=== PATIENT | male | born 1935 | race Caucasian/White ===

== ENCOUNTER 2017-01-17 12:13 | Day surgery (SDC) | payer MEDICARE, OTHER ==
[2017-01-13 09:05] VITALS: BMI 30.4
[~2017-01-17 12:13] MED LIST: LACTATED RINGERS 1,000 ML IV SCH
[2017-01-17 12:36] VITALS: RESP 16; TEMP 97.7
[2017-01-17] MEDS ORDERED: LIDOCAINE 1% 20 ML VIAL (10MG/ML) FOR IV START SQ ONE (12:41)
[2017-01-17] MEDS ORDERED: LIDOCAINE 1% INJ 10MG/ML (20 ML MDV) ONE (13:23)
[2017-01-17] MEDS ORDERED: PROPOFOL 10 MG/ML 20 ML VIAL IV ONE (13:23)
--- NOTE | 2017-01-17 13:54 | P.PCN ---
Date of Procedure: 01/17/17 Preoperative Diagnosis: Postoperative Diagnosis: Procedure(s) Performed: Procedures: 1. Esophagogastroduodenoscopy and biopsy. 2. Colonoscopy and polypectomy. Preoperative diagnosis: Abdominal pain and change in bowel habits. Postoperative diagnosis: 1. Moderately sized hiatal hernia with no obvious esophagitis or complicated reflux disease. 2. Mild antral gastritis and minimal duodenitis. 3. Left sided diverticulosis with no evidence of acute diverticulitis or strictures. 4. Small splenic flexure polyp, snared, but no large polyps or cancer. Preparation: HalfLytely prep. Sedation: Was provided by anesthesia. Brief clinical history: The patient is a 81-year-old male who is referred for this evaluation for the above reasons. This evaluation is to assess for peptic ulcer disease, conjugated reflux disease or colon neoplasia. Procedure: With the patient on his left lateral decubitus position and after informed consent and adequate sedation, I passed the Olympus-GIF 160 video upper endoscope through the cricopharyngeus down the esophagus. The esophagus appeared healthy with no erosions, ulcers, strictures or Fontanez's esophagus. There was a moderately sized hiatal hernia then the endoscope was passed to the stomach which was insufflated with air and inspected in detail including the retroflex view in the cardia. Finally the endoscope was passed through the pylorus into the duodenum. There were no pyloric channel ulcers. The antrum and duodenum showed mottling and erythema more obvious in the stomach than in the small intestine. I obtained biopsies from the duodenum, antrum and esophagus then the endoscope was withdrawn and I proceeded with the colonoscopy. Perianal area did not show any fissures or fistulas. There were no masses felt on digital rectal examination. The Olympus CFQ 160L video colonoscope was then inserted in the rectum in the usual fashion and advanced to the cecum. There were multiple diverticular orifices scattered on the left side with no evidence of acute diverticulitis or strictures. There was a small polyp around the splenic flexure which was snared and retrieved by suction but there were no large polyps or cancer. I retroflexed the endoscope in the rectum before the endoscope was withdrawn. The patient tolerated the procedure well. Plan: The patient was reassured. Will await biopsy results. Further plans based on his course and biopsy results. I keep you updated on his progress. Implants: Indications for Procedure: Operative Findings: Description of Procedure:
[2017-01-17 14:12] VITALS: BP 140/78; PULSE 65
== END 2017-01-17 14:30 | disposition home or self-care (01) ==
LOC: ORWHC2ENDO 12:13
DX: D12.3 Benign neoplasm of transverse colon (principal); K57.30 Diverticulosis of large intestine without perforation or abscess without bleeding; K29.70 Gastritis, unspecified, without bleeding; K29.80 Duodenitis without bleeding; K21.0 Gastro-esophageal reflux disease with esophagitis; K44.9 Diaphragmatic hernia without obstruction or gangrene; M19.90 Unspecified osteoarthritis, unspecified site; C61 Malignant neoplasm of prostate; I10 Essential (primary) hypertension; Z91.041 Radiographic dye allergy status; Z88.5 Allergy status to narcotic agent; Z79.891 Long term (current) use of opiate analgesic; Z79.1 Long term (current) use of non-steroidal anti-inflammatories (NSAID); Z79.82 Long term (current) use of aspirin; Z79.899 Other long term (current) drug therapy
CPT/HCPCS: 45385; 43239; 88305; J2001; J2704

== ENCOUNTER 2017-03-07 08:46 | Emergency (ER) | payer MEDICARE, OTHER ==
[2017-03-07] MEDS ORDERED: IPRATROPIUM-ALBUTEROL 3 ML NEB INHALATION STA (09:01)
--- NOTE | 2017-03-07 09:04 | ED ---
SOB HPI - General Chief Complaint: Shortness of Breath Stated Complaint: Diff Breathing Time Seen by Provider: 03/07/17 08:50 Source: patient, RN notes reviewed Mode of arrival: ambulatory Limitations: no limitations - History of Present Illness Initial Comments: This is an 82-year-old male presents with complaints of the onset at about 5:00 this morning of shortness of breath while at rest and with exertion. 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 Is no history of exposure to toxins he was a schoolteacher for many years. Is no history of COPD emphysema he is nonsmoker. MD Complaint: shortness of breath - Related Data Home Medications Medication Instructions Recorded Confirmed Bicalutamide [Casodex] 50 mg PO DAILY 06/07/14 03/07/17 Ferrous Sulfate [Feosol] 65 mg PO HS 06/07/14 03/07/17 Meclizine [Antivert] 25 mg PO TID PRN 06/07/14 03/07/17 Temazepam 30 mg PO HS PRN 06/07/14 03/07/17 Cholecalciferol [Vitamin D3] 400 unit PO DAILY 06/18/14 03/07/17 Aspirin [Adult Low Dose Aspirin EC] 81 mg PO DAILY 01/13/17 03/07/17 Cyanocobalamin (Vitamin B-12) 1,000 mcg PO DAILY 01/13/17 03/07/17 [Vitamin B-12] Hydrochlorothiazide 25 mg PO DAILY 01/13/17 03/07/17 Losartan [Cozaar] 25 mg PO QAM 01/13/17 03/07/17 Omeprazole 20 mg PO BID 01/13/17 03/07/17 Ammonium Lactate Lotion 1 applic TOPICAL BID 03/07/17 03/07/17 [Lac-Hydrin 12% Lotion] Atorvastatin [Lipitor] 40 mg PO HS 03/07/17 03/07/17 Ondansetron Odt [Zofran Odt] 4 mg PO Q8HR PRN 03/07/17 03/07/17 Previous Rx's Medication Instructions Recorded traMADol HCL [Ultram] 50 mg PO Q6HR PRN #90 tab 06/26/14 Albuterol Inhaler [Ventolin Hfa 2 puff INHALATION Q6HR PRN #1 03/07/17 Inhaler] inhaler Azithromycin [Zithromax Z-pack] 250 mg PO DIRECTED #6 tab 03/07/17 Allergies Allergy/AdvReac Type Severity Reaction Status Date / Time Iodinated Contrast Media - Allergy Swelling Verified 03/07/17 09:06 Oral and [Iodinated Contrast Media - IV Dye] hydrocodone bitartrate AdvReac Nausea Verified 03/07/17 09:06 [From Vicodin] Review of Systems ROS Statement: Those systems with pertinent positive or pertinent negative responses have been documented in the HPI. ROS Other: All systems not noted in ROS Statement are negative. Past Medical History Past Medical History: Cancer, GERD/Reflux, Hyperlipidemia, Osteoarthritis (OA) Additional Past Medical History / Comment(s): Recent dry heaves, hiatal hernia, hx anemia, hx. prostate cancer, History of Any Multi-Drug Resistant Organisms: None Reported Past Surgical History: Hernia Repair, Joint Replacement, Orthopedic Surgery, Prostate Surgery Additional Past Surgical History / Comment(s): right knee & hip replaced, prostatectomy, orchiectomy, left wrist & arm surg. as child, left shoulder sx Past Anesthesia/Blood Transfusion Reactions: No Reported Reaction Past Psychological History: No Psychological Hx Reported Smoking Status: Never smoker Past Alcohol Use History: None Reported Past Drug Use History: None Reported General Exam - General Exam Comments Initial Comments: This is a well-developed well-nourished awake alert oriented times 3 male Limitations: no limitations General appearance: alert, in no apparent distress Head exam: Present: atraumatic, normocephalic, normal inspection Eye exam: Present: normal appearance, PERRL, EOMI. Absent: scleral icterus, conjunctival injection, periorbital swelling ENT exam: Present: normal exam, mucous membranes moist Neck exam: Present: normal inspection. Absent: tenderness, meningismus, lymphadenopathy Respiratory exam: Present: decreased breath sounds. Absent: respiratory distress, wheezes, rales, rhonchi, stridor Cardiovascular Exam: Present: regular rate, normal rhythm, normal heart sounds. Absent: systolic murmur, diastolic murmur, rubs, gallop, clicks GI/Abdominal exam: Present: soft, normal bowel sounds. Absent: distended, tenderness, guarding, rebound, rigid Extremities exam: Present: normal inspection, full ROM, normal capillary refill. Absent: tenderness, pedal edema, joint swelling, calf tenderness Back exam: Present: normal inspection Neurological exam: Present: alert, oriented X3, CN II-XII intact Psychiatric exam: Present: normal affect, normal mood Skin exam: Present: warm, dry, intact, normal color. Absent: rash Course Vital Signs 03/07/17 03/07/17 03/07/17 08:48 09:13 09:21 Temperature 98.4 F Pulse Rate 80 68 60 Respiratory 16 18 Rate Blood Pressure 151/71 125/62 O2 Sat by Pulse 96 97 Oximetry 03/07/17 03/07/17 03/07/17 09:28 10:06 12:09 Temperature Pulse Rate 66 70 71 Respiratory 18 16 Rate Blood Pressure 136/75 128/61 O2 Sat by Pulse 96 94 L Oximetry Medical Decision Making - Medical Decision Making I did discuss findings with patient. He will be discharged home placed on oral antibiotics and inhaler he is breathing better his lung sounds are markedly improved with increased aeration. - Lab Data Result diagrams: 03/07/17 09:08 03/07/17 09:08 Lab Results 03/07/17 03/07/17 03/07/17 Range/Units 09:08 09:08 09:08 WBC 7.5 (3.8-10.6) k/uL RBC 4.89 (4.30-5.90) m/uL Hgb 13.9 (13.0-17.5) gm/dL Hct 41.4 (39.0-53.0) % MCV 84.7 (80.0-100.0) fL MCH 28.4 (25.0-35.0) pg MCHC 33.5 (31.0-37.0) g/dL RDW 14.0 (11.5-15.5) % Plt Count 187 (150-450) k/uL Neutrophils % 70 % Lymphocytes % 20 % Monocytes % 6 % Eosinophils % 2 % Basophils % 0 % Neutrophils # 5.2 (1.3-7.7) k/uL Lymphocytes # 1.5 (1.0-4.8) k/uL Monocytes # 0.4 (0-1.0) k/uL Eosinophils # 0.2 (0-0.7) k/uL Basophils # 0.0 (0-0.2) k/uL PT (9.0-12.0) sec INR (<1.1) APTT (22.0-30.0) sec D-Dimer (<0.60) mg/L FEU Sodium 143 (137-145) mmol/L Potassium 4.1 (3.5-5.1) mmol/L Chloride 104 (98-107) mmol/L Carbon Dioxide 29 (22-30) mmol/L Anion Gap 10 mmol/L BUN 27 H (9-20) mg/dL Creatinine 1.01 (0.66-1.25) mg/dL Est GFR (MDRD) Af Amer >60 (>60 ml/min/1.73 sqM) Est GFR (MDRD) Non-Af >60 (>60 ml/min/1.73 sqM) Glucose 82 (74-99) mg/dL Calcium 9.7 (8.4-10.2) mg/dL Magnesium 2.0 (1.6-2.3) mg/dL Total Bilirubin 0.6 (0.2-1.3) mg/dL AST 29 (17-59) U/L ALT 33 (21-72) U/L Alkaline Phosphatase 117 (38-126) U/L Total Creatine Kinase 89 (55-170) U/L CK-MB (CK-2) 0.9 (0.0-2.4) ng/mL CK-MB (CK-2) Rel Index 1.0 Troponin I <0.012 (0.000-0.034) ng/mL NT-Pro-B Natriuret Pep pg/mL Total Protein 6.6 (6.3-8.2) g/dL Albumin 3.9 (3.5-5.0) g/dL 03/07/17 03/07/17 Range/Units 09:08 09:08 WBC (3.8-10.6) k/uL RBC (4.30-5.90) m/uL Hgb (13.0-17.5) gm/dL Hct (39.0-53.0) % MCV (80.0-100.0) fL MCH (25.0-35.0) pg MCHC (31.0-37.0) g/dL RDW (11.5-15.5) % Plt Count (150-450) k/uL Neutrophils % % Lymphocytes % % Monocytes % % Eosinophils % % Basophils % % Neutrophils # (1.3-7.7) k/uL Lymphocytes # (1.0-4.8) k/uL Monocytes # (0-1.0) k/uL Eosinophils # (0-0.7) k/uL Basophils # (0-0.2) k/uL PT 10.9 (9.0-12.0) sec INR 1.1 (<1.1) APTT 24.0 (22.0-30.0) sec D-Dimer 0.68 H (<0.60) mg/L FEU Sodium (137-145) mmol/L Potassium (3.5-5.1) mmol/L Chloride (98-107) mmol/L Carbon Dioxide (22-30) mmol/L Anion Gap mmol/L BUN (9-20) mg/dL Creatinine (0.66-1.25) mg/dL Est GFR (MDRD) Af Amer (>60 ml/min/1.73 sqM) Est GFR (MDRD) Non-Af (>60 ml/min/1.73 sqM) Glucose (74-99) mg/dL Calcium (8.4-10.2) mg/dL Magnesium (1.6-2.3) mg/dL Total Bilirubin (0.2-1.3) mg/dL AST (17-59) U/L ALT (21-72) U/L Alkaline Phosphatase (38-126) U/L Total Creatine Kinase (55-170) U/L CK-MB (CK-2) (0.0-2.4) ng/mL CK-MB (CK-2) Rel Index Troponin I (0.000-0.034) ng/mL NT-Pro-B Natriuret Pep 78 pg/mL Total Protein (6.3-8.2) g/dL Albumin (3.5-5.0) g/dL - EKG Data -: EKG Interpreted by Dc EKG shows normal: sinus rhythm, axis, intervals, QRS complexes, ST-T waves ( Sinus rhythm at 64. Interval 158 QRS 80 daily since QTC of 412/425 this is a normal-appearing EKG.) Rate: normal - Radiology Data Radiology results: report reviewed (Imaging shows no evidence of pulmonary embolus and there is evidence however of diffuse bronchial wall thickening exam bronchitis), image reviewed Disposition Clinical Impression: Bronchospasm, acute, Acute bronchitis Disposition: HOME SELF-CARE Condition: Good Instructions: Bronchospasm (ED), Acute Bronchitis (ED) Prescriptions: Albuterol Inhaler [Ventolin Hfa Inhaler] 2 puff INHALATION Q6HR PRN #1 inhaler PRN Reason: Dyspnea Azithromycin [Zithromax Z-pack] 250 mg PO DIRECTED #6 tab Referrals: Royce Young MD [Primary Care Provider] - 1-2 days Decision Time: 12:00
[2017-03-07 09:29] LABS: Basophils % (A) 0 %; CH 27.3; CHCM 32.3; Eosinophils # (A) 0.2 k/uL (0-0.7); Eosinophils % (A) 2 %; HCT 41.4 % (39.0-53.0); HDW 2.62; HGB 13.9 gm/dL (13.0-17.5); Luc # (Auto) 0.17; Luc % (Auto) 2; Lymphocytes # (A) 1.5 k/uL (1.0-4.8); Lymphocytes % (A) 20 %; MCH 28.4 pg (25.0-35.0); MCHC 33.5 g/dL (31.0-37.0); MCV 84.7 fL (80.0-100.0); Mean Platelet Volume 7.9; Monocytes # (A) 0.4 k/uL (0-1.0); Monocytes % (A) 6 %; Neutrophils # (A) 5.2 k/uL (1.3-7.7); Neutrophils % (A) 70 %; RBC 4.89 m/uL (4.30-5.90); WBC 7.5 k/uL (3.8-10.6); WBC (Perox) 7.68
[2017-03-07 09:34] LABS: ALT 33 U/L (21-72); AST 29 U/L (17-59); Alkaline Phosphatase 117 U/L (38-126); Anion Gap 10 mmol/L; Blood Urea Nitrogen 27 mg/dL (9-20); Calcium 9.7 mg/dL (8.4-10.2); Carbon Dioxide 29 mmol/L (22-30); Chloride 104 mmol/L (98-107); Glucose 82 mg/dL (74-99); Non-African American GFR(MDRD) >60 (>60 ml/min/1.73 sqM); Potassium 4.1 mmol/L (3.5-5.1); Sodium 143 mmol/L (137-145); Total Bilirubin 0.6 mg/dL (0.2-1.3); Total Protein 6.6 g/dL (6.3-8.2)
[2017-03-07 09:37] LABS: INR 1.1 (<1.1); Prothrombin Time 10.9 sec (9.0-12.0)
[2017-03-07 09:48] LABS: Creatine Kinase 89 U/L (55-170)
--- NOTE | 2017-03-07 09:59 | XR ---
EXAMINATION TYPE: XR chest 2V DATE OF EXAM: 03/07/2017 COMPARISON: Chest x-ray June 24, 2014 HISTORY: Difficulty in breathing. TECHNIQUE: Frontal and lateral views of the chest are obtained. FINDINGS: There is chronic emphysematous change with scattered fibrosis most prominent in the left levi ng base redemonstrated. There is no new focal air space opacity, pleural effusion, or pneumothorax s een. The cardiac silhouette size is within normal limits. The osseous structures are demineralized . Metallic hardware from left shoulder surgery is partially imaged. IMPRESSION: Chronic changes without acute pulmonary process.
[2017-03-07 10:02] LABS: Creatine Kinase MB 0.9 ng/mL (0.0-2.4); Troponin I <0.012 ng/mL (0.000-0.034)
[2017-03-07] MEDS ORDERED: RX INFO: IV CONTRAST WAS GIVEN 1 EACH MISC MISCELLANE PRN (10:24)
[2017-03-07] MEDS ORDERED: methylPREDNISolone SOD SUCCI 125 MG/2 ML VIAL IV STA (10:25)
[2017-03-07] MEDS ORDERED: diphenhydrAMINE 50 MG/ML 1 ML VIAL IVP STA (10:25)
[2017-03-07] MEDS ORDERED: FAMOTIDINE 20 MG/2 ML VIAL IV STA (10:25)
--- NOTE | 2017-03-07 12:29 | CT ---
EXAMINATION TYPE: CT angio chest DATE OF EXAM: 03/07/2017 COMPARISON: Radiograph same day HISTORY: 82-year-old male with Chest pain, difficulty breathing TECHNIQUE: Contiguous axial scanning of the chest performed with IV Contrast, patient injected with 1 00 ml mL of Omnipaque 350. Coronal/sagittal MIP reconstructions performed. CT DLP: 380.50 mGycm Automated exposure control for dose reduction was used. FINDINGS: The heart is borderline enlarged which is basilar pericardial effusion. Mild coronary vessel calcific ations are present. Aorta is normal caliber with conventional arch vessel branching anatomy. There are respiratory motion artifacts limiting evaluation for pulmonary embolus. No definite pulmona ry embolus is seen. Calcified right hilar lymph nodes compatible with prior granulomatous disease. No thoracic lymphadeno elvia by CT size criteria. Evaluation of the lung shows mild diffuse bronchial wall thickening, some dependent atelectasis, and some strandy scarring or additional atelectasis at the lung bases. No consolidation or pleural effusi on. There is a moderate-sized hiatal hernia with half the stomach in the lower thorax. In the visualized upper abdomen, there is a 1.9 cm lipid rich adrenal adenoma. Bones: Osteopenia and anterior bridging endplate spondylosis mid to lower thoracic spine. Some mild v ertebral compression deformities the chest at T6 and L1 have a chronic appearance. IMPRESSION: 1. SOME RESPIRATORY MOTION LIMITING ASSESSMENT. NO PULMONARY EMBOLUS SEEN. 2. BORDERLINE HEART SIZE. 3. MILD DIFFUSE BRONCHIAL WALL THICKENING COULD REPRESENT BRONCHITIS OR CHRONIC ASTHMA. STRANDY AREAS OF ATELECTASIS OR SCARRING IN THE LOWER LUNGS. 4. MODERATE SIZE HIATAL HERNIA WITH HALF THE STOMACH IN THE LOWER THORAX. 5. INCIDENTAL 1.9 CM LIPID RICH RIGHT ADRENAL ADENOMA.
[2017-03-07 12:56] VITALS: BP 125/66; PULSE 72; RESP 18; TEMP 98
== END 2017-03-07 12:55 | disposition home or self-care (01) ==
LOC: EC 08:46
DX: J20.9 Acute bronchitis, unspecified (principal); R07.9 Chest pain, unspecified; K21.9 Gastro-esophageal reflux disease without esophagitis; E78.5 Hyperlipidemia, unspecified; M19.90 Unspecified osteoarthritis, unspecified site; Z79.82 Long term (current) use of aspirin; Z79.899 Other long term (current) drug therapy; Z91.041 Radiographic dye allergy status; Z88.5 Allergy status to narcotic agent; Z86.2 Personal history of diseases of the blood and blood-forming organs and certain disorders involving the immune mechanism; Z85.46 Personal history of malignant neoplasm of prostate
CPT/HCPCS: 36415; 94640; 93005; 85379; 83880; 80053; 82550; 82553; 83735; 84484; 85025; 85610; 85730; 71020; 71275; 99285; 96374; 96375 ×2; J1200; J2930; Q9967

== ENCOUNTER 2017-03-09 09:37 | Emergency (ER) | payer MEDICARE, OTHER ==
[2017-03-09 09:52] VITALS: TEMP 97.8
[2017-03-09] MEDS ORDERED: IPRATROPIUM-ALBUTEROL 3 ML NEB INHALATION STA (10:10)
[2017-03-09] MEDS ORDERED: methylPREDNISolone SOD SUCCI 125 MG/2 ML VIAL IV STA (10:10)
--- NOTE | 2017-03-09 10:51 | ED ---
SOB HPI <Jef Mendez - Last Filed: 03/09/17 11:28> - General Source: patient, RN notes reviewed, old records reviewed Mode of arrival: ambulatory Limitations: no limitations <YvesChristi - Last Filed: 03/10/17 11:45> - General Chief Complaint: Shortness of Breath Stated Complaint: bronchitis-revisit Time Seen by Provider: 03/09/17 10:01 - History of Present Illness Initial Comments: This is an 82-year-old male presenting to the emergency Department chief complaint of increased shortness of breath over today. Patient reports that he was in the emergency department 2 days ago and had a full workup. Was diagnosed with bronchitis. He was discharged with azithromycin and has been taking his antibiotics. Patient ports that he was feeling better the day afterwards however today when he was going to physical therapy for his hip he noticed he was having some shortness of breath and decided he needed to quit doing physical therapy and be seen. Patient reports that he has had minimal coughing. Denies any specific chest pain. Patient states that he has had no recent fever or chills, nausea or vomiting or abdominal pain. Patient reports that he decided to come in for a repeat breathing treatment. Denies being discharged on steroids besides the antibiotic. (Christi Marinelli) - Related Data Home Medications Medication Instructions Recorded Confirmed Bicalutamide [Casodex] 50 mg PO DAILY 06/07/14 03/09/17 Ferrous Sulfate [Feosol] 325 mg PO HS 06/07/14 03/09/17 Meclizine [Antivert] 25 mg PO TID PRN 06/07/14 03/09/17 Temazepam 30 mg PO HS PRN 06/07/14 03/09/17 Cholecalciferol [Vitamin D3] 400 unit PO DAILY 06/18/14 03/09/17 Aspirin [Adult Low Dose Aspirin EC] 81 mg PO DAILY 01/13/17 03/09/17 Cyanocobalamin (Vitamin B-12) 1,000 mcg PO DAILY 01/13/17 03/09/17 [Vitamin B-12] Hydrochlorothiazide 25 mg PO DAILY 01/13/17 03/09/17 Losartan [Cozaar] 25 mg PO QAM 01/13/17 03/09/17 Omeprazole 20 mg PO BID 01/13/17 03/09/17 Ammonium Lactate Lotion 1 applic TOPICAL BID 03/07/17 03/09/17 [Lac-Hydrin 12% Lotion] Atorvastatin [Lipitor] 40 mg PO HS 03/07/17 03/09/17 Ondansetron Odt [Zofran Odt] 4 mg PO Q8HR PRN 03/07/17 03/09/17 Albuterol Inhaler [Ventolin Hfa 2 puff INHALATION RT-Q6H PRN 03/09/17 03/09/17 Inhaler] Azithromycin [Zithromax Z-pack] See Taper PO DAILY 03/09/17 03/09/17 Previous Rx's Medication Instructions Recorded traMADol HCL [Ultram] 50 mg PO Q6HR PRN #90 tab 06/26/14 methylPREDNISolone Dose Pack 4 mg PO DIRECTED #21 package 03/09/17 [Medrol Dose Pack] Allergies Allergy/AdvReac Type Severity Reaction Status Date / Time Iodinated Contrast Media - Allergy Swelling Verified 03/09/17 10:07 Oral and [Iodinated Contrast Media - IV Dye] hydrocodone bitartrate AdvReac Nausea Verified 03/09/17 10:07 [From Vicodin] Review of Systems ROS Other: All systems not noted in ROS Statement are negative. <Jef Mendez - Last Filed: 03/09/17 11:28> ROS Other: All systems not noted in ROS Statement are negative. <Christi Marinelli - Last Filed: 03/10/17 11:45> ROS Statement: Those systems with pertinent positive or pertinent negative responses have been documented in the HPI. Past Medical History Past Medical History: Cancer, GERD/Reflux, Hyperlipidemia, Osteoarthritis (OA) Additional Past Medical History / Comment(s): Recent dry heaves, hiatal hernia, hx anemia, hx. prostate cancer, History of Any Multi-Drug Resistant Organisms: None Reported Past Surgical History: Hernia Repair, Joint Replacement, Orthopedic Surgery, Prostate Surgery Additional Past Surgical History / Comment(s): right knee & hip replaced, prostatectomy, orchiectomy, left wrist & arm surg. as child, left shoulder sx Past Anesthesia/Blood Transfusion Reactions: No Reported Reaction Past Psychological History: No Psychological Hx Reported Smoking Status: Never smoker Past Alcohol Use History: None Reported Past Drug Use History: None Reported <Christi Marinelli - Last Filed: 03/10/17 11:45> General Exam <Jef Mendez - Last Filed: 03/09/17 11:28> Limitations: no limitations General appearance: alert, in no apparent distress Head exam: Present: atraumatic, normocephalic, normal inspection Eye exam: Present: normal appearance, PERRL, EOMI. Absent: scleral icterus, conjunctival injection, periorbital swelling ENT exam: Present: normal exam, mucous membranes moist Neck exam: Present: normal inspection. Absent: tenderness, meningismus, lymphadenopathy Respiratory exam: Present: wheezes (Mild bilateral wheezing.). Absent: normal lung sounds bilaterally, respiratory distress, rales, rhonchi, stridor Cardiovascular Exam: Present: regular rate, normal rhythm, normal heart sounds. Absent: systolic murmur, diastolic murmur, rubs, gallop, clicks GI/Abdominal exam: Present: soft, normal bowel sounds. Absent: distended, tenderness, guarding, rebound, rigid Extremities exam: Present: normal inspection, full ROM, normal capillary refill. Absent: tenderness, pedal edema, joint swelling, calf tenderness Back exam: Present: normal inspection Neurological exam: Present: alert, oriented X3, CN II-XII intact Psychiatric exam: Present: normal affect Skin exam: Present: warm, dry, intact, normal color. Absent: rash <Christi Marinelli - Last Filed: 03/10/17 11:45> - General Exam Comments Initial Comments: This is an 82-year-old male. Patient does not appear to be in any acute distress. He is lying on his bed. (Christi Marinelli) Course <Jef Mendez - Last Filed: 03/09/17 11:28> <Christi Marinelli - Last Filed: 03/10/17 11:45> Vital Signs 03/09/17 03/09/17 03/09/17 09:50 10:54 11:03 Temperature 97.8 F Pulse Rate 84 80 88 Respiratory 20 Rate Blood Pressure 117/56 O2 Sat by Pulse 96 Oximetry 03/09/17 03/09/17 12:48 13:07 Temperature Pulse Rate 65 65 Respiratory 16 16 Rate Blood Pressure 134/65 134/65 O2 Sat by Pulse 99 96 Oximetry - Reevaluation(s) Reevaluation #1: 03/09/17 11:28 I personally do a [id number] evaluation the patient did discuss findings with him. Patient's lung sounds are clear at this time. I do agree with the assessment and plan. Patient will be discharged. (Jef Mendez) Medical Decision Making <Jef Mendez - Last Filed: 03/09/17 11:28> - Lab Data Result diagrams: 03/09/17 11:15 03/09/17 11:15 - Radiology Data Radiology results: report reviewed <Christi Marinelli - Last Filed: 03/10/17 11:45> - Medical Decision Making This is an 87-year-old female presenting to emergency department after she tripped and fell going up the stairs at the [facility]. Patient reports that she fell and hit her forehead and nose on the edge of the sidewalk. Patient states that she does have a severe headache. She reports that she is on L [place]. She denies any other injuries to the fall. Denies any arm or leg pain. She reports that she was ambulatory after the fall. Patient reports that she has a laceration underneath her left eyebrow as well as over the bridge of her nose. Patient denies any nausea or vomiting, dizziness or shortness of breath or chest pain after the injury. Discussed case with Dr. Mendez, patent received repeat douneb treatment and feels much improved. Pt also given IV steroids and will be discharged with steroid pack. Patient agres to treatment plan and advised to follow up with PCP tomorrow. (Christi Marinelli) - Lab Data Lab Results 03/09/17 03/09/17 Range/Units 11:15 11:15 WBC 8.5 (3.8-10.6) k/uL RBC 4.76 (4.30-5.90) m/uL Hgb 13.3 (13.0-17.5) gm/dL Hct 40.3 (39.0-53.0) % MCV 84.6 (80.0-100.0) fL MCH 27.9 (25.0-35.0) pg MCHC 33.0 (31.0-37.0) g/dL RDW 14.2 (11.5-15.5) % Plt Count 172 (150-450) k/uL Neutrophils % 69 % Lymphocytes % 21 % Monocytes % 6 % Eosinophils % 1 % Basophils % 0 % Neutrophils # 5.9 (1.3-7.7) k/uL Lymphocytes # 1.8 (1.0-4.8) k/uL Monocytes # 0.5 (0-1.0) k/uL Eosinophils # 0.1 (0-0.7) k/uL Basophils # 0.0 (0-0.2) k/uL Sodium 139 (137-145) mmol/L Potassium 3.9 (3.5-5.1) mmol/L Chloride 103 (98-107) mmol/L Carbon Dioxide 27 (22-30) mmol/L Anion Gap 9 mmol/L BUN 29 H (9-20) mg/dL Creatinine 0.87 (0.66-1.25) mg/dL Est GFR (MDRD) Af Amer >60 (>60 ml/min/1.73 sqM) Est GFR (MDRD) Non-Af >60 (>60 ml/min/1.73 sqM) Glucose 93 (74-99) mg/dL Calcium 9.1 (8.4-10.2) mg/dL Total Bilirubin 0.6 (0.2-1.3) mg/dL AST 24 (17-59) U/L ALT 32 (21-72) U/L Alkaline Phosphatase 102 (38-126) U/L Total Protein 6.0 L (6.3-8.2) g/dL Albumin 3.5 (3.5-5.0) g/dL 03/09/17 11:27 EKG shows normal sinus rhythm. 61 bpm. CO interval 160 ms. QRS ration 90 ms. QT QTc is 426/420 ms. No evidence of ST elevation or T-wave inversion. No evidence of atrial or ventricular arrhythmias. (Christi Marinelli) - Radiology Data CXR shows no acute hanges from previous xray 2 days ago. (Christi Marinelli) Disposition <Jef Mendez - Last Filed: 03/09/17 11:28> Time of Disposition: 12:39 <Christi Marinelli - Last Filed: 03/10/17 11:45> Clinical Impression: Bronchospasm Disposition: HOME SELF-CARE Condition: Good Instructions: Acute Bronchitis (ED) Additional Instructions: Patient denies to use your inhaler as directed. Follow-up with her primary care provider. Return to the emergency department if any alarming occur. Prescriptions: methylPREDNISolone Dose Pack [Medrol Dose Pack] 4 mg PO DIRECTED #21 package Referrals: Royce Young MD [Primary Care Provider] - 1-2 days
--- NOTE | 2017-03-09 11:44 | XR ---
EXAMINATION TYPE: XR chest 2V DATE OF EXAM: 03/09/2017 COMPARISON: Chest x-ray and CTA chest from 2 days ago HISTORY: Shortness of breath. History of bronchitis. TECHNIQUE: Frontal and lateral views of the chest are obtained. FINDINGS: There is chronic emphysematous change with bibasilar scarring and/or atelectasis redemonstr ated. There is no new focal air space opacity, pleural effusion, or pneumothorax seen. The cardiac s ilhouette size is within normal limits. Retrocardiac opacity consistent with hiatal hernia is seen be tter on CT. Metallic hardware from left shoulder surgery is redemonstrated. IMPRESSION: Chronic changes without acute pulmonary process. No significant change from prior studie s.
[2017-03-09 11:45] LABS: Basophils % (A) 0 %; CH 27.4; CHCM 32.5; Eosinophils # (A) 0.1 k/uL (0-0.7); Eosinophils % (A) 1 %; HCT 40.3 % (39.0-53.0); HDW 2.54; HGB 13.3 gm/dL (13.0-17.5); Luc # (Auto) 0.17; Luc % (Auto) 2; Lymphocytes # (A) 1.8 k/uL (1.0-4.8); Lymphocytes % (A) 21 %; MCH 27.9 pg (25.0-35.0); MCV 84.6 fL (80.0-100.0); Monocytes # (A) 0.5 k/uL (0-1.0); Monocytes % (A) 6 %; Neutrophils # (A) 5.9 k/uL (1.3-7.7); Neutrophils % (A) 69 %; RBC 4.76 m/uL (4.30-5.90); RDW 14.2 % (11.5-15.5); WBC 8.5 k/uL (3.8-10.6); WBC (Perox) 8.92
[2017-03-09 11:48] LABS: ALT 32 U/L (21-72); AST 24 U/L (17-59); Alkaline Phosphatase 102 U/L (38-126); Anion Gap 9 mmol/L; Blood Urea Nitrogen 29 mg/dL (9-20); Calcium 9.1 mg/dL (8.4-10.2); Carbon Dioxide 27 mmol/L (22-30); Chloride 103 mmol/L (98-107); Glucose 93 mg/dL (74-99); Non-African American GFR(MDRD) >60 (>60 ml/min/1.73 sqM); Potassium 3.9 mmol/L (3.5-5.1); Sodium 139 mmol/L (137-145); Total Bilirubin 0.6 mg/dL (0.2-1.3)
[2017-03-09 12:50] VITALS: BP 134/65; PULSE 65; RESP 16
== END 2017-03-09 13:07 | disposition home or self-care (01) ==
LOC: EC 09:37
DX: S01.112A Laceration without foreign body of left eyelid and periocular area, initial encounter (principal); S01.21XA Laceration without foreign body of nose, initial encounter; R51 Headache; J98.01 Acute bronchospasm; E78.5 Hyperlipidemia, unspecified; M19.90 Unspecified osteoarthritis, unspecified site; K21.9 Gastro-esophageal reflux disease without esophagitis; Z79.82 Long term (current) use of aspirin; Z79.899 Other long term (current) drug therapy; Z91.041 Radiographic dye allergy status; Z88.5 Allergy status to narcotic agent; Z86.2 Personal history of diseases of the blood and blood-forming organs and certain disorders involving the immune mechanism; Z85.46 Personal history of malignant neoplasm of prostate; W10.9XXA Fall (on) (from) unspecified stairs and steps, initial encounter; Y92.240 Courthouse as the place of occurrence of the external cause
CPT/HCPCS: 36415; 94640; 93005; 80053; 85025; 87040; 71020; 99285; 96374; J2930

== ENCOUNTER 2017-03-11 17:12 | Emergency (ER) | payer MEDICARE, OTHER ==
--- NOTE | 2017-03-11 17:32 | ED ---
SOB HPI - General Chief Complaint: Shortness of Breath Stated Complaint: diff breathing Time Seen by Provider: 03/11/17 17:22 Source: patient, RN notes reviewed, old records reviewed Mode of arrival: ambulatory Limitations: no limitations - History of Present Illness Initial Comments: 82-year-old male presents emergency Department with chief complaint of shortness of breath. This is patient's third visit in 4 days for shortness of breath. Patient states it started suddenly 4 days ago and nighttime when he is having trouble breathing all night long inside come emergency department the following morning. Patient states she's had no chest pain associated with it. Patient has no lung history and denies any history of asthma, COPD or smoking history. Patient denies any cold-like symptoms associated with it denies sore throat, fever, chills, ear pain, nausea, vomiting diarrhea constipation. Patient states that he does notice the symptoms are slightly worse in the afternoon and evening time he states he can be when he sitting up or laying down. Patient also states that sometimes it is worse with exertion but sometimes it does not bother him. He states he has no history of CHF. Patient had an echocardiogram 2 weeks ago with his transportation services representative in which she was not notified of any significant abnormalities. Patient also had an EKG done time. Patient has no history of cardiac issues discos for regular checkups. Patient states he's never had a cath in the past. Patient denies any lower extremity swelling. Patient states that nothing seems to feel better. He states he is unsure if this is just related to anxiety but he states he does not feel anxious. - Related Data Home Medications Medication Instructions Recorded Confirmed Bicalutamide [Casodex] 50 mg PO DAILY 06/07/14 03/11/17 Ferrous Sulfate [Feosol] 325 mg PO HS 06/07/14 03/11/17 Meclizine [Antivert] 25 mg PO TID PRN 06/07/14 03/11/17 Temazepam 30 mg PO HS PRN 06/07/14 03/11/17 Cholecalciferol [Vitamin D3] 400 unit PO DAILY 06/18/14 03/11/17 Aspirin [Adult Low Dose Aspirin EC] 81 mg PO DAILY 01/13/17 03/11/17 Cyanocobalamin (Vitamin B-12) 1,000 mcg PO DAILY 01/13/17 03/11/17 [Vitamin B-12] Hydrochlorothiazide 25 mg PO DAILY 01/13/17 03/11/17 Losartan [Cozaar] 25 mg PO QAM 01/13/17 03/11/17 Omeprazole 20 mg PO BID 01/13/17 03/11/17 Ammonium Lactate Lotion 1 applic TOPICAL BID 03/07/17 03/11/17 [Lac-Hydrin 12% Lotion] Atorvastatin [Lipitor] 40 mg PO HS 03/07/17 03/11/17 Ondansetron Odt [Zofran Odt] 4 mg PO Q8HR PRN 03/07/17 03/11/17 Albuterol Inhaler [Ventolin Hfa 2 puff INHALATION RT-Q6H PRN 03/09/17 03/11/17 Inhaler] Azithromycin [Zithromax Z-pack] See Taper PO DAILY 03/09/17 03/11/17 methylPREDNISolone Dose Pack See Taper PO DAILY 03/11/17 03/11/17 [Medrol Dose Pack] Previous Rx's Medication Instructions Recorded traMADol HCL [Ultram] 50 mg PO Q6HR PRN #90 tab 06/26/14 ALPRAZolam [Xanax] 0.25 mg PO BID PRN #10 tab 03/11/17 Allergies Allergy/AdvReac Type Severity Reaction Status Date / Time Iodinated Contrast Media - Allergy Swelling Verified 03/11/17 17:30 Oral and [Iodinated Contrast Media - IV Dye] hydrocodone bitartrate AdvReac Nausea Verified 03/11/17 17:30 [From Vicodin] Review of Systems ROS Statement: Those systems with pertinent positive or pertinent negative responses have been documented in the HPI. ROS Other: All systems not noted in ROS Statement are negative. Past Medical History Past Medical History: Cancer, GERD/Reflux, Hyperlipidemia, Osteoarthritis (OA) Additional Past Medical History / Comment(s): Recent dry heaves, hiatal hernia, hx anemia, hx. prostate cancer, History of Any Multi-Drug Resistant Organisms: None Reported Past Surgical History: Hernia Repair, Joint Replacement, Orthopedic Surgery, Prostate Surgery Additional Past Surgical History / Comment(s): right knee & hip replaced, prostatectomy, orchiectomy, left wrist & arm surg. as child, left shoulder sx Past Anesthesia/Blood Transfusion Reactions: No Reported Reaction Past Psychological History: No Psychological Hx Reported Smoking Status: Never smoker Past Alcohol Use History: None Reported Past Drug Use History: None Reported General Exam Limitations: no limitations General appearance: alert, in no apparent distress Head exam: Present: atraumatic, normocephalic, normal inspection Eye exam: Present: normal appearance, PERRL, EOMI. Absent: scleral icterus, conjunctival injection, periorbital swelling ENT exam: Present: normal exam, normal oropharynx, mucous membranes moist Neck exam: Present: normal inspection, full ROM. Absent: tenderness, meningismus, lymphadenopathy Respiratory exam: Present: normal lung sounds bilaterally. Absent: respiratory distress, wheezes, rales, rhonchi, stridor Cardiovascular Exam: Present: regular rate, normal rhythm, normal heart sounds. Absent: systolic murmur, diastolic murmur, rubs, gallop, clicks GI/Abdominal exam: Present: soft, normal bowel sounds. Absent: distended, tenderness, guarding, rebound, rigid Extremities exam: Absent: pedal edema Neurological exam: Present: alert, oriented X3, CN II-XII intact, reflexes normal. Absent: motor sensory deficit Skin exam: Present: warm, dry, intact, normal color. Absent: rash Course Vital Signs 03/11/17 03/11/17 17:16 18:30 Temperature 97.4 F L Pulse Rate 71 67 Respiratory 19 20 Rate Blood Pressure 130/66 140/74 O2 Sat by Pulse 98 95 Oximetry Medical Decision Making - Medical Decision Making 82-year-old male present emergency department for intermittent shortness of breath. Patient had 3 workups in 4 days which have had no acute findings. Patient states he is completely symptom-free at this time I did review all diagnostic testing and results with the patient. Patient believed prior to this that it may be related to anxiety and which is this may be. Patient states he does get anxious when this happens. Patient will be given anxiety medication go home with short course of follow-up on Monday. Patient has had multiple cardiac workups, CTA of the chest which showed no pulmonary embolism, repeat x-rays no changes. Patient's lungs are clear to auscultation. Return parameters were discussed. - Lab Data Result diagrams: 03/11/17 17:40 03/11/17 17:40 Lab Results 03/11/17 03/11/17 03/11/17 Range/Units 17:40 17:40 17:40 WBC 11.0 H (3.8-10.6) k/uL RBC 4.93 (4.30-5.90) m/uL Hgb 13.8 (13.0-17.5) gm/dL Hct 42.1 (39.0-53.0) % MCV 85.4 (80.0-100.0) fL MCH 28.0 (25.0-35.0) pg MCHC 32.7 (31.0-37.0) g/dL RDW 14.1 (11.5-15.5) % Plt Count 194 (150-450) k/uL Neutrophils % 77 % Lymphocytes % 18 % Monocytes % 4 % Eosinophils % 0 % Basophils % 0 % Neutrophils # 8.5 H (1.3-7.7) k/uL Lymphocytes # 1.9 (1.0-4.8) k/uL Monocytes # 0.4 (0-1.0) k/uL Eosinophils # 0.0 (0-0.7) k/uL Basophils # 0.0 (0-0.2) k/uL PT (9.0-12.0) sec INR (<1.2) APTT (22.0-30.0) sec Sodium 139 (137-145) mmol/L Potassium 3.9 (3.5-5.1) mmol/L Chloride 105 (98-107) mmol/L Carbon Dioxide 24 (22-30) mmol/L Anion Gap 10 mmol/L BUN 32 H (9-20) mg/dL Creatinine 0.91 (0.66-1.25) mg/dL Est GFR (MDRD) Af Amer >60 (>60 ml/min/1.73 sqM) Est GFR (MDRD) Non-Af >60 (>60 ml/min/1.73 sqM) Glucose 106 H (74-99) mg/dL Calcium 9.0 (8.4-10.2) mg/dL Magnesium 2.1 (1.6-2.3) mg/dL Total Bilirubin 0.4 (0.2-1.3) mg/dL AST 35 (17-59) U/L ALT 63 (21-72) U/L Alkaline Phosphatase 102 (38-126) U/L Total Creatine Kinase 97 (55-170) U/L CK-MB (CK-2) 1.4 (0.0-2.4) ng/mL CK-MB (CK-2) Rel Index 1.4 Troponin I <0.012 (0.000-0.034) ng/mL NT-Pro-B Natriuret Pep pg/mL Total Protein 6.2 L (6.3-8.2) g/dL Albumin 3.8 (3.5-5.0) g/dL 03/11/17 03/11/17 Range/Units 17:40 17:40 WBC (3.8-10.6) k/uL RBC (4.30-5.90) m/uL Hgb (13.0-17.5) gm/dL Hct (39.0-53.0) % MCV (80.0-100.0) fL MCH (25.0-35.0) pg MCHC (31.0-37.0) g/dL RDW (11.5-15.5) % Plt Count (150-450) k/uL Neutrophils % % Lymphocytes % % Monocytes % % Eosinophils % % Basophils % % Neutrophils # (1.3-7.7) k/uL Lymphocytes # (1.0-4.8) k/uL Monocytes # (0-1.0) k/uL Eosinophils # (0-0.7) k/uL Basophils # (0-0.2) k/uL PT 11.2 (9.0-12.0) sec INR 1.1 (<1.2) APTT 23.0 (22.0-30.0) sec Sodium (137-145) mmol/L Potassium (3.5-5.1) mmol/L Chloride (98-107) mmol/L Carbon Dioxide (22-30) mmol/L Anion Gap mmol/L BUN (9-20) mg/dL Creatinine (0.66-1.25) mg/dL Est GFR (MDRD) Af Amer (>60 ml/min/1.73 sqM) Est GFR (MDRD) Non-Af (>60 ml/min/1.73 sqM) Glucose (74-99) mg/dL Calcium (8.4-10.2) mg/dL Magnesium (1.6-2.3) mg/dL Total Bilirubin (0.2-1.3) mg/dL AST (17-59) U/L ALT (21-72) U/L Alkaline Phosphatase (38-126) U/L Total Creatine Kinase (55-170) U/L CK-MB (CK-2) (0.0-2.4) ng/mL CK-MB (CK-2) Rel Index Troponin I (0.000-0.034) ng/mL NT-Pro-B Natriuret Pep 176 pg/mL Total Protein (6.3-8.2) g/dL Albumin (3.5-5.0) g/dL 03/11/17 18:53 EKG performed at 17:37 normal sinus rhythm with a rate of 69, MD interval 150 QRS duration 92 QT/QTC 418/[address] elevation or depression Disposition Clinical Impression: Paroxysmal dyspnea, Anxiety Disposition: HOME SELF-CARE Condition: Stable Instructions: Dyspnea (ED) Additional Instructions: Please return to the Emergency Department if symptoms worsen or any other concerns. Prescriptions: ALPRAZolam [Xanax] 0.25 mg PO BID PRN #10 tab PRN Reason: Anxiety Referrals: Royce Young MD [Primary Care Provider] - 1-2 days Time of Disposition: 19:32
[2017-03-11 17:59] LABS: Basophils % (A) 0 %; CH 27.4; CHCM 32.2; Eosinophils % (A) 0 %; HCT 42.1 % (39.0-53.0); HDW 2.47; HGB 13.8 gm/dL (13.0-17.5); Luc # (Auto) 0.14; Luc % (Auto) 1; Lymphocytes # (A) 1.9 k/uL (1.0-4.8); Lymphocytes % (A) 18 %; MCHC 32.7 g/dL (31.0-37.0); MCV 85.4 fL (80.0-100.0); Mean Platelet Volume 8.4; Monocytes # (A) 0.4 k/uL (0-1.0); Monocytes % (A) 4 %; Neutrophils # (A) 8.5 k/uL (1.3-7.7); Neutrophils % (A) 77 %; RBC 4.93 m/uL (4.30-5.90); RDW 14.1 % (11.5-15.5); WBC (Perox) 10.68
[2017-03-11 18:06] LABS: INR 1.1 (<1.2); Prothrombin Time 11.2 sec (9.0-12.0)
[2017-03-11 18:13] LABS: ALT 63 U/L (21-72); AST 35 U/L (17-59); Alkaline Phosphatase 102 U/L (38-126); Anion Gap 10 mmol/L; Blood Urea Nitrogen 32 mg/dL (9-20); Carbon Dioxide 24 mmol/L (22-30); Chloride 105 mmol/L (98-107); Glucose 106 mg/dL (74-99); Magnesium 2.1 mg/dL (1.6-2.3); Non-African American GFR(MDRD) >60 (>60 ml/min/1.73 sqM); Potassium 3.9 mmol/L (3.5-5.1); Sodium 139 mmol/L (137-145); Total Bilirubin 0.4 mg/dL (0.2-1.3); Total Protein 6.2 g/dL (6.3-8.2)
[2017-03-11 18:22] LABS: Creatine Kinase 97 U/L (55-170)
--- NOTE | 2017-03-11 18:22 | XR ---
EXAMINATION TYPE: XR chest 2V DATE OF EXAM: 03/11/2017 COMPARISON: Chest x-ray from 2 days ago. CTA chest from 4 days ago. HISTORY: Dyspnea. TECHNIQUE: Frontal and lateral views of the chest are obtained. FINDINGS: There is chronic emphysematous change with persistent left basilar atelectasis and/or scar ring. There is no new focal airspace opacity, pleural effusion, or pneumothorax seen bilaterally The cardiac silhouette size is within normal limits with atherosclerotic and slightly ectatic aorta. Retr ocardiac opacity consistent with hiatal hernia seen better on recent CT. The osseous structures are demineralized. Metallic hardware from left shoulder surgery is partially imaged. IMPRESSION: Chronic emphysematous change with persistent left basilar scarring and/or atelectasis, n o new acute infiltrate is present.
[2017-03-11 18:34] VITALS: BP 140/74; RESP 20
[2017-03-11 18:35] LABS: Creatine Kinase MB 1.4 ng/mL (0.0-2.4); Troponin I <0.012 ng/mL (0.000-0.034)
[2017-03-11 19:43] VITALS: PULSE 74; TEMP 97.9
== END 2017-03-11 19:41 | disposition home or self-care (01) ==
LOC: EC 17:12
DX: R06.02 Shortness of breath (principal); F41.9 Anxiety disorder, unspecified; E78.5 Hyperlipidemia, unspecified; M19.90 Unspecified osteoarthritis, unspecified site; K21.9 Gastro-esophageal reflux disease without esophagitis; Z79.82 Long term (current) use of aspirin; Z79.899 Other long term (current) drug therapy; Z79.52 Long term (current) use of systemic steroids; Z91.041 Radiographic dye allergy status; Z88.5 Allergy status to narcotic agent; Z90.79 Acquired absence of other genital organ(s); Z86.2 Personal history of diseases of the blood and blood-forming organs and certain disorders involving the immune mechanism; Z85.46 Personal history of malignant neoplasm of prostate
CPT/HCPCS: 36415; 71020; 80053; 82550; 82553; 83735; 83880; 84484; 85025; 85610; 85730; 93005; 99285

== ENCOUNTER 2019-01-27 09:11 | Emergency (ER) | payer MEDICARE, OTHER ==
[2019-01-27 09:20] VITALS: BP 130/69; PULSE 78; RESP 18; TEMP 97.3
[2019-01-27 09:49] LABS: Appearance,Urine Clear (Clear); Bilirubin,Urine Negative (Negative); Blood,Urine Moderate (Negative); Color,Urine Light Red; Glucose,Urine (UA) Negative (Negative); Ketones,Urine Negative (Negative); Leukocyte Esterase,Urine Negative (Negative); Mucus,Urine Rare /hpf; Nitrite,Urine Negative (Negative); PH, Urine 5.5 (5.0-8.0); Protein,Urine 1+ (Negative); RBC,Urine >182 /hpf (0-5); Specific Gravity,Urine 1.028 (1.001-1.035); Urobilinogen,Urine <2.0 mg/dL (<2.0); WBC,Urine 22 /hpf (0-5)
[2019-01-27] MEDS ORDERED: CEPHALEXIN 500 MG CAP PO STA (09:58)
[2019-01-27] MEDS ORDERED: CEPHALEXIN 500MG STARTER PACK 4 CAP BTL PO STA (09:58)
--- NOTE | 2019-01-27 09:58 | ED ---
Male Urogenital HPI - General Chief complaint: Urogenital Stated complaint: blood in urine Time Seen by Provider: 01/27/19 09:16 Source: patient, RN notes reviewed, old records reviewed Mode of arrival: ambulatory Limitations: no limitations - History of Present Illness Initial comments: This is an 83-year-old male the ER for evaluation. Patient resents today for evaluation regarding hematuria and blood in the urine. Patient has no abdominal pain. No fevers. No history of hematuria. No blood thinners. No feelings of lightheadedness dizziness or weakness and denies trauma. MD Complaint: other (Hematuria) -: hour(s) Radiation: none Severity: mild Consistency: constant Improves with: none Worsens with: urination Reports: denies other symptoms - Related Data Home Medications Medication Instructions Recorded Confirmed Bicalutamide [Casodex] 50 mg PO DAILY 06/07/14 01/27/19 Ferrous Sulfate [Feosol] 325 mg PO HS 06/07/14 01/27/19 Cholecalciferol [Vitamin D3] 400 unit PO DAILY 06/18/14 01/27/19 Aspirin [Adult Low Dose Aspirin EC] 81 mg PO DAILY 01/13/17 01/27/19 Cyanocobalamin (Vitamin B-12) 1,000 mcg PO DAILY 01/13/17 01/27/19 [Vitamin B-12] Losartan [Cozaar] 25 mg PO HS 01/13/17 01/27/19 Atorvastatin [Lipitor] 40 mg PO DAILY 03/07/17 01/27/19 Albuterol Sulfate [Proventil Hfa] 1 - 2 puff INHALATION RT-Q6H PRN 01/27/19 01/27/19 LORazepam [Ativan] 0.5 mg PO DAILY PRN 01/27/19 01/27/19 Sucralfate [Carafate] 1 gm PO ACHS 01/27/19 01/27/19 Temazepam [Restoril] 15 mg PO HS PRN 01/27/19 01/27/19 Vitamin E 100 unit PO DAILY 01/27/19 01/27/19 Previous Rx's Medication Instructions Recorded Cephalexin [Keflex] 500 mg PO Q6HR 7 Days #21 cap 01/27/19 Allergies Allergy/AdvReac Type Severity Reaction Status Date / Time Iodinated Contrast- Oral and Allergy Swelling Verified 01/27/19 09:44 IV Dye [Iodinated Contrast Media - IV Dye] hydrocodone bitartrate AdvReac Nausea Verified 01/27/19 09:44 [From Vicodin] Review of Systems ROS Statement: Those systems with pertinent positive or pertinent negative responses have been documented in the HPI. ROS Other: All systems not noted in ROS Statement are negative. Past Medical History Past Medical History: Cancer, GERD/Reflux, Hyperlipidemia, Osteoarthritis (OA) Additional Past Medical History / Comment(s): Recent dry heaves, hiatal hernia, hx anemia, hx. prostate cancer, History of Any Multi-Drug Resistant Organisms: None Reported Past Surgical History: Hernia Repair, Joint Replacement, Orthopedic Surgery, Prostate Surgery Additional Past Surgical History / Comment(s): right knee & hip replaced, prostatectomy, orchiectomy, left wrist & arm surg. as child, left shoulder sx Past Anesthesia/Blood Transfusion Reactions: No Reported Reaction Past Psychological History: No Psychological Hx Reported Smoking Status: Never smoker Past Alcohol Use History: None Reported Past Drug Use History: None Reported General Exam Limitations: no limitations General appearance: alert, in no apparent distress Head exam: Present: atraumatic, normocephalic, normal inspection Eye exam: Present: normal appearance, PERRL, EOMI. Absent: scleral icterus, conjunctival injection, periorbital swelling ENT exam: Present: normal exam, mucous membranes moist Neck exam: Present: normal inspection. Absent: tenderness, meningismus, lymphadenopathy Respiratory exam: Present: normal lung sounds bilaterally. Absent: respiratory distress, wheezes, rales, rhonchi, stridor Cardiovascular Exam: Present: regular rate, normal rhythm, normal heart sounds. Absent: systolic murmur, diastolic murmur, rubs, gallop, clicks GI/Abdominal exam: Present: soft, normal bowel sounds. Absent: distended, tenderness, guarding, rebound, rigid Extremities exam: Present: normal inspection, full ROM, normal capillary refill. Absent: tenderness, pedal edema, joint swelling, calf tenderness Back exam: Present: normal inspection Neurological exam: Present: alert, oriented X3, CN II-XII intact Psychiatric exam: Present: normal affect, normal mood Skin exam: Present: warm, dry, intact, normal color. Absent: rash Course Vital Signs 01/27/19 09:16 Temperature 97.3 F L Pulse Rate 78 Respiratory 18 Rate Blood Pressure 130/69 O2 Sat by Pulse 98 Oximetry - Reevaluation(s) Reevaluation #1: 01/27/19 10:45 Medical record is reviewed and spoke with patient regarding need to follow-up with urology regarding infection versus bladder cancer Medical Decision Making - Medical Decision Making 83-year-old male the ER for evaluation of hematuria blood in the urine. Patient be treated for possible UTI follow-up with urology regarding possible bladder cancer further evaluation of hematuria - Lab Data Lab Results 01/27/19 Range/Units 09:30 Urine Color Light Red Urine Appearance Clear (Clear) Urine pH 5.5 (5.0-8.0) Ur Specific [place] 1.028 (1.001-1.035) Urine Protein 1+ H (Negative) Urine Glucose (UA) Negative (Negative) Urine Ketones Negative (Negative) Urine Blood Moderate H (Negative) Urine Nitrite Negative (Negative) Urine Bilirubin Negative (Negative) Urine Urobilinogen <2.0 (<2.0) mg/dL Ur Leukocyte Esterase Negative (Negative) Urine RBC >182 H (0-5) /hpf Urine WBC 22 H (0-5) /hpf Urine Mucus Rare H (None) /hpf Disposition Clinical Impression: Hematuria, UTI (urinary tract infection) Disposition: HOME SELF-CARE Condition: Good Instructions (If sedation given, give patient instructions): Hematuria (ED) Prescriptions: Cephalexin [Keflex] 500 mg PO Q6HR 7 Days #21 cap Is patient prescribed a controlled substance at d/c from ED?: No Referrals: Nickolas Cooper MD [STAFF PHYSICIAN] - 1-2 days
== END 2019-01-27 11:03 | disposition home or self-care (01) ==
LOC: EC 09:11
DX: N39.0 Urinary tract infection, site not specified (principal); E78.5 Hyperlipidemia, unspecified; K21.9 Gastro-esophageal reflux disease without esophagitis; M19.90 Unspecified osteoarthritis, unspecified site; Z79.82 Long term (current) use of aspirin; Z79.899 Other long term (current) drug therapy; Z88.5 Allergy status to narcotic agent; Z91.041 Radiographic dye allergy status; Z85.46 Personal history of malignant neoplasm of prostate; Z96.651 Presence of right artificial knee joint; Z90.79 Acquired absence of other genital organ(s)
CPT/HCPCS: 81001; 87086; 99284

== ENCOUNTER 2019-02-02 23:26 | Emergency (ER) | payer MEDICARE, OTHER ==
[2019-02-02 23:32] VITALS: BP 146/80; PULSE 87; RESP 18; TEMP 97.8
--- NOTE | 2019-02-03 01:14 | ED ---
Male Urogenital HPI - General Chief complaint: Urogenital Stated complaint: Male Time Seen by Provider: 02/03/19 00:05 Source: patient Mode of arrival: ambulatory Limitations: no limitations - History of Present Illness Initial comments: Patient is an 83 yo male to Luke catheter placed last week to urinary tract infection and retention. Patient reports he's had no urine from the Luke in the past few hours and he's noted that it seems to be dripping around the tube. Patient's concern that the Luke catheter may be blocked. - Related Data Home Medications Medication Instructions Recorded Confirmed Bicalutamide [Casodex] 50 mg PO DAILY 06/07/14 02/02/19 Ferrous Sulfate [Feosol] 325 mg PO HS 06/07/14 02/02/19 Cholecalciferol [Vitamin D3] 400 unit PO DAILY 06/18/14 02/02/19 Aspirin [Adult Low Dose Aspirin EC] 81 mg PO DAILY 01/13/17 02/02/19 Cyanocobalamin (Vitamin B-12) 1,000 mcg PO DAILY 01/13/17 02/02/19 [Vitamin B-12] Losartan [Cozaar] 25 mg PO HS 01/13/17 02/02/19 Atorvastatin [Lipitor] 40 mg PO DAILY 03/07/17 02/02/19 Albuterol Sulfate [Proventil Hfa] 1 - 2 puff INHALATION RT-Q6H PRN 01/27/19 02/02/19 LORazepam [Ativan] 0.5 mg PO DAILY PRN 01/27/19 02/02/19 Sucralfate [Carafate] 1 gm PO [facility] 01/27/19 02/02/19 Temazepam [Restoril] 15 mg PO HS PRN 01/27/19 02/02/19 Vitamin E 100 unit PO DAILY 01/27/19 02/02/19 Previous Rx's Medication Instructions Recorded Cephalexin [Keflex] 500 mg PO Q6HR 7 Days #21 cap 01/27/19 Allergies Allergy/AdvReac Type Severity Reaction Status Date / Time Iodinated Contrast- Oral and Allergy Swelling Verified 02/02/19 23:34 IV Dye [Iodinated Contrast Media - IV Dye] hydrocodone bitartrate AdvReac Nausea Verified 02/02/19 23:34 [From Vicodin] Review of Systems ROS Statement: Those systems with pertinent positive or pertinent negative responses have been documented in the HPI. ROS Other: All systems not noted in ROS Statement are negative. Past Medical History Past Medical History: Cancer, GERD/Reflux, Hyperlipidemia, Osteoarthritis (OA) Additional Past Medical History / Comment(s): Recent dry heaves, hiatal hernia, hx anemia, hx. prostate cancer, History of Any Multi-Drug Resistant Organisms: None Reported Past Surgical History: Hernia Repair, Joint Replacement, Orthopedic Surgery, Prostate Surgery Additional Past Surgical History / Comment(s): right knee & hip replaced, prostatectomy, orchiectomy, left wrist & arm surg. as child, left shoulder sx Past Anesthesia/Blood Transfusion Reactions: No Reported Reaction Past Psychological History: No Psychological Hx Reported Smoking Status: Never smoker Past Alcohol Use History: None Reported Past Drug Use History: None Reported General Exam - General Exam Comments Initial Comments: Physical Exam GENERAL: Patient is well-developed and well-nourished. Appears uncomfortable HENT: Normocephalic, Atraumatic. EYES: PERRL, EOMI PULMONARY: Unlabored respirations. CARDIOVASCULAR: RRR ABDOMEN: Non-distended SKIN: Skin is clear with no lesions or rashes and otherwise unremarkable. : Luke catheter in place, urine leaking around luke NEUROLOGIC: Patient is alert and oriented x3. Moving all extremities spontaneously MUSCULOSKELETAL: Normal extremities with adequate strength and full range of motion. No lower extremity swelling or edema. No calf tenderness. PSYCHIATRIC: Normal psychiatric evaluation Limitations: no limitations Course Vital Signs 02/02/19 23:29 Temperature 97.8 F Pulse Rate 87 Respiratory 18 Rate Blood Pressure 146/80 O2 Sat by Pulse 95 Oximetry Medical Decision Making - Medical Decision Making The patient was seen and evaluated with the catheter was irrigated and significant amount of urine was draining patient had complete relief and was comfortable with plan for discharge home and continue follow-up with outpatient urology Disposition Clinical Impression: Malfunction of Luke catheter Disposition: HOME SELF-CARE Condition: Stable Instructions (If sedation given, give patient instructions): Urinary Tract Infection in Men (ED) Is patient prescribed a controlled substance at d/c from ED?: No Referrals: Royce Young MD [Primary Care Provider] - 1-2 days
== END 2019-02-03 01:43 | disposition home or self-care (01) ==
LOC: EC 23:26
DX: T83.018A Breakdown (mechanical) of other urinary catheter, initial encounter (principal); E78.5 Hyperlipidemia, unspecified; M19.90 Unspecified osteoarthritis, unspecified site; Z85.46 Personal history of malignant neoplasm of prostate; Z88.5 Allergy status to narcotic agent; Z96.641 Presence of right artificial hip joint; Z96.651 Presence of right artificial knee joint; Z79.82 Long term (current) use of aspirin; Z79.899 Other long term (current) drug therapy; Z91.041 Radiographic dye allergy status; Y84.6 Urinary catheterization as the cause of abnormal reaction of the patient, or of later complication, without mention of misadventure at the time of the procedure
CPT/HCPCS: 99283

== ENCOUNTER 2019-02-06 12:13 | Emergency (ER) | payer MEDICARE, OTHER ==
[2019-02-06 12:31] VITALS: RESP 18
--- NOTE | 2019-02-06 14:18 | ED ---
General Adult HPI - General Chief complaint: Urogenital Stated complaint: Catheter issues Time Seen by Provider: 02/06/19 12:30 Source: patient, RN notes reviewed Mode of arrival: wheelchair Limitations: no limitations - History of Present Illness Initial comments: This is an 84-year-old male presents emergency Department complaining that he is urinating around his catheter. Patient states he catheters placed on of last week and today he started urinating around the catheter. Patient denies any abdominal pain. Patient denies any dysuria here. Patient states occasionally it was a little bit of blood but has not had any recently. Patient denies any fever or chills. Patient denies any back pain. Patient denies vomiting or diarrhea. - Related Data Home Medications Medication Instructions Recorded Confirmed Bicalutamide [Casodex] 50 mg PO DAILY 06/07/14 02/06/19 Ferrous Sulfate [Feosol] 325 mg PO HS 06/07/14 02/06/19 Cholecalciferol [Vitamin D3] 400 unit PO DAILY 06/18/14 02/06/19 Aspirin [Adult Low Dose Aspirin EC] 81 mg PO DAILY 01/13/17 02/06/19 Cyanocobalamin (Vitamin B-12) 1,000 mcg PO DAILY 01/13/17 02/06/19 [Vitamin B-12] Losartan [Cozaar] 25 mg PO HS 01/13/17 02/06/19 Atorvastatin [Lipitor] 40 mg PO DAILY 03/07/17 02/06/19 Albuterol Sulfate [Proventil Hfa] 1 - 2 puff INHALATION RT-Q6H PRN 01/27/19 02/06/19 LORazepam [Ativan] 0.5 mg PO DAILY PRN 01/27/19 02/06/19 Sucralfate [Carafate] 1 gm PO ACHS 01/27/19 02/06/19 Temazepam [Restoril] 15 mg PO HS PRN 01/27/19 02/06/19 Vitamin E 100 unit PO DAILY 01/27/19 02/06/19 Allergies Allergy/AdvReac Type Severity Reaction Status Date / Time Iodinated Contrast- Oral and Allergy Swelling Verified 02/06/19 12:58 IV Dye [Iodinated Contrast Media - IV Dye] hydrocodone bitartrate AdvReac Nausea Verified 02/06/19 12:58 [From Vicodin] Review of Systems ROS Statement: Those systems with pertinent positive or pertinent negative responses have been documented in the HPI. ROS Other: All systems not noted in ROS Statement are negative. Past Medical History Past Medical History: Cancer, GERD/Reflux, Hyperlipidemia, Osteoarthritis (OA) Additional Past Medical History / Comment(s): Recent dry heaves, hiatal hernia, hx anemia, hx. prostate cancer, History of Any Multi-Drug Resistant Organisms: None Reported Past Surgical History: Hernia Repair, Joint Replacement, Orthopedic Surgery, Prostate Surgery Additional Past Surgical History / Comment(s): right knee & hip replaced, prostatectomy, orchiectomy, left wrist & arm surg. as child, left shoulder sx Past Anesthesia/Blood Transfusion Reactions: No Reported Reaction Past Psychological History: No Psychological Hx Reported Smoking Status: Never smoker Past Alcohol Use History: None Reported Past Drug Use History: None Reported General Exam - General Exam Comments Initial Comments: GENERAL: Patient is well-developed and well-nourished. Patient is nontoxic and well- hydrated and is in no acute distress. ENT: Neck is soft and supple. No significant lymphadenopathy is noted. Oropharynx i s clear. Moist mucous membranes. Neck has full range of motion without eliciting any pain. EYES: The sclera were anicteric and conjunctiva were pink and moist. Extraocular movements were intact and pupils were equal round and reactive to light. Eyelids were unremarkable. ABDOMEN: Soft and nontender with normal bowel sounds. No palpable organomegaly was noted. There is no palpable pulsatile mass. SKIN: Skin is clear with no lesions or rashes and otherwise unremarkable. NEUROLOGIC: Patient is alert and oriented x3. Cranial nerves II through XII are grossly intact. Motor and sensory are also intact. Normal speech, volume and content. Symmetrical smile. MUSCULOSKELETAL: Normal extremities with adequate strength and full range of motion. LYMPHATICS: No significant lymphadenopathy is noted PSYCHIATRIC: Normal psychiatric evaluation. Limitations: no limitations Course Vital Signs 02/06/19 12:28 Temperature 98.6 F Pulse Rate 74 Respiratory 18 Rate Blood Pressure 117/73 O2 Sat by Pulse 96 Oximetry Medical Decision Making - Medical Decision Making The catheter was cut off by the way the patient was tying it to his legs and his symptoms that was released. The patient's urine flowed normally - Lab Data Lab Results 02/06/19 Range/Units 13:40 Urine Color Light Red Urine Appearance Clear (Clear) Urine pH 6.0 (5.0-8.0) Ur Specific [place] 1.008 (1.001-1.035) Urine Protein 1+ H (Negative) Urine Glucose (UA) Negative (Negative) Urine Ketones Negative (Negative) Urine Blood Large H (Negative) Urine Nitrite Negative (Negative) Urine Bilirubin Negative (Negative) Urine Urobilinogen <2.0 (<2.0) mg/dL Ur Leukocyte Esterase Moderate H (Negative) Urine RBC >182 H (0-5) /hpf Urine WBC 22 H (0-5) /hpf Urine Mucus Occasional H (None) /hpf Disposition Clinical Impression: Malfunction of Aguirre catheter Disposition: HOME SELF-CARE Condition: Good Instructions (If sedation given, give patient instructions): Aguirre Catheter Placement and Care (ED) Is patient prescribed a controlled substance at d/c from ED?: No Referrals: Royce Young MD [Primary Care Provider] - 1-2 days Time of Disposition: 14:59
[2019-02-06 14:28] LABS: Appearance,Urine Clear (Clear); Bilirubin,Urine Negative (Negative); Blood,Urine Large (Negative); Color,Urine Light Red; Glucose,Urine (UA) Negative (Negative); Ketones,Urine Negative (Negative); Leukocyte Esterase,Urine Moderate (Negative); Nitrite,Urine Negative (Negative); Protein,Urine 1+ (Negative); Specific Gravity,Urine 1.008 (1.001-1.035); Urobilinogen,Urine <2.0 mg/dL (<2.0); WBC,Urine 22 /hpf (0-5)
[2019-02-06 14:29] LABS: Mucus,Urine Occasional /hpf; RBC,Urine >182 /hpf (0-5)
[2019-02-06 15:21] VITALS: BP 110/68; PULSE 70; TEMP 98.2
== END 2019-02-06 15:20 | disposition home or self-care (01) ==
LOC: EC 12:13
DX: T83.018A Breakdown (mechanical) of other urinary catheter, initial encounter (principal); E78.5 Hyperlipidemia, unspecified; M19.90 Unspecified osteoarthritis, unspecified site; Z96.651 Presence of right artificial knee joint; Z96.641 Presence of right artificial hip joint; Z90.79 Acquired absence of other genital organ(s); Z85.46 Personal history of malignant neoplasm of prostate; Z79.82 Long term (current) use of aspirin; Z79.899 Other long term (current) drug therapy; Z91.041 Radiographic dye allergy status; Z88.5 Allergy status to narcotic agent
CPT/HCPCS: 81001; 99284

== ENCOUNTER → 2019-02-13 | Outpatient (CLI) | payer MEDICARE, OTHER ==
[2019-02-13 10:49] LABS: HCT 44.3 % (39.0-53.0); HGB 13.9 gm/dL (13.0-17.5); MCH 29.2 pg (25.0-35.0); MCHC 31.4 g/dL (31.0-37.0); Mean Platelet Volume 7.5; Platelet Count 206 k/uL (150-450); RBC 4.77 m/uL (4.30-5.90); RDW 14.2 % (11.5-15.5); WBC 6.9 k/uL (3.8-10.6)
[2019-02-13 11:35] LABS: Appearance,Urine Clear (Clear); Bilirubin,Urine Negative (Negative); Blood,Urine Small (Negative); Color,Urine Light Yellow; Glucose,Urine (UA) Negative (Negative); Ketones,Urine Negative (Negative); Leukocyte Esterase,Urine Negative (Negative); Mucus,Urine Rare /hpf; Nitrite,Urine Negative (Negative); Protein,Urine Negative (Negative); RBC,Urine 2 /hpf (0-5); Specific Gravity,Urine 1.007 (1.001-1.035); Urobilinogen,Urine <2.0 mg/dL (<2.0); WBC,Urine <1 /hpf (0-5)
[2019-02-13 11:47] LABS: Partial Thromboplastin Time 24.7 sec (22.0-30.0); Prothrombin Time 10.6 sec (9.0-12.0)
[2019-02-13 16:54] LABS: African American GFR (CKD) 80.9 (60.0-200.0); Albumin/Globulin Ratio 2.35 (1.60-3.17); Anion Gap 4.3 mmol/L (4.00-12.00); Calcium 9.6 mg/dL (8.7-10.3); Carbon Dioxide 31.7 mmol/L (21.6-31.8); Globulin 1.7 g/dL (1.6-3.3); Potassium 4.3 mmol/L (3.5-5.5); Total Bilirubin 0.5 mg/dL (0.2-1.2); Total Protein 5.7 g/dL (6.2-8.2)
== END | disposition home or self-care (01) ==
LOC: LABWHC1 09:50
PROVIDERS: ATTEND Orthopaedic Surgery
DX: Z01.818 Encounter for other preprocedural examination (principal); M17.12 Unilateral primary osteoarthritis, left knee; Z01.812 Encounter for preprocedural laboratory examination; Z79.01 Long term (current) use of anticoagulants
CPT/HCPCS: 36415; 80053; 81001; 85027; 85610; 85730; 87070; 93005

== ENCOUNTER 2019-02-25 12:27 | Inpatient (IN) | payer MEDICARE, OTHER ==
[~2019-02-25 12:27] MED LIST changes: -LACTATED RINGERS 1,000 ML IV SCH; +LIDOCAINE 1% 20 ML VIAL (10MG/ML) FOR IV START INTRADERMA PRN; +MIDAZOLAM 2 MG/2 ML VIAL IV PRN; +ROPIVACAINE 246.25 MG, EPINEPHrine 0.5 MG, KETOROLAC 30 MG, cloNIDine HCL/PF 80 MCG, WA... MISCELLANE ONE; +TRANEXAMIC ACID 1,000 MG in SODIUM CHLORIDE 0.9% 100 ML IVPB ONE; +ceFAZolin IN SWFI 2 GM/20 ML SYRINGE IVP ONE; +fentaNYL (PF) 50 MCG/ML 2 ML AMP IV PRN; +fentaNYL (PF) 50 MCG/ML 2 ML AMP IVP PRN
[2019-02-25] MEDS: ACETAMINOPHEN TAB 500 MG TAB PO ONE ×2 (12:55→19:50)
[2019-02-25] MEDS: MELOXICAM 7.5 MG TAB PO ONE ×3 (12:55→19:50)
[2019-02-25] MEDS: ONDANSETRON 4 MG/2 ML VIAL IVP ONE ×2 (13:01→19:51)
[2019-02-25] MEDS: LACTATED RINGERS 1,000 ML IV SCH ×4 (13:15→19:51)
[2019-02-25] MEDS ORDERED: MIDAZOLAM (PF) 2 MG/2 ML VIAL IVP ONE (13:22)
[2019-02-25] MEDS ORDERED: LIDOCAINE 1% INJ 10MG/ML (20 ML MDV) ONE (14:32)
[2019-02-25] MEDS ORDERED: MIDAZOLAM 2 MG/2 ML VIAL ONE (14:32)
[2019-02-25] MEDS ORDERED: PROPOFOL 10 MG/ML 20 ML VIAL IV ONE (14:32)
[2019-02-25] MEDS ORDERED: SODIUM CHLORIDE 0.9% 100 ML BAG ONE (14:32)
[2019-02-25] MEDS ORDERED: TRANEXAMIC ACID 1,000 MG/10 ML VIAL ONE (14:32)
[2019-02-25] MEDS ORDERED: ceFAZolin 3,000 MG in SODIUM CHLORIDE 0.9% IRRIGATIO 3,000 ML IRRIGATION ONE (15:28)
[2019-02-25] MEDS ORDERED: LACTATED RINGERS 1,000 ML IV ONE (16:57)
[2019-02-25] MEDS ORDERED: HYDROmorphone 0.5 MG/0.5 ML SYRINGE IVP PRN ×3 (17:04)
[2019-02-25] MEDS ORDERED: BISACODYL 10 MG SUPP RECTAL PRN (17:04)
[2019-02-25] MEDS ORDERED: TEMAZEPAM 15 MG CAP PO PRN (17:04)
[2019-02-25] MEDS ORDERED: NALOXONE 0.4 MG/ML 1 ML VIAL IV PRN (17:04)
[2019-02-25] MEDS ORDERED: NA PHOS,M-B/NA PHOS,DI-BA 133 ML ENEMA RECTAL PRN (17:04)
[2019-02-25] MEDS ORDERED: MEPERIDINE 50 MG/ML SYRINGE IVP ONE (17:10)
[2019-02-25] MEDS ORDERED: ROPIVACAINE 1,100 MG, SODIUM CHLORIDE 0.9% 500 ML 330 ML MISCELLANE PRN ×2 (17:11)
--- NOTE | 2019-02-25 17:51 | XR ---
EXAMINATION TYPE: XR knee limited LT DATE OF EXAM: 02/25/2019 COMPARISON: NONE HISTORY: Postop TECHNIQUE: 2 views FINDINGS: There is left knee prosthesis. Components are in anatomic position. IMPRESSION: No complicating process seen.
[2019-02-25] MEDS ORDERED: LORazepam 0.5 MG TAB PO PRN (18:58)
[2019-02-25] MEDS ORDERED: ALBUTEROL NEBULIZED 2.5 MG/3 ML INHALATION PRN (18:58)
[2019-02-25] MEDS ORDERED: SENNOSIDES-DOCUSATE SODIUM 1 EACH TAB PO SCH (21:00)
[2019-02-25] MEDS: ASPIRIN 325 MG TAB PO SCH (21:19)
[2019-02-25] MEDS: ATORVASTATIN 40 MG TAB PO SCH (21:19)
[2019-02-25] MEDS: ceFAZolin IN SWFI 2 GM/20 ML SYRINGE IVP SCH (23:51)
[2019-02-26 00:41] VITALS: BMI 31.7
[2019-02-26] MEDS: LACTATED RINGERS 1,000 ML IV SCH ×3 (02:59→23:18)
[2019-02-26] MEDS: ONDANSETRON 4 MG/2 ML VIAL IVP PRN ×2 (04:43→09:56)
--- NOTE | 2019-02-26 06:57 | P.ANPRN ---
Procedure Note - Anesthesia - Nerve Block Performed Left Adductor Canal Infusion Time Out Performed: Yes Date of Procedure: 02/25/19 Procedure Start Time: : Procedure Stop Time: : Location of Patient Procedure: PreOp Indication: Acute Post-Operative Pain, Requested by physician Sedation Type: Sedate with meaningful contact maintained Preparation: Sterile Prep, Sterile Dressing Position: Supine Catheter: Indwelling Needle Types: Pajunk Needle Gauge: 21 Technique: Ultrasound (ropi .5% 20cc) Blood Aspirated: No Pain Paresthesia on Injection Noted: No Resistance on Injection: Normal Events: Uneventful and Well Tolerated
[2019-02-26] MEDS: MULTIVITAMINS, THERA 1 EACH TAB PO SCH (07:18)
[2019-02-26] MEDS: MAGNESIUM OXIDE 400 MG TAB PO SCH (07:19)
[2019-02-26] MEDS: LOSARTAN 25 MG TAB PO SCH (07:19)
[2019-02-26] MEDS: LACTOBACILLUS ACIDOPH & BULGAR 1 EACH PACKET PO SCH (07:19)
[2019-02-26] MEDS: ASPIRIN 325 MG TAB PO SCH ×2 (07:19→20:33)
--- NOTE | 2019-02-26 08:36 | CONS ---
CONSULTATION REASON FOR CONSULTATION: Advice regarding hyperlipidemia and other multiple medical issues requested by Dr. Jasso. HISTORY OF PRESENT ILLNESS: This 84-year-old gentleman with past medical history of GERD, hyperlipidemia, DJD, hiatal hernia, history of prostate cancer, spinal stenosis, being followed by Dr. Royce Young in the outpatient setting underwent total left knee arthroplasty by Dr. Jasso. There is no history of chest pain. No history of palpitations, headache, loss of consciousness or seizures. No nausea, diarrhea, fever, rigors, chills at this time. PAST MEDICAL HISTORY: History of GERD, hyperlipidemia, DJD, hiatal hernia, history of anemia, history of hernia repair. MEDICATIONS: Prior to admission home medications are: 1. Vitamin D 400 units daily. 2. Restoril 15 mg q.h.s. p.r.n. 3. Carafate 1 g q.a.c. and q.h.s. 4. Multivitamins 1 daily. 5. Magnesium oxide 400 mg. 6. Cozaar 25 mg daily. 7. Ativan 0.5 mg daily p.r.n. 8. Probiotic 1 capsule daily. 9. Iron sulfate 320 mg p.o. b.i.d. 10.Vitamin B12 1500 mcg p.o. daily. 11.Vitamin D3 1000 units daily. 12.Casodex 50 mg p.o. daily. 13.Lipitor 40 mg q.h.s. 14.Aspirin 81 mg p.o. daily. 15.Proventil 1-2 puffs q.6h p.r.n. 16.Xanax 0.5 daily p.r.n. 17.Ultram 50 mg q.6h p.r.n. 18.Senokot-S 1 tab b.i.d. 19.Aspirin 320 mg p.o. b.i.d. ALLERGIES: IODINATED CONTRAST DYE AND VICODIN. FAMILY HISTORY: No history of heart disease or strokes in the family. SOCIAL HISTORY: No history of smoking, occasional alcohol intake. REVIEW OF SYSTEMS: ENT: No diminished vision. No diminished hearing. CARDIOVASCULAR: No angina or palpitations. RESPIRATORY: As mentioned earlier. GI no nausea or vomiting. no dysuria or hematuria. NERVOUS SYSTEM: No numbness or weakness. ALLERGY/IMMUNOLOGY: No asthma or hayfever. MUSCULOSKELETAL: As mentioned earlier. HEMATOLOGY/ONCOLOGY: As mentioned earlier. ENDOCRINE: No history of diabetes or hypothyroid. CONSTITUTIONAL: As mentioned earlier. DERMATOLOGY: Negative. RHEUMATOLOGY negative. PSYCHIATRY as mentioned. PHYSICAL EXAMINATION: Alert and oriented times three. Pulse 69. Blood pressure 131/62, respiration 18, temperature normal, pulse ox 98% on 2 L. HEENT is conjunctivae normal. NECK: No JVD. CARDIOVASCULAR: S1, S2 muffled. RESPIRATION: Breath sounds diminished in the bases. No rhonchi. No crackles. ABDOMEN: Soft, nontender. No mass palpable. LEGS: Status post left knee arthroplasty. NERVOUS SYSTEM: Higher functions as mentioned earlier, moves all four limbs. No focal deficits. LYMPHATICS: No lymph nodes palpable in the neck, axillae or groin. SKIN: No ulcer, no rashes and no bleeding. JOINTS: No active deforming arthropathy. LABS: The preop labs are reviewed including hematology/oncology is okay. Coags are normal and basic chemistries also within normal limits and UA noted. ASSESSMENT: 1. Status post left total knee left knee arthroplasty. 2. Gastroesophageal reflux disease. 3. Hyperlipidemia. 4. Degenerative joint disease. 5. Hiatal hernia. 6. History of vitamin D deficiency. 7. Prostate cancer. 8. History of spinal stenosis. 9. History of anxiety. RECOMMENDATIONS AND DISCUSSION: In this 84-year-old gentleman presented after surgery at this time continue current medications, management and symptomatic treatment. Otherwise, recommend resume home medications. DVT prophylaxis. Incentive spirometry. We will follow the patient closely with you and patient may be asked to follow up with primary physician closely. Thank you Dr. Jasso for letting us participate in care of this patient. See orders for details. Discussed with staff. MMODL / IJN: [id number] /
[2019-02-26] MEDS: ceFAZolin IN SWFI 2 GM/20 ML SYRINGE IVP SCH (09:03)
[2019-02-26] MEDS: traMADol 50 MG TAB PO PRN ×2 (09:19→20:33)
[2019-02-26] MEDS: SENNOSIDES-DOCUSATE SODIUM 1 EACH TAB PO SCH (09:19)
--- NOTE | 2019-02-26 09:42 | P.PN ---
Progress Note - Text Progress Note Date: 02/26/19 84-year-old male status post left total knee arthroplasty. Postoperative day #1. Had a adductor canal catheter placed preoperatively. Patient is doing well ambulating without issue. VAS is a 2-4 out of 10 in severity. Continue therapy as outpatient
--- NOTE | 2019-02-26 09:49 | P.PN ---
Subjective Progress Note Date: 02/26/19 Principal diagnosis: Degenerative arthritis left knee. Status post total left knee arthroplasty. This is a pleasant 84-year-old male with history of degenerative arthritis of left knee. He is status post total left knee arthroplasty. He is doing well from an orthopedic standpoint. He has no new complaints or concerns today. Vital signs are stable. Objective - Vital Signs Vital signs: Vital Signs Temp 98 F 02/26/19 07:00 Pulse 90 02/26/19 07:00 Resp 16 02/26/19 07:00 BP 143/74 02/26/19 07:00 Pulse Ox 97 02/26/19 07:00 Intake & Output 02/25/19 02/26/19 02/26/19 18:59 06:59 18:59 Intake Total 1701 1200 236 Output Total 50 300 Balance 1651 900 236 Intake: IV 1701 Intake, IV Titration 900 Amount Lactated Ringers 1,000 ml 900 @ 100 mls/hr IV .Q10H JESSY Rx#:[id number] Oral 300 236 Output: Urine 300 Estimated Blood Loss 50 Other: Voiding Method Urinal Urinal # Voids 1 - Exam This is a pleasant 84-year-old male in no acute distress. He is alert and oriented 3. Exam of the left lower extremity reveals that the dressing is clean, dry and intact. He has full foot and ankle motion. No calf pain with palpation. Minimal swelling. Neurovascular status to the lower extremities intact. Assessment and Plan (1) Osteoarthritis of left knee Current Visit: Yes Status: Acute Code(s): M17.12 - UNILATERAL PRIMARY OSTEOARTHRITIS, LEFT KNEE SNOMED Code(s): 462981529193487 (2) Status post total left knee replacement Current Visit: Yes Status: Acute Code(s): Z96.652 - PRESENCE OF LEFT ARTIFICIAL KNEE JOINT SNOMED Code(s): 1503695446111 Plan: The clinical findings are discussed with the patient. He was able to get up with therapy but felt a little unsure today. We'll plan on discharged to home tomorrow if stable.
[2019-02-26 09:55] LABS: Basophils % (A) 0 %; Eosinophils # (A) 0.3 k/uL (0-0.7); Eosinophils % (A) 2 %; HCT 40.9 % (39.0-53.0); HGB 12.7 gm/dL (13.0-17.5); Lymphocytes # (A) 1.6 k/uL (1.0-4.8); Lymphocytes % (A) 13 %; MCH 28.6 pg (25.0-35.0); MCHC 31.1 g/dL (31.0-37.0); MCV 91.9 fL (80.0-100.0); Mean Platelet Volume 8.6; Monocytes # (A) 0.8 k/uL (0-1.0); Monocytes % (A) 6 %; Neutrophils # (A) 9.5 k/uL (1.3-7.7); Neutrophils % (A) 77 %; Platelet Count 167 k/uL (150-450); RBC 4.45 m/uL (4.30-5.90); RDW 14.4 % (11.5-15.5); WBC 12.3 k/uL (3.8-10.6)
--- NOTE | 2019-02-26 19:20 | PN ---
PROGRESS NOTE DATE OF SERVICE: 02/26/2019 This 84-year-old gentleman who was admitted after left total knee arthroplasty is being closely monitored. No chest pain. No palpitations. No fever. On exam, alert and oriented x3. Pulse is 85, blood pressure 119/68, respirations 16, temperature 97.9, pulse ox 93% on room air. HEENT: Conjunctivae normal. NECK: No jugular venous distention. CARDIOVASCULAR SYSTEM: S1, S2 muffled. RESPIRATORY SYSTEM: Breath sounds diminished at the bases. No rhonchi. No crackles. ABDOMEN: Soft, non-tender. LEGS: Status post surgery. NERVOUS SYSTEM: No focal deficit. LABS: WBC 12.3, hemoglobin 12.7. ASSESSMENT: 1. Status post left total knee joint arthroplasty. 2. Gastroesophageal reflux disease. 3. Hyperlipidemia. 4. Degenerative joint disease. 5. Hiatal hernia. 6. History of vitamin D deficiency. 7. History of prostate cancer. 8. History of spinal stenosis. 9. History of anxiety. RECOMMENDATIONS AND DISCUSSION: I recommend to continue current medications, continue with the monitoring, symptomatic treatment. Otherwise at this time I would recommend continuing with incentive spirometry. Closely monitor with Orthopedic Surgery. Further recommendations to follow. MMODL / IJN: [id number] /
[2019-02-26] MEDS: MAGNESIUM HYDROXIDE 2,400 MG/10 ML CUP PO PRN (20:33)
[2019-02-26] MEDS: ATORVASTATIN 40 MG TAB PO SCH (20:33)
[2019-02-27] MEDS: traMADol 50 MG TAB PO PRN ×2 (05:30→20:05)
[2019-02-27] MEDS: ONDANSETRON 4 MG/2 ML VIAL IVP PRN ×2 (05:30→11:06)
[2019-02-27] MEDS: ASPIRIN 325 MG TAB PO SCH ×2 (07:10→20:05)
[2019-02-27] MEDS: MAGNESIUM OXIDE 400 MG TAB PO SCH (07:10)
[2019-02-27] MEDS: MULTIVITAMINS, THERA 1 EACH TAB PO SCH (07:11)
[2019-02-27] MEDS: LOSARTAN 25 MG TAB PO SCH (07:11)
[2019-02-27] MEDS: SENNOSIDES-DOCUSATE SODIUM 1 EACH TAB PO SCH (07:12)
[2019-02-27] MEDS: ALPRAZolam 0.25 MG TAB PO PRN (07:13)
[2019-02-27] MEDS: LACTOBACILLUS ACIDOPH & BULGAR 1 EACH PACKET PO SCH (07:13)
--- NOTE | 2019-02-27 10:22 | P.OP ---
Date of Procedure: 02/25/19 Procedure(s) Performed: left knee TKA [employer] standard technique PREOPERATIVE DIAGNOSIS: Left knee severe osteoarthritis with genu varum POSTOPERATIVE DIAGNOSIS: Left knee severe osteoarthritis with genu varum OPERATION: Left knee cemented total replacement arthroplasty. ANESTHESIA: Spinal ESTIMATED BLOOD LOSS: 100 ml. MANUFACTURING SHIFT SUPERVISOR: Doris uH PA-C (assistance with: patient positioning, retraction, exposure, hemostasis, leg positioning, implantation, irrigation, closure, dressing) COMPLICATIONS: None apparent. COMPONENTS IMPLANTED: Journey II total knee system from [employer] INDICATIONS: Mr. Valentino is an 84-year-old male with a history of left knee ost eoarthritis. The patient's knee is end-stage, and conservative management has failed. The operation of knee replacement has been discussed at length in the office, as well as potential risks and complications. These are inclusive of, but not limited to: bleeding, infection, scarring, discomfort, blood vessel and nerve damage, need for further surgery, failure to relieve symptoms, persistence, recurrence, or worsening of problems, loosening, dislocation, wear, blood clot, pulmonary embolism, , gait dysfunction, stiffness, and other risks as discussed in the office. The patient elects to proceed and the consent form has been signed. PROCEDURE: The patient was taken to the operating room and positioned on the operating room table in the supine position. Anesthesia was initiated. Care was taken to make sure that all pressure points were adequately padded. The left lower extremity was prepped and draped in the usual aseptic fashion using ChloraPrep. Ioban drape was used for the case and the patient received intravenous antibiotics within one hour of the incision. A pneumotourniquet and leg meehan were used for the case. The limb was exsanguinated with an Esmarch bandage and the tourniquet was inflated to 350 mmHg. Time-out was called confirming the patient's identity, side, procedure and administration of antibiotics and tranexamic acid. The incision was then created midline directly over the left knee, carried down through skin and into the subcutaneous tissues and down to fascia. Full thickness subcutaneous medial flap was developed. Medial parapatellar arthro luis f was performed and the interior of the knee was inspected. There was end- stage osteoarthritis of the knee with a mild to moderate genu varum type deformity. The fat pad was excised and proximal medial release on the tibia was completed using meticulous dissection and a curved osteotome. The anterior cruciate ligament was taken down. Note was made of significant degenerative appearance of the cruciate ligaments. The exposure was excellent. The knee was flexed 90 degrees and the patella was everted. A spot was chosen on the femur approximately 1 cm anterior to the posterior cruciate ligament insertion and an intramedullary hole was created within the femur. The intramedullary guide was set to 5 degrees of valgus. The distal cutting block was attached and pinned into position. An appropriate amount of distal femoral resection was set. The oscillating saw was then used to make the distal femoral cut. This cut was confirmed to be flat with the flat end of an osteotome. The retractors were placed around the tibia and the tibial surface was addressed. The angle and depth of resection was adjusted using an extramedullary cutting guide. The guide had a built-in 3 degree posterior slope cut. Once the cutting guide was adjusted appropriately and in line with the axis of the tibia and confirmed to be in good position in relation to the second metatarsal and transmalleolar axis, the tibial cut was then created with protection of the posterior neurovascular structures and the collateral ligaments. The tibial cut surface was removed and sized. Femoral sizing was then accomplished using posterior referencing. Care was taken to analyze the posterior condyles for signs of deficiency or severe wear, and adjustments to the guide were made, as appropriate. 3 degree external ro tation pins were placed. The cutting jig for the femur was applied to these pins. The planned cuts were further analyzed prior to performing them with the oscillating saw. No femoral notching was produced. Bone fragments were removed and the cut surfaces were finished, as necessary, with a reciprocating saw. Spacer block technique was then used to confirm that the flexion and extension gaps were equal. Soft tissue releases and adjustment of the tibial and/or femoral cuts were made, as necessary, until the gaps were equal. This included release of the posterior cruciate ligament, which was excessively tight in this patient. The femur was then further finished for a posterior cruciate ligament substituting component. Patellar resurfacing was performed using a reamer. The size of the required patellar component was estimated and the patellar surface was then reamed down to a residual thickness which would recreate the holy cross thickness with the component. The exact placement of the patellar component was adjusted for position based on preoperative x-rays and intraoperative findings. Prior to placing trial components, anesthetic solution consisting of ropivicaine with epinephrine, ketorolac, and clonidine was injected carefully and methodically in a grid pattern using aspiration technique into the soft tissue around the knee circumferentially, starting with the deeper tissues first and progressing to fascia, and then finally the skin/subcutaneous tissue. Particular care was taken when injecting the posterior capsule. The trial components were inserted. The tibial tray was allowed to self center and the patella was noted to track very well. The position of the tibial component was marked and the tibia was then finished for a stemmed tibial component. Cement was mixed on the back table and applied to the final components. Trial components were removed and the cut surfaces of the bone were pulse lavaged thoroughly and dried. Cement was then applied to the tibial surface and pressurized into the surface using finger pressurization technique. The tibial component was then applied and excess cement was removed after it was impacted securely and noted to be flush with the cut surface. In similar fashion, the cement was applied to the cut femoral surface, pressurized in using finger pressurization and the component was impacted into place. Excess cement was removed. The polyethylene spacer was then implanted and locked into position. The patellar component was then applied in similar technique and a patellar clamp was used to hold the patella in place as the cement hardened. Once the cement had fully hardened, the knee was reinspected. Any other cement extrusion was removed and final kinematic testing showed range of motion from 0 to 130 degrees with excellent stability, both medially and laterally and appropriate alignment of the leg. Patellar tracking was excellent. The knee was then thoroughly pulse lavaged with normal saline. The tourniquet was deflated and hemostasis was obtained with electrocautery and IV tranexamic acid, 1 g given at the start of the operation and 1 g at the start of closure. Closure was with #2 Ethibond in the fascia/capsule and supplemented with #2 Quill, 2-0 Vicryl suture was used for the subcutaneous tissues and 3-0 Quill for the skin. Dermabond/Steri-Strips were then applied. A lightly compressive dres sing was applied using Webril and an Demario wrap. The patient was then transferred to stretcher and taken to the recovery room in stable condition. Sponge and needle counts were correct.
[2019-02-27] MEDS: LACTATED RINGERS 1,000 ML IV SCH ×2 (10:45→19:27)
--- NOTE | 2019-02-27 11:00 | P.DS ---
Providers Date of admission: 02/25/19 12:27 Expected date of discharge: 02/27/19 Attending physician: Monster Jasso Consults: 02/25/19 17:04 Consult Physician Routine Consulting Provider: Bradley Leary Consult Reason/Comments: Medical management Do you want consulting provider notified?: Yes Primary care physician: Royce Young - Discharge Diagnosis(es) (1) Osteoarthritis of left knee Current Visit: Yes Status: Acute (2) Status post total left knee replacement Current Visit: Yes Status: Acute Hospital Course: This is an 84 yo male who is admitted to [facility] on 02/25/19 for TKA of the left knee. Procedure is performed without complication or sequela. He is doing well on POD #2. No new complaints or concerns today. Vital signs are stable. The patient may be discharged to home today in good condition. Please see med rec for accurate list of home medications. Plan - Discharge Summary Discharge Rx Participant: Yes New Discharge Prescriptions: New Aspirin 325 mg PO BID #60 tab Sennosides-Docusate Sodium [Senokot-S] 1 tab PO BID #60 tablet traMADol HCL [Ultram] 50 mg PO Q6HR PRN #28 tab PRN Reason: Pain No Action Bicalutamide [Casodex] 50 mg PO DAILY Ferrous Sulfate [Feosol] 325 mg PO BID Cyanocobalamin (Vitamin B-12) [Vitamin B-12] 1,500 mcg PO DAILY Aspirin [Adult Low Dose Aspirin EC] 81 mg PO DAILY Atorvastatin [Lipitor] 40 mg PO HS Sucralfate [Carafate] 1 gm PO ACHS PRN PRN Reason: Gi Upset LORazepam [Ativan] 0.5 mg PO DAILY PRN PRN Reason: Anxiety Albuterol Sulfate [Proventil Hfa] 1 - 2 puff INHALATION RT-Q6H PRN PRN Reason: Shortness Of Breath Temazepam [Restoril] 15 mg PO HS PRN PRN Reason: Insomnia L.acidoph,Paracasei, B.lactis [Probiotic] 1 cap PO DAILY Multivitamins, Thera [Multivitamin (formulary)] 1 tab PO DAILY Magnesium Oxide [Mag-Ox] 400 mg PO DAILY Losartan Potassium [Cozaar] 25 mg PO DAILY ALPRAZolam [Xanax] 0.25 mg PO DAILY PRN PRN Reason: Anxiety Cholecalciferol [Vitamin D3 (25 Mcg = 1000 Iu)] 1,000 unit PO DAILY Vitamin E (Dl,Tocopheryl Acet) [Vitamin E] 400 unit PO DAILY Discharge Medication List Bicalutamide [Casodex] 50 mg PO DAILY 06/07/14 [History] Ferrous Sulfate [Feosol] 325 mg PO BID 06/07/14 [History] Aspirin [Adult Low Dose Aspirin EC] 81 mg PO DAILY 01/13/17 [History] Cyanocobalamin (Vitamin B-12) [Vitamin B-12] 1,500 mcg PO DAILY 01/13/17 [History] Atorvastatin [Lipitor] 40 mg PO HS 03/07/17 [History] Albuterol Sulfate [Proventil Hfa] 1 - 2 puff INHALATION RT-Q6H PRN 01/27/19 [History] LORazepam [Ativan] 0.5 mg PO DAILY PRN 01/27/19 [History] Sucralfate [Carafate] 1 gm PO ACHS PRN 01/27/19 [History] Temazepam [Restoril] 15 mg PO HS PRN 01/27/19 [History] ALPRAZolam [Xanax] 0.25 mg PO DAILY PRN 02/15/19 [History] L.acidoph,Paracasei, B.lactis [Probiotic] 1 cap PO DAILY 02/15/19 [History] Losartan Potassium [Cozaar] 25 mg PO DAILY 02/15/19 [History] Magnesium Oxide [Mag-Ox] 400 mg PO DAILY 02/15/19 [History] Multivitamins, Thera [Multivitamin (formulary)] 1 tab PO DAILY 02/15/19 [History] Aspirin 325 mg PO BID #60 tab 02/25/19 [Rx] Cholecalciferol [Vitamin D3 (25 Mcg = 1000 Iu)] 1,000 unit PO DAILY 02/25/19 [History] Sennosides-Docusate Sodium [Senokot-S] 1 tab PO BID #60 tablet 02/25/19 [Rx] Vitamin E (Dl,Tocopheryl Acet) [Vitamin E] 400 unit PO DAILY 02/25/19 [History] traMADol HCL [Ultram] 50 mg PO Q6HR PRN #28 tab 02/25/19 [Rx] Follow up Appointment(s)/Referral(s): Doris Hu, PAC [PHYSICIAN TIMBER MILL WORKER] - 2 Weeks [facility], [NON-STAFF] - Activity/Diet/Wound Care/Special Instructions: May bear weight as tolerated with walker. May shower if no drainage after 48 hours. Discharge Disposition: HOME WITH HOME HEALTH SERVICES
[2019-02-27 14:33] LABS: HCT 32.8 % (39.0-53.0); HGB 10.3 gm/dL (13.0-17.5); MCH 29.3 pg (25.0-35.0); MCHC 31.6 g/dL (31.0-37.0); MCV 92.7 fL (80.0-100.0); Mean Platelet Volume 8.4; Platelet Count 128 k/uL (150-450); RBC 3.53 m/uL (4.30-5.90); RDW 14.4 % (11.5-15.5); WBC 9.9 k/uL (3.8-10.6)
[2019-02-27 14:43] LABS: African American GFR (CKD) >90 (>60 ml/min/1.73 sqM); Anion Gap 4 mmol/L; Blood Urea Nitrogen 25 mg/dL (9-20); Calcium 8.6 mg/dL (8.4-10.2); Carbon Dioxide 32 mmol/L (22-30); Chloride 100 mmol/L (98-107); Glucose 146 mg/dL (74-99); Potassium 4.6 mmol/L (3.5-5.1); Sodium 136 mmol/L (137-145)
[2019-02-27] MEDS: ATORVASTATIN 40 MG TAB PO SCH (20:05)
[2019-02-27] MEDS: MAGNESIUM HYDROXIDE 2,400 MG/10 ML CUP PO PRN (20:07)
[2019-02-28] MEDS: ALPRAZolam 0.25 MG TAB PO PRN (03:01)
[2019-02-28] MEDS: SUCRALFATE 1 GM TAB PO PRN ×2 (03:01→08:59)
[2019-02-28] MEDS: traMADol 50 MG TAB PO PRN ×2 (03:06→11:45)
[2019-02-28] MEDS: LACTATED RINGERS 1,000 ML IV SCH ×2 (04:03→17:35)
[2019-02-28 06:54] LABS: Basophils % (A) 0 %; Eosinophils # (A) 0.2 k/uL (0-0.7); Eosinophils % (A) 3 %; HCT 29.3 % (39.0-53.0); HGB 9.4 gm/dL (13.0-17.5); Lymphocytes # (A) 1.2 k/uL (1.0-4.8); Lymphocytes % (A) 15 %; MCH 29.2 pg (25.0-35.0); MCHC 32.1 g/dL (31.0-37.0); MCV 91.1 fL (80.0-100.0); Monocytes # (A) 0.5 k/uL (0-1.0); Monocytes % (A) 6 %; Neutrophils # (A) 5.9 k/uL (1.3-7.7); Neutrophils % (A) 74 %; Platelet Count 138 k/uL (150-450); RBC 3.21 m/uL (4.30-5.90); RDW 13.5 % (11.5-15.5)
[2019-02-28] MEDS ORDERED: PANTOPRAZOLE 40 MG TABLET PO SCH (07:30)
[2019-02-28 07:36] VITALS: RESP 16
--- NOTE | 2019-02-28 08:00 | PN ---
PROGRESS NOTE DATE OF SERVICE: 02/27/2019. This 84-year-old gentleman who was admitted after left total knee arthroplasty is being closely monitored. No chest pain. No palpitations. No fever. The patient has some nausea. EXAM: Alert and oriented x2. Pulse is 77, blood pressure 116/69, respiration 18, temperature 98.2, pulse ox 98% on 2 L. HEENT: Conjunctivae normal. NECK: No JVD. CARDIOVASCULAR: S1, S2 muffled. RESPIRATORY: Breath sounds diminished in the bases. A few scattered rhonchi. No crackles. ABDOMEN soft. LEGS status post surgery. CENTRAL NERVOUS SYSTEM: No focal deficits. LABS: WBC 9.9, hemoglobin 10.3, sodium 136. ASSESSMENT: 1. Status post left total knee arthroplasty. 2. Gastroesophageal reflux disease. 3. Hypertension. 4. Hyperlipidemia. 5. History of degenerative joint disease. 6. Hiatal hernia. 7. History of vitamin D deficiency. 8. History of prostate cancer. 9. History of spinal stenosis. 10.History of anxiety. RECOMMENDATIONS AND DISCUSSION: Recommend to continue current medications, symptomatic treatment. Otherwise PT/OT evaluation. We will continue to monitor and further recommendations to follow. MMODL / IJN: [id number] /
--- NOTE | 2019-02-28 08:25 | P.DS ---
Providers Date of admission: 02/25/19 12:27 Expected date of discharge: 02/28/19 Attending physician: Monster Jasso Consults: 02/25/19 17:04 Consult Physician Routine Consulting Provider: Bradley Leary Consult Reason/Comments: Medical management Do you want consulting provider notified?: Yes Primary care physician: Royce Young - Discharge Diagnosis(es) (1) Osteoarthritis of left knee Current Visit: Yes Status: Acute (2) Status post total left knee replacement Current Visit: Yes Status: Acute Hospital Course: This is a 84-year-old male with known history of degenerative arthritis of the left knee. The patient presents for evaluation. After discussion and consideration patient elects to proceed with total knee arthroplasty. The patient is seen preoperatively by Dr. Jasso and medically cleared for surgery by their primary care physician. Patient is admitted to [facility] on 02/25/2019 for total knee arthroplasty. The procedures performed without complication or sequelae. The patient is doing well postoperatively. Labs and vital signs are stable on day of discharge. On day of discharge patient's knee incision is healing well. There is minimal erythema. There is no drainage noted at this time. There is minimal soft tissue swelling to the knee. Patient has full foot and ankle motion without difficulty or pain. Calf is soft and nontender to palpation. Neurovascular status to the left lower extremity is intact. Patient is discharged home in good condition. Please see med rec for accurate list of home medications. Plan - Discharge Summary Discharge Rx Participant: Yes New Discharge Prescriptions: New Aspirin 325 mg PO BID #60 tab Sennosides-Docusate Sodium [Senokot-S] 1 tab PO BID #60 tablet traMADol HCL [Ultram] 50 mg PO Q6HR PRN #28 tab PRN Reason: Pain No Action Bicalutamide [Casodex] 50 mg PO DAILY Ferrous Sulfate [Feosol] 325 mg PO BID Cyanocobalamin (Vitamin B-12) [Vitamin B-12] 1,500 mcg PO DAILY Aspirin [Adult Low Dose Aspirin EC] 81 mg PO DAILY Atorvastatin [Lipitor] 40 mg PO HS Sucralfate [Carafate] 1 gm PO ACHS PRN PRN Reason: Gi Upset LORazepam [Ativan] 0.5 mg PO DAILY PRN PRN Reason: Anxiety Albuterol Sulfate [Proventil Hfa] 1 - 2 puff INHALATION RT-Q6H PRN PRN Reason: Shortness Of Breath Temazepam [Restoril] 15 mg PO HS PRN PRN Reason: Insomnia L.acidoph,Paracasei, B.lactis [Probiotic] 1 cap PO DAILY Multivitamins, Thera [Multivitamin (formulary)] 1 tab PO DAILY Magnesium Oxide [Mag-Ox] 400 mg PO DAILY Losartan Potassium [Cozaar] 25 mg PO DAILY ALPRAZolam [Xanax] 0.25 mg PO DAILY PRN PRN Reason: Anxiety Cholecalciferol [Vitamin D3 (25 Mcg = 1000 Iu)] 1,000 unit PO DAILY Vitamin E (Dl,Tocopheryl Acet) [Vitamin E] 400 unit PO DAILY Discharge Medication List Bicalutamide [Casodex] 50 mg PO DAILY 06/07/14 [History] Ferrous Sulfate [Feosol] 325 mg PO BID 06/07/14 [History] Aspirin [Adult Low Dose Aspirin EC] 81 mg PO DAILY 01/13/17 [History] Cyanocobalamin (Vitamin B-12) [Vitamin B-12] 1,500 mcg PO DAILY 01/13/17 [History] Atorvastatin [Lipitor] 40 mg PO HS 03/07/17 [History] Albuterol Sulfate [Proventil Hfa] 1 - 2 puff INHALATION RT-Q6H PRN 01/27/19 [History] LORazepam [Ativan] 0.5 mg PO DAILY PRN 01/27/19 [History] Sucralfate [Carafate] 1 gm PO ACHS PRN 01/27/19 [History] Temazepam [Restoril] 15 mg PO HS PRN 01/27/19 [History] ALPRAZolam [Xanax] 0.25 mg PO DAILY PRN 02/15/19 [History] L.acidoph,Paracasei, B.lactis [Probiotic] 1 cap PO DAILY 02/15/19 [History] Losartan Potassium [Cozaar] 25 mg PO DAILY 02/15/19 [History] Magnesium Oxide [Mag-Ox] 400 mg PO DAILY 02/15/19 [History] Multivitamins, Thera [Multivitamin (formulary)] 1 tab PO DAILY 02/15/19 [History] Aspirin 325 mg PO BID #60 tab 02/25/19 [Rx] Cholecalciferol [Vitamin D3 (25 Mcg = 1000 Iu)] 1,000 unit PO DAILY 02/25/19 [History] Sennosides-Docusate Sodium [Senokot-S] 1 tab PO BID #60 tablet 02/25/19 [Rx] Vitamin E (Dl,Tocopheryl Acet) [Vitamin E] 400 unit PO DAILY 02/25/19 [History] traMADol HCL [Ultram] 50 mg PO Q6HR PRN #28 tab 02/25/19 [Rx] Follow up Appointment(s)/Referral(s): Doris Hu, ANJU [PHYSICIAN CORE STACKER] - 03/11/19 10:00 am [facility], [NON-STAFF] - Activity/Diet/Wound Care/Special Instructions: May bear weight as tolerated with walker. May shower if no drainage after 48 hours. Discharge Disposition: HOME WITH HOME HEALTH SERVICES
[2019-02-28] MEDS: ASPIRIN 325 MG TAB PO SCH (11:33)
[2019-02-28] MEDS: LACTOBACILLUS ACIDOPH & BULGAR 1 EACH PACKET PO SCH (11:34)
[2019-02-28] MEDS: MAGNESIUM OXIDE 400 MG TAB PO SCH (11:35)
[2019-02-28] MEDS: SENNOSIDES-DOCUSATE SODIUM 1 EACH TAB PO SCH (11:36)
[2019-02-28] MEDS: MULTIVITAMINS, THERA 1 EACH TAB PO SCH (11:36)
[2019-02-28] MEDS: LOSARTAN 25 MG TAB PO SCH (11:36)
[2019-02-28] MEDS: ONDANSETRON 4 MG/2 ML VIAL IVP PRN (11:46)
[2019-02-28 14:39] VITALS: BP 143/79; PULSE 120; TEMP 97.7
--- NOTE | 2019-02-28 18:52 | PN ---
PROGRESS NOTE DATE OF SERVICE: 02/28/2019. This 84-year-old gentleman who was admitted after knee surgery, is improving significantly. Patient had some nausea yesterday which is improved. No chest pain. No palpitations. No fever. No shortness of breath. EXAM: Alert and oriented x3. The pulse is 85, blood pressure 104/60, respirations 16, temperature 98 degrees, pulse ox 98% on 2 L. HEENT is conjunctivae normal. NECK: No jugular venous distention. CARDIAC: S1, S2 normal. RESPIRATORY: Breath sounds diminished in the bases. A few scattered rhonchi. No crackles. ABDOMEN is soft, nontender. No mass palpable. LEGS status post surgery. CENTRAL NERVOUS SYSTEM: No focal deficits. LABS: WBC 8, hemoglobin 9.4. ASSESSMENT: 1. Status post left total knee arthroplasty. 2. Gastroesophageal reflux disease. 3. Postoperative nausea, improved. 4. Hypertension. 5. Hyperlipidemia. 6. History of degenerative joint disease. 7. History of hiatal hernia. 8. History of vitamin D deficiency. 9. History of prostate cancer. 10.History of spinal stenosis. 11.History of anxiety. RECOMMENDATIONS AND DISCUSSION: Recommend to continue current medications, management and symptomatic treatment. Continue with monitoring. At this time, we will closely monitor with Orthopedic surgery. I recommend resume the home medications, Protonix and Zofran p.r.n., follow with primary physician in the outpatient setting closely and also recommendations per Orthopedic surgery. Further recommendations to follow. MMODL / IJN: [id number] /
== END 2019-02-28 17:59 | disposition home health service (06) | DRG 470 ==
LOC: 2ORMAIN 12:27 → 4SSUR 17:15
PROVIDERS: ADMIT Orthopaedic Surgery; ATTEND Orthopaedic Surgery
PROC: 0SRD0J9 Replacement of Left Knee Joint with Synthetic Substitute, Cemented, Open Approach (ICD-10-PCS; principal; 2019-02-25 15:15)
DX: M17.12 Unilateral primary osteoarthritis, left knee (principal); Z96.652 Presence of left artificial knee joint; M21.169 Varus deformity, not elsewhere classified, unspecified knee; C61 Malignant neoplasm of prostate; E78.5 Hyperlipidemia, unspecified; I10 Essential (primary) hypertension; K21.9 Gastro-esophageal reflux disease without esophagitis; K44.9 Diaphragmatic hernia without obstruction or gangrene; E55.9 Vitamin D deficiency, unspecified; F41.9 Anxiety disorder, unspecified; R11.0 Nausea; Z85.46 Personal history of malignant neoplasm of prostate; Z86.2 Personal history of diseases of the blood and blood-forming organs and certain disorders involving the immune mechanism; Z88.5 Allergy status to narcotic agent; Z91.041 Radiographic dye allergy status
CPT/HCPCS: 80048; 85025; 85027; 88300

== ENCOUNTER 2019-03-17 17:43 | Observation (INO) | payer MEDICARE, OTHER ==
[2019-03-17] MEDS ORDERED: IPRATROPIUM-ALBUTEROL 3 ML NEB INHALATION STA (18:58)
[2019-03-17 19:27] LABS: Basophils % (A) 0 %; Eosinophils # (A) 0.4 k/uL (0-0.7); Eosinophils % (A) 4 %; HCT 42.2 % (39.0-53.0); Hypochromasia Slight; Lymphocytes # (A) 1.6 k/uL (1.0-4.8); Lymphocytes % (A) 16 %; MCH 27.1 pg (25.0-35.0); MCHC 30.8 g/dL (31.0-37.0); MCV 88.1 fL (80.0-100.0); Mean Platelet Volume 6.7; Monocytes # (A) 0.5 k/uL (0-1.0); Monocytes % (A) 5 %; Neutrophils # (A) 7.6 k/uL (1.3-7.7); Neutrophils % (A) 73 %; RBC 4.79 m/uL (4.30-5.90); RDW 14.3 % (11.5-15.5); WBC 10.4 k/uL (3.8-10.6)
[2019-03-17 19:32] LABS: Albumin 4.2 g/dL (3.5-5.0); Calcium 9.7 mg/dL (8.4-10.2); Potassium 3.6 mmol/L (3.5-5.1); Total Bilirubin 0.6 mg/dL (0.2-1.3); Total Protein 7.1 g/dL (6.3-8.2)
[2019-03-17 19:34] LABS: Platelet Count 329 k/uL (150-450)
--- NOTE | 2019-03-17 19:34 | XR ---
EXAMINATION TYPE: XR chest 2V DATE OF EXAM: 03/17/2019 COMPARISON: 03/11/2017 HISTORY: Short of breath TECHNIQUE: Frontal and lateral views of the chest are obtained. FINDINGS: Heart is normal. Lungs are clear of consolidation. There is a hernia. There is left should er prosthesis. There is no pleural effusion. There is minimal subsegmental atelectasis or scarring at the left lung base. IMPRESSION: Minimal changes at the left lung base are stable compared to last exam. Normal heart. Sm all hiatal hernia.
[2019-03-17 19:48] LABS: Partial Thromboplastin Time 24.5 sec (22.0-30.0); Prothrombin Time 10.8 sec (9.0-12.0)
[2019-03-17 19:58] LABS: D-Dimer 5.25 mg/L FEU (<0.60)
--- NOTE | 2019-03-17 20:55 | ED ---
SOB HPI - General Chief Complaint: Shortness of Breath Stated Complaint: SHIRA Source: patient Mode of arrival: ambulatory Limitations: no limitations - History of Present Illness Initial Comments: The patient is an 84-year-old male with recent left knee replacement on February 25 who presents to the emergency department with reported shortness of breath. He admits that the symptoms started around 3:00 today. He states he is resting comfortable in his recliner when he felt short of breath. Does admit to a history of similar last summer when he stated he had come to the emergency department for a breathing treatment. He denies any history of underlying lung conditions to include COPD or asthma. He does not normally use a nebulizer inhaler at home. He denies cough, hemoptysis, fevers or chills. No sick contacts or recent travel. He denies a history of DVT or PE. He does take 2 full dose aspirin at this time for anticoagulation due to his recent surgery. He does have calf pain and swelling in his left extremity due to surgery. He denies any worsening swelling. Exogenous hormone use. He denies hemoptysis. No nausea or vomiting. Denies any abdominal pain. No unilateral numbness or weakness. No ripping or tearing sensation to his back. There are no other alleviating, precipitating or modifying factors - Related Data Home Medications Medication Instructions Recorded Confirmed Bicalutamide [Casodex] 50 mg PO DAILY 06/07/14 03/17/19 Ferrous Sulfate [Feosol] 325 mg PO BID 06/07/14 03/17/19 Cyanocobalamin (Vitamin B-12) 1,500 mcg PO DAILY 01/13/17 03/17/19 [Vitamin B-12] Atorvastatin [Lipitor] 40 mg PO HS 03/07/17 03/17/19 Albuterol Sulfate [Proventil Hfa] 1 - 2 puff INHALATION RT-Q6H PRN 01/27/19 LORazepam [Ativan] 0.5 mg PO DAILY PRN 01/27/19 03/17/19 Temazepam [Restoril] 15 mg PO HS PRN 01/27/19 03/17/19 ALPRAZolam [Xanax] 0.25 mg PO DAILY PRN 02/15/19 03/17/19 L.acidoph,Paracasei, B.lactis 1 cap PO DAILY 02/15/19 03/17/19 [Probiotic] Losartan Potassium [Cozaar] 25 mg PO DAILY 02/15/19 03/17/19 Vitamin E (Dl,Tocopheryl Acet) 400 unit PO DAILY 02/25/19 03/17/19 [Vitamin E] Previous Rx's Medication Instructions Recorded Aspirin 325 mg PO BID #60 tab 02/25/19 Sennosides-Docusate Sodium 1 tab PO BID #60 tablet 02/25/19 [Senokot-S] traMADol HCL [Ultram] 50 mg PO Q6HR PRN #28 tab 02/25/19 Allergies Allergy/AdvReac Type Severity Reaction Status Date / Time Iodinated Contrast- Oral and Allergy Swelling Verified 03/17/19 20:32 IV Dye [Iodinated Contrast Media - IV Dye] hydrocodone bitartrate AdvReac Nausea Verified 03/17/19 20:32 [From Vicodin] Review of Systems ROS Statement: Those systems with pertinent positive or pertinent negative responses have been documented in the HPI. ROS Other: All systems not noted in ROS Statement are negative. Past Medical History Past Medical History: Cancer, GERD/Reflux, Hyperlipidemia, Osteoarthritis (OA) Additional Past Medical History / Comment(s): hiatal hernia, hx anemia, hx. prostate cancer,spinal stenosis History of Any Multi-Drug Resistant Organisms: None Reported Past Surgical History: Hernia Repair, Joint Replacement, Orthopedic Surgery, Prostate Surgery Additional Past Surgical History / Comment(s): left knee, right knee & rt hip replaced, prostatectomy, orchiectomy, left wrist & arm surg. as child, left shoulder sx, pain procedures with dr gentile Past Anesthesia/Blood Transfusion Reactions: No Reported Reaction, Motion Sickness Past Psychological History: Anxiety Smoking Status: Never smoker Past Alcohol Use History: Rare Past Drug Use History: None Reported - Past Family History Mother Family Medical History: No Reported History General Exam Limitations: no limitations Course Vital Signs 03/17/19 03/17/19 03/17/19 17:46 19:02 19:10 Temperature 97.7 F Pulse Rate 102 H 92 Respiratory 24 Rate Blood Pressure 120/67 O2 Sat by Pulse 97 97 Oximetry 03/17/19 03/17/19 03/17/19 19:20 20:06 23:58 Temperature Pulse Rate 93 96 86 Respiratory 16 16 Rate Blood Pressure 128/68 O2 Sat by Pulse 95 Oximetry 03/18/19 03/18/19 03/18/19 00:07 01:00 02:24 Temperature 97.8 F 98.0 F Pulse Rate 84 88 87 Respiratory 16 18 16 Rate Blood Pressure 106/68 115/78 O2 Sat by Pulse 96 98 Oximetry 03/18/19 03/18/19 03:08 03:16 Temperature Pulse Rate 82 81 Respiratory 16 16 Rate Blood Pressure O2 Sat by Pulse Oximetry Procedures - [facility] Protocol (Time Out) Nurse: Xiao Barrera Medical Decision Making - Medical Decision Making Upon arrival the patient is placed into room 20. He is hooked up to continuous pulse ox and cardiac monitoring. Initial vitals demonstrated the patient to be tachycardic. He is placed on 2 L of supplemental oxygen. Physical exam was performed. I did remove the oxygen from the patient's nose and he does maintain a saturation of 98%. As the patient recently had surgery I did recommend evaluation for a DVT for which the patient agreed. Laboratory studies were conducted. The patient does have a d-dimer of 5. I discussed CT imaging with the patient however he does have an iodine ALLERGY and states that he cannot iodine. Because of this I did recommend admission to the hospital in order to further rule out a PE. Patient did agree to this. I did give him 1 mg/kg cutaneous injection of Lovenox. Lower extremity Dopplers were performed. I did admit the patient to Dr. Byrne I did discuss the case with her and she did agree to the admission. Bridging orders are placed. I did order a ventilation perfusion scan for the morning. The patient remained in stable condition awaiting transfer to the floor - Lab Data Result diagrams: 03/17/19 19:09 03/17/19 19:09 Lab Results 03/17/19 03/17/19 03/17/19 Range/Units 19:09 19:09 19:09 WBC 10.4 (3.8-10.6) k/uL RBC 4.79 (4.30-5.90) m/uL Hgb 13.0 D (13.0-17.5) gm/dL Hct 42.2 (39.0-53.0) % MCV 88.1 (80.0-100.0) fL MCH 27.1 (25.0-35.0) pg MCHC 30.8 L (31.0-37.0) g/dL RDW 14.3 (11.5-15.5) % Plt Count 329 D (150-450) k/uL Neutrophils % 73 % Lymphocytes % 16 % Monocytes % 5 % Eosinophils % 4 % Basophils % 0 % Neutrophils # 7.6 (1.3-7.7) k/uL Lymphocytes # 1.6 (1.0-4.8) k/uL Monocytes # 0.5 (0-1.0) k/uL Eosinophils # 0.4 (0-0.7) k/uL Basophils # 0.0 (0-0.2) k/uL Hypochromasia Slight PT 10.8 (9.0-12.0) sec INR 1.0 (<1.2) APTT 24.5 (22.0-30.0) sec D-Dimer 5.25 H (<0.60) mg/L FEU Sodium 139 (137-145) mmol/L Potassium 3.6 (3.5-5.1) mmol/L Chloride 100 (98-107) mmol/L Carbon Dioxide 26 (22-30) mmol/L Anion Gap 13 mmol/L BUN 32 H (9-20) mg/dL Creatinine 1.36 H (0.66-1.25) mg/dL Est GFR (CKD-EPI)AfAm 56 (>60 ml/min/1.73 sqM) Est GFR (CKD-EPI)NonAf 48 (>60 ml/min/1.73 sqM) Glucose 110 H (74-99) mg/dL Calcium 9.7 (8.4-10.2) mg/dL Total Bilirubin 0.6 (0.2-1.3) mg/dL AST 37 (17-59) U/L ALT 35 (21-72) U/L Alkaline Phosphatase 156 H (38-126) U/L Troponin I (0.000-0.034) ng/mL NT-Pro-B Natriuret Pep pg/mL Total Protein 7.1 (6.3-8.2) g/dL Albumin 4.2 (3.5-5.0) g/dL 03/17/19 03/17/19 Range/Units 19:09 19:09 WBC (3.8-10.6) k/uL RBC (4.30-5.90) m/uL Hgb (13.0-17.5) gm/dL Hct (39.0-53.0) % MCV (80.0-100.0) fL MCH (25.0-35.0) pg MCHC (31.0-37.0) g/dL RDW (11.5-15.5) % Plt Count (150-450) k/uL Neutrophils % % Lymphocytes % % Monocytes % % Eosinophils % % Basophils % % Neutrophils # (1.3-7.7) k/uL Lymphocytes # (1.0-4.8) k/uL Monocytes # (0-1.0) k/uL Eosinophils # (0-0.7) k/uL Basophils # (0-0.2) k/uL Hypochromasia PT (9.0-12.0) sec INR (<1.2) APTT (22.0-30.0) sec D-Dimer (<0.60) mg/L FEU Sodium (137-145) mmol/L Potassium (3.5-5.1) mmol/L Chloride (98-107) mmol/L Carbon Dioxide (22-30) mmol/L Anion Gap mmol/L BUN (9-20) mg/dL Creatinine (0.66-1.25) mg/dL Est GFR (CKD-EPI)AfAm (>60 ml/min/1.73 sqM) Est GFR (CKD-EPI)NonAf (>60 ml/min/1.73 sqM) Glucose (74-99) mg/dL Calcium (8.4-10.2) mg/dL Total Bilirubin (0.2-1.3) mg/dL AST (17-59) U/L ALT (21-72) U/L Alkaline Phosphatase (38-126) U/L Troponin I <0.012 (0.000-0.034) ng/mL NT-Pro-B Natriuret Pep 65 pg/mL Total Protein (6.3-8.2) g/dL Albumin (3.5-5.0) g/dL - EKG Data EKG Comments: EKG demonstrates a normal sinus rhythm with a ventricular rate of 97. AK interval 150. QRS 88. QTC 426. There are inverted T waves in leads V1 through the 3. No acute ST segment elevations or depressions concerning for ischemic changes. There does appear to be a S1 Q3 T3 pattern. Disposition Clinical Impression: Acute respiratory insufficiency, Elevated d-dimer, Status post total left knee replacement Disposition: ADMITTED IP TO THIS HOSP Condition: Serious Is patient prescribed a controlled substance at d/c from ED?: No Decision to Admit Reason: Admit from EC Decision Date: 03/17/19 Decision Time: 20:55
[2019-03-17] MEDS ORDERED: ENOXAPARIN 80 MG/0.8 ML SYRINGE SQ STA (20:58)
[2019-03-17] MEDS ORDERED: NALOXONE 0.4 MG/ML 1 ML VIAL IV PRN (21:47)
[2019-03-17] MEDS ORDERED: ALPRAZolam 0.25 MG TAB PO PRN (21:48)
[2019-03-17] MEDS ORDERED: TEMAZEPAM 15 MG CAP PO PRN (21:48)
--- NOTE | 2019-03-17 23:19 | NM ---
EXAM: NM Lung Perfusion and Ventilation Scan CLINICAL HISTORY: ITS.REASON NM Reason: shortness of breath, recent surgery, denia d-dimer TECHNIQUE: Nuclear Medicine ventilation and perfusion images of the lungs were obtained in multiple projections following radiopharmaceutical inhalation followed by injection of Tc99m MAA. COMPARISON: No relevant prior studies available. FINDINGS: Ventilation: Patchy areas of decreased ventilation in the bilateral lungs. Perfusion: No perfusion defects. IMPRESSION: 1. Normal perfusion. Low probability for pulmonary embolism. 2. Patchy areas of decreased ventilation in both lungs, possibly related to underlying lung disease.
--- NOTE | 2019-03-17 23:31 | US ---
EXAM: US Duplex Bilateral Lower Extremity Veins CLINICAL HISTORY: ITS.REASON US Reason: Pain TECHNIQUE: Real-time duplex ultrasound scan of the bilateral lower extremity veins integrating B-mode two-dimensional vascular structure, Doppler spectral analysis, color flow Doppler imaging and compression. COMPARISON: No relevant prior studies available. FINDINGS: Right deep veins: No DVT in the right common femoral, femoral, proximal deep femoral or popliteal veins. The veins demonstrate normal color flow, are normally compressible, with normal phasic flow and/or augmentation response. Right superficial veins: No thrombus in the visualized right great saphenous vein. Left deep veins: No DVT in the left common femoral, femoral, proximal deep femoral or popliteal veins. The veins demonstrate normal color flow, are normally compressible, with normal phasic flow and/or augmentation response. Left superficial veins: No thrombus in the visualized left great saphenous vein. Soft tissues: No popliteal cyst. IMPRESSION: No DVT bilaterally.
[2019-03-17] MEDS: IPRATROPIUM-ALBUTEROL 3 ML NEB INHALATION SCH (23:58)
[2019-03-18] MEDS ORDERED: LORazepam 0.5 MG TAB PO PRN (00:25)
[2019-03-18] MEDS ORDERED: ALPRAZolam 0.25 MG TAB PO PRN (00:27)
[2019-03-18] MEDS: traMADol 50 MG TAB PO PRN ×3 (02:22→16:41)
[2019-03-18] MEDS: IPRATROPIUM-ALBUTEROL 3 ML NEB INHALATION SCH ×6 (03:07→19:23)
--- NOTE | 2019-03-18 06:25 | HP ---
HISTORY AND PHYSICAL DATE OF SERVICE: 03/17/2019 CHIEF COMPLAINT: Shortness of breath. HISTORY OF PRESENT ILLNESS: This 84-year-old gentleman with a past medical history of multiple medical problems including recent left knee surgery. history of hyperlipidemia, history of DJD, hiatal hernia, history of joint replacement, history of anxiety being followed by Dr. Royce Young in the outpatient setting was complaining of significant shortness of breath today. The patient had difficulty breathing while walking and the patient came to [facility] and admitted for further evaluation and treatment. D-dimer was elevated up to 5.25 and creatinine was also elevated. Because of that, a CT scan was and a V/Q scan showed low probability, but significant patchy areas of decreased ventilation perfusion was also noted. The patient admitted for further evaluation and treatment. As mentioned, creatinine is 1.36 and the patient also had a chest x- ray which was personally reviewed by me showed some patchy areas and the patient was admitted for further evaluation and treatment. There is no history of any fever or rigors. No headache, loss of consciousness or seizures at this time. PAST MEDICAL HISTORY: History of DJD, history of prostate surgery, history of hyperlipidemia, history of hiatal hernia, history of prostate cancer, spinal stenosis. MEDICATIONS: The medications are home medications: 1. Ultram 50 mg q.6 p.r.n. 2. Vitamin E 400 daily. 3. Restoril 15 mg q.h.s. p.r.n. 4. Senokot-S 1 tablet p.o. b.i.d. 5. Cozaar 25 mg p.o. daily. 6. Ativan 0.5 mg daily p.r.n. 7. Probiotic 1 capsule daily. 8. Iron sulfate 325 mg p.o. b.i.d. 9. Vitamin B12, 1.5 mg p.o. daily. 10.Casodex 50 mg p.o. daily. 11.Lipitor 40 mg q.h.s. 12.Aspirin 325 mg p.o. b.i.d. 13.Albuterol 1-2 puffs q.6 p.r.n. 14.Xanax 0.25 mg p.o. daily p.r.n. ALLERGIES: IODINATED CONTRAST DYES and HYDROCODONE. FAMILY HISTORY: No history of heart disease or strokes in the family. SOCIAL HISTORY: No history of smoking. Occasional alcohol intake. REVIEW OF SYSTEMS: ENT: No diminished hearing or diminished vision. CARDIOVASCULAR SYSTEM: No angina. RESPIRATORY SYSTEM: As mentioned earlier. GI: No nausea. : No dysuria. NERVOUS SYSTEM: No numbness or weakness. ALLERGY/IMMUNOLOGY: No asthma or hayfever. MUSCULOSKELETAL: As mentioned earlier. HEMATOLOGY/ONCOLOGY: No history of anemia. ENDOCRINE: No history of diabetes or hypothyroidism. CONSTITUTIONAL: As mentioned earlier. DERMATOLOGY: Negative. RHEUMATOLOGY negative. PSYCHIATRY: As mentioned earlier. PHYSICAL EXAMINATION: Patient is alert and oriented x3. Pulse is 96, blood pressure 128/68, respirations 16, temperature normal, pulse ox 95% on room air. HEENT: Conjunctivae normal. NECK: No jugular venous distention. CARDIOVASCULAR: S1, S2 muffled. RESPIRATORY: Breath sounds diminished at the bases. A few scattered rhonchi and crackles. ABDOMEN: Soft, nontender. No mass palpable. LEGS: Status post left knee surgery. NERVOUS SYSTEM: Higher function as mentioned earlier. Moves all 4 limbs. No focal deficits. LYMPHATICS: No lymphadenopathy of the neck, axillae or groin. SKIN: No ulcer, rash or bleeding. JOINTS: No active deforming arthropathy. LABS: CBC within normal. D-dimer is 5.25. Creatinine is 1.36. Otherwise the ventilation- perfusion scan noted and ultrasound of legs no DVT. ASSESSMENT: 1. Shortness of breath for evaluation, possible chronic obstructive pulmonary disease, chronic bronchitis acute exacerbation, rule out pneumonia. 2. Pulmonary embolism unlikely. 3. History of recent left total knee joint arthroplasty. 4. History of degenerative joint disease. 5. History of gastroesophageal reflux disease. 6. Hyperlipidemia. 7. History of hiatal hernia. 8. History of prostate cancer. 9. History of spinal stenosis. 10.History of anxiety. RECOMMENDATIONS AND DISCUSSION: This 84-year-old gentleman presented with multiple complex medical issues, we will monitor the patient closely. Continue the current medication. Continue symptomatic treatment. I would recommend empiric antibiotics also recommend a 2D echo with Doppler. Also recommend bronchodilators. We will continue to monitor. Pulmonary will be consulted and further recommendation to follow. Resume the home medications. Prognosis guarded. MMODL / IJN: [id number] / [facility]
[2019-03-18 08:11] LABS: Basophils # (A) 0.1 k/uL (0-0.2); Basophils % (A) 1 %; Eosinophils # (A) 0.5 k/uL (0-0.7); Eosinophils % (A) 5 %; HCT 38.7 % (39.0-53.0); HGB 12.3 gm/dL (13.0-17.5); Hypochromasia Slight; Lymphocytes # (A) 1.9 k/uL (1.0-4.8); Lymphocytes % (A) 21 %; MCH 28.2 pg (25.0-35.0); MCHC 31.8 g/dL (31.0-37.0); MCV 88.7 fL (80.0-100.0); Mean Platelet Volume 6.9; Monocytes # (A) 0.5 k/uL (0-1.0); Monocytes % (A) 6 %; Neutrophils # (A) 5.8 k/uL (1.3-7.7); Neutrophils % (A) 64 %; Platelet Count 289 k/uL (150-450); RBC 4.36 m/uL (4.30-5.90); RDW 14.6 % (11.5-15.5)
[2019-03-18 08:21] LABS: Calcium 9.7 mg/dL (8.4-10.2); Potassium 4.3 mmol/L (3.5-5.1)
[2019-03-18] MEDS: SYMBICORT 160-4.5 MCG INHALER INHALATION SCH ×2 (08:26→19:23)
[2019-03-18] MEDS: CYANOCOBALAMIN 500 MCG TAB PO SCH (08:31)
[2019-03-18] MEDS: FERROUS SULFATE 325 MG TAB PO SCH ×2 (08:32→21:22)
[2019-03-18] MEDS: SENNOSIDES-DOCUSATE SODIUM 1 EACH TAB PO SCH ×2 (08:32→21:22)
[2019-03-18] MEDS: LOSARTAN 25 MG TAB PO SCH (08:32)
[2019-03-18] MEDS: BICALUTAMIDE 50 MG TAB PO SCH (08:33)
[2019-03-18] MEDS: HEPARIN SODIUM,PORCINE 5,000 UNIT/ML 1 ML VIAL SQ SCH ×2 (08:33→21:22)
--- NOTE | 2019-03-18 10:58 | ECHOF ---
Referral Reason:sob, chf MEASUREMENTS -------- HEIGHT: 167.6 cm WEIGHT: 84.8 kg BP: 133/76 IVSd: 1.7 cm (0.6 - 1.1) LVIDd: 3.6 cm (3.9 - 5.3) LVPWd: 1.5 cm (0.6 - 1.1) IVSs: 1.6 cm LVIDs: 2.6 cm LVPWs: 2.0 cm LAESV Index (A-L): 29.45 ml/m Ao Diam: 3.5 cm (2.0 - 3.7) AV Cusp: 1.8 cm (1.5 - 2.6) MV EXCURSION: 18.742 mm (> 18.000) MV EF SLOPE: 89 mm/s (70 - 150) EPSS: 0.2 cm MV E August: 0.72 m/s MV DecT: 253 ms MV A August: 0.80 m/s MV E/A Ratio: 0.90 RAP: 5.00 mmHg RVSP: 18.74 mmHg FINDINGS -------- Sinus rhythm. This was a technically difficult study with suboptimal views. The left ventricular size is normal. There is moderate concentric left ventricular hypertrophy. O verall left ventricular systolic function is normal with, an EF between 55 - 60 %. The diastolic fi lling pattern is normal for the age of the patient 9.15. The RV was not well visualized. LA is midly dilated 29-33ml/m2. The right atrium was not well visualized. 5.0mg of Lumason was utilized for enhancement of images Interatrial and interventricular septum intact. The aortic valve was not well visualized. There is no evidence of aortic regurgitation. There is no evidence of aortic stenosis. There is trace mitral regurgitation. Mild tricuspid regurgitation present. There is no evidence of pulmonary hypertension. The right v entricular systolic pressure, as measured by Doppler, is 18.74mmHg. There is no pulmonic regurgitation present. The aortic root size is normal. Normal inferior vena cava with normal inspiratory collapse consistent with estimated right atrial pre ssure of 5 mmHg. There is no pericardial effusion. CONCLUSIONS -------- 1. Sinus rhythm. 2. This was a technically difficult study with suboptimal views. 3. The left ventricular size is normal. 4. There is moderate concentric left ventricular hypertrophy. 5. Overall left ventricular systolic function is normal with, an EF between 55 - 60 %. 6. The diastolic filling pattern is normal for the age of the patient 9.15 7. The RV was not well visualized. 8. LA is midly dilated 29-33ml/m2. 9. The right atrium was not well visualized. 10. 5.0mg of Lumason was utilized for enhancement of images 11. Interatrial and interventricular septum intact. 12. The aortic valve was not well visualized. 13. There is no evidence of aortic regurgitation. 14. There is no evidence of aortic stenosis. 15. There is trace mitral regurgitation. 16. Mild tricuspid regurgitation present. 17. There is no evidence of pulmonary hypertension. 18. The right ventricular systolic pressure, as measured by Doppler, is 18.74mmHg. 19. There is no pulmonic regurgitation present. 20. The aortic root size is normal. 21. Normal inferior vena cava with normal inspiratory collapse consistent with estimated right atrial pressure of 5 mmHg. 22. There is no pericardial effusion. MANAGER ENGINE: Betsy Bermudez RDCS
--- NOTE | 2019-03-18 13:07 | P.CNPUL ---
History of Present Illness Consult date: 03/18/19 Reason for consult: dyspnea History of present illness: 84-year-old male patient, a lifetime nonsmoker, who underwent a left knee replacement on 02/25/2019. The patient came into the hospital because of shortness of breath on 03/17/2019. He was resting comfortably in a recliner when he felt shortness of breath. He had no cough no sputum production. No pleurisy. No hemoptysis. No history of any bronchial asthma. Does not utilize any form of respiratory medications or inhalers in the past. No previous history of DVT or pulmonary embolism. His d-dimer was elevated above 5 and for that reason a VQ scan was done that showed a normal perfusion and there was some ventilation defects. This was called is a low probability. The patient currently is on room air. Cardiac enzymes are negative. Coagulation profile is within normal limits. A CT angios the chest was not done knowing that the patient had a creatinine of 1.36 which subsequently dropped down to 1.06 within 24 hours. The Doppler of the lower extremity was negative. Echocardiogram was also within normal limits with an ejection fraction of 55-60% and RV was not well visualized and there was estimated right ventricular systolic pressure of 18. The rhythm is sinus for now. Review of Systems Constitutional: Denies chills, Denies fever Eyes: denies as per HPI, denies blurred vision, denies bulging eye, denies decreased vision, denies diplopia, denies discharge, denies dry eye, denies irritation, denies itching, denies pain, denies photophobia, denies loss of peripheral vision, denies loss of vision, denies tunnel vision/blind spots Ears: deny: decreased hearing, ear discharge, earache, tinnitus Ears, nose, mouth and throat: Denies headache, Denies sore throat Breasts: absent: as per HPI, gynecomastia Cardiovascular: Reports dyspnea on exertion Respiratory: Reports dyspnea Gastrointestinal: Denies abdominal pain, Denies diarrhea, Denies nausea, Denies vomiting Genitourinary: Reports as per HPI Musculoskeletal: Reports as per HPI (Arthritis and recent knee replacement on the left) Musculoskeletal: absent: ankle pain, ankle stiffness, ankle swelling Integumentary: Denies pruritus, Denies rash Neurological: Reports as per HPI Psychiatric: Reports as per HPI Endocrine: Reports as per HPI Hematologic/Lymphatic: Reports as per HPI Allergic/Immunologic: Reports as per HPI Past Medical History Past Medical History: Cancer, GERD/Reflux, Hyperlipidemia, Osteoarthritis (OA) Additional Past Medical History / Comment(s): hiatal hernia, hx anemia, hx. prostate cancer,spinal stenosis History of Any Multi-Drug Resistant Organisms: None Reported Past Surgical History: Hernia Repair, Joint Replacement, Orthopedic Surgery, Prostate Surgery Additional Past Surgical History / Comment(s): left knee, right knee & rt hip replaced, prostatectomy, orchiectomy, left wrist & arm surg. as child, left shoulder sx, pain procedures with dr gentile Past Anesthesia/Blood Transfusion Reactions: No Reported Reaction, Motion Sickness Past Psychological History: Anxiety Smoking Status: Never smoker Past Alcohol Use History: Rare Past Drug Use History: None Reported - Past Family History Mother Family Medical History: No Reported History Medications and Allergies Home Medications Medication Instructions Recorded Confirmed Type Bicalutamide [Casodex] 50 mg PO DAILY 06/07/14 03/17/19 History Ferrous Sulfate [Feosol] 325 mg PO BID 06/07/14 03/17/19 History Cyanocobalamin (Vitamin B-12) 1,500 mcg PO DAILY 01/13/17 03/17/19 History [Vitamin B-12] Atorvastatin [Lipitor] 40 mg PO HS 03/07/17 03/17/19 History Albuterol Sulfate [Proventil Hfa] 1 - 2 puff INHALATION RT-Q6H PRN 01/27/19 03/17/19 History LORazepam [Ativan] 0.5 mg PO DAILY PRN 01/27/19 03/17/19 History Temazepam [Restoril] 15 mg PO HS PRN 01/27/19 03/17/19 History ALPRAZolam [Xanax] 0.25 mg PO DAILY PRN 02/15/19 03/17/19 History L.acidoph,Paracasei, B.lactis 1 cap PO DAILY 02/15/19 03/17/19 History [Probiotic] Losartan Potassium [Cozaar] 25 mg PO DAILY 02/15/19 03/17/19 History Aspirin 325 mg PO BID #60 tab 02/25/19 03/17/19 Rx Sennosides-Docusate Sodium 1 tab PO BID #60 tablet 02/25/19 03/17/19 Rx [Senokot-S] Vitamin E (Dl,Tocopheryl Acet) 400 unit PO DAILY 02/25/19 03/17/19 History [Vitamin E] traMADol HCL [Ultram] 50 mg PO Q6HR PRN #28 tab 02/25/19 03/17/19 Rx Allergies Allergy/AdvReac Type Severity Reaction Status Date / Time Iodinated Contrast- Oral and Allergy Swelling Verified 03/17/19 20:32 IV Dye [Iodinated Contrast Media - IV Dye] hydrocodone bitartrate AdvReac Nausea Verified 03/17/19 20:32 [From Vicodin] Physical Exam Vitals: Vital Signs Temp Pulse Pulse Resp BP BP Pulse Ox 03/18/19 12:27 84 03/18/19 12:17 80 03/18/19 08:36 84 03/18/19 08:26 84 03/18/19 08:20 15 03/18/19 07:59 98.4 F 83 15 138/77 96 03/18/19 04:22 97.8 F 86 20 133/76 97 03/18/19 03:16 81 16 03/18/19 03:08 82 16 03/18/19 02:24 98.0 F 87 16 115/78 98 03/18/19 01:00 97.8 F 88 18 106/68 96 03/18/19 00:07 84 16 03/17/19 23:58 86 16 03/17/19 20:06 96 16 128/68 95 03/17/19 19:20 93 03/17/19 19:10 92 03/17/19 19:02 97 03/17/19 17:46 97.7 F 102 H 24 120/67 97 Intake and Output 03/17/19 03/18/19 03/18/19 22:59 06:59 14:59 Intake Total 540 Balance 540 Intake: Oral 540 Other: Weight 84.822 kg The patient appeared well nourished and normally developed. Vital signs as documented. Head exam is unremarkable. No scleral icterus or corneal arcus noted. Neck is without jugular venous distension, thyromegaly, or carotid bruits. Carotid upstrokes are brisk bilaterally. Lungs are clear to auscultation and percussion. Cardiac exam reveals the PMI to be normally sized and situated. Rhythm is regular. First and second heart sounds normal. No murmurs, rubs or gallops. Abdominal exam reveals normal bowel sounds, no masses, no organomegaly and no aortic enlargement. Extremities are nonedematous and both femoral and pedal pulses are normal. The surgical scar over the left knee areas dry clean and intact. No joint swelling. No evidence of any arthritis at this point in time or any infection. Examination of the skin revealed no evidence of significant rashes, suspicious appearing nevi or other concerning lesions. Neurologically the patient is awake and alert and there is no focal neurological deficits. Results - Laboratory Findings CBC and BMP: 03/18/19 07:55 03/18/19 07:55 PT/INR, D-dimer PT 10.8 sec (9.0-12.0) 03/17/19 19:09 INR 1.0 (<1.2) 03/17/19 19:09 D-Dimer 5.25 mg/L FEU (<0.60) H 03/17/19 19:09 Abnormal lab findings: Abnormal Labs 03/17/19 03/17/19 03/17/19 19:09 19:09 19:09 Hgb Hct MCHC 30.8 L D-Dimer 5.25 H BUN 32 H Creatinine 1.36 H Glucose 110 H Alkaline Phosphatase 156 H 03/18/19 03/18/19 07:55 07:55 Hgb 12.3 L Hct 38.7 L MCHC D-Dimer BUN 26 H Creatinine Glucose 104 H Alkaline Phosphatase - Diagnostic Findings Chest x-ray: image reviewed Assessment and Plan Plan: 1 acute shortness of breath, and explained, still under investigation. This occurred in a setting of a orthopedic surgery with an elevated d-dimer which could be related to surgical interventions also. The VQ scan came back of a low probability. We'll do a CT angios the chest. 2 post left total knee replacement/arthroplasty 3 degenerative arthritis 4 hyperlipidemia 5 history of prostate cancer 6 spinal stenosis 7 hiatal hernia 8 chronic anxiety Plan We'll proceed with a CT angiogram of the chest knowing that the patient's renal function is normalized. We'll continue to follow. Rest of the treatment is up-to-date. Echocardiogram was noted. VQ scan was noted. Doppler of the lower extremity was noted.
[2019-03-18] MEDS ORDERED: diphenhydrAMINE 50 MG/ML 1 ML VIAL IVP STA (13:18)
[2019-03-18] MEDS ORDERED: methylPREDNISolone SOD SUCCI 125 MG/2 ML VIAL IV STA (13:18)
[2019-03-18] MEDS ORDERED: FAMOTIDINE 20 MG/2 ML VIAL IV STA (13:18)
--- NOTE | 2019-03-18 13:25 | PN ---
PROGRESS NOTE DATE OF SERVICE: 03/18/2019 This 84-year-old gentleman who was admitted with shortness of breath and possible COPD acute exacerbation is being closely monitored. The patient has been empirically started on bronchodilators as well as antibiotics. The 2D echo showed ejection fraction 50% to 60%, with no evidence of any diastolic filling abnormality as well. There is no evidence of pulmonary embolism on the V/Q scan either. No chest pain. No palpitations. PHYSICAL EXAMINATION: On exam, alert and oriented x3. Pulse 84, blood pressure 138/77, respiration 15, temperature 98.4, pulse ox 96% on room air. HEENT: Conjunctivae normal. Oral mucosa moist. NECK: No jugular venous distention. No carotid bruit. No lymph node enlargement. CARDIOVASCULAR: S1, S2 muffled. RESPIRATORY: Breath sounds diminished at the bases. A few scattered rhonchi. No crackles. ABDOMEN: Soft, nontender. LEGS: Status post surgery. NERVOUS SYSTEM: No focal deficits. LABS: Labs are WBC 19.1, hemoglobin 12.3, and creatinine is 1.06. Troponins are negative. ASSESSMENT: 1. Shortness of breath for evaluation, possible chronic obstructive pulmonary disease, chronic bronchitis acute exacerbation with acute purulent tracheobronchitis, rule out pneumonia. 2. Pulmonary embolism, unlikely. 3. The 2-D echo showing ejection fraction 50% to 60% with no diastolic filling abnormalities. 4. History of recent left total knee arthroplasty. 5. History of degenerative joint disease. 6. History of gastroesophageal reflux disease. 7. Hyperlipidemia. 8. History of hiatal hernia. 9. History of prostate cancer. 10.History of spinal stenosis. 11.History of anxiety. RECOMMENDATIONS AND DISCUSSION: Recommend to continue current medications. Continue with monitoring and symptomatic treatment. Otherwise at this time, I recommend continue with bronchodilators. Continue the empiric antibiotics. Continue the rest of medications and follow closely with Pulmonary and Orthopedic Surgery. Further recommendations to follow. MMODL / IJN: [id number] /
--- NOTE | 2019-03-18 16:14 | P.PN ---
Progress Note - Text Progress Note Date: 03/18/19 Patient is a very pleasant 84-year-old male who is seen and examined at bedside. Evaluation following a recent left total knee arthroplasty performed by Dr. Jasso on 02/25/2019. Patient presented to the emergency department for further evaluation in regards to shortness of breath. He is being seen by medicine and pulmonology. During his admission consultation was placed for follow-up evaluation following his recent total knee arthroplasty. Patient states his left knee pain has been adequately controlled. He is not using a walking aid for ambulation. He is been ambulating without significant difficulty. His pain is been adequately controlled. He is working through physical therapy and the outpatient setting. He is very happy with his progress postoperatively. Patient was found to have an elevated d-dimer. Pulmonology is currently planning for a CT angiogram of the chest. Physical Exam Total Knee Arthroplasty: Status post surgical day number 22 Patient is awake, alert, and oriented 3 Vital signs appear stable No signs or symptoms of DVT; no calf pain Evidence of a well-healing incision over the left anterior knee Some generalized swelling around the left knee Left knee is warm to palpation as compared to the right No erythema, purulence, or signs of infection over the left knee Patient has full foot and ankle motion without difficulty bilateral lower extremities Dorsiflexion, plantar flexion, and extensor hallucis longus positive sustained bilaterally Neurovascular status left lower extremity intact Capillary refill lower extremity is bilaterally less than 2 seconds Assessment: Left total knee arthroplasty performed on 02/25/2019 Shortness of breath with elevated d-dimer Plan: 1. Patient to remain weight-bear as tolerated on the left lower extremity; patient may work with physical therapy to increase mobility and ambulation in the outpatient setting is scheduled 2. Medicine and pulmonology to continue following the patient for his other medical issues including shortness of breath with an elevated d-dimer 3. Patient to continue with anticoagulation therapy with medications as prescribed by medicine and pulmonology 4. Patient has been recovering well postoperatively in regards to his left total knee arthroplasty and is clear for discharge from an orthopedic standpoint 5. Patient will more than likely remain in the hospital over the weekend with plans to be discharged to 6. Patient can follow-up with Dr. Jasso at [facility] as scheduled tomorrow if discharged or in 2-3 weeks following discharge
--- NOTE | 2019-03-18 16:15 | CT ---
EXAMINATION TYPE: CT chest angio for PE DATE OF EXAM: 03/18/2019 COMPARISON: 03/07/2017 HISTORY: 84-year-old male SOB, Post op x3 weeks TECHNIQUE: Contiguous axial scanning of the test performed with IV Contrast, patient injected with 80 mL of Isovue 370. Coronal/sagittal MIP reconstructions performed. CT DLP: 531.6 mGycm Automated exposure control for dose reduction was used. FINDINGS: Heart is borderline enlarged without pericardial effusion. No flattening of the interventricular sept um or reflux of contrast into the hepatic veins. Aorta normal caliber with conventional arch vessel branching anatomy. No thoracic lymphadenopathy by CT size criteria. Some small calcified hilar lymph nodes suggest prio r granulomatous disease. Mildly enlarged caliber to the main pulmonary arteries at 2.6 cm suggesting underlying pulmonary ciro rial hypertension. Breathing motion artifacts. No definite pulmonary embolus to the segmental level. Increasing patchy right basilar density. This has prominent bandlike configuration on sagittal series . Mild underlying centrilobular emphysema. No pleural effusion. Large hiatal hernia redemonstrated now containing approximately two thirds of the stomach. Stable 2.0 cm right-sided lipid rich adrenal adenoma. Bones: Old healed fracture deformity of the right posterolateral 10th rib. Bridging anterior endplate spondylosis suggesting dish. Stable anterior wedging at T7 compatible with an old compression injury . IMPRESSION: 1. RESPIRATORY MOTION ARTIFACTS. NO DEFINITE PULMONARY EMBOLUS TO THE PROXIMAL SEGMENTAL LEVEL. MANY OF THE MORE DISTAL ARTERIAL BRANCHES ARE NONDIAGNOSTIC AND EMBOLI IN THESE LOCATIONS CANNOT BE ADEQUA TELY EXCLUDED ON THE BASIS OF THIS EXAM. 2. MILD EMPHYSEMA AND POSSIBLE PULMONARY HYPERTENSION. 3. INCREASING PATCHY OPACITY RIGHT BASE. SUSPECT PROMINENT SUBSEGMENTAL ATELECTASIS GIVEN BANDLIKE CO NFIGURATION. 4. REDEMONSTRATED LARGE HIATAL HERNIA CONTAINING APPROXIMATELY TWO THIRDS OF THE STOMACH.
[2019-03-18] MEDS ORDERED: ATORVASTATIN 40 MG TAB PO SCH (21:00)
[2019-03-19] MEDS: traMADol 50 MG TAB PO PRN ×2 (00:04→13:34)
[2019-03-19] MEDS: IPRATROPIUM-ALBUTEROL 3 ML NEB INHALATION SCH ×4 (00:09→10:59)
[2019-03-19 07:53] VITALS: BP 147/80; RESP 16; TEMP 97.9
[2019-03-19] MEDS: SYMBICORT 160-4.5 MCG INHALER INHALATION SCH (07:56)
[2019-03-19] MEDS: BICALUTAMIDE 50 MG TAB PO SCH (08:36)
[2019-03-19] MEDS: HEPARIN SODIUM,PORCINE 5,000 UNIT/ML 1 ML VIAL SQ SCH (08:36)
[2019-03-19] MEDS: FERROUS SULFATE 325 MG TAB PO SCH (08:37)
[2019-03-19] MEDS: CYANOCOBALAMIN 500 MCG TAB PO SCH (08:37)
[2019-03-19] MEDS: LOSARTAN 25 MG TAB PO SCH (08:37)
[2019-03-19] MEDS: SENNOSIDES-DOCUSATE SODIUM 1 EACH TAB PO SCH (08:37)
[2019-03-19 11:11] VITALS: PULSE 88
--- NOTE | 2019-03-19 11:32 | P.PN ---
Subjective Progress Note Date: 03/19/19 Principal diagnosis: Shortness of breath 84-year-old male patient, a lifetime nonsmoker, who underwent a left knee replacement on 02/25/2019. The patient came into the hospital because of shortness of breath on 03/17/2019. He was resting comfortably in a recliner when he felt shortness of breath. He had no cough no sputum production. No pleurisy. No hemoptysis. No history of any bronchial asthma. Does not utilize any form of respiratory medications or inhalers in the past. No previous history of DVT or pulmonary embolism. His d-dimer was elevated above 5 and for that reason a VQ scan was done that showed a normal perfusion and there was some ventilation defects. This was called is a low probability. The patient currently is on room air. Cardiac enzymes are negative. Coagulation profile is within normal limits. A CT angios the chest was not done knowing that the patient had a creatinine of 1.36 which subsequently dropped down to 1.06 within 24 hours. The Doppler of the lower extremity was negative. Echocardiogram was also within normal limits with an ejection fraction of 55-60% and RV was not well visualized and there was estimated right ventricular systolic pressure of 18. The rhythm is sinus for now. The patient was seen today 03/19/2019 in follow-up on the regular medical floor. He is awake and alert in no acute distress. No shortness of breath, cough or congestion. No dyspnea on exertion. Maintaining good O2 saturations in the 90s on room air. No pain in the calves. He is doing well and hoping to go home Objective - Vital Signs Vital signs: Vital Signs Temp 97.9 F 03/19/19 07:06 Pulse 88 03/19/19 11:10 Resp 16 03/19/19 08:00 BP 147/80 03/19/19 07:06 Pulse Ox 94 L 03/19/19 07:06 Intake & Output 03/18/19 03/19/19 03/19/19 18:59 06:59 18:59 Intake Total 1100 360 300 Balance 1100 360 300 Intake: Oral 1100 360 300 Other: Voiding Method Toilet Toilet # Voids 1 - Exam GENERAL EXAM: Alert, active, comfortable in no apparent distress. On room air. HEAD: Normocephalic. EYES: Normal reaction of pupils, equal size. NOSE: Clear with pink turbinates. THROAT: No erythema or exudates. NECK: No masses, no JVD. CHEST: No chest wall deformity. LUNGS: Equal air entry with no crackles, wheeze, rhonchi or dullness. CVS: S1 and S2 normal with no audible murmur, regular rhythm. ABDOMEN: No hepatosplenomegaly, normal bowel sounds, no guarding or rigidity. SPINE: No scoliosis or deformity SKIN: No rashes CENTRAL NERVOUS SYSTEM: No focal deficits, tone is normal in all 4 extremities. EXTREMITIES: There is no peripheral edema. No clubbing, no cyanosis. Peripheral pulses are intact. - Labs CBC & Chem 7: 03/18/19 07:55 03/18/19 07:55 Assessment and Plan Assessment: Impression: 1 acute shortness of breath, and explained, still under investigation. This occurred in a setting of a orthopedic surgery with an elevated d-dimer which could be related to surgical interventions also. The VQ scan came back of a low probability. CT angiogram ruled out pulmonary embolism. 2 post left total knee replacement/arthroplasty 3 degenerative arthritis 4 hyperlipidemia 5 history of prostate cancer 6 spinal stenosis 7 hiatal hernia 8 chronic anxiety Plan: The patient was seen and evaluated by Dr. Hassan. He is stable from the pulmonary standpoint. He could be discharged home. I, the cosigning physician, performed a history & physical examination of the pa tient. Lungs sounds are clear. Maintaining good O2 saturations in the 90s on room air. I discussed the assessment and plan of care with my nurse practitioner, Sunitha Clinton. I attest to the above note as dictated by her.
[2019-03-19 13:16] VITALS: BMI 30.2
--- NOTE | 2019-03-19 23:12 | DS ---
DISCHARGE SUMMARY DATE OF SERVICE: 03/19/2019. FINAL DIAGNOSES: 1. Shortness of breath, possible chronic obstructive pulmonary disease acute exacerbation with acute purulent tracheobronchitis with possible early bronchopneumonia. Possibly gram-negative. 2. Pulmonary embolism unlikely. 3. 2D echo showed ejection fraction 50% to 60%, with no diastolic filling abnormalities. 4. History of recent left total knee arthroplasty. 5. History of degenerative joint disease. 6. History of gastroesophageal reflux disease. 7. Hyperlipidemia. 8. History of hiatal hernia. 9. History of prostate cancer. 10.History of spinal stenosis. 11.History of anxiety. DISCHARGE DISPOSITION: The patient will be discharged in stable condition with guarded prognosis. Discharge cleared by Dr. Hassan. HISTORY OF PRESENT ILLNESS: This is 84-year-old gentleman with a past medical history of multiple medical problems including recent left knee arthroplasty, admitted with shortness of breath. The patient was evaluated with both V/Q scan and CT angiogram was negative for pulmonary embolism. Some bronchitis with pneumonic process suspected treated empirically, improved significantly. Dr. Hassan saw the patient. On exam, vitals are stable. CARDIOVASCULAR: S1, S2. Respirations: A few scattered rhonchi. ABDOMEN: Soft and nontender. NERVOUS SYSTEM: No focal deficits. DISCHARGE ADVICE AND MEDICATIONS: 1. Discharge diet is cardiac diet. 2. Activity limited until followup. 3. Follow up with Dr. Royce Young in 1-2 days. 4. Follow up with Dr. Jasso as recommended. 5. Follow up with Dr. Hassan in 2 weeks. DISCHARGE MEDICATIONS: 1. Ativan 0.5 mg daily p.r.n. 2. Casodex 50 mg p.o. daily. 3. Cozaar 25 mg p.o. 4. Iron sulfate 320 mg p.o. b.i.d. 5. Lipitor 40 mg q.h.s. 6. Probiotic 1 daily. 7. Restoril 15 mg q.h.s. p.r.n. 8. Vitamin B12 1500 mcg p.o. daily. 9. Vitamin E 400 mg p.o. daily. 10.Xanax 0.5 daily p.r.n. 11.Aspirin 320 mg p.o. b.i.d. per Orthopedic surgery. 12.Ceftin 500 mg p.o. b.i.d. for 3 days. 13.Proventil 1-2 puffs q.6h. 14.Senokot S one p.o. b.i.d. 15.Symbicort 160/4.5 two puffs b.i.d. 16.Ultram 50 mg q.6h p.r.n. Once again, the patient is being discharged in stable condition with guarded prognosis. MMODL / IJN: [id number] /
== END 2019-03-19 17:00 ==
LOC: EC 17:43 → 4SSUR 21:50
PROVIDERS: ADMIT Internal Medicine; ATTEND Internal Medicine
DX: R06.02 Shortness of breath (principal); R06.89 Other abnormalities of breathing; R06.00 Dyspnea, unspecified; R00.0 Tachycardia, unspecified; R79.89 Other specified abnormal findings of blood chemistry; Z96.652 Presence of left artificial knee joint; M19.90 Unspecified osteoarthritis, unspecified site; K21.9 Gastro-esophageal reflux disease without esophagitis; E78.5 Hyperlipidemia, unspecified; D64.9 Anemia, unspecified; K44.9 Diaphragmatic hernia without obstruction or gangrene; Z85.46 Personal history of malignant neoplasm of prostate; M48.00 Spinal stenosis, site unspecified; F41.9 Anxiety disorder, unspecified; Z79.899 Other long term (current) drug therapy; Z79.82 Long term (current) use of aspirin; Z79.891 Long term (current) use of opiate analgesic; Z88.5 Allergy status to narcotic agent; Z91.048 Other nonmedicinal substance allergy status; Z91.041 Radiographic dye allergy status; Z96.641 Presence of right artificial hip joint; Z96.651 Presence of right artificial knee joint
CPT/HCPCS: 36415; 94640 ×6; 93005; 97162; 97165; 85379; 83880; 80053; 80048; 84484 ×2; 85025 ×2; 85610; 85730; 71046; 93970; 71275; 78582; G0378 ×3; C8929; A9540; A9567; J1200; J1644 ×2; J2930; J0696 ×2; J1650; Q9950; Q9967; 93306; 96365; 96372; 96375; 99285

== ENCOUNTER → 2019-03-20 | Outpatient (CLI) | payer MEDICARE, OTHER ==
[2019-03-20 10:37] LABS: Basophils % (A) 0 %; Eosinophils # (A) 0.6 k/uL (0-0.7); Eosinophils % (A) 6 %; HCT 40.8 % (39.0-53.0); HGB 12.5 gm/dL (13.0-17.5); Hypochromasia Marked; Lymphocytes # (A) 1.7 k/uL (1.0-4.8); Lymphocytes % (A) 18 %; MCH 27.8 pg (25.0-35.0); MCHC 30.6 g/dL (31.0-37.0); MCV 90.7 fL (80.0-100.0); Mean Platelet Volume 7.1; Monocytes # (A) 0.6 k/uL (0-1.0); Monocytes % (A) 7 %; Neutrophils # (A) 6.2 k/uL (1.3-7.7); Neutrophils % (A) 67 %; Platelet Count 262 k/uL (150-450); RDW 14.6 % (11.5-15.5); WBC 9.3 k/uL (3.8-10.6)
[2019-03-20 16:09] LABS: African American GFR (CKD) 80.9 (60.0-200.0); Calcium 9.2 mg/dL (8.7-10.3); Potassium 4.4 mmol/L (3.5-5.5)
== END | disposition home or self-care (01) ==
LOC: LABWHC1 09:47
PROVIDERS: ATTEND Hospitalist
DX: R06.02 Shortness of breath (principal)
CPT/HCPCS: 36415; 80048; 85025

== ENCOUNTER 2020-02-03 11:13 | Emergency (ER) | payer MEDICARE, OTHER ==
[2020-02-03 11:24] VITALS: RESP 18
[2020-02-03] MEDS ORDERED: MORPHINE SULFATE 4 MG/ML SYRINGE IM STA (11:43)
[2020-02-03] MEDS ORDERED: KETOROLAC 60 MG/2 ML VIAL IM STA (11:43)
--- NOTE | 2020-02-03 11:50 | ED ---
Back Pain HPI - General Chief Complaint: Back Pain/Injury Stated Complaint: lt leg pain Time Seen by Provider: 02/03/20 11:27 Source: patient, RN notes reviewed, old records reviewed Limitations: no limitations - History of Present Illness Initial Comments: Patient is an 84-year-old male presents return today with back pain radiating down the left leg since gofing on Monday. Patient reports that he has a history of some chronic back pain and had received epidural injections from Dr. Kennedy in the past for pain radiating down the right leg. He denies any abdominal pain. Patient states that also has some left shoulder pain worse with movement after golfing. Patient denies any fevers, chills, chest pain or shortness of breath. He states that he has no changes in urination or bowel habits at this time. - Related Data Home Medications Medication Instructions Recorded Confirmed Bicalutamide [Casodex] 50 mg PO DAILY 06/07/14 03/17/19 Ferrous Sulfate [Feosol] 325 mg PO BID 06/07/14 03/17/19 Cyanocobalamin (Vitamin B-12) 1,500 mcg PO DAILY 01/13/17 03/17/19 [Vitamin B-12] Atorvastatin [Lipitor] 40 mg PO HS 03/07/17 03/17/19 LORazepam [Ativan] 0.5 mg PO DAILY PRN 01/27/19 03/17/19 Temazepam [Restoril] 15 mg PO HS PRN 01/27/19 03/17/19 ALPRAZolam [Xanax] 0.25 mg PO DAILY PRN 02/15/19 03/17/19 L.acidoph,Paracasei, B.lactis 1 cap PO DAILY 02/15/19 03/17/19 [Probiotic] Losartan Potassium [Cozaar] 25 mg PO DAILY 02/15/19 03/17/19 Vitamin E (Dl,Tocopheryl Acet) 400 unit PO DAILY 02/25/19 03/17/19 [Vitamin E] Previous Rx's Medication Instructions Recorded Aspirin 325 mg PO BID #60 tab 02/25/19 Sennosides-Docusate Sodium 1 tab PO BID #60 tablet 02/25/19 [Senokot-S] traMADol HCL [Ultram] 50 mg PO Q6HR PRN #28 tab 02/25/19 Albuterol Sulfate [Proventil Hfa] 1 - 2 puff INHALATION RT-Q6H #1 03/19/19 Budesonide-Formot 160-4.5 Mcg 2 puff INHALATION RT-BID #1 puff 03/19/19 [Symbicort 160-4.5 Mcg Inhaler] Cefuroxime Axetil [Ceftin] 500 mg PO BID 3 Days #6 tab 03/19/19 Cyclobenzaprine [Flexeril] 10 mg PO TID #12 tab 02/03/20 Dexamethasone 0.75 mg PO DAILY #12 tab 02/03/20 HYDROcodone/APAP 5-325MG [Shallowater 1 tab PO Q6HR PRN #10 tab 02/03/20 5-325] Allergies Allergy/AdvReac Type Severity Reaction Status Date / Time Iodinated Contrast Media Allergy Swelling Verified 02/03/20 11:20 [Iodinated Contrast Media - IV Dye] hydrocodone bitartrate AdvReac Nausea Verified 02/03/20 11:20 [From Vicodin] Review of Systems ROS Statement: Those systems with pertinent positive or pertinent negative responses have been documented in the HPI. ROS Other: All systems not noted in ROS Statement are negative. Past Medical History Past Medical History: Cancer, GERD/Reflux, Hyperlipidemia, Osteoarthritis (OA) Additional Past Medical History / Comment(s): hiatal hernia, hx anemia, hx. prostate cancer,spinal stenosis History of Any Multi-Drug Resistant Organisms: None Reported Past Surgical History: Hernia Repair, Joint Replacement, Orthopedic Surgery, Prostate Surgery Additional Past Surgical History / Comment(s): left knee, right knee & rt hip replaced, prostatectomy, orchiectomy, left wrist & arm surg. as child, left shoulder sx, pain procedures with dr kennedy Past Anesthesia/Blood Transfusion Reactions: No Reported Reaction, Motion Sickness Past Psychological History: Anxiety Smoking Status: Never smoker Past Alcohol Use History: Rare Past Drug Use History: None Reported - Past Family History Mother Family Medical History: No Reported History General Exam - General Exam Comments Initial Comments: 84-year-old male. Alert and oriented. No distress. Limitations: no limitations General appearance: alert, in no apparent distress Head exam: Present: atraumatic, normocephalic, normal inspection Eye exam: Present: normal appearance, PERRL, EOMI. Absent: scleral icterus, conjunctival injection, periorbital swelling ENT exam: Present: normal exam, mucous membranes moist Neck exam: Present: normal inspection. Absent: tenderness, meningismus, lymphadenopathy Respiratory exam: Present: normal lung sounds bilaterally. Absent: respiratory distress, wheezes, rales, rhonchi, stridor Cardiovascular Exam: Present: regular rate, normal rhythm, normal heart sounds. Absent: systolic murmur, diastolic murmur, rubs, gallop, clicks GI/Abdominal exam: Present: soft, normal bowel sounds. Absent: distended, tenderness, guarding, rebound, rigid Extremities exam: Present: normal inspection, full ROM, normal capillary refill. Absent: tenderness, pedal edema, joint swelling, calf tenderness Back exam: Present: normal inspection, full ROM Neurological exam: Present: alert, oriented X3, CN II-XII intact Psychiatric exam: Present: normal affect, normal mood Skin exam: Present: warm, dry, intact, normal color. Absent: rash Course Vital Signs 02/03/20 02/03/20 02/03/20 11:20 11:51 14:00 Temperature 98 F 98.4 F 98.8 F Pulse Rate 74 74 69 Respiratory 18 18 18 Rate Blood Pressure 175/79 133/68 126/84 O2 Sat by Pulse 95 94 L 94 L Oximetry Medical Decision Making - Medical Decision Making EKG IS returns today with complaints of back pain radiating down the left leg after golfing. Patient taking Ultram for pain. Patient has no saddle anesthesias. He does have some lower spinal tenderness. He does report a salt with Dr. Kennedy in the past. Patient this time was given IM pain medications and is resting comfortably in bed. Patient had CT and lumbar spine showing degenerative changes and L1 compression deformity that is chronic. I advised Patient to follow-up with orthopedic back specialist and discharging with a short course of pain medication after premature medication. SHINS were answered and return parameters were discussed. - Radiology Data Radiology results: report reviewed CT shows degenerative disc disease has started To multilevel foraminal correction spinal stenosis. Intermittent lucent lesion on the right sacral gallop. Compression deformity on the plain films chronic and L1. Osteoporosis. Support is no information. As noted on plain film report MRI would be of increased sensitivity and spasticity. Atrophy of the right psoas muscle. X-ray report shows osteoporosis with compression deformities possible age of the mid lower spine. MRI may be of benefit. Degenerative disc disease now after The L1 deformities chronic. Disposition Clinical Impression: Sciatica, Compression fracture of lumbar vertebra Disposition: HOME SELF-CARE Condition: Good Instructions (If sedation given, give patient instructions): Sciatica (ED) Additional Instructions: Please use medication as discussed. Please follow up with family doctor if symptoms have not improved over the next two days. Please return to the emergency room if your symptoms increase or worsen or for any other concerns. Prescriptions: Dexamethasone 0.75 mg PO DAILY #12 tab Cyclobenzaprine [Flexeril] 10 mg PO TID #12 tab HYDROcodone/APAP 5-325MG [Shallowater 5-325] 1 tab PO Q6HR PRN #10 tab PRN Reason: Pain Is patient prescribed a controlled substance at d/c from ED?: Yes If prescribed controlled substance>3 days was MAPS reviewed?: Prescribed <3 Days If opioid is for acute pain is fill amount 7 days or less?: Yes If Rx opioid, was Start Talking consent form obtained?: Yes Referrals: Royce Young MD [Primary Care Provider] - 1-2 days David Elliott DO [Doctor of Osteopathic Medicine] - 1-2 days Time of Disposition: 14:23
--- NOTE | 2020-02-03 12:48 | XR ---
Lumbar spine HISTORY: Low back pain Correlation prior CT chest 03/18/2019 Bone mineralization is reduced which may limit sensitivity. Postop changes noted within the pelvis, p atient is also status post right hip arthroplasty. Multilevel spondylosis is present. Loss of height is present at L1 which is a chronic finding. Some loss of height suspected L5 which is of questionabl e acuity. Facet arthropathy changes are present with sclerosis the posterior elements of the lumbar s pine. Some possible loss of endplate height centrally at L3. IMPRESSION: Osteoporosis. Compression deformities of possible age in the mid and lower lumbar spine, bone scan or MRI may be of benefit. Degenerative disc disease and facet arthropathy. L1 deformity is chronic.
--- NOTE | 2020-02-03 14:11 | CT ---
EXAMINATION TYPE: CT lumbar spine wo con DATE OF EXAM: 02/03/2020 COMPARISON: Plain film same date, CT 03/18/2019 HISTORY: Compression deformity, low back pain CT DLP: 1328.6 mGycm Automated exposure control for dose reduction was used. An unenhanced CT of the lumbar spine was performed. Bone and soft tissue window settings are submitt ed as well as coronal and sagittal reconstructions. FINDINGS: As noted on plain film some mild loss of height centrally L3 is noted, endplate depression superiorly and inferiorly are noted. Bone mineralization is reduced. Compression deformity at L1 is stable and chronic. Minimal 1 to 2 mm retropulsion noted at superior endplate. Suspect ankylosis is present ally aterally at the sacroiliac joints. Lucent lesion in the right sacral ala is indeterminate and measure s 2.6 cm. There is atrophy of the psoas muscle on the right. Low dense right adrenal lesion may repre sent an adenoma. Suspect a hiatal hernia is present. L1-L2: Broad-based posterior disc bulge causes minimal anterior mass effect on the thecal sac. No sig nificant spinal stenosis or foraminal encroachment. L2-L3: Circumferential posterior disc bulge causes anterior mass effect on the thecal sac. Mild centr al stenosis is suspected. L3-L4: Minimal posterior broad-based disc bulge is noted. There is suggestion of foraminal encroachme nt bilaterally contributed by the facet arthropathy changes. Moderate to severe spinal stenosis is francis spected. Probable geode in the posterior elements of the L3 transverse process. L4-L5: Broad-based posterior disc bulge, endplate disc complex extends laterally and encroaches on th e neural foramina causes anterior mass effect on the anterior thecal sac resulting in moderate to sev ere spinal stenosis with associated facet arthropathy and hypertrophy ligamentum flavum. L5-S1: Impression at the superior endplate L5 on plain film is attributed to a Schmorl's node to the right of midline. There is loss of disc height. There is facet arthropathy change with hypertrophy li gamentum flavum. Posterior disc herniation that the broad-based and causes moderate anterior mass eff ect on the thecal sac, spinal stenosis. Circumferential extension endplate disc complex contributed b y the facet arthropathy changes results in foraminal encroachment. IMPRESSION: Degenerative disc disease, facet arthropathy, multilevel foraminal encroachment, spinal stenosis. Ind eterminate lucent lesion right sacral ala. The compression deformity noted on plain film is chronic a t L1. Osteoporosis, Schmorl's node formation. As noted on plain film report, MRI likely would be of i ncreased sensitivity and specificity. Atrophy of the right psoas muscle.
[2020-02-03 14:26] VITALS: BP 126/84; PULSE 69; TEMP 98.8
== END 2020-02-03 14:35 | disposition home or self-care (01) ==
LOC: EC 11:13
DX: M48.56XA Collapsed vertebra, not elsewhere classified, lumbar region, initial encounter for fracture (principal); M54.32 Sciatica, left side; F41.9 Anxiety disorder, unspecified; E78.5 Hyperlipidemia, unspecified; M19.90 Unspecified osteoarthritis, unspecified site; Z79.899 Other long term (current) drug therapy; Z88.5 Allergy status to narcotic agent; Z88.6 Allergy status to analgesic agent; Z91.041 Radiographic dye allergy status; Z96.641 Presence of right artificial hip joint; Z85.46 Personal history of malignant neoplasm of prostate; Z90.79 Acquired absence of other genital organ(s)
CPT/HCPCS: 72100; 72131; 99284; 96372 ×2; J2270; J1885

== ENCOUNTER 2020-02-23 16:14 | Inpatient (IN) | payer MEDICARE, OTHER ==
[2020-02-23] MEDS ORDERED: HYDROmorphone 0.5 MG/0.5 ML SYRINGE IVP STA (16:39)
[2020-02-23] MEDS ORDERED: DIAZEPAM 5 MG/ML 2 ML INJ IVP STA (16:39)
--- NOTE | 2020-02-23 17:02 | ED ---
Back Pain HPI - General Source: patient, family Limitations: no limitations <Bessy Harris - Last Filed: 02/23/20 18:36> <Suyapa Luz - Last Filed: 02/27/20 16:30> - General Chief Complaint: Back Pain/Injury Stated Complaint: back pain Time Seen by Provider: 02/23/20 16:21 - History of Present Illness Initial Comments: 85-year-old male patient presents to the emergency department today for evaluation of low back pain with radiation down the left leg. Patient states he has been having this for the last 4 weeks. States that he was seen and evaluated in the emergency department when symptoms initially started had a computed tomography scan was diagnosed with sciatica and discharged home. He was able to follow-up with pain management Dr. Kennedy who confirmed diagnosis of sciatica and has a plan to do injections on Monday. Patient comes in today because symptoms are worsening and he is unable to ambulate without severe discomfort. He does report tingling to his feet which is not new. He is also reporting weakness to the legs. He does ambulate with a walker. He denies any loss of bowel or bladder control or saddle anesthesia. He denies abdominal pain, fever, or chills. Patient denies any recent rash, cough, shortness of breath, chest pain, nausea, vomiting, diarrhea, constipation, dizziness, weakness, hematuria, dysuria, urinary urgency, urinary frequency, headache, visual changes, or any other complaints. (Bessy Harris) - Related Data Home Medications Medication Instructions Recorded Confirmed Bicalutamide [Casodex] 50 mg PO DAILY 06/07/14 02/23/20 Cyanocobalamin (Vitamin B-12) 1,500 mcg PO DAILY 01/13/17 02/23/20 [Vitamin B-12] Atorvastatin [Lipitor] 40 mg PO HS 03/07/17 02/23/20 Temazepam [Restoril] 15 mg PO HS PRN 01/27/19 02/23/20 ALPRAZolam [Xanax] 0.25 mg PO BID PRN 02/15/19 02/23/20 L.acidoph,Paracasei, B.lactis 1 cap PO DAILY 02/15/19 02/23/20 [Probiotic] Losartan Potassium [Cozaar] 25 mg PO DAILY 02/15/19 02/23/20 Albuterol Sulfate [Proventil Hfa] 2 puff INHALATION RT-Q4H PRN 02/23/20 02/23/20 Aspirin 325 mg PO BID-W/MEALS 02/23/20 02/23/20 Aspirin EC [Ecotrin Low Dose] 81 mg PO DAILY 02/23/20 02/23/20 Famotidine [Pepcid] 40 mg PO DAILY 02/23/20 02/23/20 Hydrochlorothiazide [Hydrodiuril] 25 mg PO DAILY 02/23/20 02/23/20 Meclizine [Antivert] 25 mg PO TID PRN 02/23/20 02/23/20 Meloxicam [Mobic] 7.5 - 15 mg PO DAILY PRN 02/23/20 02/23/20 Mirabegron [Myrbetriq] 50 mg PO DAILY 02/23/20 02/23/20 Omeprazole [PriLOSEC] 20 mg PO BID 02/23/20 02/23/20 Vitamin D 5,000unit High-Potency 1 tab PO DAILY 02/23/20 02/23/20 Vitamin E 1,000 unit PO DAILY 02/23/20 02/23/20 Allergies Allergy/AdvReac Type Severity Reaction Status Date / Time Iodinated Contrast Media Allergy Swelling Verified 02/23/20 21:00 [Iodinated Contrast Media - IV Dye] hydrocodone bitartrate AdvReac Nausea Verified 02/23/20 21:00 [From Vicodin] Review of Systems ROS Other: All systems not noted in ROS Statement are negative. <Bessy Harris - Last Filed: 02/23/20 18:36> ROS Other: All systems not noted in ROS Statement are negative. <Suyapa Luz - Last Filed: 02/27/20 16:30> ROS Statement: Those systems with pertinent positive or pertinent negative responses have been documented in the HPI. Past Medical History Past Medical History: Cancer, GERD/Reflux, Hyperlipidemia, Osteoarthritis (OA) Additional Past Medical History / Comment(s): hiatal hernia, hx anemia, hx. prostate cancer,spinal stenosis History of Any Multi-Drug Resistant Organisms: None Reported Past Surgical History: Hernia Repair, Joint Replacement, Orthopedic Surgery, Prostate Surgery Additional Past Surgical History / Comment(s): left knee, right knee & rt hip replaced, prostatectomy, orchiectomy, left wrist & arm surg. as child, left shoulder sx, pain procedures with dr kennedy Past Anesthesia/Blood Transfusion Reactions: No Reported Reaction, Motion Sickness Past Psychological History: Anxiety Smoking Status: Never smoker Past Alcohol Use History: Rare Past Drug Use History: None Reported - Past Family History Mother Family Medical History: No Reported History <Bessy Harris M - Last Filed: 02/23/20 18:36> General Exam Limitations: no limitations General appearance: alert, in no apparent distress, other (Physical well-d eveloped, well-nourished elderly male patient in no acute distress. Vital signs upon presentation are temperature 98.0F, pulse 69, respirations 16, blood pressure 126/72, pulse ox 96% on room air.) Eye exam: Present: normal appearance, PERRL, EOMI. Absent: scleral icterus, conjunctival injection, periorbital swelling ENT exam: Present: normal exam, normal oropharynx, mucous membranes moist Respiratory exam: Present: normal lung sounds bilaterally. Absent: respiratory distress, wheezes, rales, rhonchi, stridor Cardiovascular Exam: Present: regular rate, normal rhythm, normal heart sounds. Absent: systolic murmur, diastolic murmur, rubs, gallop, clicks GI/Abdominal exam: Present: soft, normal bowel sounds. Absent: distended, tenderness, guarding, rebound, rigid Extremities exam: Present: normal inspection, full ROM, normal capillary refill, other (Skin to the lower extremities is pink, warm, dry. Cap refills less than 3 seconds. Pedal and posttibial pulses are 2+ and equal bilaterally.). Absent: tenderness, pedal edema, joint swelling, calf tenderness Back exam: Present: normal inspection. Absent: vertebral tenderness Neurological exam: Present: alert, oriented X3, CN II-XII intact Psychiatric exam: Present: normal affect, normal mood Skin exam: Present: warm, dry, intact, normal color. Absent: rash <Bessy Harris M - Last Filed: 02/23/20 18:36> Course Vital Signs 02/23/20 02/23/20 02/23/20 16:15 17:06 18:07 Temperature 98.0 F Pulse Rate 69 89 78 Pulse Rate [ Right Pulse Oximetery] Respiratory 16 16 16 Rate Blood Pressure 126/72 115/75 112/67 Blood Pressure [Left Arm] O2 Sat by Pulse 96 99 99 Oximetry 02/23/20 02/24/20 02/24/20 19:02 01:00 03:00 Temperature 98.3 F Pulse Rate 86 66 64 Pulse Rate [ Right Pulse Oximetery] Respiratory 16 20 18 Rate Blood Pressure 160/75 116/75 116/74 Blood Pressure [Left Arm] O2 Sat by Pulse 99 97 97 Oximetry 02/24/20 02/24/20 02/24/20 03:58 06:00 07:00 Temperature 97.4 F L Pulse Rate 62 67 72 Pulse Rate [ Right Pulse Oximetery] Respiratory 20 16 20 Rate Blood Pressure 106/68 108/73 127/72 Blood Pressure [Left Arm] O2 Sat by Pulse 97 97 97 Oximetry 02/24/20 02/24/20 02/24/20 07:52 10:17 19:52 Temperature 98.1 F Pulse Rate 78 74 68 Pulse Rate [ Right Pulse Oximetery] Respiratory 18 18 16 Rate Blood Pressure 127/72 121/70 Blood Pressure [Left Arm] O2 Sat by Pulse 98 94 L Oximetry 02/24/20 02/24/20 02/25/20 19:58 22:45 05:44 Temperature 98.0 F 97.8 F Pulse Rate 68 72 Pulse Rate [ 80 Right Pulse Oximetery] Respiratory 16 16 18 Rate Blood Pressure 133/78 Blood Pressure 123/71 [Left Arm] O2 Sat by Pulse 97 92 L Oximetry 02/25/20 11:03 Temperature 97.6 F Pulse Rate Pulse Rate [ 76 Right Pulse Oximetery] Respiratory 16 Rate Blood Pressure Blood Pressure 133/77 [Left Arm] O2 Sat by Pulse 96 Oximetry Medical Decision Making - Lab Data Result diagrams: 02/23/20 16:51 02/23/20 16:51 <Bessy Harris - Last Filed: 02/23/20 18:36> - Lab Data Result diagrams: 02/26/20 07:22 02/26/20 07:22 <Suyapa Luz - Last Filed: 02/27/20 16:30> - Medical Decision Making 85 year-old male patient presents to the emergency department for increased low back pain and difficulty with ambulating. Patient has had rebolledo for the last 4 weeks. Now unable to ambulate with his walker. Family cannot care for him any more. He has no symptoms concerning for cauda equina. He did have MRI two weeks ago. Labs are unremarkable. We will admit patient for intractable pain, immobility, and placement to a rehab facility. Patient is and family are agreeable. (Bessy Harris) I was available for consultation in the emergency department. The history and physical exam were done by the midlevel provider. I was consulted for this patients care. I reviewed the case with the midlevel provider and based on their presentation of the patient, I agree with the assessment, medical decision making and plan of care as documented. Chart was dictated using [employer] dictation software. Attempts were made to correct any dictation errors however some typographical errors may persist. Patient was seen during a national state of emergency due to the Covid-19 pandemic. (Suyapa Luz) - Lab Data Lab Results 02/23/20 02/23/20 02/23/20 Range/Units 16:51 16:51 18:11 WBC 8.2 (3.8-10.6) k/uL RBC 4.96 (4.30-5.90) m/uL Hgb 14.3 (13.0-17.5) gm/dL Hct 45.7 (39.0-53.0) % MCV 92.0 (80.0-100.0) fL MCH 28.8 (25.0-35.0) pg MCHC 31.3 (31.0-37.0) g/dL RDW 12.7 (11.5-15.5) % Plt Count 183 (150-450) k/uL Neutrophils % 71 % Lymphocytes % 20 % Monocytes % 6 % Eosinophils % 2 % Basophils % 0 % Neutrophils # 5.8 (1.3-7.7) k/uL Lymphocytes # 1.7 (1.0-4.8) k/uL Monocytes # 0.5 (0-1.0) k/uL Eosinophils # 0.2 (0-0.7) k/uL Basophils # 0.0 (0-0.2) k/uL Sodium 134 L (137-145) mmol/L Potassium 4.5 (3.5-5.1) mmol/L Chloride 101 (98-107) mmol/L Carbon Dioxide 25 (22-30) mmol/L Anion Gap 8 mmol/L BUN 26 H (9-20) mg/dL Creatinine 0.73 (0.66-1.25) mg/dL Est GFR (CKD-EPI)AfAm >90 (>60 ml/min/1.73 sqM) Est GFR (CKD-EPI)NonAf 86 (>60 ml/min/1.73 sqM) Glucose 121 H (74-99) mg/dL POC Glucose (mg/dL) (75-99) mg/dL POC Glu Senior Test Engineer ID Calcium 9.3 (8.4-10.2) mg/dL Total Bilirubin 1.0 (0.2-1.3) mg/dL AST 24 (17-59) U/L ALT 14 (4-49) U/L Alkaline Phosphatase 127 H (38-126) U/L Total Protein 6.2 L (6.3-8.2) g/dL Albumin 3.5 (3.5-5.0) g/dL Urine Color Urine Appearance (Clear) Urine pH (5.0-8.0) Ur Specific Felt (1.001-1.035) Urine Protein (Negative) Urine Glucose (UA) (Negative) Urine Ketones (Negative) Urine Blood (Negative) Urine Nitrite (Negative) Urine Bilirubin (Negative) Urine Urobilinogen (<2.0) mg/dL Ur Leukocyte Esterase (Negative) Urine RBC (0-5) /hpf Urine WBC (0-5) /hpf Calcium Oxalate Crystal (None) /hpf Hyaline Casts (0-2) /lpf Urine Mucus (None) /hpf Coronavirus (PCR) Not Detected (Not Detected) 02/24/20 02/24/20 02/24/20 Range/Units 06:30 06:41 06:41 WBC 7.4 (3.8-10.6) k/uL RBC 4.79 (4.30-5.90) m/uL Hgb 14.4 (13.0-17.5) gm/dL Hct 44.7 (39.0-53.0) % MCV 93.3 (80.0-100.0) fL MCH 30.0 (25.0-35.0) pg MCHC 32.2 (31.0-37.0) g/dL RDW 12.8 (11.5-15.5) % Plt Count 146 L (150-450) k/uL Neutrophils % 67 % Lymphocytes % 28 % Monocytes % 2 % Eosinophils % 1 % Basophils % 0 % Neutrophils # 4.9 (1.3-7.7) k/uL Lymphocytes # 2.1 (1.0-4.8) k/uL Monocytes # 0.1 (0-1.0) k/uL Eosinophils # 0.1 (0-0.7) k/uL Basophils # 0.0 (0-0.2) k/uL Sodium 136 L (137-145) mmol/L Potassium 5.1 (3.5-5.1) mmol/L Chloride 102 (98-107) mmol/L Carbon Dioxide 28 (22-30) mmol/L Anion Gap 6 mmol/L BUN 25 H (9-20) mg/dL Creatinine 0.78 (0.66-1.25) mg/dL Est GFR (CKD-EPI)AfAm >90 (>60 ml/min/1.73 sqM) Est GFR (CKD-EPI)NonAf 84 (>60 ml/min/1.73 sqM) Glucose 105 H (74-99) mg/dL POC Glucose (mg/dL) (75-99) mg/dL POC Glu Senior Test Engineer ID Calcium 9.0 (8.4-10.2) mg/dL Total Bilirubin (0.2-1.3) mg/dL AST (17-59) U/L ALT (4-49) U/L Alkaline Phosphatase (38-126) U/L Total Protein (6.3-8.2) g/dL Albumin (3.5-5.0) g/dL Urine Color Yellow Urine Appearance Clear (Clear) Urine pH 6.0 (5.0-8.0) Ur Specific Felt 1.021 (1.001-1.035) Urine Protein Trace H (Negative) Urine Glucose (UA) Negative (Negative) Urine Ketones Negative (Negative) Urine Blood Moderate H (Negative) Urine Nitrite Negative (Negative) Urine Bilirubin Negative (Negative) Urine Urobilinogen <2.0 (<2.0) mg/dL Ur Leukocyte Esterase Trace H (Negative) Urine RBC >182 H (0-5) /hpf Urine WBC 17 H (0-5) /hpf Calcium Oxalate Crystal Occasional H (None) /hpf Hyaline Casts 1 (0-2) /lpf Urine Mucus Rare H (None) /hpf Coronavirus (PCR) (Not Detected) 02/24/20 02/24/20 02/24/20 Range/Units 07:50 12:29 17:38 WBC (3.8-10.6) k/uL RBC (4.30-5.90) m/uL Hgb (13.0-17.5) gm/dL Hct (39.0-53.0) % MCV (80.0-100.0) fL MCH (25.0-35.0) pg MCHC (31.0-37.0) g/dL RDW (11.5-15.5) % Plt Count (150-450) k/uL Neutrophils % % Lymphocytes % % Monocytes % % Eosinophils % % Basophils % % Neutrophils # (1.3-7.7) k/uL Lymphocytes # (1.0-4.8) k/uL Monocytes # (0-1.0) k/uL Eosinophils # (0-0.7) k/uL Basophils # (0-0.2) k/uL Sodium (137-145) mmol/L Potassium (3.5-5.1) mmol/L Chloride (98-107) mmol/L Carbon Dioxide (22-30) mmol/L Anion Gap mmol/L BUN (9-20) mg/dL Creatinine (0.66-1.25) mg/dL Est GFR (CKD-EPI)AfAm (>60 ml/min/1.73 sqM) Est GFR (CKD-EPI)NonAf (>60 ml/min/1.73 sqM) Glucose (74-99) mg/dL POC Glucose (mg/dL) 111 H 164 H 186 H (75-99) mg/dL POC Glu Senior Test Engineer ID Dawson, Vandana Dawson, Vandana Calcium (8.4-10.2) mg/dL Total Bilirubin (0.2-1.3) mg/dL AST (17-59) U/L ALT (4-49) U/L Alkaline Phosphatase (38-126) U/L Total Protein (6.3-8.2) g/dL Albumin (3.5-5.0) g/dL Urine Color Urine Appearance (Clear) Urine pH (5.0-8.0) Ur Specific Felt (1.001-1.035) Urine Protein (Negative) Urine Glucose (UA) (Negative) Urine Ketones (Negative) Urine Blood (Negative) Urine Nitrite (Negative) Urine Bilirubin (Negative) Urine Urobilinogen (<2.0) mg/dL Ur Leukocyte Esterase (Negative) Urine RBC (0-5) /hpf Urine WBC (0-5) /hpf Calcium Oxalate Crystal (None) /hpf Hyaline Casts (0-2) /lpf Urine Mucus (None) /hpf Coronavirus (PCR) (Not Detected) 02/24/20 02/25/20 02/25/20 Range/Units 21:54 05:54 05:54 WBC 11.3 H (3.8-10.6) k/uL RBC 4.80 (4.30-5.90) m/uL Hgb 14.2 (13.0-17.5) gm/dL Hct 44.0 (39.0-53.0) % MCV 91.7 (80.0-100.0) fL MCH 29.6 (25.0-35.0) pg MCHC 32.3 (31.0-37.0) g/dL RDW 12.7 (11.5-15.5) % Plt Count 178 (150-450) k/uL Neutrophils % 72 % Lymphocytes % 23 % Monocytes % 2 % Eosinophils % 1 % Basophils % 0 % Neutrophils # 8.1 H (1.3-7.7) k/uL Lymphocytes # 2.6 (1.0-4.8) k/uL Monocytes # 0.3 (0-1.0) k/uL Eosinophils # 0.1 (0-0.7) k/uL Basophils # 0.0 (0-0.2) k/uL Sodium 135 L (137-145) mmol/L Potassium 4.1 (3.5-5.1) mmol/L Chloride 101 (98-107) mmol/L Carbon Dioxide 27 (22-30) mmol/L Anion Gap 7 mmol/L BUN 25 H (9-20) mg/dL Creatinine 0.67 (0.66-1.25) mg/dL Est GFR (CKD-EPI)AfAm >90 (>60 ml/min/1.73 sqM) Est GFR (CKD-EPI)NonAf 89 (>60 ml/min/1.73 sqM) Glucose 142 H (74-99) mg/dL POC Glucose (mg/dL) 162 H (75-99) mg/dL POC Glu Senior Test Engineer ID Vandana Dawson Calcium 9.2 (8.4-10.2) mg/dL Total Bilirubin (0.2-1.3) mg/dL AST (17-59) U/L ALT (4-49) U/L Alkaline Phosphatase (38-126) U/L Total Protein (6.3-8.2) g/dL Albumin (3.5-5.0) g/dL Urine Color Urine Appearance (Clear) Urine pH (5.0-8.0) Ur Specific Felt (1.001-1.035) Urine Protein (Negative) Urine Glucose (UA) (Negative) Urine Ketones (Negative) Urine Blood (Negative) Urine Nitrite (Negative) Urine Bilirubin (Negative) Urine Urobilinogen (<2.0) mg/dL Ur Leukocyte Esterase (Negative) Urine RBC (0-5) /hpf Urine WBC (0-5) /hpf Calcium Oxalate Crystal (None) /hpf Hyaline Casts (0-2) /lpf Urine Mucus (None) /hpf Coronavirus (PCR) (Not Detected) 02/25/20 02/25/20 02/25/20 Range/Units 11:05 16:56 20:20 WBC (3.8-10.6) k/uL RBC (4.30-5.90) m/uL Hgb (13.0-17.5) gm/dL Hct (39.0-53.0) % MCV (80.0-100.0) fL MCH (25.0-35.0) pg MCHC (31.0-37.0) g/dL RDW (11.5-15.5) % Plt Count (150-450) k/uL Neutrophils % % Lymphocytes % % Monocytes % % Eosinophils % % Basophils % % Neutrophils # (1.3-7.7) k/uL Lymphocytes # (1.0-4.8) k/uL Monocytes # (0-1.0) k/uL Eosinophils # (0-0.7) k/uL Basophils # (0-0.2) k/uL Sodium (137-145) mmol/L Potassium (3.5-5.1) mmol/L Chloride (98-107) mmol/L Carbon Dioxide (22-30) mmol/L Anion Gap mmol/L BUN (9-20) mg/dL Creatinine (0.66-1.25) mg/dL Est GFR (CKD-EPI)AfAm (>60 ml/min/1.73 sqM) Est GFR (CKD-EPI)NonAf (>60 ml/min/1.73 sqM) Glucose (74-99) mg/dL POC Glucose (mg/dL) 127 H 125 H 128 H (75-99) mg/dL POC Glu Senior Test Engineer ID Nathan, Enriqueta Bailey, Maricarmen James, Jeane Calcium (8.4-10.2) mg/dL Total Bilirubin (0.2-1.3) mg/dL AST (17-59) U/L ALT (4-49) U/L Alkaline Phosphatase (38-126) U/L Total Protein (6.3-8.2) g/dL Albumin (3.5-5.0) g/dL Urine Color Urine Appearance (Clear) Urine pH (5.0-8.0) Ur Specific Felt (1.001-1.035) Urine Protein (Negative) Urine Glucose (UA) (Negative) Urine Ketones (Negative) Urine Blood (Negative) Urine Nitrite (Negative) Urine Bilirubin (Negative) Urine Urobilinogen (<2.0) mg/dL Ur Leukocyte Esterase (Negative) Urine RBC (0-5) /hpf Urine WBC (0-5) /hpf Calcium Oxalate Crystal (None) /hpf Hyaline Casts (0-2) /lpf Urine Mucus (None) /hpf Coronavirus (PCR) (Not Detected) 02/26/20 02/26/20 02/26/20 Range/Units 07:04 07:22 07:22 WBC 11.3 H (3.8-10.6) k/uL RBC 4.58 (4.30-5.90) m/uL Hgb 14.3 (13.0-17.5) gm/dL Hct 42.3 (39.0-53.0) % MCV 92.4 (80.0-100.0) fL MCH 31.2 (25.0-35.0) pg MCHC 33.7 (31.0-37.0) g/dL RDW 12.9 (11.5-15.5) % Plt Count 171 (150-450) k/uL Neutrophils % 69 % Lymphocytes % 24 % Monocytes % 6 % Eosinophils % 0 % Basophils % 0 % Neutrophils # 7.8 H (1.3-7.7) k/uL Lymphocytes # 2.7 (1.0-4.8) k/uL Monocytes # 0.6 (0-1.0) k/uL Eosinophils # 0.0 (0-0.7) k/uL Basophils # 0.0 (0-0.2) k/uL Sodium 136 L (137-145) mmol/L Potassium 3.8 (3.5-5.1) mmol/L Chloride 102 (98-107) mmol/L Carbon Dioxide 29 (22-30) mmol/L Anion Gap 5 mmol/L BUN 29 H (9-20) mg/dL Creatinine 0.76 (0.66-1.25) mg/dL Est GFR (CKD-EPI)AfAm >90 (>60 ml/min/1.73 sqM) Est GFR (CKD-EPI)NonAf 85 (>60 ml/min/1.73 sqM) Glucose 105 H (74-99) mg/dL POC Glucose (mg/dL) 116 H (75-99) mg/dL POC Glu Senior Test Engineer ID Lilly Bass Calcium 8.8 (8.4-10.2) mg/dL Total Bilirubin (0.2-1.3) mg/dL AST (17-59) U/L ALT (4-49) U/L Alkaline Phosphatase (38-126) U/L Total Protein (6.3-8.2) g/dL Albumin (3.5-5.0) g/dL Urine Color Urine Appearance (Clear) Urine pH (5.0-8.0) Ur Specific Felt (1.001-1.035) Urine Protein (Negative) Urine Glucose (UA) (Negative) Urine Ketones (Negative) Urine Blood (Negative) Urine Nitrite (Negative) Urine Bilirubin (Negative) Urine Urobilinogen (<2.0) mg/dL Ur Leukocyte Esterase (Negative) Urine RBC (0-5) /hpf Urine WBC (0-5) /hpf Calcium Oxalate Crystal (None) /hpf Hyaline Casts (0-2) /lpf Urine Mucus (None) /hpf Coronavirus (PCR) (Not Detected) 02/26/20 Range/Units 11:03 WBC (3.8-10.6) k/uL RBC (4.30-5.90) m/uL Hgb (13.0-17.5) gm/dL Hct (39.0-53.0) % MCV (80.0-100.0) fL MCH (25.0-35.0) pg MCHC (31.0-37.0) g/dL RDW (11.5-15.5) % Plt Count (150-450) k/uL Neutrophils % % Lymphocytes % % Monocytes % % Eosinophils % % Basophils % % Neutrophils # (1.3-7.7) k/uL Lymphocytes # (1.0-4.8) k/uL Monocytes # (0-1.0) k/uL Eosinophils # (0-0.7) k/uL Basophils # (0-0.2) k/uL Sodium (137-145) mmol/L Potassium (3.5-5.1) mmol/L Chloride (98-107) mmol/L Carbon Dioxide (22-30) mmol/L Anion Gap mmol/L BUN (9-20) mg/dL Creatinine (0.66-1.25) mg/dL Est GFR (CKD-EPI)AfAm (>60 ml/min/1.73 sqM) Est GFR (CKD-EPI)NonAf (>60 ml/min/1.73 sqM) Glucose (74-99) mg/dL POC Glucose (mg/dL) 87 (75-99) mg/dL POC Glu Senior Test Engineer ID Lilly Bass Calcium (8.4-10.2) mg/dL Total Bilirubin (0.2-1.3) mg/dL AST (17-59) U/L ALT (4-49) U/L Alkaline Phosphatase (38-126) U/L Total Protein (6.3-8.2) g/dL Albumin (3.5-5.0) g/dL Urine Color Urine Appearance (Clear) Urine pH (5.0-8.0) Ur Specific Felt (1.001-1.035) Urine Protein (Negative) Urine Glucose (UA) (Negative) Urine Ketones (Negative) Urine Blood (Negative) Urine Nitrite (Negative) Urine Bilirubin (Negative) Urine Urobilinogen (<2.0) mg/dL Ur Leukocyte Esterase (Negative) Urine RBC (0-5) /hpf Urine WBC (0-5) /hpf Calcium Oxalate Crystal (None) /hpf Hyaline Casts (0-2) /lpf Urine Mucus (None) /hpf Coronavirus (PCR) (Not Detected) Disposition Decision to Admit Reason: Admit from EC Decision Date: 02/23/20 Decision Time: 17:38 <Bessy Harris - Last Filed: 02/23/20 18:36> <Suyapa Luz - Last Filed: 02/27/20 16:30> Clinical Impression: Sciatica, Intractable back pain Disposition: ADMITTED IP TO THIS [facility] Condition: Serious
[2020-02-23 17:10] LABS: Basophils % (A) 0 %; Eosinophils # (A) 0.2 k/uL (0-0.7); Eosinophils % (A) 2 %; HCT 45.7 % (39.0-53.0); HGB 14.3 gm/dL (13.0-17.5); Lymphocytes # (A) 1.7 k/uL (1.0-4.8); Lymphocytes % (A) 20 %; MCH 28.8 pg (25.0-35.0); MCHC 31.3 g/dL (31.0-37.0); Mean Platelet Volume 8.2; Monocytes # (A) 0.5 k/uL (0-1.0); Monocytes % (A) 6 %; Neutrophils # (A) 5.8 k/uL (1.3-7.7); Neutrophils % (A) 71 %; Platelet Count 183 k/uL (150-450); RBC 4.96 m/uL (4.30-5.90); RDW 12.7 % (11.5-15.5); WBC 8.2 k/uL (3.8-10.6)
[2020-02-23 17:21] LABS: ALT 14 U/L (4-49); AST 24 U/L (17-59); African American GFR (CKD) >90 (>60 ml/min/1.73 sqM); Albumin 3.5 g/dL (3.5-5.0); Alkaline Phosphatase 127 U/L (38-126); Anion Gap 8 mmol/L; Blood Urea Nitrogen 26 mg/dL (9-20); Calcium 9.3 mg/dL (8.4-10.2); Carbon Dioxide 25 mmol/L (22-30); Chloride 101 mmol/L (98-107); Glucose 121 mg/dL (74-99); Non-African American GFR(CKD) 86 (>60 ml/min/1.73 sqM); Potassium 4.5 mmol/L (3.5-5.1); Sodium 134 mmol/L (137-145); Total Protein 6.2 g/dL (6.3-8.2)
[2020-02-23] MEDS ORDERED: NALOXONE 0.4 MG/ML 1 ML VIAL IV PRN (17:36)
[2020-02-23] MEDS ORDERED: ALPRAZolam 0.25 MG TAB PO PRN (21:31)
[2020-02-23] MEDS: CYCLOBENZAPRINE 10 MG TAB PO SCH (21:49)
[2020-02-24] MEDS: KETOROLAC 30 MG/ML 1 ML VIAL IVP PRN (03:03)
[2020-02-24] MEDS: HYDROmorphone 0.5 MG/0.5 ML SYRINGE IVP PRN ×3 (03:04→15:08)
[2020-02-24] MEDS: methylPREDNISolone SOD SUCCI 125 MG/2 ML VIAL IV SCH ×4 (03:09→17:39)
--- NOTE | 2020-02-24 05:46 | HP ---
HISTORY AND PHYSICAL CHIEF COMPLAINT: Low back pain. HISTORY OF PRESENT ILLNESS: This 85-year-old gentleman with a past medical history of multiple medical problems including history of GERD, hyperlipidemia, hiatal hernia, being followed by Dr. Royce Young in the outpatient setting was living by himself. The patient apparently was evaluated by Dr. Elliott and was slated to have a back injection by Dr. Kennedy in the near future, next week actually. The patient was complaining of severe back pain, unable to ambulate. A lumbar spine CAT scan was done earlier this month, showed significant DJD multilevel and with spinal stenosis. Dr. Elliott has seen the patient as mentioned earlier. There is no history of fever or rigors. No history of headache, loss of consciousness or seizures. PAST MEDICAL HISTORY: History of GERD, hyperlipidemia, history of DJD, history of prostate cancer, history of hernia repair. MEDICATIONS: Medications prior to admission include home medications are: 1. Ultram 50 mg q.6. 2. Vitamin E. 3. Restoril. 4. Senokot-S. 5. Cozaar. 6. Ativan. 7. Probiotic. 8. [place] 5 mg. 9. Iron sulfate. 10.Dexamethasone. 11.Flexeril. 12.Vitamin B12. 13.Ceftin. 14.Symbicort 160/4.5. 15.Casodex. 16.Lipitor. 17.Aspirin. 18.Proventil. 19.Xanax. ALLERGIES: IODINATED CONTRAST, HYDROCODONE. FAMILY HISTORY: No history of heart disease or strokes in the family. SOCIAL HISTORY: No history of smoking. No history of alcohol intake. REVIEW OF SYSTEMS: ENT: Diminished haring or diminished vision. CARDIOVASCULAR SYSTEM: No angina. RESPIRATORY SYSTEM: No cough or hemoptysis. GI: No nausea, vomiting. : No dysuria. NERVOUS SYSTEM: No numbness or weakness. ALLERGY/IMMUNOLOGY: No asthma. MUSCULOSKELETAL: As mentioned earlier. HEMATOLOGY/ONCOLOGY: No history of anemia. ENDOCRINE: No history of diabetes or hypothyroidism. CONSTITUTIONAL: as mentioned earlier. DERMATOLOGY: Negative. RHEUMATOLOGY: Negative. PSYCHIATRY: As mentioned earlier. PHYSICAL EXAMINATION: The patient is alert and oriented x3. Pulse 86, blood pressure 160/75, respirations 16, temperature 98 degrees, pulse ox 99% on room air. HEENT: Conjunctivae normal. NECK: No jugular venous distention. CARDIOVASCULAR: S1, S2 muffled. RESPIRATORY: Breath sounds diminished at the bases. No rhonchi, no crackles. ABDOMEN: Soft, nontender. No mass palpable. LEGS: No edema. No swelling. NERVOUS SYSTEM: Higher function as mentioned. Moves all 4 limbs. No focal motor or sensory deficits. LYMPHATICS: No lymphadenopathy of the neck, axillae or groin. SKIN: No ulcer, rash or bleeding. JOINTS: No active deforming arthropathy. LABS: CBC within normal limits. Sodium 134. Alkaline phosphatase 127. Total protein 6.2. Glucose 121. ASSESSMENT: 1. Severe back pain, degenerative joint disease with severe gait dysfunction. 2. Sciatica, bilateral. 3. Hyponatremia. 4. Failure of outpatient treatment. 5. Gastroesophageal reflux disease. 6. Hyperlipidemia. 7. History of degenerative joint disease. 8. Hiatal hernia. 9. Prostate cancer. 10.Spinal stenosis. 11.History of prostate surgery. 12.Anxiety. 13.FULL CODE. RECOMMENDATIONS AND DISCUSSION: This 85-year-old gentleman presented with multiple complex medical issues, will monitor the patient closely. Continue the current medications, continues with symptomatic treatment. Will initiate ketorolac. I would also recommend IV steroids. Otherwise, monitor closely. Orthopedic evaluation for possible injections. Otherwise, we will continue to monitor. Also recommend PT, OT evaluation and possible ECF rehab also. Prognosis is extremely guarded and the patient is unable to function at home and carry on activities of daily living because of significant disabilities associated with multiple complex medical issues as mentioned earlier. The patient has significant DJD on the in the CAT scan and that limits his activity to a significant degree because of his age and other multiple comorbidities. Further recommendations to follow. A copy of dictation forwarded to Dr. Royce Young who is the primary physician. I would recommend a full admit lasting for more than 2 nights because of that reason. MMODL / IJN: [id number] /
[2020-02-24 06:52] LABS: Appearance,Urine Clear (Clear); Bilirubin,Urine Negative (Negative); Blood,Urine Moderate (Negative); Calcium Oxalate Crystals,Urine Occasional /hpf; Color,Urine Yellow; Glucose,Urine (UA) Negative (Negative); Hyaline Casts,Urine 1 /lpf (0-2); Ketones,Urine Negative (Negative); Leukocyte Esterase,Urine Trace (Negative); Mucus,Urine Rare /hpf; Nitrite,Urine Negative (Negative); Protein,Urine Trace (Negative); RBC,Urine >182 /hpf (0-5); Specific Gravity,Urine 1.021 (1.001-1.035); Urobilinogen,Urine <2.0 mg/dL (<2.0); WBC,Urine 17 /hpf (0-5)
[2020-02-24 07:44] LABS: Basophils % (A) 0 %; Eosinophils # (A) 0.1 k/uL (0-0.7); Eosinophils % (A) 1 %; HCT 44.7 % (39.0-53.0); HGB 14.4 gm/dL (13.0-17.5); Lymphocytes # (A) 2.1 k/uL (1.0-4.8); Lymphocytes % (A) 28 %; MCHC 32.2 g/dL (31.0-37.0); MCV 93.3 fL (80.0-100.0); Mean Platelet Volume 8.2; Monocytes # (A) 0.1 k/uL (0-1.0); Monocytes % (A) 2 %; Neutrophils # (A) 4.9 k/uL (1.3-7.7); Neutrophils % (A) 67 %; Platelet Count 146 k/uL (150-450); RBC 4.79 m/uL (4.30-5.90); RDW 12.8 % (11.5-15.5); WBC 7.4 k/uL (3.8-10.6)
[2020-02-24] MEDS: PANTOPRAZOLE 40 MG TABLET PO SCH (07:46)
[2020-02-24] MEDS: INSULIN ASPART (NovoLOG) 100 UNIT/ML VIAL SQ SCH ×3 (07:51→17:39)
[2020-02-24 07:57] LABS: Glucose,Whole Blood 111 mg/dL (75-99)
[2020-02-24 08:02] LABS: African American GFR (CKD) >90 (>60 ml/min/1.73 sqM); Anion Gap 6 mmol/L; Blood Urea Nitrogen 25 mg/dL (9-20); Carbon Dioxide 28 mmol/L (22-30); Chloride 102 mmol/L (98-107); Glucose 105 mg/dL (74-99); Non-African American GFR(CKD) 84 (>60 ml/min/1.73 sqM); Potassium 5.1 mmol/L (3.5-5.1); Sodium 136 mmol/L (137-145)
[2020-02-24] MEDS: HEPARIN SODIUM,PORCINE 5,000 UNIT/ML 1 ML VIAL SQ SCH ×2 (08:45→21:56)
--- NOTE | 2020-02-24 11:17 | XR ---
EXAMINATION TYPE: XR chest 1V portable DATE OF EXAM: 02/24/2020 Comparison: 03/17/2019 Clinical History: 85-year-old male CHF Findings: Partially visualized left shoulder arthroplasty. Heart mildly enlarged. Diffuse interstitial density increased from prior. Hazy lower lung densities relating to overlying soft tissue. No sizable effusio n identified. Large retrocardiac lucency redemonstrated. IMPRESSION: Increased interstitial density. Correlate for CHF with early pulmonary vascular congestion. Known large hiatal hernia.
--- NOTE | 2020-02-24 11:19 | XR ---
EXAMINATION TYPE: XR abdomen 2V DATE OF EXAM: 02/24/2020 CLINICAL DATA: 85-year-old male with abdominal pain, PHH COMPARISON: None FINDINGS: Large hiatal hernia with retrocardiac lucency. No evidence for free intraperitoneal air. Some coronary artery calcifications in the left upper quadrant. Gassy bowel throughout. Fisc-[id number] overall small burden. No definite suspicious calcifications. Surgical clips within the pelvis and partially visualized right total hip arthroplasty. Unable to exc lude bony involvement of the right greater trochanter with the superior acetabular margin. Correlate for any limited range of motion. IMPRESSION: No evidence for free air or bowel obstruction. Gassy bowel loops throughout.
[2020-02-24] MEDS ORDERED: TEMAZEPAM 15 MG CAP PO PRN (11:33)
[2020-02-24] MEDS ORDERED: ALBUTEROL NEBULIZED 2.5 MG/3 ML INHALATION PRN (11:33)
[2020-02-24] MEDS ORDERED: MECLIZINE 25 MG TAB PO PRN (11:33)
--- NOTE | 2020-02-24 11:39 | P.CONS ---
History of Present Illness - Reason for Consult Consult date: 02/24/20 Low back and left leg pain - Chief Complaint Lower back and left leg pain - History of Present Illness This is an 85-year-old gentleman with history of chronic lower back pain with radiation to the left leg occasionally down to the left ankle with occasional numbness and tingling. The patient was scheduled to undergo an epidural steroid injection by Dr. Kennedy as an outpatient however his pain went out of control and he had to come into the ER to control his pain. The patient denies any lui wel or bladder dysfunction. This pain gets worse by activity. His pain has improved since admission. He had a computed tomography scan of the lumbar spine few weeks ago which showed diffuse degeneration and an old .compression fracture of L1 also severe lumbar stenosis Past Medical History Past Medical History: Cancer, GERD/Reflux, Hyperlipidemia, Osteoarthritis (OA) Additional Past Medical History / Comment(s): hiatal hernia, hx anemia, hx. prostate cancer,spinal stenosis History of Any Multi-Drug Resistant Organisms: None Reported Past Surgical History: Hernia Repair, Joint Replacement, Orthopedic Surgery, Prostate Surgery Additional Past Surgical History / Comment(s): left knee, right knee & rt hip replaced, prostatectomy, orchiectomy, left wrist & arm surg. as child, left shoulder sx, pain procedures with dr kennedy Past Anesthesia/Blood Transfusion Reactions: No Reported Reaction, Motion Sickness Past Psychological History: Anxiety Smoking Status: Never smoker Past Alcohol Use History: Rare Past Drug Use History: None Reported - Past Family History Mother Family Medical History: No Reported History Medications and Allergies Home Medications Medication Instructions Recorded Confirmed Type Bicalutamide [Casodex] 50 mg PO DAILY 06/07/14 02/23/20 History Cyanocobalamin (Vitamin B-12) 1,500 mcg PO DAILY 01/13/17 02/23/20 History [Vitamin B-12] Atorvastatin [Lipitor] 40 mg PO HS 03/07/17 02/23/20 History Temazepam [Restoril] 15 mg PO HS PRN 01/27/19 02/23/20 History ALPRAZolam [Xanax] 0.25 mg PO BID PRN 02/15/19 02/23/20 History L.acidoph,Paracasei, B.lactis 1 cap PO DAILY 02/15/19 02/23/20 History [Probiotic] Losartan Potassium [Cozaar] 25 mg PO DAILY 02/15/19 02/23/20 History Albuterol Sulfate [Proventil Hfa] 2 puff INHALATION RT-Q4H PRN 02/23/20 02/23/20 History Aspirin 325 mg PO BID-W/MEALS 02/23/20 02/23/20 History Aspirin EC [Ecotrin Low Dose] 81 mg PO DAILY 02/23/20 02/23/20 History Famotidine [Pepcid] 40 mg PO DAILY 02/23/20 02/23/20 History Hydrochlorothiazide [Hydrodiuril] 25 mg PO DAILY 02/23/20 02/23/20 History Meclizine [Antivert] 25 mg PO TID PRN 02/23/20 02/23/20 History Meloxicam [Mobic] 7.5 - 15 mg PO DAILY PRN 02/23/20 02/23/20 History Mirabegron [Myrbetriq] 50 mg PO DAILY 02/23/20 02/23/20 History Omeprazole [PriLOSEC] 20 mg PO BID 02/23/20 02/23/20 History Vitamin D 5,000unit High-Potency 1 tab PO DAILY 02/23/20 02/23/20 History Vitamin E 1,000 unit PO DAILY 02/23/20 02/23/20 History Allergies Allergy/AdvReac Type Severity Reaction Status Date / Time Iodinated Contrast Media Allergy Swelling Verified 02/23/20 21:00 [Iodinated Contrast Media - IV Dye] hydrocodone bitartrate AdvReac Nausea Verified 02/23/20 21:00 [From Vicodin] Physical Exam Vitals: Vital Signs Temp Pulse Resp BP Pulse Ox 02/24/20 10:17 98.1 F 74 18 121/70 94 L 02/24/20 07:52 78 18 127/72 98 02/24/20 07:00 97.4 F L 72 20 127/72 97 02/24/20 06:00 67 16 108/73 97 02/24/20 03:58 62 20 106/68 97 02/24/20 03:00 64 18 116/74 97 02/24/20 01:00 98.3 F 66 20 116/75 97 02/23/20 19:02 86 16 160/75 99 02/23/20 18:07 78 16 112/67 99 02/23/20 17:06 89 16 115/75 99 02/23/20 16:15 98.0 F 69 16 126/72 96 Intake and Output 02/23/20 02/24/20 02/24/20 22:59 06:59 14:59 Other: Weight 83.915 kg - Respiratory Respiratory: bilateral: CTA - Cardiovascular Rhythm: regular - Neurologic Normal muscle strength in the lower extremities bilaterally. Straight leg raising test mildly positive on the left side Neurologic: CNII-XII intact - Psychiatric Psychiatric: A&O x's 3, appropriate affect, intact judgment & insight Results CBC & Chem 7: 02/24/20 06:41 02/24/20 06:41 Labs: Abnormal Lab Results - Last 24 Hours (Table) 02/23/20 02/24/20 02/24/20 Range/Units 16:51 06:30 06:41 Plt Count 146 L (150-450) k/uL Sodium 134 L (137-145) mmol/L BUN 26 H (9-20) mg/dL Glucose 121 H (74-99) mg/dL POC Glucose (mg/dL) (75-99) mg/dL Alkaline Phosphatase 127 H (38-126) U/L Total Protein 6.2 L (6.3-8.2) g/dL Urine Protein Trace H (Negative) Urine Blood Moderate H (Negative) Ur Leukocyte Esterase Trace H (Negative) Urine RBC >182 H (0-5) /hpf Urine WBC 17 H (0-5) /hpf Calcium Oxalate Crystal Occasional H (None) /hpf Urine Mucus Rare H (None) /hpf 02/24/20 02/24/20 Range/Units 06:41 07:50 Plt Count (150-450) k/uL Sodium 136 L (137-145) mmol/L BUN 25 H (9-20) mg/dL Glucose 105 H (74-99) mg/dL POC Glucose (mg/dL) 111 H (75-99) mg/dL Alkaline Phosphatase (38-126) U/L Total Protein (6.3-8.2) g/dL Urine Protein (Negative) Urine Blood (Negative) Ur Leukocyte Esterase (Negative) Urine RBC (0-5) /hpf Urine WBC (0-5) /hpf Calcium Oxalate Crystal (None) /hpf Urine Mucus (None) /hpf Assessment and Plan Plan: This is an 85-year-old gentleman with the following diagnoses regarding his back pain: Lumbar degenerative disc disease Lumbar stenosis An old L1 compression fracture ALLERGY to IVP dye The patient denies any history of diabetes or treatment with anticoagulants other than aspirin The patient may benefit from getting lumbar epidural steroid injection under fluoroscopic guidance in the left paramedian approach. The procedure was explained to the patient and his question were answered. We will make the patient nothing by mouth after midnight. He will stop stop Mobic 24 hours before the procedure. Thank you for the consultation Time with Patient: Less than 30
[2020-02-24] MEDS ORDERED: NON FORMULARY DRUG (Omeprazole 20 MG) PO SCH (11:45)
[2020-02-24 12:31] LABS: Glucose,Whole Blood 164 mg/dL (75-99)
[2020-02-24] MEDS: BICALUTAMIDE 50 MG TAB PO SCH (13:33)
[2020-02-24] MEDS: HYDROCHLOROTHIAZIDE 25 MG TAB PO SCH (13:34)
[2020-02-24] MEDS: FAMOTIDINE 20 MG TAB PO SCH (13:34)
[2020-02-24] MEDS: LOSARTAN 25 MG TAB PO SCH (13:35)
[2020-02-24] MEDS: LACTOBACILLUS ACIDOPH & BULGAR 1 EACH PACKET PO SCH (13:36)
[2020-02-24] MEDS: Mirabegron [Myrbetriq] PO SCH (13:38)
--- NOTE | 2020-02-24 14:21 | XR ---
EXAMINATION TYPE: XR cervical spine comp DATE OF EXAM: 02/24/2020 COMPARISON: None HISTORY: 85-year-old male cervical myelopathy TECHNIQUE: 5 views FINDINGS: No predental space widening or prevertebral soft tissue swelling. Marked osteopenia. C6-C7 and below is obscured by the patient's shoulders and not assessed. Remaining alignment is maintained. Some facet and uncovertebral joint arthropathy lower cervical spine. Mild bony neuroforaminal narrowi ng on the left at C6-C7. Limited odontoid view. IMPRESSION: C6-C7 and levels below are obscured by the patient's shoulders and not assessed. Alignment of the cer vical spine above this level is maintained. Marked osteopenia limiting evaluation. Moderate spondylot ic change lower cervical spine.
--- NOTE | 2020-02-24 14:50 | PN ---
PROGRESS NOTE DATE OF SERVICE: 02/24/2020 This 85-year-old gentleman who was admitted with severe back pain, DJD, is scheduled to have back injection by Dr. Kennedy. Orthopedic service is planning MRI. Patient being closely monitored at this time. Past medical history reviewed. REVIEW OF SYSTEMS: CARDIOVASCULAR: No angina. RESPIRATION: As mentioned earlier. GI as mentioned earlier. NERVOUS SYSTEM: As mentioned earlier. CURRENT MEDICATIONS: Reviewed and include: 1. Ventolin. 2. Xanax. 3. Aspirin. 4. Lipitor. 5. Casodex. 6. Vitamin D3. 7. Flexeril. 8. Pepcid. 9. Heparin subcu b.i.d. 10.Dilaudid. 11.Toradol. 12.Lactinex. 13.Antivert. 14.Solu-Medrol. 15.Narcan. 16.Myrbetriq. 17.Protonix. 18.Restoril. 19.Vitamin E. PHYSICAL EXAM: Patient is alert and oriented times three. Pulse 74, blood pressure 124/70, respiration 18, temp 98.1, pulse ox 94% on room air. HEENT: Conjunctivae normal. NECK: No JVD. CARDIOVASCULAR: S1, S2 muffled. RESPIRATORY: Breath sounds diminished in the bases. A few scattered rhonchi. No crackles. ABDOMEN: Soft, nontender. LEGS: Significant pain on the left leg with movement on the left side. Straight leg raising test positive. NERVOUS SYSTEM: No focal deficits. LABS: WBC 7.2, hemoglobin 14.9, platelets 140. Sodium 136 and glucose 164. UA noted, mostly RBC hematuria. ASSESSMENT: 1. Severe back pain, degenerative joint disease, and severe gait dysfunction. 2. Hematuria. 3. Sciatica, bilateral. 4. Hyponatremia. 5. Failure of outpatient treatment. 6. Gastroesophageal reflux disease. 7. Hyperlipidemia. 8. History of degenerative joint disease. 9. Hiatal hernia. 10.Prostate cancer. 11.History of spinal stenosis. 12.History of prostate surgery. 13.Anxiety. 14.FULL CODE. RECOMMENDATIONS AND DISCUSSION: I recommend to continue current medications, monitoring and symptomatic treatment. Otherwise, at this time, discussed with orthopedic surgery and MRI. Pain medication. Monitor blood sugars closely. Continue to follow. Prognosis guarded. Further recommendations to follow. MMODL / IJN: [id number] /
--- NOTE | 2020-02-24 16:43 | MR ---
EXAMINATION TYPE: MR cspine/lspine wo con DATE OF EXAM: 02/24/2020 COMPARISON: Plain film cervical spine 02/24/[address] 02/03/2020 HISTORY: Cervical Myelopathy and difficulty with ambulation TECHNIQUE: Multiplanar, multisequence imaging of the cervical and lumbar spine is performed without I V contrast. FINDINGS: Sagittal images of the cervical spine show vertebral body heights and alignment to appear s atisfactory. The intervertebral discs demonstrate normal heights and hydration with the exception of some loss of disc height signal at C6-7, there is associated spondylosis and endplate discogenic prem ow signal change, small posterior disc bulge C3-4 and C5-6 bone marrow signal intensity is within nor mal limits. There is facet arthropathy changes. Cervical cord signal is normal. IMPRESSION: Mild degenerative disc disease cervical spine Lumbar spine MRI: There is loss of signal within the L3 vertebral body on T1 and T2-weighted sequence s with a focus of increased signal in T2-weighted sequences at the inferior endplate. The anterior we dge deformity at L1 shows a stable appearance. Lumbar vertebral bodies show stable alignment. The con us is at T12 and shows an unremarkable appearance. Probable hemangioma in the posterior aspect of L2, multilevel Schmorl's node formation is noted. There is calcification along the disc of T12-L1 is not ed on plain film. L5-S1: There is a small posterior broad-based disc bulge causing anterior mass effect on the thecal s ac. Lateral extension endplate disc complex extends to cause foraminal encroachment. There is some fa cet arthropathy. No significant spinal stenosis. L4-5: Hypertrophic changes of the facets, ligamentum flavum causes posterior lateral mass effect on t he thecal sac. There is moderate spinal stenosis present, posterior extension endplate disc complex c auses anterior mass effect on the thecal sac, circumferential extension causes foraminal encroachment greater on the right than on the left. L3-4: There is a small posterior disc bulge present, posterior extension of endplate disc complex cau sing anterior mass effect on the thecal sac. Facet arthropathy is noted. Circumferential extension of endplate disc complex encroaches on the neural foramina greater on the left, suspect there may be a small synovial cyst on sagittal image #3 encroaching on the left L3 nerve root but may represent hype rtrophic change of the facet. L2-3: No definite foraminal encroachment or disc herniation. L1-2: Small posterior disc bulge causes slight anterior mass effect on the thecal sac. No significant foraminal encroachment or spinal stenosis. Right adrenal mass is noted incidentally. There is atrophy of the right psoas. IMPRESSION: Findings thought likely to represent chronic compression deformity of L3 with difficult t o exclude a subacute component. Degenerative disc disease, facet arthropathy, multilevel foraminal en croachment as described. Indeterminate right adrenal lesion may represent an adenoma.
[2020-02-24] MEDS: ASPIRIN 325 MG TAB PO SCH (17:40)
[2020-02-24 17:45] LABS: Glucose,Whole Blood 186 mg/dL (75-99)
[2020-02-24 21:55] LABS: Glucose,Whole Blood 162 mg/dL (75-99)
[2020-02-24] MEDS: CYCLOBENZAPRINE 10 MG TAB PO SCH (21:55)
[2020-02-24] MEDS: ATORVASTATIN 40 MG TAB PO SCH (21:56)
--- NOTE | 2020-02-24 23:05 | P.CNOR ---
History of Present Illness - [facility] Consult date: 02/24/20 Requesting physician: Bradley Leary Consult reason: low back pain (Intractable low back pain and lower extremity radiculopathy) History of present illness: Patient is a very pleasant 85-year-old male who is seen and examined in the ER room #31 for further evaluation regards to his lumbar spine. Patient has been experiencing worsening low back pain. He is scheduled to undergo an injection with Dr. Kennedy at [facility] tomorrow, 02/25/2020, but was unable to wait as he is having difficulty controlling his pain at home. His family states they are unable to take care of him at home. Patient states he has intractable back pain that radiates down the bilateral lower extremities. Most specifically from the lumbar spine, into the left buttock, down the left lateral thigh and medial thigh and over the left knee. He has some pain that also radiates down the right posterior thigh. He states over the past 1-2 months he's had increased difficulty in ambulation. He states he ambulates with a walker in a flexed foward position which does help alleviate some of his back pain. He is also difficulty in ambulation as he states his legs do not seem to function the way he would like them to. He is unsteady in his gait. He denies any recent injuries. He currently denies any cervical pain. He does have a history of a left total knee arthroplasty performed on 02/25/[address] Jasso. He has been experiencing some pain in that knee. He was recently evaluated by Dr. Jasso approximate 2-3 weeks ago in the outpatient setting. Imaging was ta ar at that time which showed good alignment and good position. Dr. Jasso was not planning for further intervention at that time. Patient did have x-ray imaging of his lumbar spine and a CT as well performed on 02/03/2020. He has not had a recent lumbar MRI. He denies having a pacemaker. He denies specific weakness in bilateral lower extremities but states his legs do not function way he would like them to. He continues to be seen and examined by medicine. His past medical history includes hyperlipidemia and cancer. He denies any change in bowel or bladder. Patient is not currently experiencing any cervical pain. He denies any specific upper extremity radiculopathy or weakness bilaterally. Patient denies history of stroke or other neurological disorder. Consultations also placed for this patient by Dr. Carcamo evaluation of his left knee status post left total knee arthroplasty performed by Dr. Jasso on 02/25/2019. Past Medical History Past Medical History: Cancer, GERD/Reflux, Hyperlipidemia, Osteoarthritis (OA) Additional Past Medical History / Comment(s): hiatal hernia, hx anemia, hx. prostate cancer,spinal stenosis History of Any Multi-Drug Resistant Organisms: None Reported Past Surgical History: Hernia Repair, Joint Replacement, Orthopedic Surgery, Prostate Surgery Additional Past Surgical History / Comment(s): left knee, right knee & rt hip replaced, prostatectomy, orchiectomy, left wrist & arm surg. as child, left shoulder sx, pain procedures with dr kennedy Past Anesthesia/Blood Transfusion Reactions: No Reported Reaction, Motion Sickness Past Psychological History: Anxiety Smoking Status: Never smoker Past Alcohol Use History: Rare Past Drug Use History: None Reported - Past Family History Mother Family Medical History: No Reported History Additional Family Medical History / Comment(s): Mother was healthy and lived to be 82. Father Family Medical History: No Reported History Additional Family Medical History / Comment(s): Father was healthy. He lived to be 74 yrs old. Medications and Allergies Home Medications Medication Instructions Recorded Confirmed Type Bicalutamide [Casodex] 50 mg PO DAILY 06/07/14 02/23/20 History Cyanocobalamin (Vitamin B-12) 1,500 mcg PO DAILY 01/13/17 02/23/20 History [Vitamin B-12] Atorvastatin [Lipitor] 40 mg PO HS 03/07/17 02/23/20 History Temazepam [Restoril] 15 mg PO HS PRN 01/27/19 02/23/20 History ALPRAZolam [Xanax] 0.25 mg PO BID PRN 02/15/19 02/23/20 History L.acidoph,Paracasei, B.lactis 1 cap PO DAILY 02/15/19 02/23/20 History [Probiotic] Losartan Potassium [Cozaar] 25 mg PO DAILY 02/15/19 02/23/20 History Albuterol Sulfate [Proventil Hfa] 2 puff INHALATION RT-Q4H PRN 02/23/20 02/23/20 History Aspirin 325 mg PO BID-W/MEALS 02/23/20 02/23/20 History Aspirin EC [Ecotrin Low Dose] 81 mg PO DAILY 02/23/20 02/23/20 History Famotidine [Pepcid] 40 mg PO DAILY 02/23/20 02/23/20 History Hydrochlorothiazide [Hydrodiuril] 25 mg PO DAILY 02/23/20 02/23/20 History Meclizine [Antivert] 25 mg PO TID PRN 02/23/20 02/23/20 History Meloxicam [Mobic] 7.5 - 15 mg PO DAILY PRN 02/23/20 02/23/20 History Mirabegron [Myrbetriq] 50 mg PO DAILY 02/23/20 02/23/20 History Omeprazole [PriLOSEC] 20 mg PO BID 02/23/20 02/23/20 History Vitamin D 5,000unit High-Potency 1 tab PO DAILY 02/23/20 02/23/20 History Vitamin E 1,000 unit PO DAILY 02/23/20 02/23/20 History Allergies Allergy/AdvReac Type Severity Reaction Status Date / Time Iodinated Contrast Media Allergy Swelling Verified 02/23/20 21:00 [Iodinated Contrast Media - IV Dye] hydrocodone bitartrate AdvReac Nausea Verified 02/23/20 21:00 [From Vicodin] Physical Examination Physical exam: Patient is awake, alert, and oriented 3 Vital signs stable Good chest excursion with deep inspiration and expiration Examination of lumbar spine reveals skin is intact with no abrasions, lacerations, or bruises; no erythema, purulence or signs of infection Dorsiflexion, plantarflexion, and extensor hallucis longus positive sustained bilaterally Lower extremity strength 5/5 bilaterally Evidence of a well-healed anterior incision over the left knee Evidence of a well-healed incision over the medial anterior right knee No lower extremity hyperreflexia bilaterally Straight leg test negative bilateral lower extremities Evidence of 3-4 beats of clonus on the left lower extremity No signs or symptoms of DVT; no calf pain No pain with internal and external rotation of the hips bilaterally Neurovascularly intact Positive Lj's sign bilateral upper extremities Full range of motion of the cervical spine with adequate flexion, extension, and bilateral rotation Rotor Plate Washer strength, thumb strength, interosseous strength, biceps strength, triceps strength, and shoulder strength positive sustained bilaterally Upper extremity strength 5/5 bilaterally No upper extremity hyperreflexia bilaterally Results Pertinent studies: X-rays of the lumbar spine seen on 02/03/2020: Evidence of chronic L1 compression fracture deformity; endplate change at L3 possibly chronic; evidence of what appears to be an L5 compression fracture deformity which may be acute; lumbar facet arthropathy; bone demineralization; clips within the pelvis from previous surgical intervention; evidence of right total hip arthroplasty CT of the lumbar spine taken on 02/03/2020: Evidence of chronic L1 and L3 compression fracture deformity; no visible evidence of L5 compression fracture deformity seen on x-ray imaging and was felt to be attributed to a Schmorl's node; multilevel degenerative disc disease with multilevel foraminal encroachment and spinal stenosis; MRI likely would provide increased sensitivity and specificity; indeterminate lesion lesion in the right sacral ala - Labs Labs: Abnormal Lab Results - Last 24 Hours (Table) 02/23/20 02/24/20 02/24/20 Range/Units 16:51 06:30 06:41 Plt Count 146 L (150-450) k/uL Sodium 134 L (137-145) mmol/L BUN 26 H (9-20) mg/dL Glucose 121 H (74-99) mg/dL POC Glucose (mg/dL) (75-99) mg/dL Alkaline Phosphatase 127 H (38-126) U/L Total Protein 6.2 L (6.3-8.2) g/dL Urine Protein Trace H (Negative) Urine Blood Moderate H (Negative) Ur Leukocyte Esterase Trace H (Negative) Urine RBC >182 H (0-5) /hpf Urine WBC 17 H (0-5) /hpf Calcium Oxalate Crystal Occasional H (None) /hpf Urine Mucus Rare H (None) /hpf 02/24/20 02/24/20 02/24/20 Range/Units 06:41 07:50 12:29 Plt Count (150-450) k/uL Sodium 136 L (137-145) mmol/L BUN 25 H (9-20) mg/dL Glucose 105 H (74-99) mg/dL POC Glucose (mg/dL) 111 H 164 H (75-99) mg/dL Alkaline Phosphatase (38-126) U/L Total Protein (6.3-8.2) g/dL Urine Protein (Negative) Urine Blood (Negative) Ur Leukocyte Esterase (Negative) Urine RBC (0-5) /hpf Urine WBC (0-5) /hpf Calcium Oxalate Crystal (None) /hpf Urine Mucus (None) /hpf Microbiology - Last 24 Hours (Table) 02/24/20 06:30 Urine Culture - Preliminary Urine,Voided H & H 02/23/20 02/24/20 Range/Units 16:51 06:41 Hgb 14.3 14.4 (13.0-17.5) gm/dL Hct 45.7 44.7 (39.0-53.0) % Result Diagrams: 02/24/20 06:41 02/24/20 06:41 Assessment and Plan Assessment: Assessment: Intractable low back pain Difficulty with ambulation and unsteady gait Bilateral lower extremity radiculopathy L1 and L3 chronic compression fracture deformities Lumbar degenerative disc disease Lumbar spinal stenosis Lumbar facet arthropathy Positive Lj sign bilaterally upper extremities Positive clonus left lower extremity Myelopathy Left knee pain History of left total knee arthroplasty performed on 02/25/2019 Hyperlipidemia History of cancer (1) Compression fracture of L1 vertebra Current Visit: Yes Status: Acute Code(s): S32.010A - WEDGE COMPRESSION FRACTURE OF FIRST LUMBAR VERTEBRA, INIT SNOMED Code(s): 103190970 (2) Compression fracture of L3 vertebra Current Visit: Yes Status: Acute Code(s): S32.030A - WEDGE COMPRESSION FRACTURE OF THIRD LUMBAR VERTEBRA, INIT SNOMED Code(s): 030175190 (3) Unsteady gait Current Visit: Yes Status: Acute Code(s): R26.81 - UNSTEADINESS ON FEET SNOMED Code(s): 81501365 (4) Lumbar stenosis Current Visit: Yes Status: Acute Code(s): M48.061 - SPINAL STENOSIS, LUMBAR REGION WITHOUT NEUROGENIC VIOLA SNOMED Code(s): 73895989 (5) Lumbar facet arthropathy Current Visit: Yes Status: Acute Code(s): M47.816 - SPONDYLOSIS W/O MYELOPATHY OR RADICULOPATHY, LUMBAR REGION SNOMED Code(s): 057552593 (6) Lumbar degenerative disc disease Current Visit: Yes Status: Acute Code(s): M51.36 - OTHER INTERVERTEBRAL DISC DEGENERATION, LUMBAR REGION SNOMED Code(s): 40448715 (7) Myelopathy Current Visit: Yes Status: Acute Code(s): G95.9 - DISEASE OF SPINAL CORD, UNSPECIFIED SNOMED Code(s): 90244949 (8) History of total left knee replacement (TKR) Current Visit: Yes Status: Acute Code(s): Z96.652 - PRESENCE OF LEFT ARTIFICIAL KNEE JOINT SNOMED Code(s): 8919937438469 (9) Left knee pain Current Visit: Yes Status: Acute Code(s): M25.562 - PAIN IN LEFT KNEE SNOMED Code(s): 83513676 (10) Hyperlipemia Current Visit: Yes Status: Acute Code(s): E78.5 - HYPERLIPIDEMIA, UNSPECIFIED SNOMED Code(s): 71161580 Plan: Plan: 1. Patient has been discussed in detail with Dr. Surya Elliott. After reviewing of imaging, physical examination of the patient, and further discussion with the patient, we'll plan to obtain further imaging. Patient does have changes in his lumbar spine and is experiencing intractable low back pain and bilateral lower extremity radiculopathy. He was scheduled to undergo an injection with pain management tomorrow in the outpatient setting. At this time, we will plan to obtain an MRI of the lumbar spine for further evaluation. He has not had an MRI of his lumbar spine since 2018. On physical exam patient also has evidence of positive bilateral upper extremity Lj's sign and clonus at the left lower extremity. Patient has also been experiencing increased difficulty with ambulation and unsteady gait. We'll plan to obtain x-rays of the cervical spine and MRI of the cervical spine for further evaluation of myelopathy. Following the completion of the imaging, we will review this imaging and will follow up with the patient to discuss the results and further treatment options. Patient feels this is a good plan of care. We did discuss in detail his left knee pain. He underwent a left total knee arthroplasty on 02/25/[address] Jasso. He has been recently evaluated in the outpatient setting an x-ray imaging showed his hardware was in good alignment and good position. We discussed his knee pain may be in relation to his radiculopathy radiating from his lumbar spine. We discussed will not further plan to obtain further imaging of his left knee at this time. 2. Patient currently waiting for consultation with pain management 3. Patient will continue to be seen again by medicine for further treatment evaluation 4. Continue pain control medication as prescribed Time with Patient: Greater than 30 (Including obtaining history, physical examination, reviewing of imaging, and dictation.)
[2020-02-25] MEDS: INSULIN ASPART (NovoLOG) 100 UNIT/ML VIAL SQ SCH ×5 (00:23→21:08)
[2020-02-25] MEDS: methylPREDNISolone SOD SUCCI 125 MG/2 ML VIAL IV SCH ×2 (00:37→05:45)
[2020-02-25] MEDS: HYDROmorphone 0.5 MG/0.5 ML SYRINGE IVP PRN ×2 (02:38→10:25)
[2020-02-25 06:37] LABS: Basophils % (A) 0 %; Eosinophils # (A) 0.1 k/uL (0-0.7); Eosinophils % (A) 1 %; HGB 14.2 gm/dL (13.0-17.5); Lymphocytes # (A) 2.6 k/uL (1.0-4.8); Lymphocytes % (A) 23 %; MCH 29.6 pg (25.0-35.0); MCHC 32.3 g/dL (31.0-37.0); MCV 91.7 fL (80.0-100.0); Mean Platelet Volume 8.4; Monocytes # (A) 0.3 k/uL (0-1.0); Monocytes % (A) 2 %; Neutrophils # (A) 8.1 k/uL (1.3-7.7); Neutrophils % (A) 72 %; Platelet Count 178 k/uL (150-450); RDW 12.7 % (11.5-15.5); WBC 11.3 k/uL (3.8-10.6)
[2020-02-25 06:46] LABS: African American GFR (CKD) >90 (>60 ml/min/1.73 sqM); Anion Gap 7 mmol/L; Blood Urea Nitrogen 25 mg/dL (9-20); Calcium 9.2 mg/dL (8.4-10.2); Carbon Dioxide 27 mmol/L (22-30); Chloride 101 mmol/L (98-107); Glucose 142 mg/dL (74-99); Non-African American GFR(CKD) 89 (>60 ml/min/1.73 sqM); Potassium 4.1 mmol/L (3.5-5.1); Sodium 135 mmol/L (137-145)
[2020-02-25] MEDS: HEPARIN SODIUM,PORCINE 5,000 UNIT/ML 1 ML VIAL SQ SCH ×2 (07:49→21:11)
[2020-02-25] MEDS: ASPIRIN 325 MG TAB PO SCH ×2 (07:51→18:16)
[2020-02-25] MEDS: BICALUTAMIDE 50 MG TAB PO SCH (10:15)
[2020-02-25] MEDS: PANTOPRAZOLE 40 MG TABLET PO SCH (10:15)
[2020-02-25] MEDS: FAMOTIDINE 20 MG TAB PO SCH (10:15)
[2020-02-25] MEDS: LACTOBACILLUS ACIDOPH & BULGAR 1 EACH PACKET PO SCH (10:16)
[2020-02-25] MEDS: HYDROCHLOROTHIAZIDE 25 MG TAB PO SCH (10:16)
[2020-02-25] MEDS: CYANOCOBALAMIN 500 MCG TAB PO SCH (10:16)
[2020-02-25] MEDS: LOSARTAN 25 MG TAB PO SCH (10:16)
[2020-02-25] MEDS: CHOLECALCIFEROL 1,000 UNIT TAB PO SCH (10:16)
[2020-02-25] MEDS: Mirabegron [Myrbetriq] PO SCH (10:17)
[2020-02-25] MEDS: VITAMIN E (DL,TOCOPHERYL ACET) 400 UNIT CAP PO SCH (10:17)
[2020-02-25] MEDS ORDERED: LACTATED RINGERS 1,000 ML IV ONE ×3 (11:09→14:06)
[2020-02-25 11:12] LABS: Glucose,Whole Blood 127 mg/dL (75-99)
[2020-02-25] MEDS ORDERED: MIDAZOLAM 2 MG/2 ML VIAL ONE (11:28)
[2020-02-25] MEDS ORDERED: methylPREDNISolone ACETATE 40 MG/ML 1 ML VIAL ONE (11:28)
--- NOTE | 2020-02-25 11:51 | P.PN ---
Progress Note - Text Progress Note Date: 02/25/20 Patient was attempted to be seen and examined at the bedside but continues to wait for availability of the bed. He is still in the emergency department room #31. Patient was attempted to be seen in the emergency department but has just been transferred to the surgical floor by pain management to undergo an injection. I was able to discuss the patient in detail with Dr. Yoo prior to the scheduled injection. She states patient was scheduled to undergo an injection at L4-5. Recent lumbar MRI imaging shows acute to subacute L3 compression fracture deformity. Patient had a known compression fracture deformity at L3 which has appeared to worsen. There is evidence of signal savita nge at L3 on his lumbar MRI imaging taking yesterday, 02/24/2020. MRI imaging was reviewed by myself and Dr. Surya Elliott, who recommended avoiding epidural injections given his L3 fracture. Patient was originally scheduled to undergo a caudal injection today by Dr. Kennedy at [facility] but was unable to have this injection there due to his admittance to the hospital. Dr. Elliott states the patient would be cleared from an orthopedic spine standpoint to proceed forward with a caudal injection. After further discussion with Dr. Yoo, she plans to proceed forward with a caudal injection and cancel the previously scheduled L4-5 injection. We will plan to follow up with the patient to further discuss his cervical and lumbar imaging. Given his acute to subacute L3 compression fracture deformity, we will plan for bracing at his lumbar spine. A prescription has been written for an Exos LSO brace and provided the case management. If he were to fail conservative treatment options, we will also discuss the possibility of a kyphoplasty with biopsy at L3.
--- NOTE | 2020-02-25 11:52 | P.PCN ---
Date of Procedure: 02/25/20 Procedure(s) Performed: Procedure= caudal epidural steroid injection under fluoroscopy guidance. Preoperative diagnosis=1 lumbar degenerative disc disease 2-lumbar radiculopathy Postoperative diagnosis= same Fluoroscopy was used for the procedure and fluoroscopic images were saved to the patient's chart Anesthesia= IV sedation with Versed, and local infiltration with lidocaine 1% 3 mL for skin and subcutaneous tissue infiltrations. Sedation time 9 minutes Description of the procedure= procedure risk and benefits discussed with the patient, including but not limited to risk of infection and bleeding and ALLERGIC reaction to the medication and no complete pain relief, paralysis discussed with the patient and the patient agreed with proceeding. The patient was taken to the operating room, placed in prone position, standard monitors applied, then after induction of anesthesia the lumbar and the caudal Area prepped with chlorhexidine , then under fluoroscopy guidance, local infiltration of the skin and subcutaneous tissue at the caudal hiatus area, then a 17-gauge Touhy needle advanced slowly under fluoroscopy and passed through the cauda hiatus and advanced to the epidural space upto the S3 level. Aspiration revealed no heme, no paresthesia, no cerebrospinal fluid, then a mixture of lidocaine 1% 1 mL +5 mL of preservative-free normal saline +40 mg of depomedrol was mixed together , and injected epidurally after negative aspiration. Patient tolerated the procedure well without any complication and will follow up with up in the pain clinic in 4 weeks. Of note, the patient was scheduled to have a lumbar epidural steroid injection, however on discussion with orthopedic surgery, they believe his L3 fracture to be acute, he may be a candidate for kyphoplasty. They did not want me to proceed with lumbar epidural steroid injection and recommended caudal epidural steroid injection.
[2020-02-25] MEDS ORDERED: IV FLUID CONTINUATION 1,000 ML IV ONE ×2 (11:54)
--- NOTE | 2020-02-25 11:59 | FL ---
Fluoroscopy History: Needle placement NEEDLE PLACEMENT, 10 SEC FLUORO
--- NOTE | 2020-02-25 15:38 | P.PN ---
Subjective Progress Note Date: 02/25/20 Principal diagnosis: This is an 85-year-old male who was recently admitted for severe back pain, generative joint disease, and underwent a caudal steroid injection today. Orthopedic surgery following the patient and ordered an MRI which shows an acute to subacute L3 compression fracture with a known history of a deformity at the L3 which has appeared to be worsening. Currently no reports of chest pain, shortness of breath, or palpitations. Patient is afebrile. No reports of nausea or vomiting and patient is tolerating diet. He should sodium today is 135 the creatinine of 0.67. Patient awaiting to receive an LSO back brace and PT/OT to evaluate the patient. Social work consult placed for possible ECF placement for continued PT/OT therapy. Objective - Vital Signs Vital signs: Vital Signs Temp 97.6 F 02/25/20 11:03 Pulse 92 02/25/20 14:45 Resp 20 02/25/20 14:45 BP 116/85 02/25/20 14:45 Pulse Ox 94 L 02/25/20 14:45 Intake & Output 02/24/20 02/25/20 02/25/20 18:59 06:59 18:59 Intake Total 850 Output Total 225 325 Balance -225 525 Weight 83.915 kg 83.915 kg Intake: IV 850 Output: Urine 225 325 Other: Voiding Method Urinal - Exam Gen: This is a 85-year-old male lying in bed awake, alert and oriented 3. Status post caudal injection HEENT: Head is atraumatic, normocephalic. Pupils equal, round. Sclerae is anicteric. NECK: Supple. No JVD. No lymphadenopathy. No thyromegaly. LUNGS: Diminished breath sounds bilaterally with a few scattered rhonchi noted. No intercostal retractions. HEART: Regular rate and rhythm. No murmur. ABDOMEN: Soft. Bowel sounds are present. No masses. No tenderness. EXTREMITIES: No pedal edema. No calf tenderness. NEUROLOGICAL: Patient is awake, alert and oriented x3. - Labs CBC & Chem 7: 02/25/20 05:54 02/25/20 05:54 Labs: Abnormal Lab Results - Last 24 Hours (Table) 02/24/20 02/24/20 02/25/20 Range/Units 17:38 21:54 05:54 WBC 11.3 H (3.8-10.6) k/uL Neutrophils # 8.1 H (1.3-7.7) k/uL Sodium (137-145) mmol/L BUN (9-20) mg/dL Glucose (74-99) mg/dL POC Glucose (mg/dL) 186 H 162 H (75-99) mg/dL 02/25/20 02/25/20 Range/Units 05:54 11:05 WBC (3.8-10.6) k/uL Neutrophils # (1.3-7.7) k/uL Sodium 135 L (137-145) mmol/L BUN 25 H (9-20) mg/dL Glucose 142 H (74-99) mg/dL POC Glucose (mg/dL) 127 H (75-99) mg/dL Microbiology - Last 24 Hours (Table) 02/24/20 06:30 Urine Culture - Final Urine,Voided Assessment and Plan Assessment: Severe back pain, degenerative joint disease, and severe gait dysfunction Acute to subacute L3 compression fracture deformity as noted on MRI Hematuria Gait dysfunction Sciatica, bilateral Hyponatremia Failure of outpatient treatment GERD History of spinal stenosis Full code Plan: New current medications, management, and symptomatic treatment. A prescription was obtained and given to case management and awaiting authorization for an LSO brace. PT/OT to evaluate the patient. Case management and social and political studies professor also following for possible placement at an ECF for continued PT/OT therapy. Will repeat a.m. labs. Further recommendations to follow.
[2020-02-25 16:58] LABS: Glucose,Whole Blood 125 mg/dL (75-99)
[2020-02-25] MEDS: KETOROLAC 30 MG/ML 1 ML VIAL IVP PRN (18:15)
[2020-02-25 20:22] LABS: Glucose,Whole Blood 128 mg/dL (75-99)
[2020-02-25] MEDS: CYCLOBENZAPRINE 10 MG TAB PO SCH (21:11)
[2020-02-25] MEDS: ATORVASTATIN 40 MG TAB PO SCH (21:11)
[2020-02-26] MEDS: KETOROLAC 30 MG/ML 1 ML VIAL IVP PRN ×4 (01:13→20:23)
[2020-02-26 07:05] LABS: Glucose,Whole Blood 116 mg/dL (75-99)
[2020-02-26] MEDS: INSULIN ASPART (NovoLOG) 100 UNIT/ML VIAL SQ SCH ×4 (07:26→20:16)
[2020-02-26 08:11] LABS: Basophils % (A) 0 %; Eosinophils % (A) 0 %; HCT 42.3 % (39.0-53.0); HGB 14.3 gm/dL (13.0-17.5); Lymphocytes # (A) 2.7 k/uL (1.0-4.8); Lymphocytes % (A) 24 %; MCH 31.2 pg (25.0-35.0); MCHC 33.7 g/dL (31.0-37.0); MCV 92.4 fL (80.0-100.0); Mean Platelet Volume 8.1; Monocytes # (A) 0.6 k/uL (0-1.0); Monocytes % (A) 6 %; Neutrophils # (A) 7.8 k/uL (1.3-7.7); Neutrophils % (A) 69 %; Platelet Count 171 k/uL (150-450); RBC 4.58 m/uL (4.30-5.90); RDW 12.9 % (11.5-15.5); WBC 11.3 k/uL (3.8-10.6)
[2020-02-26 08:25] LABS: African American GFR (CKD) >90 (>60 ml/min/1.73 sqM); Anion Gap 5 mmol/L; Blood Urea Nitrogen 29 mg/dL (9-20); Calcium 8.8 mg/dL (8.4-10.2); Carbon Dioxide 29 mmol/L (22-30); Chloride 102 mmol/L (98-107); Glucose 105 mg/dL (74-99); Non-African American GFR(CKD) 85 (>60 ml/min/1.73 sqM); Potassium 3.8 mmol/L (3.5-5.1); Sodium 136 mmol/L (137-145)
[2020-02-26] MEDS: CYANOCOBALAMIN 500 MCG TAB PO SCH (08:25)
[2020-02-26] MEDS: FAMOTIDINE 20 MG TAB PO SCH (08:25)
[2020-02-26] MEDS: CHOLECALCIFEROL 1,000 UNIT TAB PO SCH (08:25)
[2020-02-26] MEDS: HEPARIN SODIUM,PORCINE 5,000 UNIT/ML 1 ML VIAL SQ SCH ×2 (08:25→20:23)
[2020-02-26] MEDS: LACTOBACILLUS ACIDOPH & BULGAR 1 EACH PACKET PO SCH (08:26)
[2020-02-26] MEDS: Mirabegron [Myrbetriq] PO SCH (08:26)
[2020-02-26] MEDS: BICALUTAMIDE 50 MG TAB PO SCH (08:26)
[2020-02-26] MEDS: VITAMIN E (DL,TOCOPHERYL ACET) 400 UNIT CAP PO SCH (08:26)
[2020-02-26] MEDS: ASPIRIN 325 MG TAB PO SCH ×2 (08:26→16:58)
[2020-02-26] MEDS: LOSARTAN 25 MG TAB PO SCH (08:34)
[2020-02-26 11:05] LABS: Glucose,Whole Blood 87 mg/dL (75-99)
--- NOTE | 2020-02-26 13:34 | P.PN ---
Subjective Progress Note Date: 02/26/20 Principal diagnosis: This is an 85-year-old male who was recently admitted for severe back pain, generative joint disease, and underwent a caudal steroid injection today. Orthopedic surgery following the patient and ordered an MRI which shows an acute to subacute L3 compression fracture with a known history of a deformity at the L3 which has appeared to be worsening. Currently no reports of chest pain, shortness of breath, or palpitations. Patient is afebrile. No reports of nausea or vomiting and patient is tolerating diet. He should sodium today is 135 the creatinine of 0.67. Patient awaiting to receive an LSO back brace and PT/OT to evaluate the patient. Social work consult placed for possible ECF placement for continued PT/OT therapy. 02/26/2020 Patient is seen and evaluated and follow-up and continues to have discomfort of the lower back, right hip, left knee. Patient received a caudal injection yesterday and continues to have lower back pain. Patient did receive a back brace and worked with physical therapy today and was unable to do much. Patient is agreeable to going to rehab and authorization through insurance will be needed. Case management and social work following and patient will like to go to [facility]. Referrals were sent. Currently no reports of chest pain, shortness of breath, or palpitations. Patient is afebrile. No reports of nausea or vomiting and patient is tolerating diet. Patient denies any loss of bowel or bladder although states he has a history of occasional incontinence and wears a brief period Objective - Vital Signs Vital signs: Vital Signs Temp 97.7 F 02/26/20 11:34 Pulse 73 02/26/20 11:34 Resp 17 02/26/20 11:34 BP 150/91 02/26/20 11:34 Pulse Ox 94 L 02/26/20 11:34 Intake & Output 02/25/20 02/26/20 02/26/20 18:59 06:59 18:59 Intake Total 1050 890 Output Total 325 Balance 725 890 Weight 83.915 kg Intake: IV 1050 Oral 890 Output: Urine 325 Other: Voiding Method Urinal Urinal Urinal # Voids 2 # Bowel Movements 2 - Exam Gen: This is a 85-year-old male lying in bed awake, alert and oriented 3. HEENT: Head is atraumatic, normocephalic. Pupils equal, round. Sclerae is anicteric. NECK: Supple. No JVD. No lymphadenopathy. No thyromegaly. LUNGS: Diminished breath sounds bilaterally with a few scattered rhonchi noted. No intercostal retractions. HEART: Regular rate and rhythm. No murmur. ABDOMEN: Soft. Bowel sounds are present. No masses. No tenderness. Musculoskeletal: Right hip tenderness, left knee discomfort, lower back discomfort upon palpation and position changes EXTREMITIES: No pedal edema. No calf tenderness. NEUROLOGICAL: Patient is awake, alert and oriented x3. - Labs CBC & Chem 7: 02/26/20 07:22 02/26/20 07:22 Labs: Abnormal Lab Results - Last 24 Hours (Table) 02/25/20 02/25/20 02/26/20 Range/Units 16:56 20:20 07:04 WBC (3.8-10.6) k/uL Neutrophils # (1.3-7.7) k/uL Sodium (137-145) mmol/L BUN (9-20) mg/dL Glucose (74-99) mg/dL POC Glucose (mg/dL) 125 H 128 H 116 H (75-99) mg/dL 02/26/20 02/26/20 Range/Units 07:22 07:22 WBC 11.3 H (3.8-10.6) k/uL Neutrophils # 7.8 H (1.3-7.7) k/uL Sodium 136 L (137-145) mmol/L BUN 29 H (9-20) mg/dL Glucose 105 H (74-99) mg/dL POC Glucose (mg/dL) (75-99) mg/dL Microbiology - Last 24 Hours (Table) 02/24/20 06:30 Urine Culture - Final Urine,Voided Assessment and Plan Assessment: Severe back pain, degenerative joint disease, and severe gait dysfunction Acute to subacute L3 compression fracture deformity as noted on MRI Hematuria Gait dysfunction Sciatica, bilateral Hyponatremia, improved Failure of outpatient treatment GERD History of spinal stenosis Full code Plan: New current medications, management, and symptomatic treatment. Patient has received LSO brace. PT/OT following the patient. Recommending subacute rehab. Discussed with the patient about continued PT/OT therapy at rehab and is agreeable to [facility]. Case management and social work job titles also following and referrals placed for [facility] for continued PT/OT therapy. Further recommendations to follow. Possible discharge in 24-48 hours.
--- NOTE | 2020-02-26 14:22 | P.PN ---
Progress Note - Text Progress Note Date: 02/26/20 Orthopedic spine: History of present illness: Patient is a very pleasant 85-year-old male who is seen and examined at the bedside for follow-up evaluation in regards to his lumbar spine and cervical spine. Since being seen and examined, cervical x-ray imaging and MRI imaging of the cervical lumbar spine had been completed. He was able to undergo a caudal injection with pain management yesterday. He states he has not had any significant improvement of his symptoms. He continues to have significant back pain that radiates down the bilateral lower extremities. Most specifically from the lumbar spine, into the left buttock, down the left lateral thigh and medial thigh and over the left knee. He has some pain that also radiates down the right posterior thigh. He states over the past 1-2 months he's had increased difficulty in ambulation. He states he ambulates with a walker in a flexed foward position which does help alleviate some of his back pain. He also has difficulty in ambulation as he states his legs do not seem to function the way he would like them to. He is unsteady in his gait. He denies any recent injuries. He continues to deny any cervical pain or changes with his upper extremities bilaterally. He does have a history of a left total knee arthroplasty performed on 02/25/[address] Jasso. He has been experiencing some pain in that knee which is present today as well. He was recently evaluated by Dr. Jasso approximately 2-3 weeks ago in the outpatient setting. Imaging was taken at that time which showed good alignment and good position. Dr. Jasso was not planning for further intervention at that time. We did discussed his lumbar MRI imaging showing evidence of acute to subacute L3 compression fracture deformity. He is known to have previously had a fracture at L3. He does continue to experience lower extremity radiculopathy. Given his acute to subacute L3 fracture, a prescription for an LSO brace was written, signed, and provided the case management yesterday to obtain a brace for the patient. This brace has been delivered and fitted appropriately. Patient is not currently wearing the brace as he is lying in bed. He continues receiving exam by medicine. Medicine states her planning for discharge to a rehabilitation facility once he gets insurance approval. His past medical history includes hyperlipidemia and cancer. He denies any change in bowel or bladder. Physical exam: Patient is awake, alert, and oriented 3 Vital signs stable Good chest excursion with deep inspiration and expiration Examination of lumbar spine reveals skin is intact with no abrasions, lacerations, or bruises; no erythema, purulence or signs of infection Dorsiflexion, plantarflexion, and extensor hallucis longus positive sustained bilaterally Lower extremity strength 5/5 bilaterally Evidence of a well-healed anterior incision over the left knee Evidence of a well-healed incision over the medial anterior right knee No lower extremity hyperreflexia bilaterally Straight leg test negative bilateral lower extremities Evidence of 3-4 beats of clonus on the left lower extremity No signs or symptoms of DVT; no calf pain No pain with internal and external rotation of the hips bilaterally Neurovascularly intact Positive Lj's sign bilateral upper extremities Full range of motion of the cervical spine with adequate flexion, extension, and bilateral rotation Category Analyst strength, thumb strength, interosseous strength, biceps strength, triceps strength, and shoulder strength positive sustained bilaterally Upper extremity strength 5/5 bilaterally No upper extremity hyperreflexia bilaterally Pertinent studies: MRI of the lumbar spine taken on 02/24/2020: Evidence of signal changes within the L3 vertebral body indicative of acute to subacute compression fracture deformity with history of previous L3 compression fracture deformity; L1 chronic compression fracture deformity L2 probable meningioma posterior aspect; L1-2 small posterior disc bulging; L3 4 small posterior disc bulge, facet arthropathy, and extension endplate disc complex resulting in neural foraminal encroachment greater on the left than the right; L4-5 facet hypertrophy and ligament flavum hypertrophy with posterior extension endplate disc resulting in moderate spinal canal stenosis and neural foraminal narrowing greater on the right than the left; L5-S1 broad-based disc bulge and facet arthropathy MRI of the cervical spine taken on 02/24/2020: Overall alignment is adequately maintained; no evidence of vertebral body compression fracture; C3-4 and C5 to 6 small posterior disc bulge; C6 to 7 degenerative disc disease; cervical facet arthropathy; cervical spinal cord signal is normal; bone marrow signal intensity within normal limits X-rays of the cervical spine taken on 02/24/2020: Overall alignment is adequately maintained; no significant degenerative disc disease; difficulty to visualize C6-7 due to shoulders X-rays of the lumbar spine seen on 02/03/2020: Evidence of chronic L1 compression fracture deformity; endplate change at L3 possibly chronic; evidence of what appears to be an L5 compression fracture deformity which may be acute; lumbar facet arthropathy; bone demineralization; clips within the pelvis from previous surgical intervention; evidence of right total hip arthroplasty CT of the lumbar spine taken on 02/03/2020: Evidence of chronic L1 and L3 compression fracture deformity; no visible evidence of L5 compression fracture deformity seen on x-ray imaging and was felt to be attributed to a Schmorl's node; multilevel degenerative disc disease with multilevel foraminal encroachment and spinal stenosis; MRI likely would provide increased sensitivity and specificity; indeterminate lesion lesion in the right sacral ala Assessment: Intractable low back pain Difficulty with ambulation and unsteady gait Bilateral lower extremity radiculopathy L3 acute to subacute compression fracture deformity L1 chronic compression fracture deformity Lumbar degenerative disc disease L4-5 Lumbar spinal stenosis Lumbar facet arthropathy Positive Lj sign bilaterally upper extremities Positive clonus left lower extremity Myelopathy Left knee pain 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 Patient has been discussed in detail with Dr. Surya Elliott. Imaging has been reviewed by myself and Dr. Surya Elliott. At this time, we will plan to continue conservative treatment. Reviewing of cervical MRI and x-ray imaging does not show evidence of significant stenosis or change in spinal cord signal. It does not appear the cause of the unsteady in his gait or upper extremity positive Lj's sign is caused due to changes at his cervical spine. We will not currently planning for any further intervention or treatment in regard to his cervical spine. Patient continues to deny any upper extremity weakness or radiculopathy. He denies any cervical pain. Reviewing of lumbar imaging shows evidence of acute to subacute L3 compression fracture deformity with history of previous L3 fracture. He has evidence of an L1 chronic compression fracture deformity. He has been experiencing ongoing intractable low back pain. Yesterday a prescription for an Exos brace was written, signed, and provided a case management. This brace has been delivered and fitted at the bedside. We discussed this brace should be worn while sitting upright at greater than 45, ring increase activities, during ambulation. Brace does not have to order while lying in bed or bathing. Patient should avoid excessive bending, twisting, lifting; no lifting greater than 10 pounds. Patient will be cleared for discharge from an orthopedic spine standpoint. Patient will plan to follow-up with Amarjit Edwards PA-C or Dr. Surya Elliott at [facility] in approximately 2 weeks for further evaluation. If his symptoms are not improving at that time, we will discuss the possibility of kyphoplasty at L3. Patient was able to undergo a caudal injection with pain management yesterday but has not yet had any relief from this injection. We will wait to see if he is able to have some improvement of symptoms following this injection. We did discuss he should avoid epidural injections given his diagnosis of acute to subacute L3 compression fracture deformity. 2. Patient will continue be seen and examined by medicine for further treatment and evaluation 3. Continue pain control medications as prescribed
[2020-02-26] MEDS: ACETAMINOPHEN TAB 325 MG TAB PO PRN ×2 (16:57→23:54)
[2020-02-26 17:04] LABS: Glucose,Whole Blood 97 mg/dL (75-99)
[2020-02-26 19:59] LABS: Glucose,Whole Blood 121 mg/dL (75-99)
[2020-02-26] MEDS: ATORVASTATIN 40 MG TAB PO SCH (20:23)
[2020-02-26] MEDS: CYCLOBENZAPRINE 10 MG TAB PO SCH (20:23)
[2020-02-27] MEDS: KETOROLAC 30 MG/ML 1 ML VIAL IVP PRN ×4 (03:41→23:42)
[2020-02-27] MEDS: ACETAMINOPHEN TAB 325 MG TAB PO PRN (05:54)
[2020-02-27 07:20] LABS: Glucose,Whole Blood 86 mg/dL (75-99)
--- NOTE | 2020-02-27 08:18 | P.PN ---
Progress Note - Text Progress Note Date: 02/27/20 Patient is seen and examined today at bedside. He says his back is still giving him significant pain. He is still unable to get up out of bed on his own. He is not having terrible pain down his legs. He denies any numbness tingling in his feet or toes. He says that the injection that he had may have helped down his left leg somewhat be still having significant pain across his back and toward his buttocks bilaterally. Much his pain started approximate 4 weeks ago after playing a round of golf and then [facility]. He denies any specific fall or trauma. He's afebrile stable vital signs His lower extremities he has sustained dorsal flexion plantarflexion and EHL intact. He is some mild clonus. He has sustained 5 and 5 strength bilaterally. He is nontender to palpation his lower extremity is. Calves and thighs soft nontender. No pain with internal/rotation of his hips. He has pain in his lower back with motion has some spasm in his lower back and diffuse tenderness at his lower back His CT and MRI are again reviewed. He has a compression deformity at L1 which appears to be chronic and a compression deformity at L3. The chronicity of L3 compression fractures hard to determine. There is certainly signal change on the MRI did indicate that it is subacute were relatively new. This seems to be a significant source of pain for him. He does have significant facet arthrosis and bilateral foraminal stenosis L3 4 and L4 5. assessment and plan Severe low back pain L3 compression fracture likely subacute Chronic L1 compression fracture Spinal stenosis Bilateral lower extremity radiculopathy Status post caudal epidural steroid injection with some left lower extremity relief but without any relief of back pain the patient continues to have severe pain in his lower back. He has an LSO brace at bedside and I like to see how he does with physical therapy and some mobilization with the brace on. He agrees to try that today. we will have physical therapy work with him. He is a candidate for kyphoplasty at L3. He is interested in pursuing this if he is not having any improvement and I think this is reasonable given the signal change on the MRI that we can see and his acute onset of pain. The L1 appears to be chronic but the L3 seems subacute and is likely a significant source of his symptoms. I discussed the risk of occasions alternatives and benefits of the surgical procedure of the kyphoplasty with him and he understands. He is interested in pursuing kyphoplasty if he is not having any benefit with therapy and bracing. We could consider this over the next couple of days if able. we will follow him closely.
[2020-02-27] MEDS: INSULIN ASPART (NovoLOG) 100 UNIT/ML VIAL SQ SCH ×4 (08:34→23:09)
[2020-02-27] MEDS: traMADol 50 MG TAB PO SCH ×3 (09:25→22:55)
[2020-02-27] MEDS: ASPIRIN 325 MG TAB PO SCH ×2 (10:02→16:21)
[2020-02-27] MEDS: CHOLECALCIFEROL 1,000 UNIT TAB PO SCH (10:02)
[2020-02-27] MEDS: CYANOCOBALAMIN 500 MCG TAB PO SCH (10:03)
[2020-02-27] MEDS: LACTOBACILLUS ACIDOPH & BULGAR 1 EACH PACKET PO SCH (10:03)
[2020-02-27] MEDS: FAMOTIDINE 20 MG TAB PO SCH (10:03)
[2020-02-27] MEDS: HEPARIN SODIUM,PORCINE 5,000 UNIT/ML 1 ML VIAL SQ SCH ×2 (10:03→22:57)
[2020-02-27] MEDS: VITAMIN E (DL,TOCOPHERYL ACET) 400 UNIT CAP PO SCH (10:04)
[2020-02-27] MEDS: LOSARTAN 25 MG TAB PO SCH (10:04)
[2020-02-27] MEDS: BICALUTAMIDE 50 MG TAB PO SCH (10:05)
[2020-02-27] MEDS: Mirabegron [Myrbetriq] PO SCH (12:27)
[2020-02-27 12:35] LABS: Glucose,Whole Blood 121 mg/dL (75-99)
--- NOTE | 2020-02-27 14:15 | P.PN ---
Subjective Progress Note Date: 02/27/20 Principal diagnosis: This is an 85-year-old male who was recently admitted for severe back pain, generative joint disease, and underwent a caudal steroid injection today. Orthopedic surgery following the patient and ordered an MRI which shows an acute to subacute L3 compression fracture with a known history of a deformity at the L3 which has appeared to be worsening. Currently no reports of chest pain, shortness of breath, or palpitations. Patient is afebrile. No reports of nausea or vomiting and patient is tolerating diet. He should sodium today is 135 the creatinine of 0.67. Patient awaiting to receive an LSO back brace and PT/OT to evaluate the patient. Social work consult placed for possible ECF placement for continued PT/OT therapy. 02/26/2020 Patient is seen and evaluated and follow-up and continues to have discomfort of the lower back, right hip, left knee. Patient received a caudal injection yesterday and continues to have lower back pain. Patient did receive a back brace and worked with physical therapy today and was unable to do much. Patient is agreeable to going to rehab and authorization through insurance will be needed. Case management and social work following and patient will like to go to [facility]. Referrals were sent. Currently no reports of chest pain, shortness of breath, or palpitations. Patient is afebrile. No reports of nausea or vomiting and patient is tolerating diet. Patient denies any loss of bowel or bladder although states he has a history of occasional incontinence and wears a brief. 02/27/2020 Patient is seen and evaluated and follow-up and is having extreme lower back and right hip discomfort. Orthopedic surgery following an discussing the possibility of kyphoplasty in the near future. Tramadol was ordered 3 times a day and will monitor for better pain control. Patient has a back brace and PT/OT are following and will work with the patient again today. Patient denies any chest pain, shortness of breath, or palpitations. Patient is afebrile. No reports of nausea or vomiting and patient is tolerating diet. Case management and social workers also following as patient plans to go to physical therapy once stabilized and discharged. Will discuss with orthopedic surgery about treatment plan. Objective - Vital Signs Vital signs: Vital Signs Temp 97.8 F 02/27/20 13:00 Pulse 72 02/27/20 13:00 Resp 18 02/27/20 13:00 BP 155/96 02/27/20 13:00 Pulse Ox 94 L 02/27/20 13:00 Intake & Output 02/26/20 02/27/20 02/27/20 18:59 06:59 18:59 Intake Total 600 Output Total 800 Balance -200 Intake: Oral 600 Output: Urine 800 Other: Voiding Method Urinal Toilet # Voids 2 2 2 - Exam Gen: This is a 85-year-old male lying in bed awake, alert and oriented 3. HEENT: Head is atraumatic, normocephalic. Pupils equal, round. Sclerae is anicteric. NECK: Supple. No JVD. No lymphadenopathy. No thyromegaly. LUNGS: Diminished breath sounds bilaterally with a few scattered rhonchi noted. No intercostal retractions. HEART: Regular rate and rhythm. No murmur. ABDOMEN: Soft. Bowel sounds are present. No masses. No tenderness. Musculoskeletal: Right hip tenderness, left knee discomfort, lower back discomfort upon palpation and position changes EXTREMITIES: No pedal edema. No calf tenderness. NEUROLOGICAL: Patient is awake, alert and oriented x3. - Labs CBC & Chem 7: 02/26/20 07:22 02/26/20 07:22 Labs: Abnormal Lab Results - Last 24 Hours (Table) 02/26/20 02/27/20 Range/Units 19:58 12:32 POC Glucose (mg/dL) 121 H 121 H (75-99) mg/dL Assessment and Plan Assessment: Severe back pain, degenerative joint disease, and severe gait dysfunction Acute to subacute L3 compression fracture deformity as noted on MRI Hematuria Gait dysfunction Sciatica, bilateral Hyponatremia, improved Failure of outpatient treatment GERD History of spinal stenosis Full code Plan: New current medications, management, and symptomatic treatment. Patient has received LSO brace. PT/OT following the patient. Recommending subacute rehab. Orthopedic surgery following an may possibly be proceeding with kyphoplasty. Will discuss treatment plan with orthopedic surgery. Case management and social worker palliative care also following and referrals placed for [facility] for continued PT/OT therapy. Further recommendations to follow.
[2020-02-27 17:10] LABS: Glucose,Whole Blood 84 mg/dL (75-99)
[2020-02-27 20:13] LABS: Glucose,Whole Blood 118 mg/dL (75-99)
[2020-02-27] MEDS: CYCLOBENZAPRINE 10 MG TAB PO SCH (22:58)
[2020-02-27] MEDS: ATORVASTATIN 40 MG TAB PO SCH (22:58)
[2020-02-28] MEDS: ACETAMINOPHEN TAB 325 MG TAB PO PRN (03:14)
[2020-02-28] MEDS: KETOROLAC 30 MG/ML 1 ML VIAL IVP PRN ×2 (06:29→12:09)
[2020-02-28 07:38] LABS: Glucose,Whole Blood 87 mg/dL (75-99)
--- NOTE | 2020-02-28 08:22 | P.PN ---
Progress Note - Text Progress Note Date: 02/28/20 The patient is seen and examined today at bedside. He says that he still having significant pain in his back and he is unable to mobilize or ambulate due to the pain. He was able to get up with assistance up to a chair and then back in bed but this is much is removed. He says the brace didn't really feel like it helps much. He is unable to ambulate on his own. He normally and relates well without any assistance. He denies any numbness tingling in his legs. Denies any specific neurologic change in his legs. He feels his pains is mainly across his low back and across his buttocks bilaterally. He does not feel that the injection did too much to help his back pain.he is interested in pursuing kyphoplasty On exam he is alert and oriented 3 He is comfortable lying still but has significant difficulty when trying to change positions in bed or trying to sit up due to the pain in his back. His lower extremities have sustained dorsal flexion plantarflexion and EHL. He has no pain with internal action rotation is hips. His some tenderness over his lower back and paravertebral spasm His thighs and calves are soft nontender Assessment and plan Intractable low back pain Subacute L3 compression fracture Degenerative disc disease Foraminal stenosis L3 4 L4 5 Inability to ambulate due to low back pain We have been trying conservative treatment however the past several days for the patient. He has had an LSO brace and has tried a caudal epidural injection to treat his radicular symptoms and stenosis. He is found to have a fracture at L3 which I believe is subacute and a significant cause of his symptoms. He is not doing well despite bracing and conservative care and I think he could have some benefit with kyphoplasty at L3. He is interested in pursuing this option. I discussed the risk of occasions alternatives and benefits of surgery including but not limited to the risk of bleeding risk of infection risk and need for further surgery risk of decreased or loss of motion paralysis heart attack even possibly as well as the fact that surgery may not alleviate his symptoms was explained. He would like to pursue surgical kyphoplasty and we will start making arrangements for this possibly tomorrow. we'll make sure that he is cleared from a medical standpoint. We will make him nothing by mouth after midnight.
[2020-02-28] MEDS: LOSARTAN 25 MG TAB PO SCH (08:28)
[2020-02-28] MEDS: INSULIN ASPART (NovoLOG) 100 UNIT/ML VIAL SQ SCH (08:28)
[2020-02-28] MEDS: ASPIRIN 325 MG TAB PO SCH ×2 (08:28→16:33)
[2020-02-28] MEDS: CYANOCOBALAMIN 500 MCG TAB PO SCH (08:29)
[2020-02-28] MEDS: FAMOTIDINE 20 MG TAB PO SCH (08:29)
[2020-02-28] MEDS: CHOLECALCIFEROL 1,000 UNIT TAB PO SCH (08:29)
[2020-02-28] MEDS: HEPARIN SODIUM,PORCINE 5,000 UNIT/ML 1 ML VIAL SQ SCH ×2 (08:29→20:19)
[2020-02-28] MEDS: BICALUTAMIDE 50 MG TAB PO SCH (08:29)
[2020-02-28] MEDS: LACTOBACILLUS ACIDOPH & BULGAR 1 EACH PACKET PO SCH (08:30)
[2020-02-28] MEDS: Mirabegron [Myrbetriq] PO SCH (08:30)
[2020-02-28] MEDS: traMADol 50 MG TAB PO SCH ×3 (08:30→21:52)
[2020-02-28] MEDS: VITAMIN E (DL,TOCOPHERYL ACET) 400 UNIT CAP PO SCH (08:30)
[2020-02-28] MEDS: CYCLOBENZAPRINE 10 MG TAB PO SCH ×2 (12:09→20:19)
--- NOTE | 2020-02-28 15:11 | P.PN ---
Subjective Progress Note Date: 02/28/20 Principal diagnosis: This is an 85-year-old male who was recently admitted for severe back pain, generative joint disease, and underwent a caudal steroid injection today. Orthopedic surgery following the patient and ordered an MRI which shows an acute to subacute L3 compression fracture with a known history of a deformity at the L3 which has appeared to be worsening. Currently no reports of chest pain, shortness of breath, or palpitations. Patient is afebrile. No reports of nausea or vomiting and patient is tolerating diet. He should sodium today is 135 the creatinine of 0.67. Patient awaiting to receive an LSO back brace and PT/OT to evaluate the patient. Social work consult placed for possible ECF placement for continued PT/OT therapy. 02/26/2020 Patient is seen and evaluated and follow-up and continues to have discomfort of the lower back, right hip, left knee. Patient received a caudal injection yesterday and continues to have lower back pain. Patient did receive a back brace and worked with physical therapy today and was unable to do much. Patient is agreeable to going to rehab and authorization through insurance will be needed. Case management and social work following and patient will like to go to [facility]. Referrals were sent. Currently no reports of chest pain, shortness of breath, or palpitations. Patient is afebrile. No reports of nausea or vomiting and patient is tolerating diet. Patient denies any loss of bowel or bladder although states he has a history of occasional incontinence and wears a brief. 02/27/2020 Patient is seen and evaluated and follow-up and is having extreme lower back and right hip discomfort. Orthopedic surgery following an discussing the possibility of kyphoplasty in the near future. Tramadol was ordered 3 times a day and will monitor for better pain control. Patient has a back brace and PT/OT are following and will work with the patient again today. Patient denies any chest pain, shortness of breath, or palpitations. Patient is afebrile. No reports of nausea or vomiting and patient is tolerating diet. Case management and social workers also following as patient plans to go to physical therapy once stabilized and discharged. Will discuss with orthopedic surgery about treatment plan. 02/28/2020 Patient is seen in follow-up today and continues to have severe lower back pain and right hip discomfort with spasms at times and is being closely monitored. Orthopedic surgery following and scheduling kyphoplasty at the L3 in the morning. Patient states his pain is somewhat more manageable with the tramadol, Toradol, Flexeril, and Tylenol as needed along with LSO back brace but continues to be quite weak with the inability to ambulate and work with physical therapy much. Patient continues to rate his pain from a 5-8 out of 10 on the pain scale at all times. Patient denies any chest pain, shortness of breath, or palpitations. Patient is afebrile. No reports of nausea or vomiting and patient is tolerating diet. Patient is medically cleared to undergo kyphoplasty in the morning. Patient was explained the risks versus benefits of surgery and would like to proceed. Case management and social work also following as patient will likely go to rehab for continued PT/OT therapy once stabilized and discharged. Objective - Vital Signs Vital signs: Vital Signs Temp 98.2 F 02/28/20 12:53 Pulse 63 02/28/20 12:53 Resp 17 02/28/20 12:53 BP 137/84 02/28/20 12:53 Pulse Ox 95 02/28/20 12:53 Intake & Output 02/27/20 02/28/20 02/28/20 18:59 06:59 18:59 Intake Total 850 240 250 Output Total 75 250 Balance 850 165 0 Intake: Intake, IV Titration 240 Amount IV Fluid Continuation 1, 160 000 ml @ 0 mls/hr IV .STK -MED ONE Rx#:[id number] Lactated Ringers 1,000 ml 80 @ 0 mls/hr IV .STK-MED ONE Rx#:[id number] Oral 850 250 Output: Urine 75 250 Other: Voiding Method Urinal Urinal Urinal # Voids 3 1 - Exam Gen: This is a 85-year-old male lying in bed awake, alert and oriented 3. Temp is 98.2F, pulse is 63, respirations are 17, blood pressure 137/84, oxygen saturation is 95% on room air. HEENT: Head is atraumatic, normocephalic. Pupils equal, round. Sclerae is anicteric. NECK: Supple. No JVD. No lymphadenopathy. No thyromegaly. LUNGS: Diminished breath sounds bilaterally with a few scattered rhonchi noted. No intercostal retractions. HEART: Regular rate and rhythm. No murmur. ABDOMEN: Soft. Bowel sounds are present. No masses. No tenderness. Musculoskeletal: Right hip tenderness, left knee discomfort, lower back discomfort upon palpation and position changes EXTREMITIES: No pedal edema. No calf tenderness. NEUROLOGICAL: Patient is awake, alert and oriented x3. Moderate diffuse weakness. - Labs CBC & Chem 7: 02/26/20 07:22 02/26/20 07:22 Labs: Abnormal Lab Results - Last 24 Hours (Table) 02/27/20 Range/Units 20:12 POC Glucose (mg/dL) 118 H (75-99) mg/dL Assessment and Plan Assessment: Severe back pain, degenerative joint disease, and severe gait dysfunction Acute to subacute L3 compression fracture deformity as noted on MRI Hematuria Gait dysfunction Sciatica, bilateral Hyponatremia, improved Failure of outpatient treatment GERD History of spinal stenosis Full code Plan: Continue current medications, management, and symptomatic treatment. PT/OT following the patient. Recommending subacute rehab. Orthopedic surgery following an patient is to undergo kyphoplasty in the morning. From the medical standpoint patient is clear for surgery tomorrow. Case management and social service assistant also following and referrals placed for [facility] for continued PT/OT therapy. Further recommendations to follow.
[2020-02-28] MEDS: ATORVASTATIN 40 MG TAB PO SCH (20:19)
[2020-02-29 06:27] LABS: Basophils % (A) 0 %; Eosinophils # (A) 0.5 k/uL (0-0.7); Eosinophils % (A) 4 %; HCT 50.2 % (39.0-53.0); HGB 16.5 gm/dL (13.0-17.5); Lymphocytes # (A) 3.8 k/uL (1.0-4.8); Lymphocytes % (A) 35 %; MCH 31.2 pg (25.0-35.0); MCV 94.6 fL (80.0-100.0); Monocytes # (A) 0.6 k/uL (0-1.0); Monocytes % (A) 6 %; Neutrophils # (A) 5.8 k/uL (1.3-7.7); Neutrophils % (A) 53 %; Platelet Count 167 k/uL (150-450); RBC 5.31 m/uL (4.30-5.90); RDW 13.2 % (11.5-15.5); WBC 10.9 k/uL (3.8-10.6)
[2020-02-29 06:37] LABS: African American GFR (CKD) >90 (>60 ml/min/1.73 sqM); Anion Gap 5 mmol/L; Blood Urea Nitrogen 20 mg/dL (9-20); Calcium 8.8 mg/dL (8.4-10.2); Carbon Dioxide 26 mmol/L (22-30); Chloride 104 mmol/L (98-107); Glucose 91 mg/dL (74-99); Non-African American GFR(CKD) 84 (>60 ml/min/1.73 sqM); Potassium 4.1 mmol/L (3.5-5.1); Sodium 135 mmol/L (137-145)
[2020-02-29] MEDS ORDERED: fentaNYL (PF) 50 MCG/ML 2 ML AMP ONE (08:05)
[2020-02-29] MEDS ORDERED: ONDANSETRON 4 MG/2 ML VIAL ONE (08:05)
[2020-02-29] MEDS ORDERED: PHENYLEPHRINE-0.9% NACL SYG 1 MG/10 ML SYRINGE ONE (08:05)
[2020-02-29] MEDS ORDERED: PROPOFOL 10 MG/ML 20 ML VIAL IV ONE (08:05)
[2020-02-29] MEDS ORDERED: LIDOCAINE 1% INJ 10MG/ML (20 ML MDV) ONE (08:05)
[2020-02-29] MEDS ORDERED: DEXAMETHASONE SOD PHOSPHATE 10 MG/ML 1 ML VIAL ONE (08:05)
[2020-02-29] MEDS ORDERED: SUCCINYLCHOLINE CHLORIDE 100 MG/5 ML SYR IV ONE (08:05)
[2020-02-29] MEDS ORDERED: LACTATED RINGERS 1,000 ML IV ONE (08:10)
[2020-02-29] MEDS ORDERED: SODIUM CHLORIDE 0.9% 50 ML with ceFAZolin 2,000 MG IV ONE ×2 (08:28)
[2020-02-29] MEDS ORDERED: IOHEXOL 180 MG/ML 1 ML ML INJ ONE ×2 (08:33)
[2020-02-29] MEDS ORDERED: IOPAMIDOL-370 50ML BTL INJ ONE (08:33)
[2020-02-29] MEDS ORDERED: BUPIVACAINE (PF) 0.5% 30 ML VIAL SQ ONE ×2 (08:33)
[2020-02-29] MEDS ORDERED: ONDANSETRON 4 MG/2 ML VIAL IVP PRN (09:09)
[2020-02-29] MEDS ORDERED: KETOROLAC 30 MG/ML 1 ML VIAL IVP PRN (09:09)
[2020-02-29] MEDS ORDERED: HYDROmorphone 0.5 MG/0.5 ML SYRINGE IVP PRN (09:09)
--- NOTE | 2020-02-29 09:18 | P.OP ---
Date of Procedure: 02/29/20 Preoperative Diagnosis: L3 vertebral compression fracture, subacute Intractable low back pain Postoperative Diagnosis: L3 vertebral compression fracture, subacute, possible pathologic Intractable low back pain Anesthesia: GETA Pathology: other (Specimen of L 3 vertebral body sent to pathology) Condition: stable Disposition: PACU Description of Procedure: BRIEF OPERATIVE NOTE Preoperative Diagnosis: L3 vertebral compression fracture, subacute Intractable low back pain Postoperative Diagnosis: Same, possible pathologic fracture Procedure: Kyphoplasty of L3 Vertebral body biopsy of L3 Use of biplanar fluoroscopic guidance Surgeon: Dr. Elliott Manager Art: None Anesthesia: General anesthesia per Dr. Mata Estimated blood loss: Less than 10 mL Specimen: Vertebral body biopsy sent to pathology in formalin, primarily soft tissue and bloody sample Complications: None apparent Components implanted: Bone cement approximately 10 mL Disposition: To recovery room in good stable condition. OPERATIVE INDICATIONS The patient has been having issues in their back which has been worsening over the past week and had acute severe exacerbation several days ago where he was unable to mobilize or ambulate. Patient did not have a specific trauma or incident but did have some increased activity about a month ago. He denies any specific history of cancer in his back. He has a remote injury where he fell off the roof of a boat onto cement while he was fixing the boat which accounts for the L1 compression fracture however the L3 fracture appeared to be acute or subacute and a significant source of his symptoms. He also has significant disc degeneration facet arthritis and foraminal stenosis for which she has been treated as well. He was scheduled as an outpatient to have epidural steroid injections but his pain becoming unbearable and he presented to the hospital. He did undergo a caudal injection without any significant relief. We felt the pain was not stemming from the arthritic or stenosis issues but more primarily from the L3 fracture. We started conservative treatment with bracing but he was not having any benefit at all. The patient has been through conservative treatment. They attempted conservative care with bracing however they're not having any benefit despite brace use. They continue to have significant pain and debility due to their fracture. We discussed various treatment options including surgery, and the patient wishes to proceed with surgery We discussed the risk, patient's alternatives and benefits of surgery including but not limited to, risk of bleeding risk of infection, risk of need for further surgery, risk of decreased, loss of motion, loss of function, cement extravasation, nerve damage, paralysis, heart attack, blindness and . OPERATIVE SUMMARY After discussing all the risks, patient alternatives and benefits at length, the patient elected to proceed with surgical intervention, signed informed consent, and presented for their procedure. The patient was seen and examined in the preoperative holding area and the surgical site was marked. The patient was given antibiotics and brought to the operating room. The patient was sedated and intubated by anesthesia in standard fashion. The patient was positioned on to the operating room table in a prone position on the appropriate well-padded and well molded bilateral chest rolls. We were careful to pad any bony prominences and pressure points. We were careful to maintain the patient's cervical spine and good neutral alignment and position throughout. We used 2 C-arm machines to establish biplanar fluoroscopic guidance in AP and lateral positions. We were able to localize the fractures appropriately at L3. The patient was prepped and draped in a normal standard fashion. An appropriate timeout and keystone protocol performed. We were able to proceed with the surgery. The local wound area was infiltrated with local anesthetic. An incision was made over the lateral aspect of the pedicle over the appropriate levels of L3 on the right with a small 2 mm stab incision. Intraoperative fluoroscopy was taken which showed a marker at the appropriate level of L3. With the appropriate level positively confirmed, I was able to position a sharp trocar over the lateral aspect of the pedicle. As able to advance the trocar into the pedicle and into the posterior aspect of vertebral body being careful to avoid penetration cephalad caudad or medially. The trocar was placed appropriately into the posterior aspect of vertebral body at the appropriate levels. This was confirmed with C-arm guidance. With the trocar intact I was then able to take a bone biopsy with a biopsy punch or a bony drill. The bone was extremely soft at the vertebral body without any calcified significant content within the vertebral body itself. The biopsy was primarily of some soft material from within the vertebral body and bloody specimen. Within the vertebral body did not feel like normal bone. The biopsy specimen was passed off to be sent to pathology in formalin. I was then able to place the kyphoplasty balloon within the vertebral body. The position was checked on C-arm. I was able to inflate the balloon under low pressure and visualization with C-arm. The balloon was well enclosed within the vertebral body. There is very little pressure resistance within the vertebral body for blowing up the balloon. The cement was prepared. With the cement at appropriate working condition the balloons were deflated and removed. I was able to place bony cement with trocar with the cement delivery device under low pressure. It had good fill within the vertebral body. There is no evidence of any extravasation of the cement posteriorly toward the canal. The cement was well contained at the appropriate levels. I was able place a significant amount of cement approximately 10 mL within the vertebral body which spread quite easily without any significant resistance. The cement was allowed to cure appropriately. The trochars removed and final images were taken on C-arm. This showed the cement at the appropriate levels. We were able to proceed with closure. The wound was cleaned and dried and dressed with the appropriate dressing. The drapes were broken down. The patient was gently rolled back onto their hospital bed being careful to maintain their cervical spine and good neutral alignment and position. They were woken up by anesthesia, extubated, and brought to the recovery room in good stable condition. The patient will be admitted to the hospital for observation and for appropriate postoperative care, medical management and monitoring. We will continue to follow them closely about the postoperative course.
--- NOTE | 2020-02-29 09:22 | FL ---
Fluoroscopy INDICATION: Pain FINDINGS: Fluoroscopy time: 53 seconds. Images obtained: 5. IMPRESSIONS: 1. Documentation of fluoroscopy.
[2020-02-29] MEDS: CYANOCOBALAMIN 500 MCG TAB PO SCH (10:37)
[2020-02-29] MEDS: HEPARIN SODIUM,PORCINE 5,000 UNIT/ML 1 ML VIAL SQ SCH ×2 (10:37→21:06)
[2020-02-29] MEDS: CHOLECALCIFEROL 1,000 UNIT TAB PO SCH (10:37)
[2020-02-29] MEDS: VITAMIN E (DL,TOCOPHERYL ACET) 400 UNIT CAP PO SCH (10:51)
[2020-02-29] MEDS: traMADol 50 MG TAB PO SCH ×3 (10:51→21:06)
[2020-02-29] MEDS: LACTOBACILLUS ACIDOPH & BULGAR 1 EACH PACKET PO SCH (10:52)
[2020-02-29] MEDS: FAMOTIDINE 20 MG TAB PO SCH (11:04)
[2020-02-29] MEDS: CYCLOBENZAPRINE 10 MG TAB PO SCH ×2 (11:04→21:06)
[2020-02-29] MEDS: BICALUTAMIDE 50 MG TAB PO SCH (11:04)
[2020-02-29] MEDS: LOSARTAN 25 MG TAB PO SCH (11:04)
[2020-02-29] MEDS: ASPIRIN 325 MG TAB PO SCH (11:12)
[2020-02-29] MEDS: Mirabegron [Myrbetriq] PO SCH (12:41)
--- NOTE | 2020-02-29 20:10 | PN ---
PROGRESS NOTE DATE OF SERVICE: 02/29/2020 This 85-year-old gentleman with a past medical history of multiple medical problems was admitted with significant back pain. The patient was found to have subacute L3 compression fracture on MRI. The patient underwent kyphoplasty at L3 and multiple vertebral body biopsies at L3 ( ) fluoroscopic guidance by Dr. Elliott. Patient closely monitored. PT/OT is evaluating the patient and ECF rehab is being considered. PAST MEDICAL: Reviewed. REVIEW OF SYSTEMS: CARDIOVASCULAR: No angina. RESPIRATORY: As mentioned earlier. GI: As mentioned earlier. : No dysuria. NERVOUS SYSTEM: No numbness or weakness. CURRENT MEDICATIONS: 1. Tylenol. 2. Miles 5 mg. 3. Ventolin. 4. Aspirin. 5. Lipitor. 6. ( ). 7. Cefazolin 2 g. 8. Flexeril. 9. Pepcid. 10.Heparin. 11.Toradol. 12.Lactinex. 13.Cozaar. 14.Narcan. 15.Zofran. 16.Ultram. 17.Vitamin E. Doses reviewed. PHYSICAL EXAM: Patient is alert and oriented x3. Pulse is 60, blood pressure is 137/70, respirations 16, temperature 97.7, pulse ox 98% on 2 L. HEENT: Conjunctivae normal. Oral mucosa moist. NECK: No jugular venous distention. No lymph node enlargement. CARDIOVASCULAR: S1, S2, muffled. No S3, no S4, RESPIRATORY: Diminished breath sounds at the bases. A few scattered rhonchi and crackles. ABDOMEN: Soft, nontender. LEGS: No edema, no swelling. NERVOUS SYSTEM: No focal motor or sensory deficits. LAB: Sodium 135, WBC 10.2. Other labs are noted. ASSESSMENT: 1. Severe back pain, degenerative joint disease and severe gait dysfunction. 2. Acute, subacute L3 compression fracture deformity status post kyphoplasty. 3. Hyponatremia. 4. Increased WBC, possibly reactive. 5. Hematuria. 6. Gait dysfunction, severe. 7. Bilateral sciatica. 8. Hyponatremia. 9. Failure of outpatient treatment. 10.Gastroesophageal reflux disease. 11.History of spinal stenosis. 12.FULL CODE. RECOMMENDATIONS AND DISCUSSION: I recommend to continue current medications, symptomatic treatment. Otherwise, pain management. Also, recommend DVT prophylaxis. Closely follow with Orthopedic surgery. Otherwise PT/OT evaluation, possible ECF rehab. Guarded prognosis. Further recommendations to follow. MMODL / IJN: [id number] /
[2020-02-29] MEDS: ATORVASTATIN 40 MG TAB PO SCH (21:06)
[2020-03-01] MEDS ORDERED: ALPRAZolam 0.25 MG TAB PO PRN (00:44)
[2020-03-01] MEDS: CYCLOBENZAPRINE 10 MG TAB PO SCH ×2 (08:11→19:59)
[2020-03-01] MEDS: CYANOCOBALAMIN 500 MCG TAB PO SCH (08:11)
[2020-03-01] MEDS: HEPARIN SODIUM,PORCINE 5,000 UNIT/ML 1 ML VIAL SQ SCH ×2 (08:12→19:59)
[2020-03-01] MEDS: CHOLECALCIFEROL 1,000 UNIT TAB PO SCH (08:12)
[2020-03-01] MEDS: Mirabegron [Myrbetriq] PO SCH (08:12)
[2020-03-01] MEDS: LACTOBACILLUS ACIDOPH & BULGAR 1 EACH PACKET PO SCH (08:12)
[2020-03-01] MEDS: BICALUTAMIDE 50 MG TAB PO SCH (08:12)
[2020-03-01] MEDS: ASPIRIN 81 MG PO SCH (08:12)
[2020-03-01] MEDS: LOSARTAN 25 MG TAB PO SCH (08:12)
[2020-03-01] MEDS: FAMOTIDINE 20 MG TAB PO SCH (08:12)
[2020-03-01] MEDS: traMADol 50 MG TAB PO SCH ×3 (08:13→22:28)
[2020-03-01] MEDS: VITAMIN E (DL,TOCOPHERYL ACET) 400 UNIT CAP PO SCH (08:14)
--- NOTE | 2020-03-01 11:17 | P.PN ---
Progress Note - Text Progress Note Date: 03/01/20 Postoperative day #1 Patient is seen and examined today at bedside. The patient has some pain around the surgical site as expected, but says that he is feeling much better than he was prior to his surgery. he is sitting up in a chair and says that he is moving much better than he was prior to surgery Pain is being controlled with medication. Physical Exam Afebrile with stable vital signs Abdomen is soft nontender. Chest has good excursion deep and space expiration The incision site is clean dry and intact. No erythema there is no purulence.the site is clear without any evidence of problems Extremities have not had neurologic change from prior to surgery. Calves and thighs were soft nontender without evidence of DVT. Assessment/Plan Postoperative day #1 status post L3 vertebral body I have see him kyphoplasty the vertebral body of L3 was quite soft during the time of surgery. I'm not sure if there is a pathologic aspect to the fracture. 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 We sent some tissue for pathology and we will await those results. He may need further workup as per medicine. Patient is progressing as expected from the surgery. he says that he is doing much better with his pain and I think that stabilizing that fracture site is holding him well. It is stable and I think it is okay for him to increase his mobilization. He can use the brace essentially as needed for comfort. We will continue to increase the patient's mobilization with therapy. We will continue pain control with oral or IV medications. We'll continue to follow patient closely.
--- NOTE | 2020-03-01 16:28 | PN ---
PROGRESS NOTE DATE OF SERVICE: 03/01/2020 This 85-year-old gentleman underwent kyphoplasty, is improving at this time. No chest pain. No palpitations. ECF rehab is being planned. The patient has some back pain. PHYSICAL EXAMINATION: Alert and oriented. Pulse 60. Blood pressure 111/70, respiration 17, temperature 98.2, pulse ox 94% on room air. HEENT: Conjunctivae normal. NECK: No JVD. CARDIOVASCULAR: S1, S2 muffled. RESPIRATORY SYSTEM: Breath sounds diminished at the bases. No rhonchi. No crackles. ABDOMEN is soft, nontender. LEGS are no edema. No swelling. NERVOUS SYSTEM: No focal deficits. LABS: WBC 10.9, sodium is 135. ASSESSMENT: 1. Severe back pain, degenerative joint disease and severe gait dysfunction. 2. Acute subacute L3 compression fracture deformity, status post kyphoplasty. 3. Severe gait dysfunction. 4. Hyponatremia. 5. Increased WBC, possibly reactive. 6. Hematuria. 7. Gait dysfunction severe. 8. Bilateral sciatica. 9. Hyponatremia. 10.Failure of outpatient treatment. 11.Gastroesophageal reflux disease. 12.History of spinal stenosis. 13.FULL CODE. RECOMMENDATIONS AND DISCUSSION: I recommend to continue current medications, symptomatic treatment. Otherwise, pain management, PT/OT evaluation, possible ECF rehab. Guarded prognosis. Further recommendations to follow. MMODL / IJN: [id number] /
[2020-03-01] MEDS: ATORVASTATIN 40 MG TAB PO SCH (19:59)
[2020-03-02] MEDS: HYDROcodone/APAP 5-325MG 1 EACH TAB PO PRN ×2 (05:23→12:54)
[2020-03-02] MEDS: LACTOBACILLUS ACIDOPH & BULGAR 1 EACH PACKET PO SCH (08:51)
[2020-03-02] MEDS: LOSARTAN 25 MG TAB PO SCH (08:52)
[2020-03-02] MEDS: CYCLOBENZAPRINE 10 MG TAB PO SCH ×2 (08:52→20:39)
[2020-03-02] MEDS: CHOLECALCIFEROL 1,000 UNIT TAB PO SCH (08:52)
[2020-03-02] MEDS: CYANOCOBALAMIN 500 MCG TAB PO SCH (08:53)
[2020-03-02] MEDS: traMADol 50 MG TAB PO SCH ×3 (08:53→20:39)
[2020-03-02] MEDS: FAMOTIDINE 20 MG TAB PO SCH (08:53)
[2020-03-02] MEDS: ASPIRIN 81 MG PO SCH (08:53)
[2020-03-02] MEDS: Mirabegron [Myrbetriq] PO SCH (08:55)
[2020-03-02] MEDS: HEPARIN SODIUM,PORCINE 5,000 UNIT/ML 1 ML VIAL SQ SCH ×2 (08:55→20:40)
[2020-03-02] MEDS: BICALUTAMIDE 50 MG TAB PO SCH (09:02)
[2020-03-02] MEDS: VITAMIN E (DL,TOCOPHERYL ACET) 400 UNIT CAP PO SCH (09:02)
--- NOTE | 2020-03-02 12:25 | P.PN ---
Progress Note - Text Progress Note Date: 03/02/20 Orthopedic spine: History of present illness: Patient is a very pleasant 85-year-old male who is seen and examined at the bedside for follow-up evaluation in regards to his lumbar spine. He underwent L3 kyphoplasty and biopsy performed on 02/29/2020. Biopsy results are pending. Since that time he feels he has had improvement of his low back pain overall. He is not currently experiencing any significant lower extremity radiculopathy symptoms. He continues to have some pain at his left knee. He is happy with this progress over the weekend. He feels his legs are generally weak in this morning. He has been able to ambulate. Nursing states he did well with physical therapy today. He does have an LSO brace with him in the room. Patient states he was planning for discharge to [facility] today. He states he has been seen by his primary care provider in the hospital who has cleared him for discharge. Nursing case management state patient may not be able to be discharged to [facility] due to the fact there may not be any beds available at [facility] and/or the patient may not qualify. He has been eating and voiding without difficulty. He had a bowel movement yesterday. He does have a history of a left total knee arthroplasty performed on 02/25/[address] Jasso. He was recently evaluated by Dr. Jasso approximately 2-3 weeks ago in the outpatient setting. Imaging was taken at that time which showed good alignment and good position. Dr. Jasso was not planning for further intervention at that time. His past medical history includes hyperlipidemia and cancer. He denies any change in bowel or bladder. Physical exam: Patient is awake, alert, and oriented 3 Vital signs stable Good chest excursion with deep inspiration and expiration Abdomen is soft nontender. Examination of lumbar spine reveals skin is intact with no abrasions, lacerations, or bruises; no erythema, purulence or signs of infection Dressing over the kyphoplasty site at L3 is clean, dry, and intact Dorsiflexion, plantarflexion, and extensor hallucis longus positive sustained bilaterally Lower extremity strength 5/5 bilaterally Evidence of a well-healed anterior incision over the left knee Evidence of a well-healed incision over the medial anterior right knee No lower extremity hyperreflexia bilaterally Straight leg test negative bilateral lower extremities No signs or symptoms of DVT; no calf pain No pain with internal and external rotation of the hips bilaterally Neurovascularly intact Pertinent studies: MRI of the lumbar spine taken on 02/24/2020: Evidence of signal changes within the L3 vertebral body indicative of acute to subacute compression fracture deformity with history of previous L3 compression fracture deformity; L1 chronic compression fracture deformity L2 probable meningioma posterior aspect; L1-2 small posterior disc bulging; L3 4 small posterior disc bulge, facet arthropathy, and extension endplate disc complex resulting in neural foraminal encroachment greater on the left than the right; L4-5 facet hypertrophy and ligament flavum hypertrophy with posterior extension endplate disc resulting in moderate spinal canal stenosis and neural foraminal narrowing greater on the right than the left; L5-S1 broad-based disc bulge and facet arthropathy MRI of the cervical spine taken on 02/24/2020: Overall alignment is adequately maintained; no evidence of vertebral body compression fracture; C3-4 and C5 to 6 small posterior disc bulge; C6 to 7 degenerative disc disease; cervical facet arthropathy; cervical spinal cord signal is normal; bone marrow signal intensity within normal limits X-rays of the cervical spine taken on 02/24/2020: Overall alignment is adequately maintained; no significant degenerative disc disease; difficulty to visualize C6-7 due to shoulders X-rays of the lumbar spine seen on 02/03/2020: Evidence of chronic L1 compression fracture deformity; endplate change at L3 possibly chronic; evidence of what appears to be an L5 compression fracture deformity which may be acute; lumbar facet arthropathy; bone demineralization; clips within the pelvis from previous surgical intervention; evidence of right total hip arthroplasty CT of the lumbar spine taken on 02/03/2020: Evidence of chronic L1 and L3 compression fracture deformity; no visible evidence of L5 compression fracture deformity seen on x-ray imaging and was felt to be attributed to a Schmorl's node; multilevel degenerative disc disease with multilevel foraminal encroachment and spinal stenosis; MRI likely would provide increased sensitivity and specificity; indeterminate lesion lesion in the right sacral ala Assessment: Status post L3 kyphoplasty with biopsy Status post caudal epidural steroid injection Intractable low back pain, improving Difficulty with ambulation and unsteady gait Bilateral lower extremity radiculopathy, improved L1 chronic compression fracture deformity Lumbar degenerative disc disease L4-5 Lumbar spinal stenosis Lumbar facet arthropathy Positive Lj sign bilaterally upper extremities Positive clonus left lower extremity Myelopathy Left knee pain 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 Patient has been discussed in detail with Dr. Surya Elliott. Patient has had some improvement of his low back pain following L3 kyphoplasty and biopsy performed on 02/29/2020. He is also had some improvement of his lower extremity radiculopathy following caudal injection performed by pain management. He is happy with his progress over the weekend. We discussed he may continue to wear his LSO brace for comfort support during increased activities. At this time, patient will be cleared for discharge from orthopedic spine standpoint. L3 biopsy results are still pending. We discussed we will discuss these results with him during his follow-up appointment. Patient will plan to follow-up with Amarjit Edwards PA-C or Dr. Surya Elliott at [facility] in approximately 2 weeks for further evaluation. 2. Patient is planning to be discharged to [facility] rehabilitation facility but may not be approved for a rehabilitation facility and/or may not be any beds available at the rehabilitation facility. His discharge location will be addressed by medicine. Patient will continue be seen and examined by medicine for further treatment and evaluation 3. Continue pain control medications as prescribed
--- NOTE | 2020-03-02 16:21 | P.PN ---
Subjective Progress Note Date: 03/02/20 Principal diagnosis: This is an 85-year-old male who was recently admitted for severe back pain with degenerative joint disease and is being closely monitored. Recently underwent kyphoplasty of the L3 with Dr. Elliott. Patient continues to have some lower back discomfort although has been working more with physical therapy. PT/OT following as patient will likely be going to rehab for continued PT/OT therapy along with pain management. Currently no reports of chest pain, shortness of breath, or palpitations. Patient is afebrile. No reports of nausea or vomiting and patient is tolerating diet. Objective - Vital Signs Vital signs: Vital Signs Temp 97.9 F 03/02/20 13:01 Pulse 80 03/02/20 13:01 Resp 18 03/02/20 13:01 BP 105/52 03/02/20 13:01 Pulse Ox 95 03/02/20 13:01 Intake & Output 03/01/20 03/02/20 03/02/20 18:59 06:59 18:59 Output Total 200 225 Balance -200 -225 Output: Urine 200 225 Other: Voiding Method Urinal Urinal Urinal # Voids 2 # Bowel Movements 1 - Exam Gen: This is a 85-year-old male lying in bed awake, alert and oriented 3. Temp is 97.7F, pulse is 70, respirations are 14, blood pressure 144/77, oxygen saturation is 96% on room air. HEENT: Head is atraumatic, normocephalic. Pupils equal, round. Sclerae is anicteric. NECK: Supple. No JVD. No lymphadenopathy. No thyromegaly. LUNGS: Diminished breath sounds bilaterally with no wheezing or rhonchi noted. No intercostal retractions. HEART: S1, S2 are muffled. No murmur. ABDOMEN: Soft. Bowel sounds are present. No masses. No tenderness. Musculoskeletal: Right hip discomfort with palpation, lower back discomfort EXTREMITIES: No pedal edema. No calf tenderness. NEUROLOGICAL: Patient is awake, alert and oriented x3. Moderate diffuse weakness. - Labs CBC & Chem 7: 02/29/20 05:42 02/29/20 05:42 Assessment and Plan Assessment: Severe back pain, degenerative joint disease, and severe gait dysfunction Acute to subacute L3 compression fracture deformity, status post kyphoplasty Severe gait dysfunction Covid 19 ruled out, testing was negative Hematuria Gait dysfunction Sciatica, bilateral Hyponatremia Increased white blood count, possibly reactive Failure of outpatient treatment GERD History of spinal stenosis Full code Plan: Continue current medications, management, and symptomatic treatment. Continue with pain management PT/OT following the patient. Orthopedic surgery following. Case management and social security specialist also following for possible placement at [facility] for continued PT/OT therapy. Covid 19 testing was negative. Currently awaiting authorization from insurance. Further recommendations to follow. Possible discharge in 24 hours.
[2020-03-02] MEDS: DOCUSATE 100 MG CAP PO SCH (20:39)
[2020-03-02] MEDS: ATORVASTATIN 40 MG TAB PO SCH (20:41)
[2020-03-03] MEDS: HYDROcodone/APAP 5-325MG 1 EACH TAB PO PRN (02:00)
[2020-03-03 05:16] VITALS: BP 135/80; PULSE 72; RESP 18; TEMP 97.5
--- NOTE | 2020-03-03 08:33 | P.DS ---
Providers Date of admission: 02/26/20 14:15 Expected date of discharge: 03/03/20 Attending physician: Bradley Leary Consults: 02/23/20 21:29 Consult Physician Routine Consulting Provider: David Elliott Consult Reason/Comments: back pain Do you want consulting provider notified?: Yes 02/24/20 07:06 Consult to Anesthesia Routine Consulting Provider: Anesthesia,Services Consult Reason/Comments: Low back pain with radiculopathy for possible epidural steroid injections 02/24/20 12:31 Consult Physician Routine Consulting Provider: Monster Jasso Consult Reason/Comments: left knee pain Do you want consulting provider notified?: Yes Primary care physician: Royce Montano [facility] Course: Final diagnosis Severe back pain, degenerative joint disease, and severe gait dysfunction Acute to subacute L3 compression fracture deformity, status post kyphoplasty Severe gait dysfunction Covid 19 ruled out, testing was negative Hematuria Gait dysfunction Sciatica, bilateral Hyponatremia Increased white blood count, possibly reactive Failure of outpatient treatment GERD History of spinal stenosis Full code Discharge disposition Patient is being discharged in a stable condition with guarded prognosis to [facility] for continued PT/OT therapy. Patient will follow-up with Dr. Young in the outpatient setting upon discharge. Patient will also follow-up with Amarjit Edwards with orthopedic surgery in the outpatient setting in 2 weeks. Total time taken is 35 minutes. History of present illness This is a 85-year-old male who was recently admitted with severe back pain and degenerative joint disease and was being closely monitored. Patient was found to have an acute subacute L3 compression fracture deformity and underwent kyphoplasty with Dr. Elliott. Patient continues to have lower back pain along with right hip pain with gait dysfunction and will require some continued PT/OT therapy for strength and mobility. Patient will be going to [facility] to continue with this. Patient was tested for Covid 19 and was negative. Patient has history of hematuria and follows with urology in the outpatient setting. Patient denies any dysuria retention at this time. Currently no reports of chest pain, shortness of breath, or palpitations. Patient is afebrile. No reports of nausea or vomiting and patient is tolerating diet. Patient will be going to [facility] today. On exam vital signs are stable. Temp is 97.5F, pulse is 72, respirations are 18, blood pressure is 135/80, oxygen saturation is 96% on room air. Cardio S1, S2 are muffled. Respiratory system shows diminished breath sounds at the bases with no wheezing or rhonchi noted. Abdomen is soft and obese, and nontender. Nervous system shows diffuse weakness. Please refer to medication reconciliation sheet for a list of medications. Patient Condition at Discharge: Stable Plan - Discharge Summary Discharge Rx Participant: No New Discharge Prescriptions: New Cyclobenzaprine [Flexeril] 10 mg PO BID #6 tab HYDROcodone/APAP 5-325MG [[place] 5-325] 1 each PO Q4HR PRN #12 tab PRN Reason: Moderate Pain Acetaminophen Tab [Tylenol] 650 mg PO Q6HR PRN tab PRN Reason: Fever And/ Or Pain traMADol HCl [Ultram] 50 mg PO TID #9 tab ALPRAZolam [Xanax] 0.25 mg PO TID PRN #6 tab PRN Reason: Anxiety Temazepam [Restoril] 15 mg PO HS PRN 3 Days #3 cap PRN Reason: Insomnia Continue Bicalutamide [Casodex] 50 mg PO DAILY Cyanocobalamin (Vitamin B-12) [Vitamin B-12] 1,500 mcg PO DAILY Atorvastatin [Lipitor] 40 mg PO HS Temazepam [Restoril] 15 mg PO HS PRN PRN Reason: Insomnia L.acidoph,Paracasei, B.lactis [Probiotic] 1 cap PO DAILY Losartan Potassium [Cozaar] 25 mg PO DAILY Albuterol Sulfate [Proventil Hfa] 2 puff INHALATION RT-Q4H PRN PRN Reason: Shortness Of Breath Aspirin EC [Ecotrin Low Dose] 81 mg PO DAILY Famotidine [Pepcid] 40 mg PO DAILY Meclizine [Antivert] 25 mg PO TID PRN PRN Reason: Vertigo Mirabegron [Myrbetriq] 50 mg PO DAILY Omeprazole [PriLOSEC] 20 mg PO BID Vitamin E 1,000 unit PO DAILY Vitamin D 5,000unit High-Potency 1 tab PO DAILY Discontinued ALPRAZolam [Xanax] 0.25 mg PO BID PRN PRN Reason: Anxiety Aspirin 325 mg PO BID-W/MEALS Hydrochlorothiazide [Hydrodiuril] 25 mg PO DAILY Meloxicam [Mobic] 7.5 - 15 mg PO DAILY PRN PRN Reason: Pain Discharge Medication List Bicalutamide [Casodex] 50 mg PO DAILY 06/07/14 [History] Cyanocobalamin (Vitamin B-12) [Vitamin B-12] 1,500 mcg PO DAILY 01/13/17 [History] Atorvastatin [Lipitor] 40 mg PO HS 03/07/17 [History] Temazepam [Restoril] 15 mg PO HS PRN 01/27/19 [History] L.acidoph,Paracasei, B.lactis [Probiotic] 1 cap PO DAILY 02/15/19 [History] Losartan Potassium [Cozaar] 25 mg PO DAILY 02/15/19 [History] Albuterol Sulfate [Proventil Hfa] 2 puff INHALATION RT-Q4H PRN 02/23/20 [History] Aspirin EC [Ecotrin Low Dose] 81 mg PO DAILY 02/23/20 [History] Famotidine [Pepcid] 40 mg PO DAILY 02/23/20 [History] Meclizine [Antivert] 25 mg PO TID PRN 02/23/20 [History] Mirabegron [Myrbetriq] 50 mg PO DAILY 02/23/20 [History] Omeprazole [PriLOSEC] 20 mg PO BID 02/23/20 [History] Vitamin D 5,000unit High-Potency 1 tab PO DAILY 02/23/20 [History] Vitamin E 1,000 unit PO DAILY 02/23/20 [History] ALPRAZolam [Xanax] 0.25 mg PO TID PRN #6 tab 03/02/20 [Rx] Acetaminophen Tab [Tylenol] 650 mg PO Q6HR PRN tab 03/02/20 [Rx] Cyclobenzaprine [Flexeril] 10 mg PO BID #6 tab 03/02/20 [Rx] HYDROcodone/APAP 5-325MG [[place] 5-325] 1 each PO Q4HR PRN #12 tab 03/02/20 [Rx] Temazepam [Restoril] 15 mg PO HS PRN 3 Days #3 cap 03/02/20 [Rx] traMADol HCl [Ultram] 50 mg PO TID #9 tab 03/02/20 [Rx] Follow up Appointment(s)/Referral(s): Amarjit Edwards, ANJU [PHYSICIAN DIGITAL WATCH ASSEMBLER] - 2 Weeks (Patient may follow-up with Amarjit Edwards PA-C or Dr. Surya Elliott at [facility] in 2 weeks following discharge. ) Royce Young MD [Primary Care Provider] - 1-2 days Activity/Diet/Wound Care/Special Instructions: Patient is going to [place] Activity as tolerated Continue current diet [facility] with [facility] in the outpatient setting Follow-up with primary care provider in the outpatient setting 1. Patient may wear LSO brace for comfort and support as needed during increased activities and ambulation 2. Patient should avoid excessive bending, twisting, and lifting; no lifting greater than 10 pounds Discharge Disposition: TRANSFER TO SNF/ECF
[2020-03-03] MEDS: LACTOBACILLUS ACIDOPH & BULGAR 1 EACH PACKET PO SCH (08:38)
[2020-03-03] MEDS: CYANOCOBALAMIN 500 MCG TAB PO SCH (08:38)
[2020-03-03] MEDS: CHOLECALCIFEROL 1,000 UNIT TAB PO SCH (08:38)
[2020-03-03] MEDS: CYCLOBENZAPRINE 10 MG TAB PO SCH (08:39)
[2020-03-03] MEDS: LOSARTAN 25 MG TAB PO SCH (08:40)
[2020-03-03] MEDS: FAMOTIDINE 20 MG TAB PO SCH (08:40)
[2020-03-03] MEDS: DOCUSATE 100 MG CAP PO SCH (08:40)
[2020-03-03] MEDS: BICALUTAMIDE 50 MG TAB PO SCH (08:40)
[2020-03-03] MEDS: ASPIRIN 81 MG PO SCH (08:40)
[2020-03-03] MEDS: traMADol 50 MG TAB PO SCH (08:41)
[2020-03-03] MEDS: VITAMIN E (DL,TOCOPHERYL ACET) 400 UNIT CAP PO SCH (08:41)
[2020-03-03] MEDS: HEPARIN SODIUM,PORCINE 5,000 UNIT/ML 1 ML VIAL SQ SCH (08:42)
[2020-03-03] MEDS: Mirabegron [Myrbetriq] PO SCH (08:42)
== END 2020-03-03 12:02 | DRG 478 ==
LOC: EC 16:14 → 1SOBS 18:12 → 5NMEDONC 02-25 06:02 → OBSVTOIN 02-26 14:15
PROVIDERS: ADMIT Hospitalist; ATTEND Hospitalist
PROC: 3E0R33Z Introduction of Anti-inflammatory into Spinal Canal, Percutaneous Approach (ICD-10-PCS; 2020-02-25)
PROC: 0QS03ZZ Reposition Lumbar Vertebra, Percutaneous Approach (ICD-10-PCS; principal; 2020-02-29 08:02)
PROC: 0QB00ZX Excision of Lumbar Vertebra, Open Approach, Diagnostic (ICD-10-PCS; principal; 2020-02-29 08:02)
PROC: 0QU03JZ Supplement Lumbar Vertebra with Synthetic Substitute, Percutaneous Approach (ICD-10-PCS; principal; 2020-02-29 08:02)
DX: M48.56XA Collapsed vertebra, not elsewhere classified, lumbar region, initial encounter for fracture (principal); E87.1 Hypo-osmolality and hyponatremia; M51.06 Intervertebral disc disorders with myelopathy, lumbar region; K21.9 Gastro-esophageal reflux disease without esophagitis; E78.5 Hyperlipidemia, unspecified; M19.90 Unspecified osteoarthritis, unspecified site; F41.9 Anxiety disorder, unspecified; E66.9 Obesity, unspecified; K44.9 Diaphragmatic hernia without obstruction or gangrene; M48.061 Spinal stenosis, lumbar region without neurogenic claudication; R31.9 Hematuria, unspecified; M47.26 Other spondylosis with radiculopathy, lumbar region; M51.16 Intervertebral disc disorders with radiculopathy, lumbar region; Z96.641 Presence of right artificial hip joint; Z96.653 Presence of artificial knee joint, bilateral; Z11.59 Encounter for screening for other viral diseases; Z98.890 Other specified postprocedural states; Z90.89 Acquired absence of other organs; Z90.79 Acquired absence of other genital organ(s); Z85.46 Personal history of malignant neoplasm of prostate; Z68.29 Body mass index [BMI] 29.0-29.9, adult; Z79.899 Other long term (current) drug therapy; Z79.82 Long term (current) use of aspirin; Z88.5 Allergy status to narcotic agent; Z91.041 Radiographic dye allergy status
CPT/HCPCS: 36415; 62323; 71045; 72050; 72100; 72141; 72148; 74019; 80048; 80053; 81001; 85025; 87086; 87635; 88307; 88311; 94640; 96372; 96374; 96375; 96376; 99285

== ENCOUNTER → 2020-05-05 | Outpatient (CLI) | payer MEDICARE, OTHER ==
[2020-05-05 16:35] LABS: Appearance,Urine Clear (Clear); Bilirubin,Urine Negative (Negative); Blood,Urine Moderate (Negative); Color,Urine Yellow; Glucose,Urine (UA) Negative (Negative); Ketones,Urine Negative (Negative); Leukocyte Esterase,Urine Negative (Negative); Mucus,Urine Many /hpf; Nitrite,Urine Negative (Negative); Protein,Urine 1+ (Negative); RBC,Urine 50 /hpf (0-5); Squamous Epithelial Cell,Urine <1 /hpf (0-4); WBC,Urine 3 /hpf (0-5)
[2020-05-05 16:40] LABS: African American GFR (CKD) >90 (>60 ml/min/1.73 sqM); Anion Gap 9 mmol/L; Blood Urea Nitrogen 15 mg/dL (9-20); Carbon Dioxide 30 mmol/L (22-30); Chloride 97 mmol/L (98-107); Glucose 106 mg/dL (74-99); Non-African American GFR(CKD) 86 (>60 ml/min/1.73 sqM); Potassium 4.6 mmol/L (3.5-5.1); Sodium 136 mmol/L (137-145)
[2020-05-05 16:42] LABS: Basophils % (A) 0 %; Eosinophils % (A) 0 %; HCT 51.6 % (39.0-53.0); HGB 16.2 gm/dL (13.0-17.5); Lymphocytes # (A) 2.1 k/uL (1.0-4.8); Lymphocytes % (A) 21 %; MCH 28.5 pg (25.0-35.0); MCHC 31.4 g/dL (31.0-37.0); Monocytes # (A) 0.5 k/uL (0-1.0); Monocytes % (A) 5 %; Neutrophils % (A) 71 %; Platelet Count 227 k/uL (150-450); RDW 14.3 % (11.5-15.5); WBC 9.9 k/uL (3.8-10.6)
[2020-05-05 16:46] LABS: Partial Thromboplastin Time 24.1 sec (22.0-30.0); Prothrombin Time 10.5 sec (9.0-12.0)
[2020-05-05 16:59] LABS: MCV 90.5 fL (80.0-100.0)
--- NOTE | 2020-05-06 08:05 | XR ---
EXAMINATION TYPE: XR chest 2V DATE OF EXAM: 05/05/2020 COMPARISON: 02/24/2020 HISTORY: 85-year-old male presurgical for the lumbar spine, clearance. TECHNIQUE: Frontal and lateral views FINDINGS: Partially visualized left shoulder arthroplasty. Heart borderline enlarged. Underlying large hiatal h ernia noted. Large patient body habitus resulting in underpenetration. Strandy areas of atelectasis. Mild hyperinflation. No karena consolidation or pleural effusion. IMPRESSION: COPD, strandy bibasilar atelectasis, and large hiatal hernia. No focal infiltrate seen.
== END | disposition home or self-care (01) ==
LOC: LABPAT 15:37
PROVIDERS: ATTEND Orthopaedic Surgery Orthopaedic Surgery of the Spine
DX: Z01.818 Encounter for other preprocedural examination (principal); S32.029A Unspecified fracture of second lumbar vertebra, initial encounter for closed fracture
CPT/HCPCS: 36415; 71046; 80048; 81001; 85025; 85610; 85730

== ENCOUNTER 2020-05-11 13:38 | Observation (INO) | payer MEDICARE, OTHER ==
[2020-05-06 14:49] VITALS: BMI 27.4
[~2020-05-11 13:38] MED LIST changes: -LIDOCAINE 1% 20 ML VIAL (10MG/ML) FOR IV START INTRADERMA PRN; -MIDAZOLAM 2 MG/2 ML VIAL IV PRN; -ROPIVACAINE 246.25 MG, EPINEPHrine 0.5 MG, KETOROLAC 30 MG, cloNIDine HCL/PF 80 MCG, WA... MISCELLANE ONE; +SODIUM CHLORIDE 0.9% IRRIGATIO 1,000 ML IRRIGATION ONE; -TRANEXAMIC ACID 1,000 MG in SODIUM CHLORIDE 0.9% 100 ML IVPB ONE; -ceFAZolin IN SWFI 2 GM/20 ML SYRINGE IVP ONE; -fentaNYL (PF) 50 MCG/ML 2 ML AMP IV PRN; -fentaNYL (PF) 50 MCG/ML 2 ML AMP IVP PRN
[2020-05-11] MEDS ORDERED: ONDANSETRON 4 MG/2 ML VIAL ONE (14:12)
[2020-05-11] MEDS ORDERED: LACTATED RINGERS 1,000 ML IV ONE (14:14)
[2020-05-11] MEDS ORDERED: LIDOCAINE 1% (10MG/ML) FOR IV START INTRADERMA ONE (14:14)
[2020-05-11] MEDS ORDERED: MIDAZOLAM 2 MG/2 ML VIAL ONE (15:53)
[2020-05-11] MEDS ORDERED: LIDOCAINE 1% INJ 10MG/ML (20 ML MDV) ONE (15:53)
[2020-05-11] MEDS ORDERED: PROPOFOL 10 MG/ML 20 ML VIAL IV ONE (15:53)
[2020-05-11] MEDS ORDERED: SUCCINYLCHOLINE CHLORIDE 100 MG/5 ML SYR IV ONE (15:53)
[2020-05-11] MEDS ORDERED: fentaNYL (PF) 50 MCG/ML 2 ML AMP ONE (15:53)
[2020-05-11] MEDS ORDERED: LIDOCAINE 2%-EPI 1:100,000 20 ML VIAL SQ ONE (16:24)
[2020-05-11] MEDS ORDERED: ONDANSETRON 4 MG/2 ML VIAL IVP PRN (16:49)
[2020-05-11] MEDS ORDERED: HYDROmorphone 0.5 MG/0.5 ML SYRINGE IVP PRN (16:49)
[2020-05-11] MEDS ORDERED: MAGNESIUM HYDROXIDE 2,400 MG/10 ML CUP PO PRN (16:49)
[2020-05-11] MEDS ORDERED: BENZOCAINE/MENTHOL LOZENG 1 EACH LOZENGE MUCOUS MEM PRN (16:49)
[2020-05-11] MEDS ORDERED: ALBUTEROL NEBULIZED 2.5 MG/3 ML INHALATION PRN (16:52)
[2020-05-11] MEDS ORDERED: MECLIZINE 25 MG TAB PO PRN (16:52)
[2020-05-11] MEDS ORDERED: ACETAMINOPHEN TAB 325 MG TAB PO PRN (16:52)
--- NOTE | 2020-05-11 17:00 | P.OP ---
Date of Procedure: 05/11/20 Preoperative Diagnosis: L2 acute traumatic compression fracture Osteoporosis Intractable low back pain Frequent falls Postoperative Diagnosis: Same Anesthesia: GETA Pathology: other (L2 vertebral body biopsy sent to pathology) Condition: stable Disposition: PACU Description of Procedure: BRIEF OPERATIVE NOTE Preoperative Diagnosis: L2 acute traumatic compression fracture Osteoporosis Intractable low back pain Frequent falls Postoperative Diagnosis: Same Procedure: Kyphoplasty of L2 Vertebral body biopsy of L2 Use of biplanar fluoroscopic guidance Surgeon: Dr. Elliott Program Director: Amarjit Huff is present throughout the entire the case persistence during positioning, dissection, exposure, visualization, and all crucial elements of the case as well as closure. Anesthesia: General anesthesia Estimated blood loss: Less than 10 mL Specimen: Vertebral body biopsy of L2 sent to pathology in formalin Complications: None apparent Components implanted: Bone cement Shan 5 mL Disposition: To recovery room in good stable condition. OPERATIVE INDICATIONS The patient has been having issues in their back ever since sustaining an injury. He recently underwent a kyphoplasty of L3 for a compression fracture and was doing quite well in terms of his pain relief from this. However he had a small fall and had acute new onset of back pain in his lower back. He was evaluated and found have a new acute compression fracture at L2. L3 kyphoplasty was stable. He had findings of chronic L1 compression fracture as well. The patient has been through conservative treatment. He was essentially unable to get around removed. He is having essentially complete debility due to his neck pain. He was unable to get up out of bed or up to a chair on his own. He needed substantial assistance in order just to get up to a chair or get out of bed. They attempted conservative care with bracing however they're not having any benefit despite brace use. They continue to have significant pain and debility due to their fracture. We discussed various treatment options including surgery, and the patient wishes to proceed with surgery We discussed the risk, patient's alternatives and benefits of surgery including but not limited to, risk of bleeding risk of infection, risk of need for further surgery, risk of decreased, loss of motion, loss of function, cement extravasation, nerve damage, paralysis, heart attack, blindness and . OPERATIVE SUMMARY After discussing all the risks, patient alternatives and benefits at length, the patient elected to proceed with surgical intervention, signed informed consent, and presented for their procedure. The patient was seen and examined in the preoperative holding area and the surgical site was marked at his lower back The patient was given antibiotics and brought to the operating room. The patient was sedated and intubated by anesthesia in standard fashion. The patient was positioned on to the operating room table in a prone position on the appropriate well-padded and well molded bilateral chest rolls. We were careful to pad any bony prominences and pressure points. We were careful to maintain the patient's cervical spine and good neutral alignment and position throughout. We used 2 C-arm machines to establish biplanar fluoroscopic guidance in AP and lateral positions. We were able to localize the fractures appropriately. The patient was prepped and draped in a normal standard fashion. An appropriate timeout and keystone protocol performed. We were able to proceed with the surgery. The local wound area was infiltrated with local anesthetic over L2 on the right where he was having more of his pain. An incision was made over the lateral aspect of the pedicle over the appropriate levels with a small 2 mm stab incision. Intraoperative fluoroscopy was taken which showed a marker at the appropriate level. With the appropriate level positively confirmed, I was able to position a sharp trocar over the lateral aspect of the pedicle. As able to advance the trocar into the pedicle and into the posterior aspect of vertebral body being careful to avoid penetration cephalad caudad or medially. I was able to obtain very good position in the pedicle and into the posterior aspect of vertebral body The trocar was placed ap propriately into the posterior aspect of vertebral body at the appropriate levels. This was confirmed with C-arm guidance. With the trocar intact I was then able to take a bone biopsy with a biopsy punch or a bony drill. The biopsy specimen was passed off to be sent to pathology in formalin. He had a good core for the biopsy punch to be sent to pathology. I was then able to place the kyphoplasty balloon within the vertebral body. The position was checked on C-arm. I was able to inflate the balloon under low pressure and visualization with C-arm. Able to visualize the prior compression fracture and kyphoplasty L3 as well as a stable compression deformity of L1. The balloon was well enclosed within the vertebral body. The cement was prepared. With the cement at appropriate working condition the balloons were deflated and removed. I was able to place bony cement with trocar with the cement delivery device under low pressure. It had good fill within the vertebral body. There is no evidence of any extravasation of the cement posteriorly toward the canal. The cement was well contained at the appropriate level of L2. The cement was allowed to cure appropriately. The trochars removed and final images were taken on C-arm. This showed the cement at the appropriate level of L2 with the stable cement at L3 and prior chronic compression deformity at L1.. We were able to proceed with closure. The wound was cleaned and dried and dressed with the appropriate dressing. The drapes were broken down. The patient was gently rolled back onto their hospital bed being careful to maintain their cervical spine and good neutral alignment and position. They were woken up by anesthesia, extubated, and brought to the recovery room in good stable condition. The patient will be admitted to the hospital for observation and for appropriate postoperative care, medical management and monitoring. We will continue to follow them closely about the postoperative course.
[2020-05-11] MEDS: SODIUM CHLORIDE 0.9% 1,000 ML IV SCH ×2 (20:01→20:24)
[2020-05-11] MEDS: PANTOPRAZOLE 40 MG TABLET PO SCH (20:01)
[2020-05-11] MEDS: CYCLOBENZAPRINE 10 MG TAB PO SCH (20:23)
[2020-05-11] MEDS: ATORVASTATIN 40 MG TAB PO SCH (20:23)
[2020-05-11] MEDS: FERROUS SULFATE 325 MG TAB PO SCH (20:24)
[2020-05-12] MEDS: HYDROcodone/APAP 5-325MG 1 EACH TAB PO PRN ×3 (00:13→19:11)
[2020-05-12] MEDS: TEMAZEPAM 30 MG CAP PO PRN ×2 (02:18→21:38)
--- NOTE | 2020-05-12 08:12 | XR ---
EXAMINATION TYPE: XR lumbar spine 1V, FL guidance operating room DATE OF EXAM: 05/11/2020 COMPARISON: NONE HISTORY: 85-year-old male kyphoplasty FINDINGS: Procedural imaging during kyphoplasty. Vertebroplasty cement already noted within the segment below. FLUOROSCOPY Fluoroscopy time of 56 seconds was used during kyphoplasty. 4 image/s document/s the procedure. IMPRESSION: Procedure fluoroscopy as above.
[2020-05-12] MEDS: CYANOCOBALAMIN 500 MCG TAB PO SCH (09:34)
[2020-05-12] MEDS: CYCLOBENZAPRINE 10 MG TAB PO SCH ×3 (09:34→21:20)
[2020-05-12] MEDS: ASPIRIN 81 MG PO SCH (09:34)
[2020-05-12] MEDS: LACTOBACILLUS ACIDOPH & BULGAR 1 EACH PACKET PO SCH (09:35)
[2020-05-12] MEDS: Mirabegron [Myrbetriq] 50 MG Tab.Er.24h PO SCH (09:35)
[2020-05-12] MEDS: FAMOTIDINE 20 MG TAB PO SCH (09:35)
[2020-05-12] MEDS: FERROUS SULFATE 325 MG TAB PO SCH ×2 (09:35→21:20)
[2020-05-12] MEDS: SENNOSIDES-DOCUSATE SODIUM 1 EACH TAB PO SCH (09:35)
[2020-05-12] MEDS: PANTOPRAZOLE 40 MG TABLET PO SCH ×2 (09:36→17:31)
[2020-05-12] MEDS: BICALUTAMIDE 50 MG TAB PO SCH (10:08)
[2020-05-12] MEDS: VITAMIN E (DL,TOCOPHERYL ACET) 400 UNIT CAP PO SCH (10:08)
--- NOTE | 2020-05-12 12:29 | P.PN ---
Progress Note - Text Progress Note Date: 05/12/20 Orthopedic Spine: History of present illness: Patient is a pleasant 85-year-old male who is seen at the bedside following L2 kyphoplasty with biopsy performed yesterday. Patient states he has had improvement of his pain at the surgical site of L2. Most significantly he's complaining of right lower lumbar pain over the right sacroiliac joint towards the right buttock/hip. He states he was able to work with physical therapy today to ambulate to the restroom and ambulate back to a bedside chair with assistance and with a walker. He is eating and urinating without difficulty. He does have continued difficulty with mobilization. He does not feel safe returning home postoperatively and is hoping to be cleared for discharge to a rehabilitation facility. Patient has been seen and examined today by physical therapy and occupational therapy. Case management is obtaining documentation and working to see the patient could get approved by his insurance for rehab placement at the time of discharge. Patient has no other complaints at the bedside. He continues to have an unsteady gait. Patient is known to have a chronic L1 compression fracture deformity. Patient recently underwent kyphoplasty at L3 performed on 02/29/2020. He was recently diagnosed in the outpatient setting with his acute L2 compression fracture deformity. His past medical history includes hyperlipidemia and cancer. He denies any change in bowel or bladder. Physical Exam: Status post surgical day number 1 Patient is awake, alert, and oriented 3 Vital signs stable Good chest excursion with deep inspiration and expiration Dressing over the L2 kyphoplasty site is dry and intact with some dried blood No active drainage from the incision site No significant pain with palpation around the surgical site No pain with internal and external rotation of the hips bilaterally Patient does have some increased right-sided low back pain while rolling over in bed He'll palpation of the right sacroiliac joint and right lateral lumbar spine and buttock Dorsiflexion, plantarflexion, and extensor hallucis longus positive sustained bilaterally No signs or symptoms of DVT; no calf pain Evidence of a well-healed incision over the left anterior Pertinent studies: MRI of the lumbar spine taken on 02/24/2020: Evidence of signal changes within the L3 vertebral body indicative of acute to subacute compression fracture beau quinones with history of previous L3 compression fracture deformity; L1 chronic compression fracture deformity L2 probable meningioma posterior aspect; L1-2 small posterior disc bulging; L3 4 small posterior disc bulge, facet arthropathy, and extension endplate disc complex resulting in neural foraminal encroachment greater on the left than the right; L4-5 facet hypertrophy and ligament flavum hypertrophy with posterior extension endplate disc resulting in moderate spinal canal stenosis and neural foraminal narrowing greater on the right than the left; L5-S1 broad-based disc bulge and facet arthropathy X-rays of the lumbar spine seen on 02/03/2020: Evidence of chronic L1 compression fracture deformity; endplate change at L3 possibly chronic; evidence of what appears to be an L5 compression fracture deformity which may be acute; lumbar facet arthropathy; bone demineralization; clips within the pelvis from previous surgical intervention; evidence of right total hip arthroplasty Assessment: Status post L2 kyphoplasty with biopsy Right sided low back pain History recent L3 kyphoplasty and biopsy performed on 02/29/2020 L1 chronic compression fracture deformity Lumbar degenerative disc disease L4-5 Lumbar spinal stenosis Lumbar facet arthropathy 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 Ambulate as tolerated; work with Physical Therapy; Patient is encouraged to continue using a walker to aid in ambulation as needed 2. Continue Pain control with oral medications with oral [place] and IV Dilaudid as prescribed as needed for control of symptoms 3. We will continue to follow the patient closely; patient does have significant difficulty with mobility and ambulation. We did discuss he could benefit from placement to a subacute rehabilitation facility time of discharge. Patient has been seen by physical therapy and occupational therapy. Their cli nical notes will be sent by case management to the patient's insurance company for review. Patient has also had COVID-19 testing done this morning, which is required prior to discharge to a rehabilitation facility. If the patient is able to be approved we will plan for discharge to a rehabilitation facility as early as tomorrow, 05/13/2020 4. Patient can follow-up with Amarjit Edwards PA-C or Dr. Surya Elliott at [facility] in 2-3 weeks following discharge
[2020-05-12] MEDS: traMADol 50 MG TAB PO PRN (15:54)
[2020-05-12] MEDS: ATORVASTATIN 40 MG TAB PO SCH (21:20)
[2020-05-12] MEDS: SODIUM CHLORIDE 0.9% 1,000 ML IV SCH (21:21)
[2020-05-13] MEDS: traMADol 50 MG TAB PO PRN (08:03)
[2020-05-13] MEDS: CYANOCOBALAMIN 500 MCG TAB PO SCH (08:04)
[2020-05-13] MEDS: VITAMIN E (DL,TOCOPHERYL ACET) 400 UNIT CAP PO SCH (08:04)
[2020-05-13] MEDS: FAMOTIDINE 20 MG TAB PO SCH (08:04)
[2020-05-13] MEDS: SENNOSIDES-DOCUSATE SODIUM 1 EACH TAB PO SCH (08:04)
[2020-05-13] MEDS: CYCLOBENZAPRINE 10 MG TAB PO SCH ×2 (08:04→17:06)
[2020-05-13] MEDS: Mirabegron [Myrbetriq] 50 MG Tab.Er.24h PO SCH (08:05)
[2020-05-13] MEDS: LACTOBACILLUS ACIDOPH & BULGAR 1 EACH PACKET PO SCH (08:05)
[2020-05-13] MEDS: BICALUTAMIDE 50 MG TAB PO SCH (08:05)
[2020-05-13] MEDS: ASPIRIN 81 MG PO SCH (08:05)
[2020-05-13] MEDS: PANTOPRAZOLE 40 MG TABLET PO SCH ×2 (08:05→17:06)
[2020-05-13] MEDS: FERROUS SULFATE 325 MG TAB PO SCH (08:05)
[2020-05-13] MEDS: SODIUM CHLORIDE 0.9% 1,000 ML IV SCH (10:25)
[2020-05-13 12:01] VITALS: BP 130/80; PULSE 81; RESP 18; TEMP 98.2
[2020-05-13] MEDS: HYDROcodone/APAP 5-325MG 1 EACH TAB PO PRN (13:33)
--- NOTE | 2020-05-13 14:40 | P.DS ---
Providers Date of admission: 05/12/20 13:48 Expected date of discharge: 05/13/20 Attending physician: David Elliott Consults: 05/11/20 16:49 Consult Physician Routine Consulting Provider: Royce Young Consult Reason/Comments: Medical management Do you want consulting provider notified?: Yes Primary care physician: Royce Young - Discharge Diagnosis(es) (1) Compression fracture of L2 lumbar vertebra Current Visit: Yes Status: Acute (2) History of cancer Current Visit: Yes Status: Acute (3) Compression fracture of L1 vertebra Current Visit: No Status: Acute (4) Compression fracture of L3 vertebra Current Visit: No Status: Acute (5) History of total left knee replacement (TKR) Current Visit: No Status: Acute (6) Hyperlipemia Current Visit: No Status: Acute (7) Lumbar degenerative disc disease Current Visit: No Status: Acute (8) Lumbar facet arthropathy Current Visit: No Status: Acute (9) Lumbar stenosis Current Visit: No Status: Acute Hospital Course: This is a pleasant 85-year-old male who presented with L2 compression fracture deformity who failed outpatient conservative therapy. He was admitted for an L2 kyphoplasty and biopsy. The patient tolerated the procedure well and did well postoperatively. He states the pain in his L2 fracture site has improved postoperatively. He does continue to have ongoing chronic right-sided lower lumbar pain. Patient is continue to feel he is not able to take care of himself at home will be discharged to rehabilitation facility. He has been evaluated by PT and OT. Case management has worked with his insurance company and he has been cleared for discharge to [facility]. Patient states he is ready for discharge today. Condition on day of discharge stable. Patient was cleared preoperatively for surgery by Dr. Young. Patient currently denies any nausea, vomiting, fever, or chills. Patient is eating and voiding freely without difficulty. Patient may shower without a dressing intact over the L2 kyphoplasty site. We did discuss patient had a Band-Aid placed over the incision site if needed. Incision is currently clean and dry. Patient should refrain from driving until at least after their first follow-up appointment in the office. Patient should avoid excessive bending, lifting, and twisting; no lifting greater than 10 pounds. MAPS has been reviewed today, 05/13/2020. An "Opiod Start Talking" Form has been signed by the patient and placed in the patient's chart. A prescription has been written for [place] 5 mg/325 mg 1 tab every 4 hours as needed for pain, dispense #42. Patient should discontinue previous he prescribed Ultram. Patient is also given a prescription for Xanax 0.25 mg 1 tab twice a day as needed for anxiety, dispense #14. Patient is given a prescription for temazepam 30 mg by mouth at nighttime as needed for insomnia, dispensed #7. His past medical history includes hyperlipidemia, cancer, chronic L1 compression fracture deformity, recent L3 kyphoplasty and biopsy performed on 02/29/2020, lumbar degenerative disc disease, lumbar facet arthropathy, L4-5 lumbar spinal stenosis, and history of left total knee arthroplasty performed on 02/25/2019. Physical Exam: Status post surgical day number 2 Patient is awake, alert, and oriented 3 Vital signs stable Good chest excursion with deep inspiration and expiration Dressing over the L2 kyphoplasty site is dry and intact with some dried blood; dressing is removed during physical examination Inches and site remains clean and dry; dressing was not reapplied No active drainage from the incision site No significant pain with palpation around the surgical site No pain with internal and external rotation of the hips bilaterally Patient does have some increased right-sided low back pain while rolling over in bed Pain with palpation of the right sacroiliac joint and right lateral lumbar spine and buttock Dorsiflexion, plantarflexion, and extensor hallucis longus positive sustained bilaterally No signs or symptoms of DVT; no calf pain Evidence of a well-healed incision over the left anterior knee Procedures: L2 kyphoplasty and biopsy Patient Condition at Discharge: Stable Plan - Discharge Summary Discharge Rx Participant: Yes New Discharge Prescriptions: New HYDROcodone/APAP 5-325MG [[place] 5] 1 each PO Q4HR PRN #42 tab PRN Reason: Pain Temazepam [Restoril] 30 mg PO HS PRN 7 Days #7 cap PRN Reason: Insomnia ALPRAZolam [Xanax] 0.25 mg PO BID PRN 7 Days #14 tab PRN Reason: Anxiety Benzocaine/Menthol Lozeng [Cepacol lozenge] 1 each MUCOUS MEM Q4HR PRN lozenge PRN Reason: Sore Throat Magnesium Hydroxide [Milk of Magnesia Concentrate] 2,400 mg PO DAILY PRN ml PRN Reason: Constipation Sennosides-Docusate Sodium [Senokot-S] 1 each PO DAILY tab Continue Bicalutamide [Casodex] 50 mg PO DAILY Cyanocobalamin (Vitamin B-12) [Vitamin B-12] 1,500 mcg PO DAILY Atorvastatin [Lipitor] 40 mg PO HS L.acidoph,Paracasei, B.lactis [Probiotic] 1 cap PO DAILY Albuterol Sulfate [Proventil Hfa] 2 puff INHALATION DIRECTED PRN PRN Reason: Shortness Of Breath Aspirin EC [Ecotrin Low Dose] 81 mg PO DAILY Famotidine [Pepcid] 40 mg PO DAILY Meclizine [Antivert] 25 mg PO TID PRN PRN Reason: Vertigo Mirabegron [Myrbetriq] 50 mg PO DAILY Omeprazole [PriLOSEC] 20 mg PO BID Vitamin E 1,000 unit PO DAILY Temazepam [Restoril] 30 mg PO HS PRN PRN Reason: Insomnia Cyclobenzaprine [Flexeril] 10 mg PO TID Acetaminophen Tab [Tylenol] 650 mg PO Q6HR PRN PRN Reason: Pain Ferrous Sulfate [Iron] 325 mg PO BID Discontinued traMADol HCl [Ultram] 50 mg PO Q8HR PRN PRN Reason: Pain No Action HYDROcodone/APAP 5-325MG [[place] 5-325] 1 each PO Q4HR PRN PRN Reason: Pain ALPRAZolam [Xanax] 0.25 mg PO BID Discharge Medication List Bicalutamide [Casodex] 50 mg PO DAILY 06/07/14 [History] Cyanocobalamin (Vitamin B-12) [Vitamin B-12] 1,500 mcg PO DAILY 01/13/17 [History] Atorvastatin [Lipitor] 40 mg PO HS 03/07/17 [History] L.acidoph,Paracasei, B.lactis [Probiotic] 1 cap PO DAILY 02/15/19 [History] Albuterol Sulfate [Proventil Hfa] 2 puff INHALATION DIRECTED PRN 02/23/20 [History] Aspirin EC [Ecotrin Low Dose] 81 mg PO DAILY 02/23/20 [History] Famotidine [Pepcid] 40 mg PO DAILY 02/23/20 [History] Meclizine [Antivert] 25 mg PO TID PRN 02/23/20 [History] Mirabegron [Myrbetriq] 50 mg PO DAILY 02/23/20 [History] Omeprazole [PriLOSEC] 20 mg PO BID 02/23/20 [History] Vitamin E 1,000 unit PO DAILY 02/23/20 [History] ALPRAZolam [Xanax] 0.25 mg PO BID 05/06/20 [History] Acetaminophen Tab [Tylenol] 650 mg PO Q6HR PRN 05/06/20 [History] Cyclobenzaprine [Flexeril] 10 mg PO TID 05/06/20 [History] Ferrous Sulfate [Iron] 325 mg PO BID 05/06/20 [History] HYDROcodone/APAP 5-325MG [[place] 5-325] 1 each PO Q4HR PRN 05/06/20 [History] Temazepam [Restoril] 30 mg PO HS PRN 05/06/20 [History] ALPRAZolam [Xanax] 0.25 mg PO BID PRN 7 Days #14 tab 05/13/20 [Rx] Benzocaine/Menthol Lozeng [Cepacol lozenge] 1 each MUCOUS MEM Q4HR PRN lozenge 05/13/20 [Rx] HYDROcodone/APAP 5-325MG [[place] 5] 1 each PO Q4HR PRN #42 tab 05/13/20 [Rx] Magnesium Hydroxide [Milk of Magnesia Concentrate] 2,400 mg PO DAILY PRN ml 05/13/20 [Rx] Sennosides-Docusate Sodium [Senokot-S] 1 each PO DAILY tab 05/13/20 [Rx] Temazepam [Restoril] 30 mg PO HS PRN 7 Days #7 cap 05/13/20 [Rx] Follow up Appointment(s)/Referral(s): Amarjit Edwards, PAC [PHYSICIAN VOLTAGE REGULATOR ASSEMBLER] - 2 Weeks (Patient may follow-up with Amarjit Edwards PA-C or Dr. Surya Elliott at [facility] in 2-3 weeks following discharge. ) Activity/Diet/Wound Care/Special Instructions: 1. Patient may shower without dressing intact over the surgical site at L2 2. Avoid excessive bending, twisting, lifting; avoid lifting greater than 10 pounds Discharge Disposition: TRANSFER TO SNF/ECF
== END 2020-05-13 17:25 ==
LOC: OR 13:38 → 6NMEDSUR 18:17 → OR 05-12 13:48
PROVIDERS: ADMIT Orthopaedic Surgery Orthopaedic Surgery of the Spine; ATTEND Orthopaedic Surgery Orthopaedic Surgery of the Spine
DX: M48.56XA Collapsed vertebra, not elsewhere classified, lumbar region, initial encounter for fracture (principal); M81.0 Age-related osteoporosis without current pathological fracture; R29.6 Repeated falls; M51.36 Other intervertebral disc degeneration, lumbar region; E78.5 Hyperlipidemia, unspecified; M48.061 Spinal stenosis, lumbar region without neurogenic claudication; M47.816 Spondylosis without myelopathy or radiculopathy, lumbar region; Z96.652 Presence of left artificial knee joint; G47.00 Insomnia, unspecified; R42 Dizziness and giddiness; K59.00 Constipation, unspecified; F41.9 Anxiety disorder, unspecified; J02.9 Acute pharyngitis, unspecified; R06.02 Shortness of breath; Z79.899 Other long term (current) drug therapy; H91.90 Unspecified hearing loss, unspecified ear; D64.9 Anemia, unspecified; Z88.5 Allergy status to narcotic agent; Z91.048 Other nonmedicinal substance allergy status; Z85.46 Personal history of malignant neoplasm of prostate; I10 Essential (primary) hypertension; J45.909 Unspecified asthma, uncomplicated; Z01.812 Encounter for preprocedural laboratory examination
CPT/HCPCS: 97530; 97162; 97535; 97167; 88307; 88311; 72020; 22514; G0378 ×2; C1713; U0003; J2250; J0690 ×2; J2405; J2001; J3010; J0330; J2704; 86850; 86900; 86901

== ENCOUNTER 2020-05-31 16:58 | Emergency (ER) | payer MEDICARE, OTHER ==
[2020-05-31] MEDS ORDERED: SODIUM CHLORIDE 0.9% 1,000 ML IV ONE (17:18)
[2020-05-31 17:50] LABS: Basophils % (A) 0 %; Eosinophils # (A) 0.1 k/uL (0-0.7); Eosinophils % (A) 1 %; HGB 14.8 gm/dL (13.0-17.5); Lymphocytes # (A) 1.9 k/uL (1.0-4.8); Lymphocytes % (A) 20 %; MCH 27.8 pg (25.0-35.0); MCHC 32.2 g/dL (31.0-37.0); MCV 86.4 fL (80.0-100.0); Mean Platelet Volume 7.9; Monocytes # (A) 0.6 k/uL (0-1.0); Monocytes % (A) 6 %; Neutrophils # (A) 6.8 k/uL (1.3-7.7); Neutrophils % (A) 71 %; Platelet Count 185 k/uL (150-450); RBC 5.32 m/uL (4.30-5.90); WBC 9.7 k/uL (3.8-10.6)
--- NOTE | 2020-05-31 17:52 | ED ---
General Adult HPI - General Chief complaint: Abdominal Pain Stated complaint: dry heaving x 2 days Time Seen by Provider: 05/31/20 17:11 Source: patient, RN notes reviewed, old records reviewed Mode of arrival: ambulatory Limitations: no limitations - History of Present Illness Initial comments: 85-year-old male patient presents to ED for evaluation of left lower quadrant abdominal pain which is been ongoing for the last 2 days. Reports that some nausea with it. Denies any other areas of pain or any other complaints. Systemic: Pt denies fatigue, fever/chills, rash. Pt denies weakness, night sweats, weight loss. Neuro: Pt denies headache, visual disturbances, syncope or pre-syncope. HEENT: Pt denies ocular discharge or irritation, otalgia, rhinorrhea, pharyngitis or notable lymphadenopathy. Cardiopulmonary: Pt denies chest pain, SOB, heart palpitations, dyspnea on exertion. Abdominal/GI: Pt denies abdominal pain, n/v/d. : Pt denies dysuria, burning w/ urination, frequency/urgency. Denies new onset urinary or bowel incontinence. MSK: Pt denies myalgia, loss of strength or function in extremities. Neuro: Pt denies new onset weakness, paresthesias. - Related Data Home Medications Medication Instructions Recorded Confirmed Bicalutamide [Casodex] 50 mg PO DAILY 06/07/14 05/06/20 Cyanocobalamin (Vitamin B-12) 1,500 mcg PO DAILY 01/13/17 05/06/20 [Vitamin B-12] Atorvastatin [Lipitor] 40 mg PO HS 03/07/17 05/06/20 L.acidoph,Paracasei, B.lactis 1 cap PO DAILY 02/15/19 05/06/20 [Probiotic] Albuterol Sulfate [Proventil Hfa] 2 puff INHALATION DIRECTED PRN 02/23/20 05/06/20 Aspirin EC [Ecotrin Low Dose] 81 mg PO DAILY 02/23/20 05/06/20 Famotidine [Pepcid] 40 mg PO DAILY 02/23/20 05/06/20 Meclizine [Antivert] 25 mg PO TID PRN 02/23/20 05/06/20 Mirabegron [Myrbetriq] 50 mg PO DAILY 02/23/20 05/06/20 Omeprazole [PriLOSEC] 20 mg PO BID 02/23/20 05/06/20 Vitamin E 1,000 unit PO DAILY 02/23/20 05/06/20 ALPRAZolam [Xanax] 0.25 mg PO BID 05/06/20 05/06/20 Acetaminophen Tab [Tylenol] 650 mg PO Q6HR PRN 05/06/20 05/06/20 Cyclobenzaprine [Flexeril] 10 mg PO TID 05/06/20 05/06/20 Ferrous Sulfate [Iron] 325 mg PO BID 05/06/20 05/06/20 HYDROcodone/APAP 5-325MG [[place] 1 each PO Q4HR PRN 05/06/20 05/06/20 5-325] Temazepam [Restoril] 30 mg PO HS PRN 05/06/20 05/06/20 Previous Rx's Medication Instructions Recorded ALPRAZolam [Xanax] 0.25 mg PO BID PRN 7 Days #14 tab 05/13/20 Benzocaine/Menthol Lozeng [Cepacol 1 each MUCOUS MEM Q4HR PRN lozenge 05/13/20 lozenge] HYDROcodone/APAP 5-325MG [[place] 5] 1 each PO Q4HR PRN #42 tab 05/13/20 Magnesium Hydroxide [Milk of 2,400 mg PO DAILY PRN ml 05/13/20 Magnesia Concentrate] Sennosides-Docusate Sodium 1 each PO DAILY tab 05/13/20 [Senokot-S] Temazepam [Restoril] 30 mg PO HS PRN 7 Days #7 cap 05/13/20 Allergies Allergy/AdvReac Type Severity Reaction Status Date / Time Iodinated Contrast Media Allergy Swelling Verified 05/31/20 17:04 [Iodinated Contrast Media - IV Dye] hydrocodone bitartrate AdvReac Nausea Verified 05/31/20 17:04 [From Vicodin] Review of Systems ROS Statement: Those systems with pertinent positive or pertinent negative responses have been documented in the HPI. ROS Other: All systems not noted in ROS Statement are negative. Past Medical History Past Medical History: Cancer, GERD/Reflux, Hyperlipidemia, Osteoarthritis (OA) Additional Past Medical History / Comment(s): hiatal hernia, hx anemia, hx. p rostate cancer,spinal stenosis History of Any Multi-Drug Resistant Organisms: None Reported Past Surgical History: Back Surgery Additional Past Surgical History / Comment(s): left knee, right knee & rt hip replaced, prostatectomy, orchiectomy, left wrist & arm surg. as child, left shoulder sx, pain procedures with dr gentile Past Anesthesia/Blood Transfusion Reactions: No Reported Reaction, Motion Sickness Past Psychological History: Anxiety Smoking Status: Never smoker Past Alcohol Use History: Rare Past Drug Use History: None Reported - Past Family History Mother Family Medical History: No Reported History Additional Family Medical History / Comment(s): Mother was healthy and lived to be 82. Father Family Medical History: No Reported History Additional Family Medical History / Comment(s): Father was healthy. He lived to be 74 yrs old. General Exam - General Exam Comments Initial Comments: Constitutional: NAD, AOX3, Pt has pleasant affect. HEENT: NC/AT, trachea midline, neck supple, no lymphadenopathy. External ears appear normal, without discharge. Mucous membranes moist. Eyes PERRLA, EOM intact. There is no scleral icterus. No pallor noted. Cardiopulmonary: RRR, no murmurs, rubs or gallops, no JVD noted. Lungs CTAB in anterior and posterior seals. No peripheral edema. Abdominal exam: Abdomen soft and non-distended. Abdomen mildly tender to palp ation in the left lower quadrant region. Bowel sounds active in LLQ. No hepatosplenomegaly. No ecchymosis Neuro: CN II-XII grossly intact. No nuchal rigidity. MSK: Full active ROM in upper and lower extremities, 5/5 stregnth. Limitations: no limitations Course Vital Signs 05/31/20 05/31/20 17:01 20:49 Temperature 98.2 F 98.6 F Pulse Rate 64 82 Respiratory 18 16 Rate Blood Pressure 166/98 152/88 O2 Sat by Pulse 96 94 L Oximetry Medical Decision Making - Medical Decision Making 85-year-old male patient is to ED for abdominal pain left lower quadrant last 2 days. Patient vital signs stable, afebrile. Physical exam: Mild tenderness of the area. Laboratory investigations revealed hematuria which is baseline for patient CT him closely lactational hernia with intrathoracic stomach patient is previously aware of this. However there is no acute abnormalities within the abdomen the pelvis. Patient is feeling much improved will discharge with outpatient follow-up and return precautions. Case discussed with Dr. Henson. - Lab Data Result diagrams: 05/31/20 17:32 05/31/20 17:32 Lab Results 05/31/20 05/31/20 05/31/20 Range/Units 17:32 17:32 17:32 WBC 9.7 (3.8-10.6) k/uL RBC 5.32 (4.30-5.90) m/uL Hgb 14.8 (13.0-17.5) gm/dL Hct 46.0 (39.0-53.0) % MCV 86.4 (80.0-100.0) fL MCH 27.8 (25.0-35.0) pg MCHC 32.2 (31.0-37.0) g/dL RDW 14.0 (11.5-15.5) % Plt Count 185 (150-450) k/uL Neutrophils % 71 % Lymphocytes % 20 % Monocytes % 6 % Eosinophils % 1 % Basophils % 0 % Neutrophils # 6.8 (1.3-7.7) k/uL Lymphocytes # 1.9 (1.0-4.8) k/uL Monocytes # 0.6 (0-1.0) k/uL Eosinophils # 0.1 (0-0.7) k/uL Basophils # 0.0 (0-0.2) k/uL Sodium 133 L (137-145) mmol/L Potassium 4.0 (3.5-5.1) mmol/L Chloride 98 (98-107) mmol/L Carbon Dioxide 26 (22-30) mmol/L Anion Gap 9 mmol/L BUN 15 (9-20) mg/dL Creatinine 0.63 L (0.66-1.25) mg/dL Est GFR (CKD-EPI)AfAm >90 (>60 ml/min/1.73 sqM) Est GFR (CKD-EPI)NonAf >90 (>60 ml/min/1.73 sqM) Glucose 110 H (74-99) mg/dL Calcium 9.4 (8.4-10.2) mg/dL Total Bilirubin 0.7 (0.2-1.3) mg/dL AST 22 (17-59) U/L ALT 13 (4-49) U/L Alkaline Phosphatase 160 H (38-126) U/L Total Protein 6.1 L (6.3-8.2) g/dL Albumin 3.8 (3.5-5.0) g/dL Lipase 41 (23-300) U/L Urine Color Yellow Urine Appearance Clear (Clear) Urine pH 6.0 (5.0-8.0) Ur Specific [place] 1.015 (1.001-1.035) Urine Protein 1+ H (Negative) Urine Glucose (UA) Negative (Negative) Urine Ketones 2+ H (Negative) Urine Blood Large H (Negative) Urine Nitrite Negative (Negative) Urine Bilirubin Negative (Negative) Urine Urobilinogen <2.0 (<2.0) mg/dL Ur Leukocyte Esterase Negative (Negative) Urine RBC >182 H (0-5) /hpf Urine WBC 1 (0-5) /hpf Ur Squamous Epith Cells <1 (0-4) /hpf Urine Mucus Occasional H (None) /hpf - EKG Data -: EKG Interpreted by Me (and Dr. Henson ) EKG Comments: ventricular rate 81, [place] interval 150, QRS 88, QT/QTC 382/443. Sinus rhythm with sinus arrhythmia and occasional PVC. No concern for acute ischemia at this time. Disposition Clinical Impression: Abdominal pain, Hematuria Disposition: HOME SELF-CARE Condition: Stable Instructions (If sedation given, give patient instructions): Abdominal Pain (ED) Additional Instructions: Follow-up with primary care provider tomorrow. I have given you surgery referral for hiatal hernia. Also urology referral for the blood in your urine. If you're feeling nauseous you may take the Zofran every 8 hours, I recommend starting with half a pill. Return to ED with any worsening symptoms. Is patient prescribed a controlled substance at d/c from ED?: No Referrals: Royce Young MD [Primary Care Provider] - 1-2 days Nickolas Cooper MD [STAFF PHYSICIAN] - 1-2 days Adrian Reyes MD [STAFF PHYSICIAN] - 1-2 days
[2020-05-31 18:01] LABS: Appearance,Urine Clear (Clear); Bilirubin,Urine Negative (Negative); Blood,Urine Large (Negative); Color,Urine Yellow; Glucose,Urine (UA) Negative (Negative); Ketones,Urine 2+ (Negative); Leukocyte Esterase,Urine Negative (Negative); Mucus,Urine Occasional /hpf; Nitrite,Urine Negative (Negative); Protein,Urine 1+ (Negative); RBC,Urine >182 /hpf (0-5); Specific Gravity,Urine 1.015 (1.001-1.035); Squamous Epithelial Cell,Urine <1 /hpf (0-4); Urobilinogen,Urine <2.0 mg/dL (<2.0); WBC,Urine 1 /hpf (0-5)
[2020-05-31 18:02] LABS: ALT 13 U/L (4-49); AST 22 U/L (17-59); African American GFR (CKD) >90 (>60 ml/min/1.73 sqM); Albumin 3.8 g/dL (3.5-5.0); Alkaline Phosphatase 160 U/L (38-126); Anion Gap 9 mmol/L; Blood Urea Nitrogen 15 mg/dL (9-20); Calcium 9.4 mg/dL (8.4-10.2); Carbon Dioxide 26 mmol/L (22-30); Chloride 98 mmol/L (98-107); Glucose 110 mg/dL (74-99); Non-African American GFR(CKD) >90 (>60 ml/min/1.73 sqM); Sodium 133 mmol/L (137-145); Total Bilirubin 0.7 mg/dL (0.2-1.3); Total Protein 6.1 g/dL (6.3-8.2)
[2020-05-31] MEDS ORDERED: FAMOTIDINE 20 MG/2 ML VIAL IV STA (18:19)
[2020-05-31] MEDS ORDERED: diphenhydrAMINE 50 MG/ML 1 ML VIAL IVP STA (18:19)
[2020-05-31] MEDS ORDERED: methylPREDNISolone SOD SUCCI 125 MG/2 ML VIAL IV STA (18:19)
--- NOTE | 2020-05-31 20:00 | CT ---
EXAMINATION TYPE: CT abdomen pelvis w con DATE OF EXAM: 05/31/2020 COMPARISON: None HISTORY: Generalizzed pain CT DLP: 1273.4 mGycm Automated exposure control for dose reduction was used. CONTRAST: Performed with IV Contrast, patient injected with 100 mL of Isovue 300. There is hiatal hernia. There is mild subsegmental atelectasis at the lung bases. Heart size is lenka l. Liver spleen pancreas appear intact. Bile ducts are not dilated. Gallbladder appears normal. There is 1.5 cm low-density right adrenal mass consistent with benign disease. Kidneys show satisfact ory contrast opacification. There is no hydronephrosis. There is normal excretion on the delayed imag es. There is right psoas muscle atrophy. There is no retroperitoneal adenopathy. There is 2 cm umbili syl hernia that contains fat. Bladder distends smoothly. There is right hip prosthesis. There is no i nguinal hernia. There are sigmoid diverticula without diverticulitis. Appendix is not definitely seen . There is no sign of thickened appendix. There is no mesenteric edema. There is no ascites or free a ir. There is no bowel obstruction. There is metal artifact from right hip prosthesis. There is multiple compression fractures in the spine with vertebroplasty at L2 and L3. There is loss of height up to 50% of the vertebra from L4 to T11. The bony pelvis appears intact. IMPRESSION: Large hiatal hernia with intrathoracic stomach. No acute abnormality within the abdomen pelvis. Mild sigmoid diverticulosis.
[2020-05-31] MEDS ORDERED: ONDANSETRON 4 MG ODT STARTER PACK 2 TAB BTL PO STA (20:37)
[2020-05-31 20:50] VITALS: BP 152/88; PULSE 82; RESP 16; TEMP 98.6
== END 2020-05-31 20:54 | disposition home or self-care (01) ==
LOC: EC 16:58
DX: C61 Malignant neoplasm of prostate (principal); R10.32 Left lower quadrant pain; R31.9 Hematuria, unspecified; K44.9 Diaphragmatic hernia without obstruction or gangrene; E78.5 Hyperlipidemia, unspecified; M19.90 Unspecified osteoarthritis, unspecified site; K21.9 Gastro-esophageal reflux disease without esophagitis; D64.9 Anemia, unspecified; F41.9 Anxiety disorder, unspecified; Z79.899 Other long term (current) drug therapy; Z79.890 Hormone replacement therapy; Z79.82 Long term (current) use of aspirin; Z88.5 Allergy status to narcotic agent; Z91.041 Radiographic dye allergy status; Z90.79 Acquired absence of other genital organ(s); Z96.641 Presence of right artificial hip joint; Z96.653 Presence of artificial knee joint, bilateral
CPT/HCPCS: 36415; 93005; 80053; 83690; 85025; 81001; 74177; 99285; 96374; 96375 ×2; 96361; J1200; J2930; S0119; Q9967

== ENCOUNTER 2020-06-19 11:31 | Observation (INO) | payer MEDICARE, OTHER ==
[2020-06-19] MEDS ORDERED: DIAZEPAM 5 MG/ML 2 ML INJ IVP STA (12:01)
[2020-06-19] MEDS ORDERED: KETOROLAC 15 MG/ML 1 ML VIAL IVP STA (12:02)
--- NOTE | 2020-06-19 12:20 | ED ---
General Adult HPI - General Chief complaint: Back Pain/Injury Stated complaint: back pain Time Seen by Provider: 06/19/20 11:35 Source: patient, EMS, RN notes reviewed, old records reviewed Mode of arrival: EMS Limitations: physical limitation - History of Present Illness Initial comments: This is an 85-year-old male who presents emergency Department complaining of back pain in the lumbar region. Patient states the pain is on the sides of his spine bilaterally. Patient denies any recent injury or trauma. Patient states his been ongoing for 2 or 3 days. Patient states is no numbness or weakness. Patient states she has no pain radiating down his legs or into his buttocks. Patient states he's had 2 back surgeries this year and February and one at the end of March. Patient states he is taking Flexeril and [place]. - Related Data Home Medications Medication Instructions Recorded Confirmed Bicalutamide [Casodex] 50 mg PO DAILY 06/07/14 06/19/20 Cyanocobalamin (Vitamin B-12) 1,500 mcg PO DAILY 01/13/17 06/19/20 [Vitamin B-12] Atorvastatin [Lipitor] 40 mg PO HS 03/07/17 06/19/20 L.acidoph,Paracasei, B.lactis 1 cap PO DAILY 02/15/19 06/19/20 [Probiotic] Albuterol Sulfate [Proventil Hfa] 2 puff INHALATION RT-Q4H PRN 02/23/20 06/19/20 Aspirin EC [Ecotrin Low Dose] 81 mg PO DAILY 02/23/20 06/19/20 Famotidine [Pepcid] 40 mg PO DAILY 02/23/20 06/19/20 Meclizine [Antivert] 25 mg PO TID PRN 02/23/20 06/19/20 Mirabegron [Myrbetriq] 50 mg PO DAILY 02/23/20 06/19/20 Omeprazole [PriLOSEC] 20 mg PO BID 02/23/20 06/19/20 Vitamin E 1,000 unit PO DAILY 02/23/20 06/19/20 Acetaminophen Tab [Tylenol] 650 mg PO Q6HR PRN 05/06/20 06/19/20 Cyclobenzaprine [Flexeril] 10 mg PO TID 05/06/20 06/19/20 Ferrous Sulfate [Iron] 325 mg PO BID 05/06/20 06/19/20 Temazepam [Restoril] 30 mg PO HS PRN 05/06/20 06/19/20 Benzocaine/Menthol Lozeng [Cepacol 1 lozenge MUCOUS MEM Q4HR PRN 06/19/20 06/19/20 lozenge] HYDROcodone/APAP 5-325MG [[place] 5] 1 tab PO Q4HR PRN 06/19/20 06/19/20 Oxybutynin ER [Ditropan Xl] 15 mg PO DAILY 06/19/20 06/19/20 Previous Rx's Medication Instructions Recorded ALPRAZolam [Xanax] 0.25 mg PO BID PRN 7 Days #14 tab 05/13/20 Magnesium Hydroxide [Milk of 2,400 mg PO DAILY PRN ml 05/13/20 Magnesia Concentrate] Sennosides-Docusate Sodium 1 each PO DAILY tab 05/13/20 [Senokot-S] Allergies Allergy/AdvReac Type Severity Reaction Status Date / Time Iodinated Contrast Media Allergy Swelling Verified 06/19/20 13:28 [Iodinated Contrast Media - IV Dye] hydrocodone bitartrate AdvReac Nausea Verified 06/19/20 13:28 [From Vicodin] Review of Systems ROS Statement: Those systems with pertinent positive or pertinent negative responses have been documented in the HPI. ROS Other: All systems not noted in ROS Statement are negative. Past Medical History Past Medical History: Cancer, GERD/Reflux, Hyperlipidemia, Osteoarthritis (OA) Additional Past Medical History / Comment(s): hiatal hernia, hx anemia, hx. prostate cancer,spinal stenosis History of Any Multi-Drug Resistant Organisms: None Reported Past Surgical History: Back Surgery Additional Past Surgical History / Comment(s): left knee, right knee & rt hip replaced, prostatectomy, orchiectomy, left wrist & arm surg. as child, left shoulder sx, pain procedures with dr gentile Past Anesthesia/Blood Transfusion Reactions: No Reported Reaction, Motion Sickness Past Psychological History: Anxiety Smoking Status: Never smoker Past Alcohol Use History: Rare Past Drug Use History: None Reported - Past Family History Mother Family Medical History: No Reported History Additional Family Medical History / Comment(s): Mother was healthy and lived to be 82. Father Family Medical History: No Reported History Additional Family Medical History / Comment(s): Father was healthy. He lived to be 74 yrs old. General Exam - General Exam Comments Initial Comments: GENERAL: Patient is well-developed and well-nourished. Patient is nontoxic and well- hydrated and is in mild distress. ENT: Neck is soft and supple. No significant lymphadenopathy is noted. Oropharynx is clear. Moist mucous membranes. Neck has full range of motion without eliciting any pain. EYES: The sclera were anicteric and conjunctiva were pink and moist. Extraocular movements were intact and pupils were equal round and reactive to light. Eyelids were unremarkable. PULMONARY: Unlabored respirations. Good breath sounds bilaterally. No audible rales rhonchi or wheezing was noted. CARDIOVASCULAR: There is a regular rate and rhythm without any murmurs gallops or rubs. ABDOMEN: Soft and nontender with normal bowel sounds. SKIN: Skin is clear with no lesions or rashes and otherwise unremarkable. NEUROLOGIC: Patient is alert and oriented x3. Cranial nerves II through XII are grossly intact. Motor and sensory are also intact. Normal speech, volume and content. Symmetrical smile. Straight leg test is negative bilaterally MUSCULOSKELETAL: Normal extremities with adequate strength and full range of motion. LYMPHATICS: No significant lymphadenopathy is noted PSYCHIATRIC: Normal psychiatric evaluation. Limitations: physical limitation Course Vital Signs 06/19/20 06/19/20 06/19/20 11:35 12:18 13:49 Temperature 98.1 F Pulse Rate 91 87 70 Respiratory 18 18 18 Rate Blood Pressure 165/87 151/81 131/78 O2 Sat by Pulse 90 L 90 L 93 L Oximetry Medical Decision Making - Medical Decision Making Patient received Toradol and Valium in the emergency department and he was unable to even sit up in bed so as this point time I spoke [facility] and he agreed to admit the patient admitted the patient wrote admitting orders. Disposition Clinical Impression: Musculoskeletal back pain Disposition: ADMITTED IP TO THIS HOSP Referrals: Royce Young MD [Primary Care Provider] - 1-2 days Time of Disposition: 14:23
--- NOTE | 2020-06-19 12:50 | XR ---
EXAMINATION TYPE: XR lumbosacral spine min 4V DATE OF EXAM: 06/19/2020 Comparison: 02/03/2020 Clinical History: 85-year-old male Back pain Findings: Marked osteopenia and extensive overlying bowel gas limits evaluation considerably. Vertebroplasty change at L2 and L3, new from 02/01/2020. Anterior wedging of L1 is unchanged from then as well. However, mild compression injury of T12 is new from that time. However, it was present on . Hypertrophic facet arthropathy. Trace grade 1 retrolisthesis L4-L5. IMPRESSION: 1. Very limited assessment due to marked osteopenia and extensive overlying bowel gas. 2. Vertebroplasty change at L2 and L3. Anterior wedging deformity of L1 is chronic, unchanged from 02/01/2020. 3. Mild compression deformity of T11 is more subacute, new from 02/03/2020 but present in retrospect on the CT abdomen of 05/31/2020.
[2020-06-19] MEDS ORDERED: HYDROmorphone 0.5 MG/0.5 ML SYRINGE IVP STA (14:29)
[2020-06-19] MEDS ORDERED: ALPRAZolam 0.25 MG TAB PO PRN (17:52)
[2020-06-19] MEDS ORDERED: ALBUTEROL NEBULIZED 2.5 MG/3 ML INHALATION PRN (17:52)
[2020-06-19] MEDS ORDERED: MECLIZINE 25 MG TAB PO PRN (17:52)
[2020-06-19] MEDS ORDERED: TEMAZEPAM 30 MG CAP PO PRN (17:52)
[2020-06-19] MEDS: BACLOFEN 10 MG TAB PO PRN (19:45)
[2020-06-19] MEDS: PANTOPRAZOLE 40 MG TABLET PO SCH (19:45)
[2020-06-19] MEDS: ATORVASTATIN 40 MG TAB PO SCH (20:32)
[2020-06-19] MEDS: HYDROcodone/APAP 5-325MG 1 EACH TAB PO PRN (20:32)
[2020-06-19] MEDS: FERROUS SULFATE 325 MG TAB PO SCH (20:32)
--- NOTE | 2020-06-19 21:36 | P.CONS ---
History of Present Illness - Reason for Consult Consult date: 06/19/20 - History of Present Illness Patient is an 85-year-old male with a PMH of testicular cancer status post orchiectomy, hyperlipidemia, bilateral hip and knee replacements, and chronic lumbar radiculopathy status post kyphoplasty 02/2020 presented to the ED with complaints of intractable bilateral lower back pain. The patient reports that he underwent an umbilical hernia repair one week ago at which time he had discontinued his muscle relaxant as well as his pain medications. Patient reports that soon after the surgery, his pain gradually worsened and was unable to be controlled with [place] at home. At time of presentation, he reported that his pain was 10 out of 10, though has improved was 6 out of 10 at the time of interview. Reports that the pain does not radiate and denied weakness or numbness of the legs. Also denied urinary complaints. Denied chest pain, shortness of breath, fever, chills, cough. Denied abdominal pain, nausea, vomiting, headaches, or dizziness. A lumbar spine x-ray revealed subacute compression deformity of T11 along with chronic deformity of L1. Review of Systems Pertinent positives and negatives as discussed in HPI, a complete review of systems was performed and all other systems are negative. Past Medical History Past Medical History: Cancer, GERD/Reflux, Hyperlipidemia, Osteoarthritis (OA), Renal Disease Additional Past Medical History / Comment(s): Severe chronic back pain/stenosis, recent L2/L3 compression fractures with kyphoplasties, bilateral sciatica, DJD, tingling in bilateral feet, bilateral leg weakness, prostate cancer with surgery/radiation, skin cancer removals, hiatal hernia, diverticular disease, benign colon polype, anemia, nephrolithiasis/pt passed stones on his own. 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 Past Anesthesia/Blood Transfusion Reactions: No Reported Reaction, Motion Sickness Smoking Status: Never smoker - Past Family History Mother Family Medical History: No Reported History Additional Family Medical History / Comment(s): Mother was healthy and lived to be 82. Father Family Medical History: No Reported History Additional Family Medical History / Comment(s): Father was healthy. He lived to be 74 yrs old. Medications and Allergies Home Medications Medication Instructions Recorded Confirmed Type Bicalutamide [Casodex] 50 mg PO DAILY 06/07/14 06/19/20 History Cyanocobalamin (Vitamin B-12) 1,500 mcg PO DAILY 01/13/17 06/19/20 History [Vitamin B-12] Atorvastatin [Lipitor] 40 mg PO HS 03/07/17 06/19/20 History L.acidoph,Paracasei, B.lactis 1 cap PO DAILY 02/15/19 06/19/20 History [Probiotic] Albuterol Sulfate [Proventil Hfa] 2 puff INHALATION RT-Q4H PRN 02/23/20 06/19/20 History Aspirin EC [Ecotrin Low Dose] 81 mg PO DAILY 02/23/20 06/19/20 History Famotidine [Pepcid] 40 mg PO DAILY 02/23/20 06/19/20 History Meclizine [Antivert] 25 mg PO TID PRN 02/23/20 06/19/20 History Mirabegron [Myrbetriq] 50 mg PO DAILY 02/23/20 06/19/20 History Omeprazole [PriLOSEC] 20 mg PO BID 02/23/20 06/19/20 History Vitamin E 1,000 unit PO DAILY 02/23/20 06/19/20 History Acetaminophen Tab [Tylenol] 650 mg PO Q6HR PRN 05/06/20 06/19/20 History Cyclobenzaprine [Flexeril] 10 mg PO TID 05/06/20 06/19/20 History Ferrous Sulfate [Iron] 325 mg PO BID 05/06/20 06/19/20 History Temazepam [Restoril] 30 mg PO HS PRN 05/06/20 06/19/20 History ALPRAZolam [Xanax] 0.25 mg PO BID PRN 7 Days #14 tab 05/13/20 06/19/20 Rx Magnesium Hydroxide [Milk of 2,400 mg PO DAILY PRN ml 05/13/20 06/19/20 Rx Magnesia Concentrate] Sennosides-Docusate Sodium 1 each PO DAILY tab 05/13/20 06/19/20 Rx [Senokot-S] Benzocaine/Menthol Lozeng [Cepacol 1 lozenge MUCOUS MEM Q4HR PRN 06/19/20 06/19/20 History lozenge] HYDROcodone/APAP 5-325MG [[place] 5] 1 tab PO Q4HR PRN 06/19/20 06/19/20 History Oxybutynin ER [Ditropan Xl] 15 mg PO DAILY 06/19/20 06/19/20 History Allergies Allergy/AdvReac Type Severity Reaction Status Date / Time Iodinated Contrast Media Allergy Swelling Verified 06/19/20 13:28 [Iodinated Contrast Media - IV Dye] hydrocodone bitartrate AdvReac Nausea Verified 06/19/20 13:28 [From Vicodin] Physical Exam Vitals: Vital Signs Temp Pulse Pulse Resp BP BP Pulse Ox 06/19/20 20:23 98.2 F 92 20 132/75 91 L 06/19/20 16:37 97.8 F 83 17 145/82 93 L 06/19/20 16:22 98.1 F 68 18 131/79 92 L 06/19/20 15:35 68 18 131/79 92 L 06/19/20 13:49 70 18 131/78 93 L 06/19/20 12:18 87 18 151/81 90 L 06/19/20 11:35 98.1 F 91 18 165/87 90 L Intake and Output 06/19/20 06/19/20 06/19/20 06:59 14:59 22:59 Other: Weight 74.389 kg 74.389 kg General: non toxic, no distress, appears at stated age, overweight Derm: no unusual rashes/lesions no unusual ecchymoses, warm, dry Head: atraumatic, normocephalic, symmetric Eyes: EOMI, no lid lag, anicteric sclera, pupils equal round reactive to light ENT: Nose and ears atraumatic, no thrush, no pharyngeal erythema Neck: No thyromegaly, no cervical lymphadenopathy, trachea midline, supple Mouth: no lip lesion, mucus membranes moist Cardiovascular: S1S2 reg, no murmur, positive posterior tibial pulse bilateral, no edema, capillary refill less than 2 seconds Lungs: CTA bilateral, no rhonchi, no rales , no accessory muscle use Abdominal: soft, nontender to palpation, no guarding, no appreciable organomegaly, normal bowel sounds Ext: no gross muscle atrophy, muscle strength 5 out of 5 in ally UEs and 4/5 ally LEs due to pain, no contractures, ally lumbar paraspinal tenderness Neuro: CN II-XI grossly intact, light touch intact all 4 extremities, finger to nose within normal limits Psych: Alert, oriented, appropriate affect Assessment and Plan Plan: Acute on chronic lumbar and lower thoracic radiculopathy w/ T11 compression deformity -Will defer management to orthopedic surgery -Continue with pain management with Dilaudid, Mobic, and [place] -C/w Flexiril Chronic conditions: HLD - C/w home meds
[2020-06-19] MEDS: HYDROmorphone 0.5 MG/0.5 ML SYRINGE IVP PRN (21:58)
--- NOTE | 2020-06-19 22:01 | P.HPOR ---
History of Present Illness H&P Date: 06/19/20 Chief Complaint: Acute on chronic low back pain Patient is well known to our service. He is seen and examined at bedside today. He is a pleasant 85-year-old gentleman with a history of testicular cancer with metastasis. He had a history of multiple injuries his lower back and has had multiple compression fractures in the past. He says that today he had acute onset of new back pain. He says the pain was 10 out of 10 and he had presented to the emergency room. He says he uses his lumbar LSO frequently but this was not giving him relief today. In the past he has had multiple fractures and histories of kyphoplasty's at L2 and L3. He denies any new change in bowel bladder function. Denies any chest pain or shortness of breath. Review of Systems History of testicular cancer. History of chronic low back pain. History of prior kyphoplasty's and fractures of his lumbar spine. No new changes lower extremity is. No new changes bowel bladder function. Past Medical History Past Medical History: Cancer, GERD/Reflux, Hyperlipidemia, Osteoarthritis (OA), Renal Disease Additional Past Medical History / Comment(s): Severe chronic back pain/stenosis, recent L2/L3 compression fractures with kyphoplasties, bilateral sciatica, DJD, tingling in bilateral feet, bilateral leg weakness, prostate cancer with surgery/radiation, skin cancer removals, hiatal hernia, diverticular disease, benign colon polype, anemia, nephrolithiasis/pt passed stones on his own. 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 Past Anesthesia/Blood Transfusion Reactions: No Reported Reaction, Motion Sickness Smoking Status: Never smoker - Past Family History Mother Family Medical History: No Reported History Additional Family Medical History / Comment(s): Mother was healthy and lived to be 82. Father Family Medical History: No Reported History Additional Family Medical History / Comment(s): Father was healthy. He lived to be 74 yrs old. Medications and Allergies Home Medications Medication Instructions Recorded Confirmed Type Bicalutamide [Casodex] 50 mg PO DAILY 06/07/14 06/19/20 History Cyanocobalamin (Vitamin B-12) 1,500 mcg PO DAILY 01/13/17 06/19/20 History [Vitamin B-12] Atorvastatin [Lipitor] 40 mg PO HS 03/07/17 06/19/20 History L.acidoph,Paracasei, B.lactis 1 cap PO DAILY 02/15/19 06/19/20 History [Probiotic] Albuterol Sulfate [Proventil Hfa] 2 puff INHALATION RT-Q4H PRN 02/23/20 06/19/20 History Aspirin EC [Ecotrin Low Dose] 81 mg PO DAILY 02/23/20 06/19/20 History Famotidine [Pepcid] 40 mg PO DAILY 02/23/20 06/19/20 History Meclizine [Antivert] 25 mg PO TID PRN 02/23/20 06/19/20 History Mirabegron [Myrbetriq] 50 mg PO DAILY 02/23/20 06/19/20 History Omeprazole [PriLOSEC] 20 mg PO BID 02/23/20 06/19/20 History Vitamin E 1,000 unit PO DAILY 02/23/20 06/19/20 History Acetaminophen Tab [Tylenol] 650 mg PO Q6HR PRN 05/06/20 06/19/20 History Cyclobenzaprine [Flexeril] 10 mg PO TID 05/06/20 06/19/20 History Ferrous Sulfate [Iron] 325 mg PO BID 05/06/20 06/19/20 History Temazepam [Restoril] 30 mg PO HS PRN 05/06/20 06/19/20 History ALPRAZolam [Xanax] 0.25 mg PO BID PRN 7 Days #14 tab 05/13/20 06/19/20 Rx Magnesium Hydroxide [Milk of 2,400 mg PO DAILY PRN ml 05/13/20 06/19/20 Rx Magnesia Concentrate] Sennosides-Docusate Sodium 1 each PO DAILY tab 05/13/20 06/19/20 Rx [Senokot-S] Benzocaine/Menthol Lozeng [Cepacol 1 lozenge MUCOUS MEM Q4HR PRN 06/19/20 06/19/20 History lozenge] HYDROcodone/APAP 5-325MG [[place] 5] 1 tab PO Q4HR PRN 06/19/20 06/19/20 History Oxybutynin ER [Ditropan Xl] 15 mg PO DAILY 06/19/20 06/19/20 History Allergies Allergy/AdvReac Type Severity Reaction Status Date / Time Iodinated Contrast Media Allergy Swelling Verified 06/19/20 13:28 [Iodinated Contrast Media - IV Dye] hydrocodone bitartrate AdvReac Nausea Verified 06/19/20 13:28 [From Vicodin] Physical Examination Osteopathic Statement: *. No significant issues noted on an osteopathic structural exam other than those noted in the History and Physical/Consult. - L Spine: dermatomal strength & reflexes bilateral Strength: hip flexion: 5/5 (Has back he has tenderness diffusely over his back is paravertebral spasm. He has sustained dorsal to plantar flexion and EHL his bilateral lower extremity. Denies a Soft nontender. No apparent neurologic deficit his upper or lower extremity.) Results - Diagnostic results Lumbar AP/lateral x-ray: report reviewed, image reviewed (Imaging of his lumbar spine is reviewed. He has multiple old compression fractures at L4 L3 and L2 and L1 T12 and possibly T11. There is kyphoplasty L2 and L3 which appears st able. Prior computed tomography scan in beginning of May shows the T11 compression.) Assessment and Plan Assessment: Acute exacerbation of chronic low back pain History of chronic compression deformities T12-L1 L2-L3 and L4 with kyphoplasty at L2 and L3 Possible subacute compression deformity at T11 which was present approximate 4 weeks ago. No acute neurologic change lower extremities History of testicular cancer Plan: Acute exacerbation of chronic low back pain History of chronic compression deformities T12-L1 L2-L3 and L4 with kyphoplasty at L2 and L3 Possible subacute compression deformity at T11 which was present approximate 4 weeks ago. No acute neurologic change lower extremities History of testicular cancer I do not see an obvious new compression fracture at the patient's spine. He has multiple chronic compression deformities but his spine appears stable without any neurologic changes lower extremity. He acute exacerbation of his lower back today but he says that the symptoms seem to be resolving. I think that it is okay for him to try to mobilize with his LSO brace. He is hopeful that he will be able to go home tomorrow and if he is comfortable with his pain control and his LSO brace that it'll be okay for him to be discharged home with close follow-up with us. He may need further imaging and treatment but this could be done outpatient basis if his pain is able to be controlled. I discussed this with him answers questions and is agreeable. We'll follow him closely
[2020-06-20] MEDS: HYDROmorphone 0.5 MG/0.5 ML SYRINGE IVP PRN ×3 (04:45→17:28)
[2020-06-20 06:41] LABS: HCT 46.4 % (39.0-53.0); HGB 15.1 gm/dL (13.0-17.5); MCH 29.5 pg (25.0-35.0); MCHC 32.6 g/dL (31.0-37.0); MCV 90.5 fL (80.0-100.0); Mean Platelet Volume 8.1; Platelet Count 203 k/uL (150-450); RBC 5.13 m/uL (4.30-5.90); RDW 14.4 % (11.5-15.5); WBC 13.6 k/uL (3.8-10.6)
[2020-06-20] MEDS: BACLOFEN 10 MG TAB PO PRN ×2 (08:20→20:15)
[2020-06-20] MEDS: BICALUTAMIDE 50 MG TAB PO SCH (08:20)
[2020-06-20] MEDS: PANTOPRAZOLE 40 MG TABLET PO SCH (08:20)
[2020-06-20] MEDS: OXYBUTYNIN 15 MG TAB.ER.24 PO SCH (08:20)
[2020-06-20] MEDS: FAMOTIDINE 20 MG TAB PO SCH (08:20)
[2020-06-20] MEDS: SENNOSIDES-DOCUSATE SODIUM 1 EACH TAB PO SCH (08:20)
[2020-06-20] MEDS: FERROUS SULFATE 325 MG TAB PO SCH ×2 (08:20→20:15)
[2020-06-20] MEDS: ASPIRIN 81 MG PO SCH (08:20)
[2020-06-20] MEDS: NON FORMULARY DRUG (Mirabegron [Myrbetriq] 50 MG Tab.Er.24h) PO SCH (08:21)
[2020-06-20] MEDS: HYDROcodone/APAP 5-325MG 1 EACH TAB PO PRN ×3 (08:56→21:16)
[2020-06-20] MEDS ORDERED: MELOXICAM 7.5 MG TAB PO SCH (09:00)
[2020-06-20 09:26] LABS: African American GFR (CKD) 95.7 (60.0-200.0); Albumin 3.4 g/dL (3.80-4.90); Albumin/Globulin Ratio 1.89 (1.60-3.17); Anion Gap 6.8 mmol/L (4.00-12.00); BUN/Creat Ratio 31.25 Ratio (12.00-20.00); Calcium 8.9 mg/dL (8.7-10.3); Carbon Dioxide 29.2 mmol/L (21.6-31.8); Globulin 1.8 g/dL (1.6-3.3); Magnesium 1.8 mg/dL (1.5-2.4); Non-African American GFR(CKD) 82.6 (60.0-200.0); Potassium 3.7 mmol/L (3.5-5.5); Total Bilirubin 0.8 mg/dL (0.2-1.2); Total Protein 5.2 g/dL (6.2-8.2)
--- NOTE | 2020-06-20 09:26 | P.PN ---
Progress Note - Text Progress Note Date: 06/20/20 Patient is seen and examined at bedside. He feels he has had some mild improvement of his pain but is still significantly painful around his back and toward his bilateral ribs. He denies new changes in his lower extremity. Denies any numbness tingling. Denies any changes in bowel bladder function. Denies any chest pain or shortness of breath. He is still having significant difficulty trying to move around in bed on his own. Is afebrile stable vital signs He's not having any pain with coughing and deep breathing He has diffuse tenderness around his back and paraspinals. He has pain with mobilization and rolling in bed. He has sustained dorsal flexion plantar flexion and EHL his bilateral lower extremities. Thighs and calves soft nontender. Assessment and plan Acute on chronic low back pain History of multiple compression fractures at the thoracic and lumbar spine including T11 T12 L2-L3 and L4 with prior kyphoplasty at L2 and L3 which are stable Inability to ambulate The patient has multiple known compression deformities at his thoracic and lumbar spine that overall appears stable on imaging. He is having significant pain with his mobilization and has a flareup of his low back pain. I see if he has some response to steroid medication and continued conservative care. He has an LSO brace at home which we have asked for his family to bring and that he can use for her to help his mobilization. It is okay for him to mobilize without braces I do not see new fracture at this point the brace may give him further comfort to ease his mobility. I'll ask case management to see him as he may need assistance after discharge. We'll continue to follow him as he does not seem safest mobility to be discharged home in on his own.
[2020-06-20] MEDS: methylPREDNISolone SOD SUCCI 125 MG/2 ML VIAL IV SCH ×2 (10:32→20:16)
[2020-06-20 11:52] LABS: Glucose,Whole Blood 114 mg/dL (75-99)
[2020-06-20 14:24] VITALS: BMI 26.4
[2020-06-20 17:14] LABS: Glucose,Whole Blood 149 mg/dL (75-99)
--- NOTE | 2020-06-20 17:38 | P.PN ---
Subjective Progress Note Date: 06/20/20 Patient is feeling better today. He reports that his back pain is improving. Objective - Vital Signs Vital signs: Vital Signs Temp 97.5 F L 06/20/20 12:52 Pulse 77 06/20/20 12:52 Resp 16 06/20/20 12:52 BP 134/70 06/20/20 12:52 Pulse Ox 95 06/20/20 12:52 Intake & Output 06/19/20 06/20/20 06/20/20 18:59 06:59 18:59 Intake Total 750 Output Total 300 150 Balance -300 600 Weight 74.389 kg 74.389 kg Intake: Oral 750 Output: Urine 300 150 Other: # Voids 1 3 - Exam General: The patient is awake and alert, in no distress Eye: there is normal conjunctiva bilaterally. Neck: The neck is supple, there is no JVD. Cardiovascular: Normal S1-S2, no S3-S4, no murmurs. Respiratory: Lungs clear to auscultation bilaterally Gastrointestinal: Abdomen is soft, nontender Musculoskeletal: There is no pedal edema. Neurological:. Speech is normal. Skin: Skin is warm and dry - Labs CBC & Chem 7: 06/20/20 06:26 06/20/20 06:26 Labs: Abnormal Lab Results - Last 24 Hours (Table) 06/20/20 06/20/20 06/20/20 Range/Units 06:26 06:26 11:50 WBC 13.6 H (3.8-10.6) k/uL Sodium 134 L (135-145) mmol/L BUN/Creatinine Ratio 31.25 H (12.00-20.00) Ratio Glucose 115 H (70-110) mg/dL POC Glucose (mg/dL) 114 H (75-99) mg/dL Alkaline Phosphatase 129 H (41-126) U/L Total Protein 5.2 L (6.2-8.2) g/dL Albumin 3.40 L (3.80-4.90) g/dL 06/20/20 Range/Units 17:12 WBC (3.8-10.6) k/uL Sodium (135-145) mmol/L BUN/Creatinine Ratio (12.00-20.00) Ratio Glucose (70-110) mg/dL POC Glucose (mg/dL) 149 H (75-99) mg/dL Alkaline Phosphatase (41-126) U/L Total Protein (6.2-8.2) g/dL Albumin (3.80-4.90) g/dL Assessment and Plan Assessment: Acute on chronic lumbar and lower thoracic radiculopathy w/ T11 compression deformity -Will defer management to orthopedic surgery, currently on a trial of IV steroid -Continue with pain management with Dilaudid, Mobic, and [place] -C/w Flexiril Chronic conditions: HLD - C/w home meds Today, I reviewed his medication list and lab work results. Mild leukocytosis is probably steroid induced. No evidence of infection. I will continue to follow up on the patient closely with you.
[2020-06-20 19:47] LABS: Glucose,Whole Blood 125 mg/dL (75-99)
[2020-06-20] MEDS: ATORVASTATIN 40 MG TAB PO SCH (20:15)
[2020-06-21] MEDS: HYDROcodone/APAP 5-325MG 1 EACH TAB PO PRN ×5 (00:52→20:31)
[2020-06-21] MEDS: HYDROmorphone 0.5 MG/0.5 ML SYRINGE IVP PRN ×4 (02:36→23:26)
[2020-06-21 07:17] LABS: Glucose,Whole Blood 114 mg/dL (75-99)
[2020-06-21] MEDS: BACLOFEN 10 MG TAB PO PRN ×2 (08:40→20:26)
[2020-06-21] MEDS: PANTOPRAZOLE 40 MG TABLET PO SCH (08:42)
[2020-06-21] MEDS: BICALUTAMIDE 50 MG TAB PO SCH (08:42)
[2020-06-21] MEDS: ASPIRIN 81 MG PO SCH (08:42)
[2020-06-21] MEDS: SENNOSIDES-DOCUSATE SODIUM 1 EACH TAB PO SCH (08:42)
[2020-06-21] MEDS: FAMOTIDINE 20 MG TAB PO SCH (08:42)
[2020-06-21] MEDS: methylPREDNISolone SOD SUCCI 125 MG/2 ML VIAL IV SCH ×2 (08:42→20:26)
[2020-06-21] MEDS: OXYBUTYNIN 15 MG TAB.ER.24 PO SCH (08:42)
[2020-06-21] MEDS: FERROUS SULFATE 325 MG TAB PO SCH ×2 (08:42→20:26)
[2020-06-21] MEDS: NON FORMULARY DRUG (Mirabegron [Myrbetriq] 50 MG Tab.Er.24h) PO SCH (08:56)
[2020-06-21 11:35] LABS: Glucose,Whole Blood 179 mg/dL (75-99)
--- NOTE | 2020-06-21 11:41 | P.PN ---
Progress Note - Text Progress Note Date: 06/21/20 Patient is seen and examined today. He is actually ambulating with assistance and using a walker in the hallway. He says his back is making some progress though he still has pain with prolonged standing and walking greater than a few minutes. He says he is improving in terms of getting himself in and out of bed. He is voiding freely. He is tolerating his regular diet. He's afebrile stable vital signs His lower extremities have sustained dorsal flexion plantarflexion and EHL. Thigh and calf soft nontender. His back does not have point tenderness today. He is some paravertebral spasms. He is using his brace. Assessment and plan Acute exacerbation of chronic low back pain Multiple compression fractures at his thoracic and lumbar spine of various age. Difficulty mobilizing The patient is making some progress and I think that the steroid is making a difference in terms of his overall pain symptoms. We will encourage his continues mobilization. He lives by himself at home and it is difficult to determine if he is safe on his own at home for today. He may need to strengthen further but hopefully could be discharged home tomorrow with home health or potentially to extended care necessary.
--- NOTE | 2020-06-21 17:15 | P.PN ---
Subjective Patient told me they still having difficulty with low back pain and difficulty getting up. He said that his pain about the same compared to yesterday. Objective - Vital Signs Vital signs: Vital Signs Temp 97.4 F L 06/21/20 12:34 Pulse 76 06/21/20 12:34 Resp 18 06/21/20 12:34 BP 156/79 06/21/20 12:34 Pulse Ox 96 06/21/20 12:34 Intake & Output 06/20/20 06/21/20 06/21/20 18:59 06:59 18:59 Intake Total 750 500 920 Output Total 150 250 100 Balance 600 250 820 Weight 74.389 kg Intake: Oral 750 500 920 Output: Urine 150 250 100 Other: Voiding Method Urinal # Voids 3 2 3 - Exam General: The patient is awake and alert, in no distress Eye: there is normal conjunctiva bilaterally. Neck: The neck is supple, there is no JVD. Cardiovascular: Normal S1-S2, no S3-S4, no murmurs. Respiratory: Lungs clear to auscultation bilaterally Gastrointestinal: Abdomen is soft, nontender Musculoskeletal: There is no pedal edema. Neurological:. Speech is normal. Skin: Skin is warm and dry - Labs CBC & Chem 7: 06/20/20 06:26 06/20/20 06:26 Labs: Abnormal Lab Results - Last 24 Hours (Table) 06/20/20 06/20/20 06/21/20 Range/Units 17:12 19:46 07:15 POC Glucose (mg/dL) 149 H 125 H 114 H (75-99) mg/dL 06/21/20 Range/Units 11:31 POC Glucose (mg/dL) 179 H (75-99) mg/dL Assessment and Plan Assessment: Acute on chronic lumbar and lower thoracic radiculopathy w/ T11 compression deformity -Will defer management to orthopedic surgery, currently on a trial of IV steroid -Continue with pain management with Dilaudid, Mobic, and [place] -C/w Flexiril Chronic conditions: HLD - C/w home meds Today, I reviewed his medication list and lab work results. Mild leukocytosis is probably steroid induced. No evidence of infection. I will continue to follow up on the patient closely with you.
[2020-06-21 17:38] LABS: Glucose,Whole Blood 147 mg/dL (75-99)
[2020-06-21 20:20] LABS: Glucose,Whole Blood 144 mg/dL (75-99)
[2020-06-21] MEDS: ATORVASTATIN 40 MG TAB PO SCH (20:26)
[2020-06-21 21:15] VITALS: RESP 17
[2020-06-22] MEDS: HYDROcodone/APAP 5-325MG 1 EACH TAB PO PRN ×3 (01:01→13:44)
[2020-06-22 07:14] LABS: Glucose,Whole Blood 130 mg/dL (75-99)
[2020-06-22] MEDS: SENNOSIDES-DOCUSATE SODIUM 1 EACH TAB PO SCH (08:15)
[2020-06-22] MEDS: FERROUS SULFATE 325 MG TAB PO SCH (08:15)
[2020-06-22] MEDS: FAMOTIDINE 20 MG TAB PO SCH (08:15)
[2020-06-22] MEDS: PANTOPRAZOLE 40 MG TABLET PO SCH (08:15)
[2020-06-22] MEDS: BACLOFEN 10 MG TAB PO PRN (08:15)
[2020-06-22] MEDS: ASPIRIN 81 MG PO SCH (08:15)
[2020-06-22] MEDS: OXYBUTYNIN 15 MG TAB.ER.24 PO SCH (08:15)
[2020-06-22] MEDS: BICALUTAMIDE 50 MG TAB PO SCH (08:16)
[2020-06-22] MEDS: methylPREDNISolone SOD SUCCI 125 MG/2 ML VIAL IV SCH (08:18)
[2020-06-22] MEDS: NON FORMULARY DRUG (Mirabegron [Myrbetriq] 50 MG Tab.Er.24h) PO SCH (08:19)
--- NOTE | 2020-06-22 11:16 | P.DS ---
Providers Date of admission: 06/22/20 07:44 Expected date of discharge: 06/22/20 Attending physician: David Elliott Consults: 06/19/20 17:38 Consult Physician Routine Consulting Provider: Nola Marcus Consult Reason/Comments: Medical Management Do you want consulting provider notified?: Yes Primary care physician: Royce Young - Discharge Diagnosis(es) (1) Fracture, lumbar vertebra, compression Current Visit: Yes Status: Acute (2) History of kyphoplasty Current Visit: Yes Status: Acute (3) Status post hernia repair Current Visit: Yes Status: Acute (4) History of cancer Current Visit: No Status: Acute (5) Hyperlipemia Current Visit: No Status: Acute (6) Intractable back pain Current Visit: No Status: Acute Hospital Course: This is a pleasant 85-year-old male who presented with acute on chronic low back pain. He is known to have multiple injuries to his lumbar spine in multiple compression fracture deformities in the past. These compression fracture deformities appear stable on imaging. He has a history of kyphoplasty at L2 and L3. He continues to experience some pain in the right lateral lumbar spine. This has not changed. He is not experiencing any thoracic pain at this time. He denies any lower extremity weakness or radiculopathy bilaterally. He denies any changes in the lower extremities. He states sometimes his pain is adequately controlled and other times he has some difficulty pain control. He does feel he would be able to manage his pain home. He is planning to have assistance at home with his son and daughter. They're planning to have the patient moved to [facility] this coming 06/27/2020. Case management is also setup [facility] at the time of discharge. He continue s to use his LSO brace for comfort support during increased activities. Patient is known to have a history of testicular cancer with metastasis. He also recently underwent a umbilical hernia repair approximately 2 weeks ago in [place], [place]. He is scheduled for follow-up evaluation this coming , 06/26/2020. Patient currently denies any nausea, vomiting, fever, or chills. Patient is eating and voiding freely without difficulty. In his history of chronic low back pain and multiple compression fracture deformities, patient should avoid excessive bending, lifting, and twisting; no lifting greater than 10 pounds. We will plan to have the patient follow up in approximately 2 weeks for further evaluation. Depending on he is progressing through conservative treatment at that time, we may plan for further imaging in the outpatient setting. MAPS has been reviewed today, 06/22/2020, with an Overall Overdose Risk Score of 590. Patient is known to take [place] 5 mg/325 mg in the outpatient setting. He is unsure if he has any of his medication. He is given a prescription for [place] 5 mg/325 mg 1 tablet every 4 hours as needed for pain, dispensed #42. He may resume other previously prescribed home medications. Physical Exam on day of discharge: Patient is awake, alert, and oriented 3 Vital signs stable Good chest excursion with deep inspiration and expiration No signs or symptoms of DVT; no calf pain Extensor hallucis longus, plantarflexion, and dorsiflexion positive sustained bilateral lower extremities Patient is able to move legs independently both at the bedside and while in bed without difficulty No pain with palpation of the bilateral lower extremities Patient does have some difficulty rolling over in bed as it is casted rates his right lateral back pain No significant pain with palpation along the midline of the lumbar spine Patient Condition at Discharge: Stable Plan - Discharge Summary Discharge Rx Participant: No New Discharge Prescriptions: New Hydrocodone/Acetaminophen [[place] 5-325] 1 each PO Q4HR PRN #42 tab PRN Reason: Pain No Action Bicalutamide [Casodex] 50 mg PO DAILY Cyanocobalamin (Vitamin B-12) [Vitamin B-12] 1,500 mcg PO DAILY Atorvastatin [Lipitor] 40 mg PO HS L.acidoph,Paracasei, B.lactis [Probiotic] 1 cap PO DAILY Albuterol Sulfate [Proventil Hfa] 2 puff INHALATION RT-Q4H PRN PRN Reason: Shortness Of Breath Aspirin EC [Ecotrin Low Dose] 81 mg PO DAILY Famotidine [Pepcid] 40 mg PO DAILY Meclizine [Antivert] 25 mg PO TID PRN PRN Reason: Vertigo Mirabegron [Myrbetriq] 50 mg PO DAILY Omeprazole [PriLOSEC] 20 mg PO BID Vitamin E 1,000 unit PO DAILY Temazepam [Restoril] 30 mg PO HS PRN PRN Reason: Insomnia Cyclobenzaprine [Flexeril] 10 mg PO TID Acetaminophen Tab [Tylenol] 650 mg PO Q6HR PRN PRN Reason: Pain Ferrous Sulfate [Iron] 325 mg PO BID ALPRAZolam [Xanax] 0.25 mg PO BID PRN 7 Days #14 tab PRN Reason: Anxiety Magnesium Hydroxide [Milk of Magnesia Concentrate] 2,400 mg PO DAILY PRN ml PRN Reason: Constipation Sennosides-Docusate Sodium [Senokot-S] 1 each PO DAILY tab Oxybutynin ER [Ditropan Xl] 15 mg PO DAILY HYDROcodone/APAP 5-325MG [[place] 5] 1 tab PO Q4HR PRN PRN Reason: Pain Benzocaine/Menthol Lozeng [Cepacol lozenge] 1 lozenge MUCOUS MEM Q4HR PRN PRN Reason: Sore Throat Discharge Medication List Bicalutamide [Casodex] 50 mg PO DAILY 06/07/14 [History] Cyanocobalamin (Vitamin B-12) [Vitamin B-12] 1,500 mcg PO DAILY 01/13/17 [History] Atorvastatin [Lipitor] 40 mg PO HS 03/07/17 [History] L.acidoph,Paracasei, B.lactis [Probiotic] 1 cap PO DAILY 02/15/19 [History] Albuterol Sulfate [Proventil Hfa] 2 puff INHALATION RT-Q4H PRN 02/23/20 [History] Aspirin EC [Ecotrin Low Dose] 81 mg PO DAILY 02/23/20 [History] Famotidine [Pepcid] 40 mg PO DAILY 02/23/20 [History] Meclizine [Antivert] 25 mg PO TID PRN 02/23/20 [History] Mirabegron [Myrbetriq] 50 mg PO DAILY 02/23/20 [History] Omeprazole [PriLOSEC] 20 mg PO BID 02/23/20 [History] Vitamin E 1,000 unit PO DAILY 02/23/20 [History] Acetaminophen Tab [Tylenol] 650 mg PO Q6HR PRN 05/06/20 [History] Cyclobenzaprine [Flexeril] 10 mg PO TID 05/06/20 [History] Ferrous Sulfate [Iron] 325 mg PO BID 05/06/20 [History] Temazepam [Restoril] 30 mg PO HS PRN 05/06/20 [History] ALPRAZolam [Xanax] 0.25 mg PO BID PRN 7 Days #14 tab 05/13/20 [Rx] Magnesium Hydroxide [Milk of Magnesia Concentrate] 2,400 mg PO DAILY PRN ml 05/13/20 [Rx] Sennosides-Docusate Sodium [Senokot-S] 1 each PO DAILY tab 05/13/20 [Rx] Benzocaine/Menthol Lozeng [Cepacol lozenge] 1 lozenge MUCOUS MEM Q4HR PRN 06/19/20 [History] HYDROcodone/APAP 5-325MG [[place] 5] 1 tab PO Q4HR PRN 06/19/20 [History] Oxybutynin ER [Ditropan Xl] 15 mg PO DAILY 06/19/20 [History] Hydrocodone/Acetaminophen [[place] 5-325] 1 each PO Q4HR PRN #42 tab 06/22/20 [Rx] Follow up Appointment(s)/Referral(s): [facility], [NON-STAFF] - 1-2 Days ([facility] will call you to set up an appointment with physical Therapy with no lifting more than 20 LB, no repeatitive lifting, bending, or twisting, Any questions please call agency) Royce Young MD [Primary Care Provider] - 1-2 days Activity/Diet/Wound Care/Special Instructions: 1. Avoid excessive bending, twisting, lifting 2. No lifting greater than 10 pounds 3. Use LSO brace for comfort support during increased activities and ambulation 4. Take medications as prescribed Discharge Disposition: HOME WITH HOME HEALTH SERVICES
[2020-06-22 11:35] LABS: Glucose,Whole Blood 138 mg/dL (75-99)
[2020-06-22 11:52] VITALS: BP 157/83; PULSE 60; TEMP 98.3
--- NOTE | 2020-06-22 12:33 | P.PN ---
Subjective Patient is doing well today. Back pain has improved. He is feeling well enough to go home. Objective - Vital Signs Vital signs: Vital Signs Temp 98.3 F 06/22/20 11:51 Pulse 60 06/22/20 11:51 Resp 17 06/22/20 11:51 BP 157/83 06/22/20 11:51 Pulse Ox 96 06/22/20 11:51 Intake & Output 06/21/20 06/22/20 06/22/20 18:59 06:59 18:59 Intake Total 920 120 Output Total 100 Balance 820 120 Intake: Oral 920 120 Output: Urine 100 Other: Voiding Method Urinal Urinal Urinal Incontinent # Voids 3 2 - Exam General: The patient is awake and alert, in no distress Eye: there is normal conjunctiva bilaterally. Neck: The neck is supple, there is no JVD. Cardiovascular: Normal S1-S2, no S3-S4, no murmurs. Respiratory: Lungs clear to auscultation bilaterally Gastrointestinal: Abdomen is soft, nontender Musculoskeletal: There is no pedal edema. Neurological:. Speech is normal. 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 Mild leukocytosis is probably steroid induced. No evidence of infection. Discharge planning per primary team.
== END 2020-06-22 14:01 | disposition home health service (06) ==
LOC: EC 11:31 → 6NMEDSUR 14:24 → INTOOBSV 06-22 07:44 → OBSVTOIN 06-22 07:44 → UNDODISIN 06-22 14:01
PROVIDERS: ADMIT Orthopaedic Surgery Orthopaedic Surgery of the Spine; ATTEND Orthopaedic Surgery Orthopaedic Surgery of the Spine
DX: M48.54XA Collapsed vertebra, not elsewhere classified, thoracic region, initial encounter for fracture (principal); M48.56XA Collapsed vertebra, not elsewhere classified, lumbar region, initial encounter for fracture; M54.14 Radiculopathy, thoracic region; K21.9 Gastro-esophageal reflux disease without esophagitis; E78.5 Hyperlipidemia, unspecified; M19.90 Unspecified osteoarthritis, unspecified site; F41.9 Anxiety disorder, unspecified; K44.9 Diaphragmatic hernia without obstruction or gangrene; Z85.46 Personal history of malignant neoplasm of prostate; Z96.653 Presence of artificial knee joint, bilateral; Z96.643 Presence of artificial hip joint, bilateral; M54.16 Radiculopathy, lumbar region; G89.29 Other chronic pain; M54.32 Sciatica, left side; M54.31 Sciatica, right side; D72.829 Elevated white blood cell count, unspecified; R42 Dizziness and giddiness; R06.02 Shortness of breath; G47.00 Insomnia, unspecified; K59.00 Constipation, unspecified; J02.9 Acute pharyngitis, unspecified; Z92.3 Personal history of irradiation; Z86.010 Personal history of colon polyps; Z85.828 Personal history of other malignant neoplasm of skin; Z87.442 Personal history of urinary calculi; Z79.899 Other long term (current) drug therapy; Z79.82 Long term (current) use of aspirin; Z79.891 Long term (current) use of opiate analgesic; Z88.5 Allergy status to narcotic agent; Z91.041 Radiographic dye allergy status; M48.061 Spinal stenosis, lumbar region without neurogenic claudication; Z87.19 Personal history of other diseases of the digestive system; Z85.47 Personal history of malignant neoplasm of testis; Z90.79 Acquired absence of other genital organ(s); Z98.890 Other specified postprocedural states; Z96.612 Presence of left artificial shoulder joint
CPT/HCPCS: 96376 ×4; 96375 ×2; 96374; 99285; 97116; 97161; 80053; 83735; 85027; 72110; G0378 ×4; J2930 ×3; J3360; J1885; J1170 ×3

== ENCOUNTER 2020-06-23 06:04 | Observation (INO) | payer MEDICARE, OTHER ==
[2020-06-23] MEDS ORDERED: HYDROmorphone 0.5 MG/0.5 ML SYRINGE IVP STA (06:20)
[2020-06-23] MEDS ORDERED: SODIUM CHLORIDE 0.9% 500 ML 500 ML IV STA ×2 (06:20→07:35)
[2020-06-23] MEDS ORDERED: ONDANSETRON 4 MG/2 ML VIAL IVP STA (06:20)
--- NOTE | 2020-06-23 06:27 | ED ---
General Adult HPI - General Source: patient, EMS, RN notes reviewed Mode of arrival: EMS Limitations: no limitations <Joseph Good - Last Filed: 06/23/20 08:48> <Jef Mendez - Last Filed: 06/23/20 09:06> - General Chief complaint: Back Pain/Injury Stated complaint: Back pain Time Seen by Provider: 06/23/20 06:09 - History of Present Illness Initial comments: 85-year-old male with a past medical history of severe chronic back pain and stenosis presents to the emergency room for abdominal pain. Patient presents for severe back pain. He reports that he was discharged home yesterday however this has again worsened. States he is unable to get around his house or ambulate. Patient has also had right-sided abdominal pain starting today. Patient states it comes and goes in waves. Patient denies any bladder or bowel changes.Patient has no other complaints at this time including shortness of breath, chest pain, nausea or vomiting, headache, or visual changes. (Joseph Good) - Related Data Home Medications Medication Instructions Recorded Confirmed Bicalutamide [Casodex] 50 mg PO DAILY 06/07/14 06/23/20 Cyanocobalamin (Vitamin B-12) 1,500 mcg PO DAILY 01/13/17 06/23/20 [Vitamin B-12] Atorvastatin [Lipitor] 40 mg PO HS 03/07/17 06/23/20 L.acidoph,Paracasei, B.lactis 1 cap PO DAILY 02/15/19 06/23/20 [Probiotic] Albuterol Sulfate [Proventil Hfa] 2 puff INHALATION RT-Q4H PRN 02/23/20 06/23/20 Aspirin EC [Ecotrin Low Dose] 81 mg PO DAILY 02/23/20 06/23/20 Famotidine [Pepcid] 40 mg PO DAILY 02/23/20 06/23/20 Meclizine [Antivert] 25 mg PO TID PRN 02/23/20 06/23/20 Mirabegron [Myrbetriq] 50 mg PO DAILY 02/23/20 06/23/20 Omeprazole [PriLOSEC] 20 mg PO BID 02/23/20 06/23/20 Vitamin E 1,000 unit PO DAILY 02/23/20 06/23/20 Acetaminophen Tab [Tylenol] 650 mg PO Q6HR PRN 05/06/20 06/23/20 Cyclobenzaprine [Flexeril] 10 mg PO TID 05/06/20 06/23/20 Ferrous Sulfate [Iron] 325 mg PO BID 05/06/20 06/23/20 Temazepam [Restoril] 30 mg PO HS PRN 05/06/20 06/23/20 Benzocaine/Menthol Lozeng [Cepacol 1 lozenge MUCOUS MEM Q4HR PRN 06/19/20 06/23/20 lozenge] HYDROcodone/APAP 5-325MG [[place] 5] 1 tab PO Q4HR PRN 06/19/20 06/23/20 Oxybutynin ER [Ditropan Xl] 15 mg PO DAILY 06/19/20 06/23/20 Losartan Potassium [Cozaar] 25 mg PO DAILY 06/23/20 06/23/20 Sennosides-Docusate Sodium 1 tab PO DAILY PRN 06/23/20 06/23/20 [Senokot-S] traMADol HCl [Ultram] 50 mg PO Q8H PRN 06/23/20 06/23/20 Previous Rx's Medication Instructions Recorded ALPRAZolam [Xanax] 0.25 mg PO BID PRN 7 Days #14 tab 05/13/20 Magnesium Hydroxide [Milk of 2,400 mg PO DAILY PRN ml 05/13/20 Magnesia Concentrate] Allergies Allergy/AdvReac Type Severity Reaction Status Date / Time Iodinated Contrast Media Allergy Swelling Verified 06/23/20 07:01 [Iodinated Contrast Media - IV Dye] hydrocodone bitartrate AdvReac Nausea Verified 06/23/20 07:01 [From Vicodin] Review of Systems ROS Other: All systems not noted in ROS Statement are negative. <Joseph Good - Last Filed: 06/23/20 08:48> ROS Other: All systems not noted in ROS Statement are negative. <Jef Mendez - Last Filed: 06/23/20 09:06> ROS Statement: Those systems with pertinent positive or pertinent negative responses have been documented in the HPI. Past Medical History Past Medical History: Cancer, GERD/Reflux, Hyperlipidemia, Osteoarthritis (OA), Renal Disease Additional Past Medical History / Comment(s): Severe chronic back pain/stenosis, recent L2/L3 compression fractures with kyphoplasties, bilateral sciatica, DJD, tingling in bilateral feet, bilateral leg weakness, prostate cancer with surgery/radiation, skin cancer removals, hiatal hernia, diverticular disease, benign colon polype, anemia, nephrolithiasis/pt passed stones on his own. 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 Past Anesthesia/Blood Transfusion Reactions: No Reported Reaction, Motion Sickness Past Psychological History: Anxiety Smoking Status: Never smoker Past Alcohol Use History: None Reported Past Drug Use History: None Reported - Past Family History Mother Family Medical History: No Reported History Additional Family Medical History / Comment(s): Mother was healthy and lived to be 82. Father Family Medical History: No Reported History Additional Family Medical History / Comment(s): Father was healthy. He lived to be 74 yrs old. <Joseph Good P - Last Filed: 06/23/20 08:48> General Exam Limitations: no limitations General appearance: alert, in no apparent distress Head exam: Present: atraumatic, normocephalic, normal inspection Eye exam: Present: normal appearance, PERRL, EOMI. Absent: scleral icterus, conjunctival injection, periorbital swelling ENT exam: Present: normal exam Neck exam: Present: normal inspection, full ROM. Absent: tenderness, meningismus, lymphadenopathy Respiratory exam: Present: normal lung sounds bilaterally. Absent: respiratory distress, wheezes, rales, rhonchi, stridor Cardiovascular Exam: Present: regular rate, normal rhythm, normal heart sounds. Absent: systolic murmur, diastolic murmur, rubs, gallop, clicks GI/Abdominal exam: Present: soft, tenderness (Minimal right lower quadrant tenderness, no guarding. No tenderness elsewhere in the abdomen.), normal bowel sounds. Absent: distended, guarding, rebound, rigid Back exam: Present: paraspinal tenderness (generalized low back tenderness). Absent: other (pt unable to sit up in bed) <Joseph Good - Last Filed: 06/23/20 08:48> Course <Jef Mendez - Last Filed: 06/23/20 09:06> Vital Signs 06/23/20 06/23/20 06/23/20 06:06 06:37 07:01 Temperature 97.8 F Pulse Rate 70 78 75 Respiratory 22 20 20 Rate Blood Pressure 174/102 145/80 159/94 O2 Sat by Pulse 97 96 96 Oximetry 06/23/20 06/23/20 07:56 09:00 Temperature 98.4 F 97.9 F Pulse Rate 90 90 Respiratory 18 18 Rate Blood Pressure 158/96 109/62 O2 Sat by Pulse 96 100 Oximetry - Reevaluation(s) Reevaluation #1: 06/23/20 09:05 PA supervision: I proceeded [id number] evaluation the patient. Patient does present with complaints of intractable pain and inability to ambulate. He was just discharged from the hospital yesterday. He is pending correction placement. This case was discussed with Dr. Patel. Patient will be admitted. The case was discussed with Dr. Doll who did defer to the sound group (Jef Mendez) Medical Decision Making - Lab Data Result diagrams: 06/23/20 06:26 06/23/20 06:26 <Joseph Good - Last Filed: 06/23/20 08:48> - Lab Data Result diagrams: 06/23/20 06:26 06/23/20 06:26 <Jef Mendez - Last Filed: 06/23/20 09:06> - Medical Decision Making Vitals are stable. CBC does show leukocytosis. CMP reveals evidence of de hydration, patient was given fluids. Urinalysis demonstrates greater than 182 red blood cells which has been noted previously. Patient reports this is because of the orchiectomy/prostatectomy and his doctor is aware of this. CT abdomen and pelvis shows stable findings. There is a hiatal hernia with intrathoracic stomach. Correlate for fecal stasis. There is a large amount of stool present within the ascending colon and cecum. Chest x-ray shows chronic changes without acute process. The patient was given several different pain medications, is unable to sit up in bed. Family member reports that he is supposed to go to [facility] on Monday but they're unable to care for him until that time. They state they cannot get him out of bed. [facility] was consulted medically on patients previous visit. I did speak with Dr. Lagos from [facility] who will admit the patient. Requests consult to Dr Elliott. (Joseph Good) - Lab Data Lab Results 06/23/20 06/23/20 06/23/20 Range/Units 06:26 06:26 06:26 WBC 20.2 H (3.8-10.6) k/uL RBC 5.89 (4.30-5.90) m/uL Hgb 16.8 (13.0-17.5) gm/dL Hct 52.5 (39.0-53.0) % MCV 89.0 (80.0-100.0) fL MCH 28.5 (25.0-35.0) pg MCHC 32.1 (31.0-37.0) g/dL RDW 14.5 (11.5-15.5) % Plt Count 212 (150-450) k/uL Neutrophils % (Manual) 48 % Band Neuts % (Manual) 1 % Lymphocytes % (Manual) 44 % Monocytes % (Manual) 7 % Neutrophils # (Manual) 9.80 H (1.3-7.7) k/uL Lymphocytes # (Manual) 8.89 H (1.0-4.8) k/uL Monocytes # (Manual) 1.41 H (0-1.0) k/uL Nucleated RBCs 0 (0-0) /100 WBC Manual Slide Review Performed Poikilocytosis (manual Present Sodium 132 L (137-145) mmol/L Potassium 3.9 (3.5-5.1) mmol/L Chloride 93 L (98-107) mmol/L Carbon Dioxide 33 H (22-30) mmol/L Anion Gap 6 mmol/L BUN 22 H (9-20) mg/dL Creatinine 0.68 (0.66-1.25) mg/dL Est GFR (CKD-EPI)AfAm >90 (>60 ml/min/1.73 sqM) Est GFR (CKD-EPI)NonAf 89 (>60 ml/min/1.73 sqM) Glucose 103 H (74-99) mg/dL Calcium 9.2 (8.4-10.2) mg/dL Total Bilirubin 1.1 (0.2-1.3) mg/dL AST 28 (17-59) U/L ALT 22 (4-49) U/L Alkaline Phosphatase 127 H (38-126) U/L Total Protein 6.4 (6.3-8.2) g/dL Albumin 3.7 (3.5-5.0) g/dL Amylase 59 (30-110) U/L Lipase 14 L (23-300) U/L Urine Color Yellow Urine Appearance Clear (Clear) Urine pH 7.5 (5.0-8.0) Ur Specific [place] 1.014 (1.001-1.035) Urine Protein 2+ H (Negative) Urine Glucose (UA) Negative (Negative) Urine Ketones Negative (Negative) Urine Blood Moderate H (Negative) Urine Nitrite Negative (Negative) Urine Bilirubin Negative (Negative) Urine Urobilinogen <2.0 (<2.0) mg/dL Ur Leukocyte Esterase Negative (Negative) Urine RBC >182 H (0-5) /hpf Urine WBC 2 (0-5) /hpf Hyaline Casts 1 (0-2) /lpf Urine Mucus Rare H (None) /hpf Disposition Is patient prescribed a controlled substance at d/c from ED?: No Time of Disposition: 08:48 <Joseph Good - Last Filed: 06/23/20 08:48> <Jef Mendez - Last Filed: 06/23/20 09:06> Clinical Impression: Intractable back pain, Constipation, Unable to ambulate, Dehydration Disposition: ADMITTED IP TO THIS HOSP Referrals: Royce Young MD [Primary Care Provider] - 1-2 days
[2020-06-23 06:42] LABS: ALT 22 U/L (4-49); AST 28 U/L (17-59); African American GFR (CKD) >90 (>60 ml/min/1.73 sqM); Albumin 3.7 g/dL (3.5-5.0); Alkaline Phosphatase 127 U/L (38-126); Amylase 59 U/L (30-110); Anion Gap 6 mmol/L; Blood Urea Nitrogen 22 mg/dL (9-20); Calcium 9.2 mg/dL (8.4-10.2); Carbon Dioxide 33 mmol/L (22-30); Chloride 93 mmol/L (98-107); Glucose 103 mg/dL (74-99); Lipase 14 U/L (23-300); Non-African American GFR(CKD) 89 (>60 ml/min/1.73 sqM); Potassium 3.9 mmol/L (3.5-5.1); Sodium 132 mmol/L (137-145); Total Bilirubin 1.1 mg/dL (0.2-1.3); Total Protein 6.4 g/dL (6.3-8.2)
[2020-06-23 06:48] LABS: HCT 52.5 % (39.0-53.0); HGB 16.8 gm/dL (13.0-17.5); MCH 28.5 pg (25.0-35.0); MCHC 32.1 g/dL (31.0-37.0); Mean Platelet Volume 8.1; Platelet Count 212 k/uL (150-450); RBC 5.89 m/uL (4.30-5.90); RDW 14.5 % (11.5-15.5); WBC 20.2 k/uL (3.8-10.6)
[2020-06-23] MEDS ORDERED: KETOROLAC 15 MG/ML 1 ML VIAL IVP STA (07:35)
[2020-06-23 07:58] LABS: Band Neutrophils % 1 %; Lymphocytes # (M) 8.89 k/uL (1.0-4.8); Monocytes # (M) 1.41 k/uL (0-1.0); Neutrophils % (M) 48 %; Nucleated Red Blood Cells 0 /100 WBC (0-0); Total Cells Counted 100
[2020-06-23 07:59] LABS: Poikilocytosis (M) Present
[2020-06-23 08:00] LABS: Appearance,Urine Clear (Clear); Bilirubin,Urine Negative (Negative); Blood,Urine Moderate (Negative); Color,Urine Yellow; Glucose,Urine (UA) Negative (Negative); Hyaline Casts,Urine 1 /lpf (0-2); Ketones,Urine Negative (Negative); Leukocyte Esterase,Urine Negative (Negative); Mucus,Urine Rare /hpf; Nitrite,Urine Negative (Negative); PH, Urine 7.5 (5.0-8.0); Protein,Urine 2+ (Negative); RBC,Urine >182 /hpf (0-5); Specific Gravity,Urine 1.014 (1.001-1.035); Urobilinogen,Urine <2.0 mg/dL (<2.0); WBC,Urine 2 /hpf (0-5)
--- NOTE | 2020-06-23 08:07 | CT ---
EXAMINATION TYPE: CT abdomen pelvis wo con DATE OF EXAM: 06/23/2020 COMPARISON: Prior CT 05/31/2020 HISTORY: Abdominal pain CT DLP: 634 mGycm Automated exposure control for dose reduction was used. TECHNIQUE: Helical acquisition of images from the lung bases through the pelvis. FINDINGS: Lack of intravenous contrast could compromise sensitivity. There is a hiatal hernia with pa rtial intrathoracic stomach. Lack of contrast could compromise sensitivity of the exam. LUNG BASES: There are probable dependent atelectatic changes, scarring at the lung bases similar to p rior exam, no pleural pericardial effusion. AORTA: No significant abnormality is appreciated. LIVER/GB: No significant abnormality is appreciated. PANCREAS: No significant abnormality is seen. SPLEEN: No significant abnormality is seen. ADRENALS: Low dense right adrenal lesion likely represents adenoma.. KIDNEYS: No significant abnormality is seen. REPRODUCTIVE ORGANS: Metallic densities are present in the pelvis, patient is post prostatectomy. URINARY BLADDER: No significant abnormality is seen. BOWEL: No diverticular changes are present within the sigmoid colon. Large amount of stool present w ithin the ascending colon, cecum. No evident bowel obstruction FREE AIR: No Free Air is visible. ASCITES: None visible. PELVIC ADENOPATHY: None visualized. RETROPERITONEAL ADENOPATHY: No Retroperitoneal Adenopathy visible. OSSEOUS STRUCTURES: No multilevel compression fractures present within the lumbar spine, there are v ertebroplasty changes. Findings are stable compared to prior. Multilevel facet arthropathy also prese nt. Mild kyphosis centered at T12-L1. Patient is status post right hip arthroplasty, large amount of streak artifact is present. IMPRESSION: FINDINGS ARE STABLE. HIATAL HERNIA WITH INTRATHORACIC STOMACH. POSTOP CHANGES. DIVERTICULOSIS. CORREL ATE FOR FECAL STASIS. NONCONTRAST EXAM. ADDITIONAL FINDINGS ABOVE.
--- NOTE | 2020-06-23 08:21 | XR ---
EXAMINATION TYPE: XR chest 2V DATE OF EXAM: 06/23/2020 COMPARISON: Chest x-ray May 05, 2020 HISTORY: Chest pain and leukocytosis. TECHNIQUE: Frontal and lateral views of the chest are obtained. FINDINGS: Diminished inspiration on current study. There is chronic parenchymal changes bilaterally without suspicious new focal air space opacity, pleural effusion, or pneumothorax seen. The cardiac silhouette size is mildly enlarged with atherosclerotic and ectatic aorta. Chronic increased right pa ratracheal soft tissue thickness remains present. The osseous structures are demineralized. Metalli c hardware left shoulder surgery partially imaged. There are compression fractures and vertebroplasty in the visualized lumbar spine. IMPRESSION: Chronic changes and cardiomegaly without acute pulmonary process.
[2020-06-23] MEDS ORDERED: ONDANSETRON 4 MG/2 ML VIAL IVP PRN (08:49)
[2020-06-23] MEDS ORDERED: NALOXONE 0.4 MG/ML 1 ML VIAL IV PRN (08:49)
[2020-06-23] MEDS: SODIUM CHLORIDE 0.9% 1,000 ML IV SCH (09:21)
--- NOTE | 2020-06-23 12:59 | P.CNOR ---
History of Present Illness - [facility] Consult date: 06/23/20 Requesting physician: Joseph Good Consult reason: low back pain (Acute on chronic low back pain) History of present illness: Patient is a pleasant 85-year-old male who is seen and examined at the bedside for further evaluation of his lumbar spine. He is well known to our service. He was just discharged from the hospital yesterday, 06/22/2020. He is known to have multiple injuries to his lumbar spine in multiple compression fracture deformities in the past. These compression fracture deformities appear stable on imaging. He has a history of kyphoplasty at L2 and L3. He continues to experience some pain in the right lateral lumbar spine but is not experiencing this pain currently. He is not experiencing any thoracic pain at this time. He denies any lower extremity weakness or radiculopathy bilaterally. He denies any changes in the lower extremities. He states sometimes his pain is adequately controlled and other times he has some difficulty pain control. Following discharge yesterday, patient's family states he was having difficulty with pain control last night. He was brought back to [facility] for further evaluation. Patient states at the bedside he is not currently experiencing any significant low back pain. His is currently complaining of abdominal pain. He admits to constipation. He states he is normally very regular with bowel movements. He states he has not had a bowel movement in 4 days. Patient is known to have a history of testicular cancer with metastasis. He also recently underwent a umbilical hernia repair approximately 2 weeks ago in [place], [place]. He is scheduled for follow-up evaluation this coming , 06/26/2020. Patient currently denies any nausea, vomiting, fever, or chills. Patient is eating and voiding freely without difficulty. He is planning to move to an assisted living at [facility] this coming 06/27/2020. Past Medical History Past Medical History: Cancer, GERD/Reflux, Hyperlipidemia, Osteoarthritis (OA), Renal Disease Additional Past Medical History / Comment(s): Severe chronic back pain/stenosis, recent L2/L3 compression fractures with kyphoplasties, bilateral sciatica, DJD, tingling in bilateral feet, bilateral leg weakness, prostate cancer with surgery/radiation, skin cancer removals, hiatal hernia, diverticular disease, benign colon polype, anemia, nephrolithiasis/pt passed stones on his own. 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 Past Anesthesia/Blood Transfusion Reactions: No Reported Reaction, Motion Sickness Smoking Status: Never smoker - Past Family History Mother Family Medical History: No Reported History Additional Family Medical History / Comment(s): Mother was healthy and lived to be 82. Father Family Medical History: No Reported History Additional Family Medical History / Comment(s): Father was healthy. He lived to be 74 yrs old. Medications and Allergies Home Medications Medication Instructions Recorded Confirmed Type Bicalutamide [Casodex] 50 mg PO DAILY 06/07/14 06/23/20 History Cyanocobalamin (Vitamin B-12) 1,500 mcg PO DAILY 01/13/17 06/23/20 History [Vitamin B-12] Atorvastatin [Lipitor] 40 mg PO HS 03/07/17 06/23/20 History L.acidoph,Paracasei, B.lactis 1 cap PO DAILY 02/15/19 06/23/20 History [Probiotic] Albuterol Sulfate [Proventil Hfa] 2 puff INHALATION RT-Q4H PRN 02/23/20 06/23/20 History Aspirin EC [Ecotrin Low Dose] 81 mg PO DAILY 02/23/20 06/23/20 History Famotidine [Pepcid] 40 mg PO DAILY 02/23/20 06/23/20 History Meclizine [Antivert] 25 mg PO TID PRN 02/23/20 06/23/20 History Mirabegron [Myrbetriq] 50 mg PO DAILY 02/23/20 06/23/20 History Omeprazole [PriLOSEC] 20 mg PO BID 02/23/20 06/23/20 History Vitamin E 1,000 unit PO DAILY 02/23/20 06/23/20 History Acetaminophen Tab [Tylenol] 650 mg PO Q6HR PRN 05/06/20 06/23/20 History Cyclobenzaprine [Flexeril] 10 mg PO TID 05/06/20 06/23/20 History Ferrous Sulfate [Iron] 325 mg PO BID 05/06/20 06/23/20 History Temazepam [Restoril] 30 mg PO HS PRN 05/06/20 06/23/20 History ALPRAZolam [Xanax] 0.25 mg PO BID PRN 7 Days #14 tab 05/13/20 06/23/20 Rx Magnesium Hydroxide [Milk of 2,400 mg PO DAILY PRN ml 05/13/20 06/23/20 Rx Magnesia Concentrate] Benzocaine/Menthol Lozeng [Cepacol 1 lozenge MUCOUS MEM Q4HR PRN 06/19/20 06/23/20 History lozenge] HYDROcodone/APAP 5-325MG [[place] 5] 1 tab PO Q4HR PRN 06/19/20 06/23/20 History Oxybutynin ER [Ditropan Xl] 15 mg PO DAILY 06/19/20 06/23/20 History Losartan Potassium [Cozaar] 25 mg PO DAILY 06/23/20 06/23/20 History Sennosides-Docusate Sodium 1 tab PO DAILY PRN 06/23/20 06/23/20 History [Senokot-S] traMADol HCl [Ultram] 50 mg PO Q8H PRN 06/23/20 06/23/20 History Allergies Allergy/AdvReac Type Severity Reaction Status Date / Time Iodinated Contrast Media Allergy Swelling Verified 06/23/20 07:01 [Iodinated Contrast Media - IV Dye] hydrocodone bitartrate AdvReac Nausea Verified 06/23/20 07:01 [From Vicodin] Physical Examination Physical Exam: Patient is awake, alert, and oriented 3 Vital signs stable Good chest excursion with deep inspiration and expiration Abdomen is soft nontender to palpation Evidence of a healing incision at the umbilicus Some bruising around the umbilicus surgical site No signs or symptoms of DVT; no calf pain Extensor hallucis longus, plantarflexion, and dorsiflexion positive sustained bilateral lower extremities Patient is able to move legs independently both at the bedside and while in bed without difficulty No pain with palpation of the bilateral lower extremities Patient does have some difficulty rolling over in bed as it is casted rates his right lateral back pain No significant pain with palpation along the midline of the lumbar spine Results Pertinent studies: CT the abdomen and pelvis taken on 06/23/2020: Hiatal hernia with intrathoracic stomach; postoperative changes; diverticulosis; correlate for her fecal stasis - Labs Labs: Abnormal Lab Results - Last 24 Hours (Table) 06/23/20 06/23/20 06/23/20 Range/Units 06:26 06:26 06:26 WBC 20.2 H (3.8-10.6) k/uL Neutrophils # (Manual) 9.80 H (1.3-7.7) k/uL Lymphocytes # (Manual) 8.89 H (1.0-4.8) k/uL Monocytes # (Manual) 1.41 H (0-1.0) k/uL Sodium 132 L (137-145) mmol/L Chloride 93 L (98-107) mmol/L Carbon Dioxide 33 H (22-30) mmol/L BUN 22 H (9-20) mg/dL Glucose 103 H (74-99) mg/dL Alkaline Phosphatase 127 H (38-126) U/L Lipase 14 L (23-300) U/L Urine Protein 2+ H (Negative) Urine Blood Moderate H (Negative) Urine RBC >182 H (0-5) /hpf Urine Mucus Rare H (None) /hpf H & H 06/23/20 Range/Units 06:26 Hgb 16.8 (13.0-17.5) gm/dL Hct 52.5 (39.0-53.0) % Result Diagrams: 06/23/20 06:26 06/23/20 06:26 Assessment and Plan Assessment: Assessment: Acute carpal back pain improved since yesterday History of multiple lumbar compression fracture deformities History of L2 and L3 kyphoplasty Left abdominal pain Constipation History of recent umbilical hernia repair History of testicular cancer with metastasis Hyperlipidemia Renal disease (1) Constipation Current Visit: Yes Status: Acute Code(s): K59.00 - CONSTIPATION, UNSPECIFIED SNOMED Code(s): 63869831 (2) Intractable back pain Current Visit: Yes Status: Acute Code(s): M54.9 - DORSALGIA, UNSPECIFIED SNOMED Code(s): 326364140 (3) Abdominal pain Current Visit: No Status: Acute Code(s): R10.9 - UNSPECIFIED ABDOMINAL PAIN SNOMED Code(s): 94541984 (4) History of cancer Current Visit: No Status: Acute Code(s): Z85.9 - PERSONAL HISTORY OF MALIGNANT NEOPLASM, UNSPECIFIED SNOMED Code(s): 840952428 (5) History of kyphoplasty Current Visit: No Status: Acute Code(s): Z98.890 - OTHER SPECIFIED POSTPROCEDURAL STATES SNOMED Code(s): 098321900 (6) Hyperlipemia Current Visit: No Status: Acute Code(s): E78.5 - HYPERLIPIDEMIA, UNSPECIFIED SNOMED Code(s): 79951949 (7) Status post hernia repair Current Visit: No Status: Acute Code(s): Z98.890 - OTHER SPECIFIED POSTPROCEDURAL STATES; Z87.19 - PERSONAL HISTORY OF OTHER DISEASES OF THE DIGESTIVE SYSTEM SNOMED Code(s): 78780524206710 Plan: Plan: 1. We will currently plan to continue conservative treatment regards to his lumbar spine. Patient has had difficulty with pain control for his right later al low back pain. Family has had difficulty controlling his pain in the outpatient setting. He is known to have multiple compression fracture deformities with a history of kyphoplasty at L2 and L3. He was discharged yesterday but had difficulty pain control. He states at the bedside his current pain is different than when he is experiencing yesterday. He is currently experiencing abdominal pain. He admits to constipation. He had planned on being discharged home yesterday with home care. Due to his multiple readmissions, he may need discharge to a rehabilitation facility. Patient's fam grace states they are unable to care for him at home. He is planning to move into assisted living this coming weekend at this time, patient may ambulate and perform regular activities of daily living to his tolerance. He is encouraged to wear his LSO brace for comfort support as needed during increased activities. We are not currently [facility] for surgical intervention regards to his lumbar spine. At this time his symptoms seem to be stemming from his abdominal pain and constipation rather than low back pain. We recommended he continue with further evaluation with medicine. Patient is clear for discharge from orthopedic spine standpoint. We will plan have him follow-up in approximately 3 weeks for further evaluation. Patient may follow-up with Amarjit Edwards PA-C or Dr. Surya Pasia at [facility]. Patient will currently plan to follow with his surgeon for further evaluation following a umbilical hernia repair as scheduled this coming , 06/25/2020, if he is discharged from the hospital at that time. Time with Patient: Greater than 30 (Including obtaining history, physical examination, reviewing of imaging, and dictation.)
[2020-06-23] MEDS ORDERED: MAGNESIUM HYDROXIDE 2,400 MG/10 ML CUP PO PRN (13:25)
[2020-06-23] MEDS ORDERED: HYDROcodone/APAP 5-325MG 1 EACH TAB PO PRN (13:25)
[2020-06-23] MEDS ORDERED: SENNOSIDES-DOCUSATE SODIUM 1 EACH TAB PO PRN (13:25)
[2020-06-23] MEDS ORDERED: ALBUTEROL HFA INHALER INHALATION PRN (13:25)
[2020-06-23] MEDS ORDERED: traMADol 50 MG TAB PO PRN (13:25)
[2020-06-23] MEDS ORDERED: TEMAZEPAM 30 MG CAP PO PRN (13:25)
[2020-06-23] MEDS ORDERED: ALPRAZolam 0.25 MG TAB PO PRN (13:25)
[2020-06-23] MEDS: CYCLOBENZAPRINE 10 MG TAB PO SCH ×2 (17:55→21:28)
[2020-06-23] MEDS ORDERED: ACETAMINOPHEN TAB 325 MG TAB PO PRN (17:59)
[2020-06-23] MEDS ORDERED: MORPHINE SULFATE 4 MG/ML SYRINGE IV PRN (17:59)
--- NOTE | 2020-06-23 18:02 | P.HPIM ---
History of Present Illness H&P Date: 06/23/20 Chief Complaint: Back pain 85-year-old male with PMH of testicular cancer status post orchiectomy, dyslipidemia, chronic lumbar radiculopathy status post kyphoplasty February 2020 presents to the ED for intractable lower back pain. He was recently admitted on June 19 for intractable back pain and discharged on June 22 with adequate pain control. Patient states once he got home, he was unable to keep up with his ADLs and IADLs. When his back pain did not improve, this prompted him to return to the ED. Of note, patient states that [place] [facility] [place] [facility] [place] He reports his back pain is 10 out of 10 especially with movement. He is comfortable when laying still. He denies any bladder or bowel incontinence, complains of constipation. He denies any saddle anesthesia. He denies any headache, lower extremity edema, nausea or vomiting, fever or chills, cough, chest pain, shortness of breath, palpitations. No changes in appetite or weight. He denies any dizziness, numbness/weakness/tingling of the extremities. In the ED, his vital signs are stable. CBC showed WBC count of 20.2. CMP showed sodium 132, chloride of 93, BUN 23, bicarb 33, glucose 103, alkaline phosphatase 127. Lipase was negative. Urinalysis showed moderate blood and 2+ protein. Patient is admitted for intractable back pain with orthopedic surgery on consult. Lumbar spine x-ray from previous admission showed vertebroplasty change at L2 and L3, anterior wedging deformity of L1 which was chronic, mild compression deformity of T11 which was subacute. CT abdomen and pelvis done during this admission shows stable findings, hiatal hernia, intrathoracic stomach, diverticulosis, fecal stasis. Review of Systems Pertinent positives and negatives as discussed in HPI, a complete review of systems was performed and all other systems are negative. Past Medical History Past Medical History: Cancer, GERD/Reflux, Hyperlipidemia, Osteoarthritis (OA), Renal Disease Additional Past Medical History / Comment(s): Severe chronic back pain/stenosis, recent L2/L3 compression fractures with kyphoplasties, bilateral sciatica, DJD, tingling in bilateral feet, bilateral leg weakness, prostate cancer with surgery/radiation, skin cancer removals, hiatal hernia, diverticular disease, benign colon polype, anemia, nephrolithiasis/pt passed stones on his own. 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 Past Anesthesia/Blood Transfusion Reactions: No Reported Reaction, Motion Sickness Smoking Status: Never smoker - Past Family History Mother Family Medical History: No Reported History Additional Family Medical History / Comment(s): Mother was healthy and lived to be 82. Father Family Medical History: No Reported History Additional Family Medical History / Comment(s): Father was healthy. He lived to be 74 yrs old. Medications and Allergies Home Medications Medication Instructions Recorded Confirmed Type Bicalutamide [Casodex] 50 mg PO DAILY 06/07/14 06/23/20 History Cyanocobalamin (Vitamin B-12) 1,500 mcg PO DAILY 01/13/17 06/23/20 History [Vitamin B-12] Atorvastatin [Lipitor] 40 mg PO HS 03/07/17 06/23/20 History L.acidoph,Paracasei, B.lactis 1 cap PO DAILY 02/15/19 06/23/20 History [Probiotic] Albuterol Sulfate [Proventil Hfa] 2 puff INHALATION RT-Q4H PRN 02/23/20 06/23/20 History Aspirin EC [Ecotrin Low Dose] 81 mg PO DAILY 02/23/20 06/23/20 History Famotidine [Pepcid] 40 mg PO DAILY 02/23/20 06/23/20 History Meclizine [Antivert] 25 mg PO TID PRN 02/23/20 06/23/20 History Mirabegron [Myrbetriq] 50 mg PO DAILY 02/23/20 06/23/20 History Omeprazole [PriLOSEC] 20 mg PO BID 02/23/20 06/23/20 History Vitamin E 1,000 unit PO DAILY 02/23/20 06/23/20 History Acetaminophen Tab [Tylenol] 650 mg PO Q6HR PRN 05/06/20 06/23/20 History Cyclobenzaprine [Flexeril] 10 mg PO TID 05/06/20 06/23/20 History Ferrous Sulfate [Iron] 325 mg PO BID 05/06/20 06/23/20 History Temazepam [Restoril] 30 mg PO HS PRN 05/06/20 06/23/20 History ALPRAZolam [Xanax] 0.25 mg PO BID PRN 7 Days #14 tab 05/13/20 06/23/20 Rx Magnesium Hydroxide [Milk of 2,400 mg PO DAILY PRN ml 05/13/20 06/23/20 Rx Magnesia Concentrate] Benzocaine/Menthol Lozeng [Cepacol 1 lozenge MUCOUS MEM Q4HR PRN 06/19/20 06/23/20 History lozenge] HYDROcodone/APAP 5-325MG [[place] 5] 1 tab PO Q4HR PRN 06/19/20 06/23/20 History Oxybutynin ER [Ditropan Xl] 15 mg PO DAILY 06/19/20 06/23/20 History Losartan Potassium [Cozaar] 25 mg PO DAILY 06/23/20 06/23/20 History Sennosides-Docusate Sodium 1 tab PO DAILY PRN 06/23/20 06/23/20 History [Senokot-S] traMADol HCl [Ultram] 50 mg PO Q8H PRN 06/23/20 06/23/20 History Allergies Allergy/AdvReac Type Severity Reaction Status Date / Time Iodinated Contrast Media Allergy Swelling Verified 06/23/20 07:01 [Iodinated Contrast Media - IV Dye] hydrocodone bitartrate AdvReac Nausea Verified 06/23/20 07:01 [From Vicodin] Physical Exam Vitals: Vital Signs Temp Pulse Pulse Resp BP BP BP 06/23/20 09:38 97.5 F L 67 18 72/63 170/76 06/23/20 09:00 97.9 F 90 18 109/62 06/23/20 07:56 98.4 F 90 18 158/96 06/23/20 07:01 75 20 159/94 06/23/20 06:37 78 20 145/80 06/23/20 06:06 97.8 F 70 22 174/102 Pulse Ox 06/23/20 09:38 95 06/23/20 09:00 100 06/23/20 07:56 96 06/23/20 07:01 96 06/23/20 06:37 96 06/23/20 06:06 97 Intake and Output 06/22/20 06/23/20 06/23/20 22:59 06:59 14:59 Other: Voiding Method Toilet Urinal Diaper Weight 72.575 kg 72.575 kg General: [non toxic], [no distress], [appears at stated age] Derm: [warm], [dry] Head: [atraumatic], [normocephalic], [symmetric] Eyes: [EOMI], [no lid lag], [anicteric sclera] Mouth: [no lip lesion], [mucus membranes moist] Cardiovascular: [S1S2 reg], [no murmur], [positive DP pulse bilateral], Lungs: [CTA bilateral], [no rhonchi, no rales] , [no accessory muscle use] Abdominal: [soft], [ nontender to palpation], [no guarding], [no appreciable organomegaly] Ext: [no gross muscle atrophy], [no edema], [no contractures], [paraspinal tenderness bilaterally] Neuro: [ CN II-XI grossly intact], [4 out of 5 strength bilateral lower extremity due to pain] Psych: [Alert], [oriented], [appropriate affect] Results CBC & Chem 7: 06/23/20 06:26 06/23/20 06:26 Labs: Abnormal Lab Results - Last 24 Hours (Table) 06/23/20 06/23/20 06/23/20 Range/Units 06:26 06:26 06:26 WBC 20.2 H (3.8-10.6) k/uL Neutrophils # (Manual) 9.80 H (1.3-7.7) k/uL Lymphocytes # (Manual) 8.89 H (1.0-4.8) k/uL Monocytes # (Manual) 1.41 H (0-1.0) k/uL Sodium 132 L (137-145) mmol/L Chloride 93 L (98-107) mmol/L Carbon Dioxide 33 H (22-30) mmol/L BUN 22 H (9-20) mg/dL Glucose 103 H (74-99) mg/dL Alkaline Phosphatase 127 H (38-126) U/L Lipase 14 L (23-300) U/L Urine Protein 2+ H (Negative) Urine Blood Moderate H (Negative) Urine RBC >182 H (0-5) /hpf Urine Mucus Rare H (None) /hpf Thrombosis Risk Factor Assmnt - Choose All That Apply Any of the Below Risk Factors Present?: Yes Each Factor Represents 1 point: Medical pt on bed rest Other Risk Factors: Yes Each Risk Factor Represents 2 Points: Patient confined to bed, Malignancy Each Risk Factor Represents 3 Points: Age 75 years or older Other congenital or acquired thrombophilia - If yes, enter type in comment: No Thrombosis Risk Factor Assessment Total Risk Factor Score: 8 Thrombosis Risk Factor Assessment Level: High Risk Assessment and Plan Assessment: Acute on chronic lumbar and lower thoracic radiculopathy w/ T11 compression deformity -Will defer management to orthopedic surgery -Continue with pain management with Tylenol, [place], Dilaudid as needed -C/w Flexiril Leukocytosis -Patient reports surgery for hiatal hernia 2 weeks ago -Possibly reactive as there no signs of active infection -Patient is afebrile -Continue to monitor and repeat CBC tomorrow morning Hypochloremic hyponatremia with metabolic alkalosis -Likely related to dehydration -Continue normal saline at 75 mL per hour -Repeat BMP tomorrow morning Elevated BUN -Management as above Chronic conditions: HLD - C/w home meds DVT prophylaxis: [Heparin] Discussed with: [Patient] Anticipated discharge: [2 days] Anticipated discharge place: [[facility]] A total of [45] minutes was spent on the care of this complex patient more than 50% of the time was spent in counseling and care coordination.
[2020-06-23] MEDS ORDERED: LACTULOSE 20 GM/30 ML CUP PO ONE (19:00)
[2020-06-23] MEDS ORDERED: ATORVASTATIN 40 MG TAB PO SCH (21:00)
[2020-06-23 21:16] VITALS: RESP 18
[2020-06-23] MEDS: HEPARIN SODIUM,PORCINE 5,000 UNIT/ML 1 ML VIAL SQ SCH (21:27)
[2020-06-23] MEDS: FERROUS SULFATE 325 MG TAB PO SCH (21:28)
[2020-06-24] MEDS: HYDROmorphone 0.5 MG/0.5 ML SYRINGE IVP PRN ×3 (00:21→08:16)
[2020-06-24 05:22] LABS: Basophils % (A) 0 %; Eosinophils # (A) 0.2 k/uL (0-0.7); Eosinophils % (A) 1 %; HCT 45.6 % (39.0-53.0); HGB 14.5 gm/dL (13.0-17.5); Lymphocytes # (A) 4.1 k/uL (1.0-4.8); Lymphocytes % (A) 32 %; MCH 28.7 pg (25.0-35.0); MCHC 31.8 g/dL (31.0-37.0); MCV 90.2 fL (80.0-100.0); Mean Platelet Volume 7.9; Monocytes # (A) 0.8 k/uL (0-1.0); Monocytes % (A) 6 %; Neutrophils # (A) 7.5 k/uL (1.3-7.7); Neutrophils % (A) 60 %; Platelet Count 159 k/uL (150-450); RBC 5.05 m/uL (4.30-5.90); RDW 14.3 % (11.5-15.5); WBC 12.6 k/uL (3.8-10.6)
[2020-06-24] MEDS: FERROUS SULFATE 325 MG TAB PO SCH (08:17)
[2020-06-24] MEDS: CYCLOBENZAPRINE 10 MG TAB PO SCH ×2 (08:17→17:33)
[2020-06-24] MEDS: HEPARIN SODIUM,PORCINE 5,000 UNIT/ML 1 ML VIAL SQ SCH (08:17)
[2020-06-24] MEDS: SODIUM CHLORIDE 0.9% 1,000 ML IV SCH (08:18)
[2020-06-24] MEDS ORDERED: FAMOTIDINE 20 MG TAB PO SCH (09:00)
[2020-06-24] MEDS ORDERED: NON FORMULARY DRUG (Mirabegron [Myrbetriq] 50 MG Tab.Er.24h) PO SCH (09:00)
[2020-06-24] MEDS ORDERED: OXYBUTYNIN 15 MG TAB.ER.24 PO SCH (09:00)
[2020-06-24] MEDS ORDERED: ASPIRIN 81 MG PO SCH (09:00)
[2020-06-24] MEDS ORDERED: BICALUTAMIDE 50 MG TAB PO SCH (09:00)
[2020-06-24] MEDS ORDERED: LOSARTAN 25 MG TAB PO SCH (09:00)
[2020-06-24 09:49] LABS: African American GFR (CKD) 95.7 (60.0-200.0); Anion Gap 5.5 mmol/L (4.00-12.00); Calcium 8.1 mg/dL (8.7-10.3); Carbon Dioxide 28.5 mmol/L (21.6-31.8); Non-African American GFR(CKD) 82.6 (60.0-200.0); Potassium 4.1 mmol/L (3.5-5.5)
[2020-06-24] MEDS ORDERED: HYDROcodone/APAP 5-325MG 1 EACH TAB PO PRN (11:21)
[2020-06-24] MEDS ORDERED: LACTULOSE 20 GM/30 ML CUP PO ONE (11:30)
[2020-06-24 11:50] VITALS: BP 128/79; PULSE 83; TEMP 97.8
[2020-06-24 13:28] VITALS: BMI 25.8
--- NOTE | 2020-06-24 15:14 | P.DS ---
Providers Date of admission: 06/23/20 08:43 Expected date of discharge: 06/24/20 Attending physician: Maribel Patel MD Consults: 06/23/20 08:50 Consult Physician Routine Consulting Provider: David Elliott Consult Reason/Comments: back pain Do you want consulting provider notified?: Yes Primary care physician: [facility] Course: 85-year-old male with PMH of testicular cancer status post orchiectomy, dyslipidemia, chronic lumbar radiculopathy status post kyphoplasty February 2020 presents to the ED for intractable lower back pain. He was recently admitted on June 19 for intractable back pain and discharged on June 22 with adequate pain control. Patient states once he got home, he was unable to keep up with his ADLs and IADLs. When his back pain did not improve, this prompted him to return to the ED. Of note, patient states that [place] [facility] [place] [facility] [place]. He reports his back pain is 10 out of 10 especially with movement. He is comfortable when laying still. He denies any bladder or bowel incontinence, complains of constipation. He denies any saddle anesthesia. He denies any headache, lower extremity edema, nausea or vomiting, fever or chills, cough, chest pain, shortness of breath, palpitations. No changes in appetite or weight. He denies any dizziness, numbness/weakness/tingling of the extremities. In the ED, his vital signs are stable. CBC showed WBC count of 20.2. CMP showed sodium 132, chloride of 93, BUN 23, bicarb 33, glucose 103, alkaline phosphatase 127. Lipase was negative. Urinalysis showed moderate blood and 2+ protein. Patient is admitted for intractable back pain with orthopedic surgery on consult. Lumbar spine x-ray from previous admission showed vertebroplasty change at L2 an d L3, anterior wedging deformity of L1 which was chronic, mild compression deformity of T11 which was subacute. CT abdomen and pelvis done during this admission shows stable findings, hiatal hernia, intrathoracic stomach, diverticulosis, fecal stasis. His pain was controlled with Tylenol, [place] and Dilaudid as needed. Orthopedic surgery was consulted and followed the patient during his hospitalization. Patient had a leukocytosis of 20.2 on admission which improved to 12.6 at the time of discharge. This was thought to be reactive rather than infectious. Patient had a sodium of 132, chloride of 93, B1 of 22 and bicarbonate of 33 which all resolved on day 2 of admission with IV hydration. Patient was seen and examined. No acute events overnight. Patient continues to report chronic lower back pain and difficulty with ambulation. He denies any chest pain, shortness breath or palpitations. No nausea or vomiting. No fever or chills. General: [non toxic], [no distress], [appears at stated age] Derm: [warm], [dry] Head: [atraumatic], [normocephalic], [symmetric] Eyes: [EOMI], [no lid lag], [anicteric sclera] Mouth: [no lip lesion], [mucus membranes moist] Cardiovascular: [S1S2 reg], [no murmur], [positive DP pulse bilateral], Lungs: [CTA bilateral], [no rhonchi, no rales] , [no accessory muscle use] Abdominal: [soft], [ nontender to palpation], [no guarding], [no appreciable organomegaly] Ext: [no gross muscle atrophy], [no edema], [no contractures], [paraspinal tenderness bilaterally] Neuro: [4 out of 5 strength bilateral lower extremity due to pain] Psych: [Alert], [oriented], [appropriate affect] Constipation with fecal stasis seen on CT -Attempt enema, needs bowel movement for discharge Acute on chronic lumbar and lower thoracic radiculopathy w/ T11 compression deformity -Will defer management to orthopedic surgery -Continue with pain management with Tylenol, [place], Dilaudid as needed -C/w Flexiril Leukocytosis -Patient reports surgery for hiatal hernia 2 weeks ago -Possibly reactive as there no signs of active infection -Patient is afebrile -Continue to monitor Resolved: Elevated BUN, Hypochloremic hyponatremia with metabolic alkalosis Chronic conditions: HLD - C/w home meds Pertinent Studies: Chest x-ray, CT abdomen and pelvis Patient Condition at Discharge: Stable Plan - Discharge Summary Discharge Rx Participant: No New Discharge Prescriptions: Continue Bicalutamide [Casodex] 50 mg PO DAILY Cyanocobalamin (Vitamin B-12) [Vitamin B-12] 1,500 mcg PO DAILY Atorvastatin [Lipitor] 40 mg PO HS L.acidoph,Paracasei, B.lactis [Probiotic] 1 cap PO DAILY Albuterol Sulfate [Proventil Hfa] 2 puff INHALATION RT-Q4H PRN PRN Reason: Shortness Of Breath Aspirin EC [Ecotrin Low Dose] 81 mg PO DAILY Famotidine [Pepcid] 40 mg PO DAILY Meclizine [Antivert] 25 mg PO TID PRN PRN Reason: Vertigo Mirabegron [Myrbetriq] 50 mg PO DAILY Vitamin E 1,000 unit PO DAILY Cyclobenzaprine [Flexeril] 10 mg PO TID Acetaminophen Tab [Tylenol] 650 mg PO Q6HR PRN PRN Reason: Pain Ferrous Sulfate [Iron] 325 mg PO BID Magnesium Hydroxide [Milk of Magnesia Concentrate] 2,400 mg PO DAILY PRN ml PRN Reason: Constipation Oxybutynin ER [Ditropan Xl] 15 mg PO DAILY Benzocaine/Menthol Lozeng [Cepacol lozenge] 1 lozenge MUCOUS MEM Q4HR PRN PRN Reason: Sore Throat Losartan Potassium [Cozaar] 25 mg PO DAILY Sennosides-Docusate Sodium [Senokot-S] 1 tab PO DAILY PRN PRN Reason: Constipation HYDROcodone/APAP 5-325MG [[place] 5-325] 1 tab PO Q4HR PRN #18 tab PRN Reason: Pain Temazepam [Restoril] 30 mg PO HS PRN #3 cap PRN Reason: Insomnia traMADol HCl [Ultram] 50 mg PO Q8H PRN #9 tab PRN Reason: Pain ALPRAZolam [Xanax] 0.25 mg PO BID PRN 7 Days #14 tab PRN Reason: Anxiety Discontinued Omeprazole [PriLOSEC] 20 mg PO BID Discharge Medication List Bicalutamide [Casodex] 50 mg PO DAILY 06/07/14 [History] Cyanocobalamin (Vitamin B-12) [Vitamin B-12] 1,500 mcg PO DAILY 01/13/17 [History] Atorvastatin [Lipitor] 40 mg PO HS 03/07/17 [History] L.acidjeff,Paracasei, B.lactis [Probiotic] 1 cap PO DAILY 02/15/19 [History] Albuterol Sulfate [Proventil Hfa] 2 puff INHALATION RT-Q4H PRN 02/23/20 [History] Aspirin EC [Ecotrin Low Dose] 81 mg PO DAILY 02/23/20 [History] Famotidine [Pepcid] 40 mg PO DAILY 02/23/20 [History] Meclizine [Antivert] 25 mg PO TID PRN 02/23/20 [History] Mirabegron [Myrbetriq] 50 mg PO DAILY 02/23/20 [History] Vitamin E 1,000 unit PO DAILY 02/23/20 [History] Acetaminophen Tab [Tylenol] 650 mg PO Q6HR PRN 05/06/20 [History] Cyclobenzaprine [Flexeril] 10 mg PO TID 05/06/20 [History] Ferrous Sulfate [Iron] 325 mg PO BID 05/06/20 [History] Magnesium Hydroxide [Milk of Magnesia Concentrate] 2,400 mg PO DAILY PRN ml 05/13/20 [Rx] Benzocaine/Menthol Lozeng [Cepacol lozenge] 1 lozenge MUCOUS MEM Q4HR PRN 06/19/20 [History] Oxybutynin ER [Ditropan Xl] 15 mg PO DAILY 06/19/20 [History] Losartan Potassium [Cozaar] 25 mg PO DAILY 06/23/20 [History] Sennosides-Docusate Sodium [Senokot-S] 1 tab PO DAILY PRN 06/23/20 [History] ALPRAZolam [Xanax] 0.25 mg PO BID PRN 7 Days #14 tab 06/24/20 [Rx] HYDROcodone/APAP 5-325MG [[place] 5-325] 1 tab PO Q4HR PRN #18 tab 06/24/20 [Rx] Temazepam [Restoril] 30 mg PO HS PRN #3 cap 06/24/20 [Rx] traMADol HCl [Ultram] 50 mg PO Q8H PRN #9 tab 06/24/20 [Rx] Follow up Appointment(s)/Referral(s): Amarjit Edwards PAC [PHYSICIAN EQUIPMENT COORDINATOR] - 3 Weeks (Patient may follow-up with Amarjit Edwards PA-C or Dr. Surya Elliott at [facility] in 3 weeks following discharge. ) Royce Young MD [Primary Care Provider] - 1-2 days Activity/Diet/Wound Care/Special Instructions: 1. Wear LSO brace for comfort support during increased activities and ambulation 2. Avoid excessive bending, twisting, lifting activities Discharge Disposition: TRANSFER TO SNF/ECF
== END 2020-06-24 17:48 ==
LOC: EC 06:04 → 6NMEDSUR 08:43
PROVIDERS: ADMIT Family Medicine; ATTEND Family Medicine
DX: M54.16 Radiculopathy, lumbar region (principal); M54.14 Radiculopathy, thoracic region; E86.0 Dehydration; K59.00 Constipation, unspecified; R19.5 Other fecal abnormalities; M48.061 Spinal stenosis, lumbar region without neurogenic claudication; M43.9 Deforming dorsopathy, unspecified; M48.56XA Collapsed vertebra, not elsewhere classified, lumbar region, initial encounter for fracture; G89.29 Other chronic pain; F41.9 Anxiety disorder, unspecified; E78.5 Hyperlipidemia, unspecified; K21.9 Gastro-esophageal reflux disease without esophagitis; M19.90 Unspecified osteoarthritis, unspecified site; N28.9 Disorder of kidney and ureter, unspecified; K44.9 Diaphragmatic hernia without obstruction or gangrene; K57.90 Diverticulosis of intestine, part unspecified, without perforation or abscess without bleeding; D64.9 Anemia, unspecified; R53.1 Weakness; D72.829 Elevated white blood cell count, unspecified; E87.1 Hypo-osmolality and hyponatremia; E87.3 Alkalosis; I51.7 Cardiomegaly; E87.8 Other disorders of electrolyte and fluid balance, not elsewhere classified; R94.4 Abnormal results of kidney function studies; Z79.82 Long term (current) use of aspirin; Z79.899 Other long term (current) drug therapy; Z79.891 Long term (current) use of opiate analgesic; Z88.5 Allergy status to narcotic agent; Z91.041 Radiographic dye allergy status; Z85.828 Personal history of other malignant neoplasm of skin; Z85.46 Personal history of malignant neoplasm of prostate; Z86.010 Personal history of colon polyps; Z87.442 Personal history of urinary calculi; Z96.653 Presence of artificial knee joint, bilateral; Z96.641 Presence of right artificial hip joint; Z90.79 Acquired absence of other genital organ(s); Z85.47 Personal history of malignant neoplasm of testis; Z74.01 Bed confinement status
CPT/HCPCS: 96376; 96361 ×3; 96372 ×2; 96374; 96375; 99285; 36415; 97110; 97162; 97166; 80053; 80048; 82150; 83690; 85025 ×2; 81001; 87635; 71046; 74176; G0378 ×2; J1644 ×2; J2405; J1885; J1170 ×2

== ENCOUNTER 2021-01-16 17:42 | Emergency (ER) | payer MEDICARE, OTHER ==
[2021-01-16 17:50] VITALS: BP 157/84; PULSE 75; RESP 20; TEMP 97.5
[2021-01-16] MEDS ORDERED: traMADol 50 MG TAB PO STA (18:21)
--- NOTE | 2021-01-16 19:09 | XR ---
Result: Clinical History: Pain. Comparison: None available. Technique: 3 views of the right shoulder. Findings: There is generalized osteopenia. There is linear lucency within the humeral head/neck region, suspicious for nondisplaced fracture. Th ere is inferior subluxation of the glenohumeral joint. Impression: Suspicious proximal humeral fracture. Consider CT for optimal evaluation. Inferior subluxation of the glenohumeral joint which can be seen with joint effusion.
--- NOTE | 2021-01-16 20:24 | ED ---
Fall HPI - General Chief Complaint: Fall Stated Complaint: Fall/shoulder injury Time Seen by Provider: 01/16/21 18:11 Source: patient Mode of arrival: wheelchair - History of Present Illness Initial Comments: 85-year-old male presented emergency Department with a chief complaint of a fall. Patient reports this occurred about 2 hours prior to arrival. Patient reports he suffered a mechanical fall from a standing position on a crack on the sidewalk. Patient states he tripped and fell on the right side of his body. He reports pain in the right shoulder and is not able to move it in any direction. Reports the pain is exacerbated with any movement. He denies any head injuries also consciousness of blood thinners. - Related Data Home Medications Medication Instructions Recorded Confirmed Bicalutamide [Casodex] 50 mg PO DAILY 06/07/14 01/16/21 Cyanocobalamin (Vitamin B-12) 1,000 mcg PO DAILY 01/13/17 01/16/21 [Vitamin B-12] Albuterol Sulfate [Proventil Hfa] 2 puff INHALATION RT-Q4H PRN 02/23/20 01/16/21 Aspirin EC [Ecotrin Low Dose] 81 mg PO HS 02/23/20 01/16/21 Famotidine [Pepcid] 40 mg PO DAILY 02/23/20 01/16/21 Cyclobenzaprine [Flexeril] 10 mg PO TID PRN 05/06/20 01/16/21 Ferrous Sulfate [Iron] 325 mg PO BID 05/06/20 01/16/21 Benzocaine/Menthol Lozeng [Cepacol 1 lozenge MUCOUS MEM Q4HR PRN 06/19/2001/16 lozenge] Oxybutynin ER [Ditropan Xl] 15 mg PO DAILY 06/19/20 01/16/21 Losartan Potassium [Cozaar] 25 mg PO HS 06/23/20 01/16/21 Acetaminophen [Tylenol Arthritis] 650 mg PO Q8H PRN 01/16/21 01/16/21 Amoxicillin 2,000 mg PO ONCE PRN 01/16/21 01/16/21 Atorvastatin [Lipitor] 10 mg PO HS 01/16/21 01/16/21 Bismuth Subsalicylate 524 mg PO TID PRN 01/16/21 01/16/21 [Pepto-Bismol] Lactobacillus Acidophilus 1 cap PO BID 01/16/21 01/16/21 [Acidophilus Probiotic] Loperamide [Imodium] 2 - 4 mg PO QID PRN 01/16/21 01/16/21 Nystatin [Nystop] 1 applic TOPICAL BID 01/16/21 01/16/21 Polyethylene Glycol 3350 [Clearlax] 17 gm PO DAILY PRN 01/16/21 01/16/21 Polymyxin B-Trimeth Sulf Ophth 1 drop BOTH EYES Q6H 01/16/21 01/16/21 [Polytrim Opthalmic] Sennosides [Senna] 8.6 mg PO DAILY PRN 01/16/21 01/16/21 Sodium Chloride [Saline Nasal 1 spray EA NOSTRIL Q4H PRN 01/16/21 01/16/21 [place]] Vitamin E 400 unit PO HS 01/16/21 01/16/21 traZODone HCL 100 mg PO HS 01/16/21 01/16/21 Previous Rx's Medication Instructions Recorded ALPRAZolam [Xanax] 0.25 mg PO BID PRN 7 Days #14 tab 06/24/20 HYDROcodone/APAP 5-325MG [[place] 1 tab PO Q6HR PRN 3 Days #12 tab 01/16/21 5-325] Allergies Allergy/AdvReac Type Severity Reaction Status Date / Time Iodinated Contrast Media Allergy Swelling Verified 01/16/21 18:48 [Iodinated Contrast Media - IV Dye] hydrocodone bitartrate AdvReac Nausea Verified 01/16/21 18:48 [From Vicodin] Review of Systems ROS Statement: Those systems with pertinent positive or pertinent negative responses have been documented in the HPI. ROS Other: All systems not noted in ROS Statement are negative. Past Medical History Past Medical History: Cancer, GERD/Reflux, Hyperlipidemia, Osteoarthritis (OA), Renal Disease Additional Past Medical History / Comment(s): Severe chronic back pain/stenosis, recent L2/L3 compression fractures with kyphoplasties, bilateral sciatica, DJD, tingling in bilateral feet, bilateral leg weakness, prostate cancer with surgery/radiation, skin cancer removals, hiatal hernia, diverticular disease, benign colon polype, anemia, nephrolithiasis/pt passed stones on his own. 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 Past Anesthesia/Blood Transfusion Reactions: No Reported Reaction, Motion Sickness Past Psychological History: Anxiety Smoking Status: Never smoker Past Alcohol Use History: None Reported Past Drug Use History: None Reported - Past Family History Mother Family Medical History: No Reported History Additional Family Medical History / Comment(s): Mother was healthy and lived to be 82. Father Family Medical History: No Reported History Additional Family Medical History / Comment(s): Father was healthy. He lived to be 74 yrs old. General Exam Limitations: no limitations General appearance: alert, in no apparent distress Head exam: Present: atraumatic, normocephalic, normal inspection Eye exam: Present: normal appearance, PERRL, EOMI Pupils: Present: normal accommodation ENT exam: Present: normal exam, normal oropharynx, mucous membranes moist Neck exam: Present: normal inspection, full ROM. Absent: tenderness, lymphadenopathy Respiratory exam: Present: normal lung sounds bilaterally. Absent: respiratory distress, wheezes, rales, rhonchi, stridor, chest wall tenderness (No tenderness along the chest wall), accessory muscle use Cardiovascular Exam: Present: regular rate, normal rhythm, normal heart sounds GI/Abdominal exam: Present: soft. Absent: distended, tenderness, guarding, rebound Extremities exam: Present: normal inspection (Tenderness over the anterior aspect of the right deltoid.), tenderness (Tenderness over the region over the right deltoid), normal capillary refill, other (Palpable ulnar and radial pulses bilaterally). Absent: full ROM (Limited range of motion due to pain), pedal edema, joint swelling, calf tenderness Back exam: Present: normal inspection, full ROM. Absent: tenderness, CVA tenderness (R), CVA tenderness (L) Neurological exam: Present: alert, oriented X3 Psychiatric exam: Present: normal affect, normal mood Skin exam: Present: warm, dry, intact, normal color Course Vital Signs 01/16/21 17:43 Temperature 97.5 F L Pulse Rate 75 Respiratory 20 Rate Blood Pressure 157/84 O2 Sat by Pulse 95 Oximetry Medical Decision Making - Medical Decision Making 85-year-old male presents emergency Department with a chief complaint of a fall. This was a mechanical trip and fall from a standing level. No head injuries only to the right shoulder. He is otherwise neurovascularly intact. X-ray revealed an opacity and radiology recommended a CT which revealed an impacted humeral head fracture. I applied a sling to the patient. I also spoke to Genao PA who advised a sling and outpatient follow-up. Patient states that he would like to follow-up with Dr. Jasso who performed his other shoulder surgery. I will discharge him with 3 days of [place]. Opioid form signed. Case discussed with Disposition Clinical Impression: Fracture of neck of humerus, Fall Disposition: HOME SELF-CARE Condition: Stable Instructions (If sedation given, give patient instructions): Proximal Humerus Fracture (ED) Additional Instructions: Follow-up with carpentry specialist. Return to emergency department if symptoms worsen. Take prescribed medication as directed. Prescriptions: HYDROcodone/APAP 5-325MG [[place] 5-325] 1 tab PO Q6HR PRN 3 Days #12 tab PRN Reason: Pain Is patient prescribed a controlled substance at d/c from ED?: Yes If prescribed controlled substance>3 days was MAPS reviewed?: Prescribed <3 Days Referrals: Royce Young MD [Primary Care Provider] - 1-2 days Monster Jasso MD [STAFF PHYSICIAN] - 1-2 days Time of Disposition: 21:36
--- NOTE | 2021-01-16 20:27 | CT ---
Result: History: Follow-up shoulder pain/injury status post fall. Comparison: Same day radiographs. Technique: Noncontrast axial CT images of the right shoulder were obtained with images provided in lui ne and soft tissue algorithm. Coronal, sagittal and 3-D reformats were provided and reviewed. Autom ated dose control was used for this exam. Findings: The bone mineralization is age-appropriate. There is mildly impacted fracture of the humeral neck involving the greater tuberosity. No evidence o f dislocation. There is small to moderate joint effusion. There is soft tissue edema about the fracture site. The visualized right lung is unremarkable. Impression: Impacted right humeral head/neck fracture.
[2021-01-16] MEDS ORDERED: HYDROcodone/APAP 5-325MG 1 EACH TAB PO STA ×2 (20:48→21:30)
== END 2021-01-16 21:53 | disposition home or self-care (01) ==
LOC: EC 17:42
DX: S42.291A Other displaced fracture of upper end of right humerus, initial encounter for closed fracture (principal); E78.5 Hyperlipidemia, unspecified; F41.9 Anxiety disorder, unspecified; K21.9 Gastro-esophageal reflux disease without esophagitis; M19.90 Unspecified osteoarthritis, unspecified site; Z85.46 Personal history of malignant neoplasm of prostate; Z85.828 Personal history of other malignant neoplasm of skin; Z87.442 Personal history of urinary calculi; Z79.82 Long term (current) use of aspirin; Z79.899 Other long term (current) drug therapy; W01.0XXA Fall on same level from slipping, tripping and stumbling without subsequent striking against object, initial encounter
CPT/HCPCS: 99284

== ENCOUNTER 2021-03-10 08:59 | Day surgery (SDC) | payer MEDICARE, OTHER ==
[2021-03-08 14:59] VITALS: BMI 24.8
[~2021-03-10 08:59] MED LIST changes: +CYCLOPENTOLATE 1% OPHTH SOLN 2 ML BTL OP PRN; +LACTATED RINGERS 1,000 ML IV SCH; +LIDOCAINE 1% (10MG/ML) FOR IV START INTRADERMA PRN; +MOXIFLOXACIN HCL 0.5% DROPS 3 ML BTL OP PRN; +PHENYLEPHRINE 2.5% OPHTH DRP 2ML OP PRN; -SODIUM CHLORIDE 0.9% IRRIGATIO 1,000 ML IRRIGATION ONE; +TETRACAINE 0.5% OPHTH (PF) DROPS 4 ML BTL OP PRN; +TIMOLOL 0.5% OPHTH DROPS 5 ML BTL OP PRN
[2021-03-10 10:04] VITALS: RESP 18
[2021-03-10 10:05] VITALS: TEMP 97.8
[2021-03-10] MEDS ORDERED: fentaNYL (PF) 50 MCG/ML 2 ML AMP ONE (10:16)
[2021-03-10] MEDS ORDERED: MIDAZOLAM 2 MG/2 ML VIAL ONE (10:16)
[2021-03-10] MEDS ORDERED: EPINEPHrine (PF) 0.3 ML in BALANCED SALT IRRIG SOLN COMB2 500 ML IRRIGATION ONE (10:27)
[2021-03-10] MEDS ORDERED: LIDOCAINE 1% (PF) 10MG/ML VIAL MISCELLANE ONE (10:28)
[2021-03-10] MEDS ORDERED: HYALURONATE SODIUM INTRAOCULAR 1 EACH SYRINGE (12MG/ML) INTRAOCULA ONE (10:28)
[2021-03-10] MEDS ORDERED: BALANCED SALT IRRIG SOLN COMB2 15 ML IRRIG.SOLN INTRAOCULA ONE (10:28)
--- NOTE | 2021-03-10 10:45 | P.OP ---
Date of Procedure: 03/10/21 Preoperative Diagnosis: NS & CS Postoperative Diagnosis: same Procedure(s) Performed: PIOL< OD Implants: [id number] 19.50 Anesthesia: MAC Surgeon: Lee Yuan Pathology: none sent Condition: stable Disposition: same day Indications for Procedure: blurry vision Operative Findings: no complications
[2021-03-10 11:00] VITALS: BP 171/78; PULSE 60
--- NOTE | 2021-03-11 09:39 | OP ---
OPERATIVE REPORT DATE OF SURGERY: March 10, 2021 PROCEDURE PERFORMED: Phacoemulsification of cataract and intraocular lens implant of the right eye. 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 POSTOPERATIVE DIAGNOSES: Nuclear sclerosis. Cortical sclerosis. OPERATION: Clear cornea phacoemulsification of cataract right OD eye. ESTIMATED BLOOD LOSS: Zero. SPECIMEN TAKEN: None. NARRATIVE: After obtaining the appropriate consent, the patient was brought to the Operating Room where the patient was placed under cardiac monitoring and prepped and draped in the usual sterile manner. At the 11 o'clock position a 15 degree super sharp blade was used to create a paracentesis followed by instillation of 1% Xylocaine MPF 50:50 mix with BSS into the anterior chamber. This was followed by Amvisc to stabilize the anterior chamber. At the 9 o'clock position a self-sealing corneal flap incision was created using 2.8 mm claire keratome. A cystotome was used to initiate a continuous tear capsulorrhexis which was completed with the Utrata forceps. A Binkhorst cannula was used to hydrodissect the lens nucleus followed by hydrodelineation. Phacoemulsification of the lens was performed utilizing phacochop in 16.50 seconds at 15% power. The remaining cortical material was removed using the irrigation aspiration mode followed by additional 1% Xylocaine MPF into the anterior chamber followed by viscoelastic to stabilize the capsular bag. A [employer] MX60E 19.5 diopter posterior chamber lens was placed into the capsular bag without difficulty. The remaining viscoelastic material was removed from the anterior chamber with the irrigation/aspiration. Balanced salt solution was used to normalize the intraocular pressure. The incision was checked for watertight integrity. The patient then received two drops of 0.5% timolol followed by two drops Vigamox, was lightly patched and shielded in the usual manner. There were no complications from the procedure. The patient tolerated the procedure well and was returned to recovery in good condition. MMODL / IJN: [id number] /
== END 2021-03-10 11:23 | disposition home or self-care (01) ==
LOC: OR 08:59
PROVIDERS: ATTEND Ophthalmology
DX: H25.11 Age-related nuclear cataract, right eye (principal); H04.123 Dry eye syndrome of bilateral lacrimal glands; H16.223 Keratoconjunctivitis sicca, not specified as Sjogren's, bilateral; H35.363 Drusen (degenerative) of macula, bilateral; H52.03 Hypermetropia, bilateral; H52.4 Presbyopia; H52.223 Regular astigmatism, bilateral; H00.023 Hordeolum internum right eye, unspecified eyelid; H00.026 Hordeolum internum left eye, unspecified eyelid; H25.12 Age-related nuclear cataract, left eye; H25.011 Cortical age-related cataract, right eye; H25.012 Cortical age-related cataract, left eye; E78.5 Hyperlipidemia, unspecified; K21.9 Gastro-esophageal reflux disease without esophagitis; Z79.899 Other long term (current) drug therapy; R53.1 Weakness; R20.2 Paresthesia of skin
CPT/HCPCS: 66984; C1780; J2250; J0171; J3010; J2001

== ENCOUNTER → 2021-03-24 | Day surgery (SDC) | payer MEDICARE, OTHER ==
[2021-03-23 08:41] VITALS: BMI 24.8
[~2021-03-24] MED LIST changes: +BALANCED SALT IRRIG SOLN COMB2 15 ML IRRIG.SOLN INTRAOCULA ONE; +EPINEPHrine (PF) 0.3 ML in BALANCED SALT IRRIG SOLN COMB2 500 ML IRRIGATION ONE; +HYALURONATE SODIUM INTRAOCULAR 1 EACH SYRINGE (12MG/ML) INTRAOCULA ONE; +LIDOCAINE 1% (PF) 10MG/ML VIAL SQ ONE; +MIDAZOLAM 2 MG/2 ML VIAL ONE; +fentaNYL (PF) 50 MCG/ML 2 ML AMP ONE
[2021-03-24 11:40] VITALS: RESP 16; TEMP 97.6
--- NOTE | 2021-03-24 13:00 | P.OP ---
Date of Procedure: 03/24/21 Preoperative Diagnosis: NS & CS Postoperative Diagnosis: same Procedure(s) Performed: PIOL, OS Implants: MX60E 21.50 Anesthesia: MAC Surgeon: Lee Yuan Pathology: none sent Condition: stable Disposition: same day Indications for Procedure: blurry vision Operative Findings: no complications
[2021-03-24 13:21] VITALS: BP 184/89; PULSE 61
--- NOTE | 2021-03-25 09:47 | OP ---
OPERATIVE REPORT DATE OF SURGERY: March 24, 2021 PROCEDURE: Phacoemulsification of cataract and intraocular lens implant of the left eye. SURGEON: Dr. Lee Yuan. 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 POSTOPERATIVE DIAGNOSES: Nuclear sclerosis. Cortical sclerosis. OPERATION: Clear cornea phacoemulsification of cataract left/OS eye. ESTIMATED BLOOD LOSS: Zero. SPECIMEN TAKEN: None. NARRATIVE: After obtaining the appropriate consent, the patient was brought to the Operating Room where the patient was placed under cardiac monitoring and prepped and draped in the usual sterile manner. At the 5 o'clock position a 15 degree super sharp blade was used to create a paracentesis followed by instillation of 1% Xylocaine MPF 50:50 mix with BSS into the anterior chamber. This was followed by Amvisc to stabilize the anterior chamber. At the 3 o'clock position a self-sealing corneal flap incision was created using 2.8 mm claire keratome. A cystotome was used to initiate a continuous tear capsulorrhexis which was completed with the Utrata forceps. A Binkhorst cannula was used to hydrodissect the lens nucleus followed by hydrodelineation. Phacoemulsification of the lens was performed utilizing phacochop in 15.78 seconds at 17% power. The remaining cortical material was removed using the irrigation aspiration mode followed by additional 1% Xylocaine MPF into the anterior chamber followed by viscoelastic to stabilize the capsular bag. A [employer] Lomb MX60E 21.5 diopter posterior chamber lens was placed into the capsular bag without difficulty. The remaining viscoelastic material was removed from the anterior chamber with the irrigation/aspiration. Balanced salt solution was used to normalize the intraocular pressure. The incision was checked for watertight integrity. The patient then received two drops of 0.5% timolol followed by two drops Vigamox, was lightly patched and shielded in the usual manner. There were no complications from the procedure. The patient tolerated the procedure well and was returned to recovery in good condition. MMODL / IJN: [id number] /
== END | disposition home or self-care (01) ==
LOC: OR 10:50
PROVIDERS: ATTEND Ophthalmology
DX: H25.12 Age-related nuclear cataract, left eye (principal); H25.012 Cortical age-related cataract, left eye; H00.026 Hordeolum internum left eye, unspecified eyelid; H00.023 Hordeolum internum right eye, unspecified eyelid; H52.223 Regular astigmatism, bilateral; H52.03 Hypermetropia, bilateral; H16.223 Keratoconjunctivitis sicca, not specified as Sjogren's, bilateral; H04.123 Dry eye syndrome of bilateral lacrimal glands; H52.4 Presbyopia; H35.363 Drusen (degenerative) of macula, bilateral; Z98.41 Cataract extraction status, right eye; Z96.1 Presence of intraocular lens; Z96.641 Presence of right artificial hip joint; Z96.653 Presence of artificial knee joint, bilateral; Z96.612 Presence of left artificial shoulder joint; Z90.79 Acquired absence of other genital organ(s); Z98.890 Other specified postprocedural states; Z92.3 Personal history of irradiation; Z79.891 Long term (current) use of opiate analgesic; Z79.899 Other long term (current) drug therapy; H91.90 Unspecified hearing loss, unspecified ear; M19.90 Unspecified osteoarthritis, unspecified site; Z85.828 Personal history of other malignant neoplasm of skin; D64.9 Anemia, unspecified; J30.2 Other seasonal allergic rhinitis
CPT/HCPCS: 66984; C1780; J2250; J0171; J3010; J2001

== ENCOUNTER → 2022-01-31 | Outpatient (CLI) | payer MEDICARE, OTHER ==
[2022-01-31 14:25] VITALS: BP 143/85; PULSE 61; RESP 18; TEMP 98.1
--- NOTE | 2022-01-31 14:39 | P.CON ---
Consult Note - . Consult date: 01/31/22 Assessment/Plan:: HISTORY OF PRESENT ILLNESS: 86 yr old male as a referral from Dr Elliott presents today with severe and chronic LBP x 2-3 yrs secondary to DDD presents today for evaluation. Pt states his LBP spans across the BL lower lumbar spine, 4/10 in intensity, dull ache & constant in character with radiation of pain down the BLEs. Unknown provacative factors. Pain is alleviated slightly with PT currently for his knee s/p knee replacement, heat, medications (Tylenol OTC, Lidocaine cream), home walking regimen, repositioning and rest. Past Medical History: Prostate CA, GERD, HTN, Hyperlipidemia, OA, Renal Disease, Anxiety Past Surgical History: L2, L3 Kyphoplasty (2019), Hx of LESIs, Nephrolithiasis, Total L shoulder replacement, R knee arthroscopy with total replacement, Total L Knee, Total R Hip, L wrist/arm surgery as child/hardware removed, Prostatectomy, BL Orchiectomy, EGD, colonoscopy with polypectomy, basal cell skin cancer removal L ear and chest. Social History: Negative x 3. Lives in senior housing. Family History: Mother- No Reported History. Father- No Reported History All: See list Meds: See list REVIEW OF ORGAN SYSTEMS: CONSTITUTIONAL: No fevers or chills. No recent weight loss. HEENT: No visual acuity loss, eye pain, difficulties with hearing. No nosebleeds. No difficulty swallowing. RESPIRATORY: Denies any troubles with breathing or dyspnea on exertion. CARDIOVASCULAR: Denies any chest pain, palpitations, or recent heart attacks. GASTROINTESTINAL: Denies fatty food intolerance. Has change in bowel habits and gas bloat. GENITOURINARY: Denies any blood in urine. Has increased urinary frequency. NEUROLOGICAL: + numbness and tingling along the distal extremities. No seizure disorders or headaches. MUSCULOSKELETAL: + back pain SKIN: No skin cancer. No rash. PSYCHIATRIC: Denies current depression or suicidal thoughts. ENDOCRINE: Denies current thyroid disorders. Denies any blood sugar glucose intolerance. HEME/LYMPHATIC: Denies any lumps and bumps around the neck. History of deep venous thrombosis. ALLERGY/IMMUNOLOGY: No immunoglobulin therapy. No immune deficiencies. BREAST: Denies current breast lumps, pain or nipple discharge. Physical Examinations : Constitutional : Cooperative , not in acute distress . HEENT: Neck supple. No Lymphadenopathy. Normal thyroid size . Eyes no ptosis , no icterus, no photophobia . Hearing intact. Normal oropharynx. No Thrush. Respiratory : Chest clear to auscultations bilaterally. No wheezing. No rhonchi. Cardiovascular : Regular rate and rhythm , S1 / S2. No S3 . No S4. Gastrointestinal : Abdomen soft. No tenderness. Bowel sounds x 4. No organomegaly . Genitourinary : Deferred. Neurologic : Cranial nerve II to XII intact. No focal neur ological deficits. Psychiatric : alert & oriented x 3. Matching mood & appropriate affect. Judgment & insight intact. Lymphatic No Lymphadenopathy. Musculoskeletal : Cervical Spine Motor strength in the deltoid and biceps: Normal right side. Normal Left side Motor strength biceps and the wrist extensors: Normal right side . Normal left side Motor strength in the triceps muscle: Normal right side. Normal left side Deep tendon reflexes: Normal at the biceps. Normal at Brachioradialis. Normal at triceps Cervical facet loading test: positive bilaterally Spurling test: positive bilaterally Neck distraction test: positive bilaterally Lj sign: positive bilaterally Thoracic spine Motor strength lower extremities ,thigh and legs 5/5 Right side , 5/5 Left side Deep tendon reflexes : Normal Knee Jerk. Normal Ankle Jerk Vertebral body tenderness over Lumbar facet Loading Test: positive Right / positive Left BL T5-T6, T6-T7 Range of motion of the lumbar spine Flexion 30 degrees, extension 10 degrees Straight Leg Raise test: Left/ Right positive at degree Luan test: positive right / positive left. Severe tenderness over the Sacroiliac joint on the Right / Left sides Gaenslen test: positive bilaterally Seated flexion test: positive bilaterally. Sacral spine : Severe tenderness over the Sacroiliac joint: right side / left side Range of motion: Flexion of the lumbar spine <60 degrees Range of motion: Extension of the lumbar spine <20 degrees Gaenslen's Test positive Javno's Test positive Luan test: positive right side / left side Thigh Thrust Test Sacral Thrust Test Imaging: Whole Body Bone Scan from 01/05/22 reviewed. Assessment/ Plan : Lumbar radiculopathy Recommendation of BL facet blocks of the medial branches BL T5-T6, T6-T7. May need a series of injections, up until RFA, for optimal pain relief. Risks, benefits of procedure discussed and patient verbalized understanding. Denies medical history of diabetes. Admits to ASA 81 mg use. Protocol for discontinuation/ continuation of medications mark procedure discussed. All questions answered. I have spent greater than 50 minutes on patient care today. Dr Valdez was available by phone for the evaluation of this patient. The time was used to review the medical records including relevant urine studies and Prescription history (MAPs), review of the available imaging, evaluation and examination of the patient, coordination of care with the medical staff and if applicable referring physicians, as well as creation of the medical record PQRS Measure Charge Sheet Mode of Arrival: Ambulatory - Pain Location Bilateral Lower Back Non-Pharmacological Interventions: Exercise, Heat, Massage, Position/Reposition Pharmacological Interventions: PRN Medication, Topical Medication PQRS Narrative: Smoking Status Never smoker Blood Pressure 143/85 Pain Intensity [Bilateral 4 Lower Back] Scale Used Numeric (1 - 10) Hx Alcohol Use (MH) Yes: RARELY Home Medications: Ambulatory Orders Bicalutamide [Casodex] 50 mg PO DAILY 06/07/14 Cyanocobalamin (Vitamin B-12) [Vitamin B-12] 1,000 mcg PO DAILY 01/13/17 Albuterol Sulfate [Proventil Hfa] 2 puff INHALATION RT-Q4H PRN 02/23/20 Aspirin EC [Ecotrin Low Dose] 81 mg PO HS 02/23/20 Famotidine [Pepcid] 40 mg PO DAILY 02/23/20 Cyclobenzaprine [Flexeril] 10 mg PO TID PRN 05/06/20 Ferrous Sulfate [Iron] 325 mg PO BID 05/06/20 Benzocaine/Menthol Lozeng [Cepacol lozenge] 1 lozenge MUCOUS MEM Q4HR PRN 06/19/20 Oxybutynin ER [Ditropan Xl] 15 mg PO DAILY 06/19/20 Losartan Potassium [Cozaar] 25 mg PO HS 06/23/20 ALPRAZolam [Xanax] 0.25 mg PO BID PRN 7 Days #14 tab 06/24/20 Acetaminophen [Tylenol Arthritis] 650 mg PO Q8H PRN 01/16/21 Amoxicillin 2,000 mg PO ONCE PRN 01/16/21 Atorvastatin [Lipitor] 10 mg PO HS 01/16/21 Bismuth Subsalicylate [Pepto-Bismol] 524 mg PO TID PRN 01/16/21 HYDROcodone/APAP 5-325MG [[place] 5-325] 1 tab PO Q6HR PRN 3 Days #12 tab 01/16/21 Lactobacillus Acidophilus [Acidophilus Probiotic] 1 cap PO BID 01/16/21 Loperamide [Imodium] 2 - 4 mg PO QID PRN 01/16/21 Nystatin [Nystop] 1 applic TOPICAL BID PRN 01/16/21 Sennosides [Senna] 8.6 mg PO DAILY PRN 01/16/21 Vitamin E 400 unit PO HS 01/16/21 traZODone HCL 100 mg PO HS 01/16/21 Artificial Tears-Hypromellose [Artificial Tear Drops] 1 drops BOTH EYES DAILY PRN 03/08/21 Bacitracin Ophth Ointment 1 applic BOTH EYES DIRECTED PRN 03/08/21 traMADol HCL [Ultram] 50 mg PO Q8H PRN 03/08/21
== END ==
LOC: PNWHC3 13:26
PROVIDERS: ATTEND Specialist
DX: M54.16 Radiculopathy, lumbar region (principal); E78.5 Hyperlipidemia, unspecified; F41.9 Anxiety disorder, unspecified; I10 Essential (primary) hypertension; Z91.041 Radiographic dye allergy status; Z88.5 Allergy status to narcotic agent
CPT/HCPCS: 99211

== ENCOUNTER → 2022-03-15 | Outpatient (CLI) | payer MEDICARE, OTHER ==
--- NOTE | 2022-03-16 05:57 | MR ---
EXAMINATION TYPE: MR thoracic spine wo con DATE OF EXAM: 03/15/2022 COMPARISON: None HISTORY: Back pain Multiplanar multiecho imaging of the thoracic spine without contrast. There is some mild thoracic kyphotic deformity related to multiple compression fractures. There is we dging of T6 vertebra 30%. There is compression of T7 vertebra 20%. There is T9 compression deformity 80%. There is T10 wedging 30%. There is T12 compression 30%. There is L1 and L2 compression fractures 75%. There is variable signal pattern in the compressed vertebra that could relate to some new or fr actures. Vertebra at T9 and T8 T10 and T12 vertebra show increased signal on the T2 images that sugge sts more acute fractures. There is no paraspinal mass. Cervical spine appears intact. 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 No evidence of any significant thoracic spinal stenosis. No evidence of a burst fracture.
== END | disposition home or self-care (01) ==
LOC: RADMRIMAIN 12:45
PROVIDERS: ATTEND Specialist
DX: M80.88XA Other osteoporosis with current pathological fracture, vertebra(e), initial encounter for fracture (principal); M51.34 Other intervertebral disc degeneration, thoracic region
CPT/HCPCS: 72146

== ENCOUNTER → 2022-03-16 | Outpatient (CLI) | payer MEDICARE, OTHER ==
--- NOTE | 2022-03-16 09:47 | MR ---
EXAMINATION TYPE: MR lumbar spine wo con DATE OF EXAM: 03/16/2022 COMPARISON: NONE HISTORY: Lumbar radiculopathy TECHNIQUE: T1 and T2 axial and sagittal images of the lumbar spine are submitted. FINDINGS: There is no abnormal signal seen within the visualized spinal cord or paraspinal soft tissu es. There is evidence of vertebroplasty at L2 and L3 with compression fractures appears severe at the levels T12-L3. There is a complete compression fracture suspected in the region of T9 only partially included on the exam. Suggest retropulsion. Recommend thoracic spine MRI. Incidental note made of hy pertrophic arthropathy of the SI joints. At L1-2 there is mild posterior spondylosis and retropulsion from the compression fractures with broa d-based central disc bulging. Hypertrophic change of the facets and ligamentum flavum contribute to b orderline canal stenosis. Mild to moderate bilateral foraminal approach. At L2-3 there is circumferential disc bulging with hypertrophy ligamentum flavum and facets resulting in mild central stenosis and moderate bilateral foraminal protrusion. Severe compression fractures w ith vertebroplasty L2 and L3. At L3-4 there is a posterior spondylosis and retropulsion of the compression fracture of L3. Broad-ba sed disc bulging with hypertrophy ligamentum flavum and facets results in mild to moderate canal sten osis with bilateral foraminal approach. At L4-5 there is mild superior endplate compression fracture L4 with severe ligamentum flavum hypertr ophy and facet arthropathy resulting in moderate canal stenosis and bilateral foraminal protrusion. At L5-S1 there is severe facet arthropathy with broad-based disc bulging spurring anteriorly. There i s posterior spondylosis with moderate bilateral foraminal encroachment. No disc herniation seen. Mild central disc bulging diminutive spinal canal results in borderline canal stenosis. IMPRESSION: 1. Numerous significant compression fractures all appear chronic. There is a complete compression fra cture in the region of T9 which is only partially included with suggestion of retropulsion. This is b eing reported on recent thoracic spine MRI. Retropulsion at this level approaches the anterior margin of the spinal cord on the sagittal image. Correlate clinically. 2. Multilevel canal stenosis and foraminal encroachment due to the compression fractures with retropu lsion, facet arthropathy, ligamentum flavum hypertrophy, and disc bulging as discussed above.
== END | disposition home or self-care (01) ==
LOC: RADMRIMAIN 08:39
PROVIDERS: ATTEND Orthopaedic Surgery
DX: M54.41 Lumbago with sciatica, right side (principal); M25.562 Pain in left knee; M25.561 Pain in right knee; M25.551 Pain in right hip; Z96.652 Presence of left artificial knee joint; Z47.1 Aftercare following joint replacement surgery
CPT/HCPCS: 72148

== ENCOUNTER 2023-05-09 19:41 | Emergency (ER) | payer MEDICARE, OTHER ==
--- NOTE | 2023-05-09 19:47 | ED ---
Abdominal Pain HPI - General Source: patient, RN notes reviewed Mode of arrival: ambulatory Limitations: no limitations - History of Present Illness MD Complaint: abdominal pain <Yodit Rubin - Last Filed: 05/09/23 19:44> <Amarjit Batsita - Last Filed: 05/09/23 23:06> - General Chief Complaint: Abdominal Pain Stated Complaint: vommitting Time Seen by Provider: 05/09/23 19:44 - History of Present Illness Initial Comments: This is an 88 year old male who presents to the emergency department for abdominal pain, nausea, and vomiting. States that earlier today he developed RUQ abdominal pain radiating into the back with associated nausea and vomiting. Denies any fevers or chills. (oYdit Rubin) 88 male presenting to the ED with chief complaint of nausea. Prior to my evaluation, patient noted abdominal pain that radiates somewhat to his back. With associated nausea and vomiting starting today. Upon my evaluation, patient reports pain has completely resolved and nausea greatly improved. Denies chest pain or shortness of breath. Denies fever. No other complaints. (Amarjit Batista) - Related Data Home Medications Medication Instructions Recorded Confirmed Bicalutamide [Casodex] 50 mg PO DAILY 06/07/14 01/31/22 Cyanocobalamin (Vitamin B-12) 1,000 mcg PO DAILY 01/13/17 01/31/22 [Vitamin B-12] Albuterol Sulfate [Proventil Hfa] 2 puff INHALATION RT-Q4H PRN 02/23/20 01/31/22 Aspirin EC [Ecotrin Low Dose] 81 mg PO HS 02/23/20 01/31/22 Famotidine [Pepcid] 40 mg PO DAILY 02/23/20 01/31/22 Cyclobenzaprine [Flexeril] 10 mg PO TID PRN 05/06/20 01/31/22 Ferrous Sulfate [Iron] 325 mg PO BID 05/06/20 01/31/22 Benzocaine/Menthol Lozeng [Cepacol 1 lozenge MUCOUS MEM Q4HR PRN 06/19/20 01/31/22 lozenge] Oxybutynin ER [Ditropan XL] 15 mg PO DAILY 06/19/20 01/31/22 Losartan Potassium [Cozaar] 25 mg PO HS 06/23/20 01/31/22 Acetaminophen [Tylenol Arthritis] 650 mg PO Q8H PRN 01/16/21 01/31/22 Amoxicillin 2,000 mg PO ONCE PRN 01/16/21 01/31/22 Atorvastatin [Lipitor] 10 mg PO HS 01/16/21 01/31/22 Bismuth Subsalicylate 524 mg PO TID PRN 01/16/21 01/31/22 [Pepto-Bismol] Lactobacillus Acidophilus 1 cap PO BID 01/16/21 01/31/22 [Acidophilus Probiotic] Loperamide [Imodium] 2 - 4 mg PO QID PRN 01/16/21 01/31/22 Nystatin [Nystop] 1 applic TOPICAL BID PRN 01/16/21 01/31/22 Sennosides [Senna] 8.6 mg PO DAILY PRN 01/16/21 01/31/22 Vitamin E 400 unit PO HS 01/16/21 01/31/22 traZODone HCL 100 mg PO HS 01/16/21 01/31/22 Artificial Tears-Hypromellose 1 drops BOTH EYES DAILY PRN 03/08/21 01/31/22 [Artificial Tear Drops] Bacitracin Ophth Ointment 1 applic BOTH EYES DIRECTED PRN 03/08/21 01/31/22 traMADol HCL [Ultram] 50 mg PO Q8H PRN 03/08/21 01/31/22 Previous Rx's Medication Instructions Recorded ALPRAZolam [Xanax] 0.25 mg PO BID PRN 7 Days #14 tab 06/24/20 HYDROcodone/APAP 5-325MG [Borger 1 tab PO Q6HR PRN 3 Days #12 tab 01/16/21 5-325] Allergies Allergy/AdvReac Type Severity Reaction Status Date / Time Iodinated Contrast Media Allergy Swelling Verified 05/09/23 19:46 [Iodinated Contrast Media - IV Dye] hydrocodone bitartrate AdvReac Nausea Verified 05/09/23 19:46 [From Vicodin] Review of Systems ROS Other: All systems not noted in ROS Statement are negative. <Yodit Rubin - Last Filed: 05/09/23 19:44> ROS Other: All systems not noted in ROS Statement are negative. <Amarjit Batista - Last Filed: 05/09/23 23:06> ROS Statement: Those systems with pertinent positive or pertinent negative responses have been documented in the HPI. Past Medical History Past Medical History: Cancer, GERD/Reflux, Hyperlipidemia, Osteoarthritis (OA), Renal Disease Additional Past Medical History / Comment(s): Severe chronic back pain/stenosis, recent L2/L3 compression fractures with kyphoplasties, bilateral sciatica, DJD, tingling in bilateral feet, bilateral leg weakness, prostate cancer with surgery/radiation, skin cancer removals, hiatal hernia, diverticular disease, benign colon polype, anemia, nephrolithiasis/pt passed stones on his own. History of Any Multi-Drug Resistant Organisms: None Reported Past Surgical History: Back Surgery, Joint Replacement Additional Past Surgical History / Comment(s): 03/10/20 L3 kyphoplasty, 05/11/20 L2 kyphoplasty, epidural back injections, total L shoulder, R knee scope then partial replacement, total L knee, total R hip, L wrist/arm surgery as child/hardware removed, prostatectomy, bilateral orchiectomy, EGD, colonoscopy with polypectomy, basal cell skin cancer removal L ear and chest. , cataract removed right eye 03-10-21 Past Anesthesia/Blood Transfusion Reactions: No Reported Reaction, Motion Sickness Smoking Status: Never smoker - Past Family History Mother Family Medical History: No Reported History Additional Family Medical History / Comment(s): Mother was healthy and lived to be 82. Father Family Medical History: No Reported History Additional Family Medical History / Comment(s): Father was healthy. He lived to be 74 yrs old. <Yodit Rubin - Last Filed: 05/09/23 19:44> General Exam <Yodit Rubin - Last Filed: 05/09/23 19:44> Limitations: no limitations General appearance: alert, in no apparent distress Eye exam: Present: normal appearance Neck exam: Present: normal inspection Respiratory exam: Present: normal lung sounds bilaterally Cardiovascular Exam: Present: regular rate, normal rhythm GI/Abdominal exam: Present: soft (No Tenderness to palpation. No rebound gu arding or rigidity.) Extremities exam: Present: normal inspection Neurological exam: Present: alert, oriented X3 <Amarjit Batista - Last Filed: 05/09/23 23:06> - General Exam Comments Initial Comments: Visual Physical Exam Vital signs reviewed General: Well-appearing, nontoxic, no acute distress. Head: Normocephalic, atraumatic Eyes: PERRLA, EOMI ENT: Airway patent Chest: Nonlabored breathing Skin: No visual rash, normal skin tone Neuro: Alert and oriented 3 Musculoskeletal: No gross abnormalities I performed the QuickNote portion of this chart. Signed Yodit Rubin PA-C. (Yodit Rubin) Course Vital Signs 05/09/23 19:43 Temperature 97.7 F Pulse Rate 81 Respiratory 20 Rate Blood Pressure 134/75 O2 Sat by Pulse 93 L Oximetry Medical Decision Making - Lab Data Result diagrams: 05/09/23 20:02 05/09/23 20:02 <Amarjit Batista - Last Filed: 05/09/23 23:06> - Medical Decision Making Was pt. sent in by a medical professional or institution (GERSON Palmer, REAL ESTATE SERVICES COORDINATOR, urgent care, hospital, or senior care...) When possible be specific @ -No Did you speak to anyone other than the patient for history (EMS, parent, family, police, friend...)? What history was obtained from this source @ -No Did you review nursing and triage notes (agree or disagree)? Why? @ -I reviewed and agree with nursing and triage notes Were old charts reviewed (outside hosp., previous admission, EMS record, old EKG, old radiological studies, urgent care reports/EKG's, senior care records)? Report findings @ -No old charts were reviewed Differential Diagnosis (chest pain, altered mental status, abdominal pain women, abdominal pain men, vaginal bleeding, weakness, fever, dyspnea, syncope, headache, dizziness, GI bleed, back pain, seizure, CVA, palpatations, mental health, musculoskeletal)? @ -Differential Abdominal Pain Men: Appendicitis, cholecystitis, diverticulosis, ischemic bowel, pancreatitis, h epatitis, UTI, gastroenteritis, AAA, incarcerated hernia, bowel obstruction, constipation, inflammatory bowel, hepatitis, peptic ulcer disease, splenic infarction, perforated viscus, testicular torsion, this is not meant to be an all-inclusive list EKG interpreted by me (3pts min.). @ -EKG interpreted by me shows a sinus rhythm with occasional premature beats at [address] or T-wave changes. MT 170, QRS 97, QT/QTc 413/428. X-rays interpreted by me (1pt min.). @ -None done CT interpreted by me (1pt min.). @ -CT interpreted by me showing widemouth hiatal hernia. U/S interpreted by me (1pt. min.). @ -None done What testing was considered but not performed or refused? (CT, X-rays, U/S, labs)? Why? @ -None What meds were considered but not given or refused? Why? @ -None Did you discuss the management of the patient with other professionals (professionals i.e. DrColten, PA, REAL ESTATE SERVICES COORDINATOR, lab, RT, psych nurse, social professionals, digital traffic coordinator, teacher, bsa/aml compliance officer, case loader operator)? Give summary @ -No Was smoking cessation discussed for >3mins.? @ -No Was critical care preformed (if so, how long)? @ -No Were there social determinants of health that impacted care today? How? (Homelessness, low income, unemployed, alcoholism, drug addiction, transportation, low edu. Level, literacy, decrease access to med. care, [facility], rehab)? @ -No Was there de-escalation of care discussed even if they declined (Discuss DNR or withdrawal of care, Hospice)? DNR status @ -No What co-morbidities impacted this encounter? (DM, HTN, Smoking, COPD, CAD, Cancer, CVA, ARF, Chemo, Hep., AIDS, mental health diagnosis, sleep apnea, morbid obesity)? @ -None Was patient admitted / discharged? Hospital course, mention meds given and route, prescriptions, significant lab abnormalities, going to OR and other pertinent info. @ -Discharge 88-year-old male presents to the ED with 1 day history of abdominal pain and nausea. Upon evaluation, abdominal pain resolved and nausea greatly improved. Auditory studies did reveal a white blood cell count elevated at 18.6 however laboratory studies including LFTs otherwise unremarkable. CT of the abdomen and pelvis showed widemouth hiatal hernia. Findings were discussed with patient. At this time, patient states symptoms are improved and notes that he would like to go home. Patient was offered observation with consult to general surgery however at this time states that he would prefer discharge and referral to follow up. Patient discharged home in stable condition. Discussed return precautions with patient who verbalizes agreement. Undiagnosed new problem with uncertain prognosis? @ -No Drug Therapy requiring intensive monitoring for toxicity (Heparin, Nitro, Insulin, Cardizem)? @ -No Were any procedures done? @ -No Diagnosis/symptom? @ -Hiatal hernia Acute, or Chronic, or Acute on Chronic? @ -Acute on chronic Uncomplicated (without systemic symptoms) or Complicated (systemic symptoms)? @ -Uncomplicated Side effects of treatment? @ -No Exacerbation, Progression, or Severe Exacerbation? @ -No Poses a threat to life or bodily function? How? (Chest pain, USA, CO, pneumonia, PE, COPD, DKA, ARF, appy, cholecystitis, CVA, Diverticulitis, Homicidal, Suicidal, threat to staff... and all critical care pts) @ -No (Amarjit Batista) - Lab Data Lab Results 05/09/23 05/09/23 05/09/23 Range/Units 20:02 20:02 20:02 WBC 18.7 H (3.8-10.6) k/uL RBC 5.40 (4.30-5.90) m/uL Hgb 16.8 (13.0-17.5) gm/dL Hct 50.6 (39.0-53.0) % MCV 93.8 (80.0-100.0) fL MCH 31.1 (25.0-35.0) pg MCHC 33.1 (31.0-37.0) g/dL RDW 13.3 (11.5-15.5) % Plt Count 186 (150-450) k/uL MPV 8.5 Neutrophils % 73 % Lymphocytes % 23 % Monocytes % 3 % Eosinophils % 1 % Basophils % 0 % Neutrophils # 13.5 H (1.3-7.7) k/uL Lymphocytes # 4.3 (1.0-4.8) k/uL Monocytes # 0.5 (0-1.0) k/uL Eosinophils # 0.1 (0-0.7) k/uL Basophils # 0.0 (0-0.2) k/uL Sodium 138 (137-145) mmol/L Potassium 4.7 (3.5-5.1) mmol/L Chloride 105 (98-107) mmol/L Carbon Dioxide 22 (22-30) mmol/L Anion Gap 11 mmol/L BUN 18 (9-20) mg/dL Creatinine 0.88 (0.66-1.25) mg/dL Est GFR (CKD-EPI)AfAm >90 (>60 ml/min/1.73 sqM) Est GFR (CKD-EPI)NonAf 78 (>60 ml/min/1.73 sqM) Glucose 114 H (74-99) mg/dL Plasma Lactic Acid Jeffry 1.8 (0.7-2.0) mmol/L Calcium 9.5 (8.4-10.2) mg/dL Total Bilirubin 0.7 (0.2-1.3) mg/dL AST 25 (17-59) U/L ALT 20 (4-49) U/L Alkaline Phosphatase 123 (38-126) U/L Total Protein 7.3 (6.3-8.2) g/dL Albumin 4.3 (3.5-5.0) g/dL Amylase 75 (30-110) U/L Lipase 85 (23-300) U/L Influenza Type A (PCR) (Not Detectd) Influenza Type B (PCR) (Not Detectd) RSV (PCR) (Not Detectd) SARS-CoV-2 (PCR) (Not Detectd) 05/09/23 Range/Units 21:45 WBC (3.8-10.6) k/uL RBC (4.30-5.90) m/uL Hgb (13.0-17.5) gm/dL Hct (39.0-53.0) % MCV (80.0-100.0) fL MCH (25.0-35.0) pg MCHC (31.0-37.0) g/dL RDW (11.5-15.5) % Plt Count (150-450) k/uL MPV Neutrophils % % Lymphocytes % % Monocytes % % Eosinophils % % Basophils % % Neutrophils # (1.3-7.7) k/uL Lymphocytes # (1.0-4.8) k/uL Monocytes # (0-1.0) k/uL Eosinophils # (0-0.7) k/uL Basophils # (0-0.2) k/uL Sodium (137-145) mmol/L Potassium (3.5-5.1) mmol/L Chloride (98-107) mmol/L Carbon Dioxide (22-30) mmol/L Anion Gap mmol/L BUN (9-20) mg/dL Creatinine (0.66-1.25) mg/dL Est GFR (CKD-EPI)AfAm (>60 ml/min/1.73 sqM) Est GFR (CKD-EPI)NonAf (>60 ml/min/1.73 sqM) Glucose (74-99) mg/dL Plasma Lactic Acid Jeffry (0.7-2.0) mmol/L Calcium (8.4-10.2) mg/dL Total Bilirubin (0.2-1.3) mg/dL AST (17-59) U/L ALT (4-49) U/L Alkaline Phosphatase (38-126) U/L Total Protein (6.3-8.2) g/dL Albumin (3.5-5.0) g/dL Amylase (30-110) U/L Lipase (23-300) U/L Influenza Type A (PCR) Not Detected (Not Detectd) Influenza Type B (PCR) Not Detected (Not Detectd) RSV (PCR) Not Detected (Not Detectd) SARS-CoV-2 (PCR) Not Detected (Not Detectd) Disposition <Yodit Rubin - Last Filed: 05/09/23 19:44> Is patient prescribed a controlled substance at d/c from ED?: No Time of Disposition: 22:49 <Amarjit Batista - Last Filed: 05/09/23 23:06> Clinical Impression: Hiatal hernia Disposition: HOME SELF-CARE Condition: Good Instructions (If sedation given, give patient instructions): Hiatal Hernia (ED), Laparoscopic Hiatal Hernia Repair (DC) Additional Instructions: Please return to the Emergency Department if symptoms worsen or any other concerns. He is follow-up with surgery Referrals: None,Stated [REFERRING] - 1-2 days Adrian Reyes MD [STAFF PHYSICIAN] - 1-2 days
[2023-05-09 19:48] VITALS: TEMP 97.7
[2023-05-09 20:37] LABS: Basophils % (A) 0 %; Eosinophils # (A) 0.1 k/uL (0-0.7); Eosinophils % (A) 1 %; HCT 50.6 % (39.0-53.0); HGB 16.8 gm/dL (13.0-17.5); Lymphocytes # (A) 4.3 k/uL (1.0-4.8); Lymphocytes % (A) 23 %; MCH 31.1 pg (25.0-35.0); MCHC 33.1 g/dL (31.0-37.0); MCV 93.8 fL (80.0-100.0); Mean Platelet Volume 8.5; Monocytes # (A) 0.5 k/uL (0-1.0); Monocytes % (A) 3 %; Neutrophils # (A) 13.5 k/uL (1.3-7.7); Neutrophils % (A) 73 %; Platelet Count 186 k/uL (150-450); RDW 13.3 % (11.5-15.5); WBC 18.7 k/uL (3.8-10.6)
[2023-05-09 20:44] LABS: ALT 20 U/L (4-49); AST 25 U/L (17-59); African American GFR (CKD) >90 (>60 ml/min/1.73 sqM); Albumin 4.3 g/dL (3.5-5.0); Alkaline Phosphatase 123 U/L (38-126); Amylase 75 U/L (30-110); Anion Gap 11 mmol/L; Blood Urea Nitrogen 18 mg/dL (9-20); Calcium 9.5 mg/dL (8.4-10.2); Carbon Dioxide 22 mmol/L (22-30); Chloride 105 mmol/L (98-107); Glucose 114 mg/dL (74-99); Lipase 85 U/L (23-300); Non-African American GFR(CKD) 78 (>60 ml/min/1.73 sqM); Potassium 4.7 mmol/L (3.5-5.1); Sodium 138 mmol/L (137-145); Total Bilirubin 0.7 mg/dL (0.2-1.3); Total Protein 7.3 g/dL (6.3-8.2)
--- NOTE | 2023-05-09 21:05 | US ---
EXAMINATION TYPE: US gallbladder DATE OF EXAM: 05/09/2023 COMPARISON: CT: 06/23/20 CLINICAL INDICATION: Male, 88 years old with history of RUQ pain; RUQ pain and vomiting after eating dinner tonight TECHNIQUE: Multiple sonographic images of the right upper quadrant are obtained. FINDINGS: EXAM MEASUREMENTS: Liver Length: 14.8 cm Gallbladder Wall: 0.26 cm CBD: 0.58 cm Right Kidney: 9.6 x 5.3 x 5.0 cm Pancreas: Obscured by bowel gas Liver: wnl Gallbladder: Possible layer of sludge seen. Somewhat limited due to bowel gas Evidence for sonographic Mckenzie's sign: No CBD: wnl Right Kidney: wnl IMPRESSION: Biliary sludge without evidence for acute cholecystitis.
[2023-05-09] MEDS ORDERED: SODIUM CHLORIDE 0.9% 1,000 ML IV STA (21:52)
--- NOTE | 2023-05-09 22:13 | CT ---
EXAMINATION TYPE: CT abdomen pelvis wo con CT DLP: 808 mGycm, Automated exposure control for dose reduction was used. DATE OF EXAM: 05/09/2023 9:58 PM COMPARISON: CT abdomen pelvis most recent from 06/23/2020 CLINICAL INDICATION:Male, 88 years old with history of nausea; NAUSEA VOMITING TECHNIQUE: Axial CT of the abdomen and pelvis. Sagittal and coronal reformats were created on a [employer] workstation. Contrast used: mL of , (none if empty) Oral contrast used: without Oral Contrast (none if empty) FINDINGS: LOWER CHEST: Widemouth hiatal hernia containing majority of the stomach. There is narrowing of the ga stric antrum as it enters the abdomen. Series 201 image 22. Remote left-sided rib fractures and right -sided rib fractures present. ABDOMEN LIVER: Unremarkable GALLBLADDER AND BILE DUCTS: Unremarkable. PANCREAS: Unremarkable. SPLEEN: Unremarkable. ADRENAL GLANDS: Suspected right adrenal adenoma measuring 16 mm. KIDNEYS AND URETERS: No evidence of hydronephrosis or renal calculus. The ureters are unremarkable. PELVIS BLADDER: Unremarkable REPRODUCTIVE: Unremarkable. ABDOMEN & PELVIS STOMACH AND BOWEL: Hiatal hernia as described above. No evidence of bowel obstruction. Scattered colo hernesto diverticula. PERITONEUM/RETROPERITONEUM: No evidence of pneumoperitoneum or free fluid. VASCULATURE: No evidence of aortic aneurysm. MUSCULOSKELETAL: No acute osseous abnormalities. Moderate disc degeneration changes are present throu ghout the thoracolumbar spine. Right hip arthroplasty changes with hardware intact. There is a right joint effusion present that extends up into the skin around the 21st atrophy changes of the right pso as and iliopsoas muscle.. Vertebroplasty changes of the L2 and L3 vertebral bodies. Multilevel disc w edging of the vertebral bodies throughout the visualized spine with osteophyte formation facet joint arthropathy and vacuum disc phenomenon. LYMPH NODES: No gross evidence for lymphadenopathy. SOFT TISSUE/ABDOMINAL WALL: Right inguinal canal fat-containing hernia. IMPRESSION: Widemouth hiatal hernia containing a majority of the stomach. There is narrowing of the gastric antru m as it is the abdomen suspicious for gastric outlet obstruction. No evidence of small bowel obstruction. Diverticulosis.
[2023-05-09] MEDS ORDERED: ONDANSETRON 4 MG ODT STARTER PACK 2 TAB BTL PO STA (23:48)
[2023-05-10] VITALS: BP 128/81; PULSE 76; RESP 16
== END 2023-05-10 | disposition home or self-care (01) ==
LOC: EC 19:41
DX: K44.9 Diaphragmatic hernia without obstruction or gangrene (principal); K21.9 Gastro-esophageal reflux disease without esophagitis; E78.5 Hyperlipidemia, unspecified; Z79.899 Other long term (current) drug therapy; Z20.822 Contact with and (suspected) exposure to COVID-19
CPT/HCPCS: 36415; 80053; 82150; 83605; 83690; 85025; 87636; 76705; 74176; 99284; 96360; S0119

== ENCOUNTER → 2023-05-16 | Outpatient (CLI) | payer MEDICARE, OTHER ==
[2023-05-16 20:41] LABS: Basophils # (A) 0.05 X 10*3/uL (0.00-0.10); Basophils % (A) 0.5 %; Eosinophils # (A) 0.12 X 10*3/uL (0.04-0.35); Eosinophils % (A) 1.1 %; HCT 47.4 % (39.6-50.0); HGB 15.3 d/dL (13.0-17.0); Lymphocytes # (A) 3.91 X 10*3/uL (0.90-5.00); Lymphocytes % (A) 36.2 %; MCH 30.5 pg (27.0-32.0); MCHC 32.3 d/dL (32.0-37.0); MCV 94.6 FL (80.0-97.0); Mean Platelet Volume 11.6 FL (9.5-12.2); Monocytes # (A) 0.77 X 10*3/uL (0.20-1.00); Monocytes % (A) 7.1 %; NRBC Per 100 WBC 0 X 10*3/uL (0.00-0.01); Neutrophils # (A) 5.92 X 10*3/uL (1.80-7.70); Neutrophils % (A) 54.8 %; Platelet Count 181 X 10*3/uL (140-440); RBC 5.01 X 10*6/uL (4.40-5.60); RDW 13.3 % (11.5-14.5)
== END | disposition home or self-care (01) ==
LOC: LABPAT 14:46
PROVIDERS: ATTEND Surgery
DX: Z01.818 Encounter for other preprocedural examination (principal); R94.31 Abnormal electrocardiogram [ECG] [EKG]
CPT/HCPCS: 85025; 93005

== ENCOUNTER 2023-05-30 07:35 | Day surgery (SDC) | payer MEDICARE, OTHER ==
[~2023-05-30 07:35] MED LIST changes: +ACETAMINOPHEN TAB 500 MG TAB PO PRN; -BALANCED SALT IRRIG SOLN COMB2 15 ML IRRIG.SOLN INTRAOCULA ONE; -CYCLOPENTOLATE 1% OPHTH SOLN 2 ML BTL OP PRN; -EPINEPHrine (PF) 0.3 ML in BALANCED SALT IRRIG SOLN COMB2 500 ML IRRIGATION ONE; +HEPARIN SODIUM,PORCINE/PF 5,000 UNIT/0.5 ML SYRINGE SQ PRN; -HYALURONATE SODIUM INTRAOCULAR 1 EACH SYRINGE (12MG/ML) INTRAOCULA ONE; -LACTATED RINGERS 1,000 ML IV SCH; -LIDOCAINE 1% (10MG/ML) FOR IV START INTRADERMA PRN; -LIDOCAINE 1% (PF) 10MG/ML VIAL SQ ONE; -MIDAZOLAM 2 MG/2 ML VIAL ONE; -MOXIFLOXACIN HCL 0.5% DROPS 3 ML BTL OP PRN; +ONDANSETRON 4 MG/2 ML VIAL IVP ONE; -PHENYLEPHRINE 2.5% OPHTH DRP 2ML OP PRN; -TETRACAINE 0.5% OPHTH (PF) DROPS 4 ML BTL OP PRN; -TIMOLOL 0.5% OPHTH DROPS 5 ML BTL OP PRN; +fentaNYL (PF) 50 MCG/ML 2 ML AMP IV PRN; -fentaNYL (PF) 50 MCG/ML 2 ML AMP ONE
[2023-05-30] MEDS: LACTATED RINGERS 1,000 ML IV SCH (07:54)
[2023-05-30] MEDS ORDERED: fentaNYL (PF) 50 MCG/ML 2 ML AMP ONE (09:11)
[2023-05-30] MEDS ORDERED: SUCCINYLCHOLINE CHLORIDE 200 MG/10 ML VIAL IV ONE (09:11)
[2023-05-30] MEDS ORDERED: ROCURONIUM 10 MG/ML (5 ML VIAL) IV ONE (09:11)
[2023-05-30] MEDS ORDERED: NEOSTIGMINE 1 MG/ML 10 ML VIAL ONE (09:11)
[2023-05-30] MEDS ORDERED: GLYCOPYRROLATE 0.2 MG/ML 2 ML VIAL ONE (09:11)
[2023-05-30] MEDS ORDERED: PROPOFOL 10 MG/ML 20 ML VIAL IV ONE (09:11)
[2023-05-30] MEDS ORDERED: ATROPINE SULFATE 0.4 MG/ML 1 ML VIAL ONE (09:11)
[2023-05-30] MEDS ORDERED: LIDOCAINE 0.5%-EPI 1:200,000 50 ML VIAL SQ ONE ×2 (09:41)
[2023-05-30] MEDS ORDERED: LACTATED RINGERS 1,000 ML IV ONE ×2 (10:51→11:04)
[2023-05-30] MEDS ORDERED: NALOXONE 0.4 MG/ML 1 ML VIAL IV PRN (11:04)
[2023-05-30] MEDS ORDERED: HYDROmorphone 0.5 MG/0.5 ML SYRINGE IVP ONE (11:20)
[2023-05-30] MEDS: KETOROLAC 15 MG/ML 1 ML VIAL IVP SCH ×3 (13:51→23:43)
[2023-05-30] MEDS: HYDROmorphone 1 MG/ML 1 ML SYRINGE IVP PRN ×2 (16:10→20:06)
[2023-05-30] MEDS ORDERED: ALPRAZolam 0.25 MG TAB PO PRN (16:26)
[2023-05-30] MEDS ORDERED: traZODone HCL 100 MG TAB PO PRN (16:26)
--- NOTE | 2023-05-30 16:41 | P.CONS ---
History of Present Illness - Reason for Consult Consult date: 05/30/23 - History of Present Illness 88-year-old male with PMH of anxiety disorder, history of prostate cancer status post prostatectomy and orchiectomy, hypertension, urinary urgency, dyslipidemia, chronic lower radiculopathy status post kyphoplasty February 2020 presents to [facility] for elective surgery. He underwent laparoscopic hiatal hernia repair with Dr. Reyes. [facility] has been consulted for medical management of this patient. Patient was seen and examined. Patient reports well controlled pain in his upper abdomen. Urinating freely. No bowel movement nor passing gas. Pertinent positives and negatives as discussed in HPI, a complete review of systems was performed and all other systems are negative. General: non toxic, no distress, appears at stated age Derm: warm, dry Head: atraumatic, normocephalic, symmetric Eyes: EOMI, no lid lag, anicteric sclera Mouth: no lip lesion, mucus membranes moist Cardiovascular: S1S2 reg, no murmur Lungs: CTA bilateral, no rhonchi, no rales , no accessory muscle use Abdominal: soft, nontender to palpation, no guarding, sluggish bowel sounds Ext: no gross muscle atrophy, no edema, no contractures Neuro: no focal neuro deficits Psych: Alert, oriented, appropriate affect Based on my assessment of this patient, this patient meets a moderate complexity level of care. Patient has a chronic diagnosis of anxiety disorder, history of prostate cancer status post prostatectomy and orchiectomy, hypertension, urinary urgency, dyslipidemia, chronic lower radiculopathy. He is status post laparoscopic hiatal hernia repair. Anxiety disorder: Xanax 0.25 mg PO BID PRN. History of prostate cancer status post prostatectomy and orchiectomy: Casodex 50 mg PO QD. Hypertension: Losartan 25 mg PO QD. Urinary urgency: Oxybutynin 15 mg PO QD. Dyslipidemia: Lipitor 10 mg PO QD. Chronic lower radiculopathy status post kyphoplasty: Pain management per surgery. Lovenox SQ for DVT prophylaxis. FULL CODE is his decision maker if he can't make decisions for himself. I have reviewed the following middleware consultant notes: Operative report. I have reviewed the results of the following tests: I have ordered the following tests: CBC and BMP. I have discussed the care of this patient with the following independent historian: I have independently interpreted the following test below: I have discussed the management of this patient with the following physician: Past Medical History Past Medical History: Cancer, GERD/Reflux, Hyperlipidemia, Osteoarthritis (OA), Renal Disease Additional Past Medical History / Comment(s): Severe chronic back pain/stenosis, hx. L2/L3 compression fractures with kyphoplasties, bilateral sciatica, DJD, tingling in bilateral feet, bilateral leg weakness, prostate cancer with surgery/radiation, skin cancer removals, hiatal hernia, diverticular disease, benign colon polyps, anemia, nephrolithiasis/pt passed stones on his own. History of Any Multi-Drug Resistant Organisms: None Reported Past Surgical History: Back Surgery, Joint Replacement, Orthopedic Surgery Additional Past Surgical History / Comment(s): 03/10/20 L3 kyphoplasty, 05/11/20 L2 kyphoplasty, epidural back injections, total L shoulder, R knee arthroscopy then partial replacement, total L knee, total R hip, L wrist/arm surgery as child/hardware removed, prostatectomy, bilateral orchiectomy, EGD, colonoscopy with polypectomy, basal cell skin cancer removal L ear and chest., ally cataracts removed, recent EGD Past Anesthesia/Blood Transfusion Reactions: No Reported Reaction, Motion Sickness Smoking Status: Never smoker - Past Family History Mother Family Medical History: No Reported History Additional Family Medical History / Comment(s): Mother was healthy and lived to be 82. Father Family Medical History: No Reported History Additional Family Medical History / Comment(s): Father was healthy. He lived to be 74 yrs old. Medications and Allergies Home Medications Medication Instructions Recorded Confirmed Type Bicalutamide [Casodex] 50 mg PO 1200 06/07/14 05/30/23 History Cyanocobalamin (Vitamin B-12) 1,000 mcg PO DAILY 01/13/17 05/30/23 History [Vitamin B-12] Albuterol Sulfate [Proventil Hfa] 2 puff INHALATION RT-Q4H PRN 02/23/20 05/30/23 History Aspirin EC [Ecotrin Low Dose] 81 mg PO HS 02/23/20 05/30/23 History Ferrous Sulfate [Iron] 325 mg PO BID 05/06/20 05/30/23 History Oxybutynin ER [Ditropan XL] 15 mg PO DAILY 06/19/20 05/30/23 History Losartan Potassium [Cozaar] 25 mg PO HS 06/23/20 05/30/23 History ALPRAZolam [Xanax] 0.25 mg PO BID PRN 7 Days #14 tab 06/24/20 05/30/23 Rx Acetaminophen [Tylenol Arthritis] 650 mg PO Q8H PRN 01/16/21 05/30/23 History Atorvastatin [Lipitor] 10 mg PO HS 01/16/21 05/30/23 History Bismuth Subsalicylate 524 mg PO TID PRN 01/16/21 05/30/23 History [Pepto-Bismol] Lactobacillus Acidophilus 1 cap PO DAILY 01/16/21 05/30/23 History [Acidophilus Probiotic] Vitamin E 400 unit PO HS 01/16/21 05/30/23 History traZODone HCL 100 mg PO HS PRN 01/16/21 05/30/23 History Artificial Tears-Hypromellose 1 drops BOTH EYES DAILY PRN 03/08/21 05/30/23 History [Artificial Tear Drops] traMADol HCL [Ultram] 50 mg PO Q8H PRN 03/08/21 05/30/23 History Allergies Allergy/AdvReac Type Severity Reaction Status Date / Time Iodinated Contrast Media Allergy Swelling Verified 05/30/23 08:39 [Iodinated Contrast Media - IV Dye] hydrocodone bitartrate AdvReac Nausea Verified 05/30/23 08:39 [From Vicodin] Physical Exam Vitals: Vital Signs Temp Pulse Pulse Resp BP BP Pulse Ox 05/30/23 13:40 97.4 F L 68 16 170/68 95 05/30/23 12:30 42 L 18 161/54 99 05/30/23 12:15 43 L 14 158/58 98 05/30/23 12:00 44 L 16 171/66 98 05/30/23 11:45 43 L 16 155/59 98 05/30/23 11:30 45 L 16 167/60 98 05/30/23 11:15 45 L 16 184/75 95 05/30/23 11:03 97 F L 51 L 16 195/78 97 05/30/23 08:20 98 F 45 L 16 165/72 97 Intake and Output 05/30/23 05/30/23 05/30/23 06:59 14:59 22:59 Intake Total 1230 Output Total 25 Balance 1205 Intake: IV 1230 Output: Estimated Blood Loss 25 Other: Weight 72.57 kg
[2023-05-30] MEDS: ATORVASTATIN 10 MG TAB PO SCH (20:05)
[2023-05-30] MEDS: ONDANSETRON 4 MG/2 ML VIAL IVP PRN (23:56)
[2023-05-31] MEDS: HYDROmorphone 0.5 MG/0.5 ML SYRINGE IVP PRN (04:23)
[2023-05-31] MEDS: ONDANSETRON 4 MG/2 ML VIAL IVP PRN (05:33)
[2023-05-31 05:59] LABS: HCT 43.6 % (39.0-53.0); HGB 14.5 gm/dL (13.0-17.5); MCH 31.6 pg (25.0-35.0); MCHC 33.1 g/dL (31.0-37.0); MCV 95.4 fL (80.0-100.0); Mean Platelet Volume 8.7; Platelet Count 148 k/uL (150-450); RBC 4.58 m/uL (4.30-5.90); RDW 12.9 % (11.5-15.5); WBC 10.8 k/uL (3.8-10.6)
[2023-05-31 06:10] LABS: African American GFR (CKD) 82 (>60 ml/min/1.73 sqM); Anion Gap 6 mmol/L; Blood Urea Nitrogen 23 mg/dL (9-20); Calcium 8.5 mg/dL (8.4-10.2); Carbon Dioxide 26 mmol/L (22-30); Chloride 105 mmol/L (98-107); Glucose 106 mg/dL (74-99); Non-African American GFR(CKD) 71 (>60 ml/min/1.73 sqM); Potassium 5.2 mmol/L (3.5-5.1); Sodium 137 mmol/L (137-145)
[2023-05-31] MEDS: KETOROLAC 15 MG/ML 1 ML VIAL IVP SCH (06:24)
[2023-05-31] MEDS: LACTATED RINGERS 1,000 ML IV SCH (06:27)
[2023-05-31] MEDS: OXYBUTYNIN 15 MG TAB.ER.24 PO SCH (08:57)
[2023-05-31] MEDS: ENOXAPARIN 40 MG/0.4 ML SYRINGE SQ SCH (08:57)
[2023-05-31] MEDS: ASPIRIN 81 MG PO SCH (08:58)
[2023-05-31] MEDS ORDERED: LOSARTAN 25 MG TAB PO SCH (09:00)
[2023-05-31] MEDS: ACETAMINOPHEN TAB 325 MG TAB PO PRN (12:05)
[2023-05-31] MEDS: BICALUTAMIDE 50 MG TAB PO SCH (12:59)
--- NOTE | 2023-05-31 13:49 | P.PN ---
Subjective Progress Note Date: 05/31/23 CHIEF COMPLAINT: Hiatal hernia HISTORY OF PRESENT ILLNESS: Postop day #1 status post laparoscopic hiatal hernia repair. Patient reports his pain is controlled. Complains of some mild shoulder pain. Denies any nausea or vomiting. Afebrile. WBC 10.8 potassium 5.2 PHYSICAL EXAM: VITAL SIGNS: Reviewed. GENERAL: Well-developed in no acute distress. ABDOMEN: Soft. Nondistended. Nontender. Incision sites clean dry and intact NEUROLOGIC: Alert and oriented. Cranial nerves II through XII grossly intact. ASSESSMENT: 1. 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 -Continue pain management -Encouraged patient to increase activity level -Encouraged patient to use incentive spirometer -Anticipate possible discharge tomorrow -DVT prophylaxis Lovenox Physician Transformation Coach note has been reviewed by physician. Signing provider agrees with the documented findings, assessment, and plan of care. Objective - Vital Signs Vital signs: Vital Signs Temp 98.5 F 05/31/23 13:29 Pulse 76 05/31/23 13:29 Resp 17 05/31/23 13:29 BP 130/68 05/31/23 13:29 Pulse Ox 90 L 05/31/23 13:29 FiO2 Intake & Output 05/30/23 05/31/23 05/31/23 18:59 06:59 18:59 Intake Total 1230 Output Total 25 Balance 1205 Weight 72.57 kg Intake: IV 1230 Output: Estimated Blood Loss 25 Other: Voiding Method Urinal # Voids 0 2 - Labs CBC & Chem 7: 05/31/23 05:15 05/31/23 05:15 Labs: Abnormal Lab Results - Last 24 Hours (Table) 05/31/23 05/31/23 Range/Units 05:15 05:15 WBC 10.8 H (3.8-10.6) k/uL Plt Count 148 L (150-450) k/uL Potassium 5.2 H (3.5-5.1) mmol/L BUN 23 H (9-20) mg/dL Glucose 106 H (74-99) mg/dL
[2023-05-31] MEDS ORDERED: SODIUM CHLORIDE 0.9% 1,000 ML IV SCH (14:15)
--- NOTE | 2023-05-31 19:51 | P.PN ---
Subjective Progress Note Date: 05/31/23 (delayed charting seen at 1715) Patient is an 88-year-old male status post laparoscopic pick hiatal hernia repair Patient seen and examined at bedside. He is doing well. His postop pain is well controlled. He denies any chest pain, shortness breath, nausea, vomiting. He passed yesterday but has not yet had a bowel movement. Vital signs reviewed General: nontoxic, no distress, appears at stated age Cardiovascular: S1S2 reg, no murmur, positive posterior tibial pulse bilateral, Lungs: CTA bilateral, no rhonchi, no rales , no accessory muscle use Abdominal: soft, nontender to palpation, no guarding, no appreciable organomegaly Ext: no gross muscle atrophy, no edema b/l lower extremities, no contractures Neuro: CN II-XI grossly intact, no focal neuro deficits Psych: Alert, oriented, appropriate affect Assessment/Plan: 88-year-old male status post hiatal hernia repair Hyperkalemia -Likely secondary to the lactated Ringer's, Toradol, and ARB use. -Hold ARB in a.m., Toradol has been discontinued by general surgery, transition ed from lactated Ringer's to normal saline -Repeat basic metabolic profile in a.m. Leukocytosis and thrombocytopenia -Likely secondary to recent surgery, and stress-induced -Repeat CBC in a.m. Hypertension - hold lostartan, follow BP Urinary urgency -Oxybutynin 15 mg PO QD. Dyslipidemia -Lipitor 10 mg PO QD. Imaging: None new Data Review: Labs reviewed included CBC and basic metabolic profile which are remarkable for white blood cell count 10.8, platelets 148, potassium 5.2, BUN 23, creatinine 0.97 Thank you for allowing us to participate in the care of this pleasant patient. Do not hesitate to contact us with questions. Someone can be reached from the [facility] hospitalist group all hours of the day at [phone] or via [place]. This dictation was prepared using [employer] voice recognition software. Though every attempt is made to correct errors during dictation some may still exist. Objective - Vital Signs Vital signs: Vital Signs Temp 98.5 F 05/31/23 13:29 Pulse 76 05/31/23 13:29 Resp 17 05/31/23 13:29 BP 130/68 05/31/23 13:29 Pulse Ox 90 L 05/31/23 13:29 FiO2 Intake & Output 05/31/23 05/31/23 06/01/23 06:59 18:59 06:59 Other: Voiding Method Urinal # Voids 2 1 - Labs CBC & Chem 7: 05/31/23 05:15 05/31/23 05:15 Labs: Abnormal Lab Results - Last 24 Hours (Table) 05/31/23 05/31/23 Range/Units 05:15 05:15 WBC 10.8 H (3.8-10.6) k/uL Plt Count 148 L (150-450) k/uL Potassium 5.2 H (3.5-5.1) mmol/L BUN 23 H (9-20) mg/dL Glucose 106 H (74-99) mg/dL
[2023-05-31] MEDS: HYDROmorphone 1 MG/ML 1 ML SYRINGE IVP PRN (20:04)
[2023-05-31] MEDS: ATORVASTATIN 10 MG TAB PO SCH (20:04)
[2023-06-01] MEDS: HYDROmorphone 0.5 MG/0.5 ML SYRINGE IVP PRN (05:05)
[2023-06-01 06:47] LABS: HCT 41.7 % (39.0-53.0); HGB 13.1 gm/dL (13.0-17.5); MCH 30.6 pg (25.0-35.0); MCHC 31.5 g/dL (31.0-37.0); Mean Platelet Volume 8.7; Platelet Count 128 k/uL (150-450); RDW 12.7 % (11.5-15.5); WBC 9.1 k/uL (3.8-10.6)
[2023-06-01 07:04] LABS: African American GFR (CKD) >90 (>60 ml/min/1.73 sqM); Anion Gap 7 mmol/L; Blood Urea Nitrogen 26 mg/dL (9-20); Calcium 8.3 mg/dL (8.4-10.2); Carbon Dioxide 22 mmol/L (22-30); Chloride 106 mmol/L (98-107); Glucose 98 mg/dL (74-99); Non-African American GFR(CKD) 82 (>60 ml/min/1.73 sqM); Potassium 4.5 mmol/L (3.5-5.1); Sodium 135 mmol/L (137-145)
[2023-06-01 08:17] VITALS: RESP 18
[2023-06-01] MEDS ORDERED: LOSARTAN 25 MG TAB PO SCH (09:00)
[2023-06-01] MEDS: BICALUTAMIDE 50 MG TAB PO SCH (11:04)
[2023-06-01] MEDS: ASPIRIN 81 MG PO SCH (11:04)
[2023-06-01] MEDS: OXYBUTYNIN 15 MG TAB.ER.24 PO SCH (11:04)
[2023-06-01] MEDS: ENOXAPARIN 40 MG/0.4 ML SYRINGE SQ SCH (11:04)
--- NOTE | 2023-06-01 13:08 | P.DS ---
Providers Expected date of discharge: 06/01/23 Attending physician: Adrian Reyes Consults: 05/31/23 12:49 Consult Physician Routine Consulting Provider: Maribel Patel Consult Reason/Comments: medical management Do you want consulting provider notified?: Already Contacted Primary care physician: Royce Montano [facility] [place] [facility] Course: Discharge diagnosis 1. 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 He is status post laparoscopic hiatal hernia repair. Patient tolerating diet. Pain is controlled. He is having flatus. He has been up and ambulating. He is afebrile. Incision sites clean dry and intact. He is stable for discharge. Please refer to chart for any further details. Physician Accounts Officer note has been reviewed by physician. Signing provider agrees with the documented findings, assessment, and plan of care. Patient Condition at Discharge: Stable Plan - Discharge Summary Discharge Rx Participant: Yes New Discharge Prescriptions: New Acetaminophen Tab [Tylenol Tab] 650 mg PO Q4H PRN #30 tablet PRN Reason: Pain Continue Bicalutamide [Casodex] 50 mg PO 1200 Cyanocobalamin (Vitamin B-12) [Vitamin B-12] 1,000 mcg PO DAILY Albuterol Sulfate [Proventil Hfa] 2 puff INHALATION RT-Q4H PRN PRN Reason: Shortness Of Breath Aspirin EC [Ecotrin Low Dose] 81 mg PO HS Ferrous Sulfate [Iron] 325 mg PO BID Oxybutynin ER [Ditropan XL] 15 mg PO DAILY Losartan Potassium [Cozaar] 25 mg PO HS ALPRAZolam [Xanax] 0.25 mg PO BID PRN 7 Days #14 tab PRN Reason: Anxiety traZODone HCL 100 mg PO HS PRN PRN Reason: Insomnia Artificial Tears-Hypromellose [Artificial Tear Drops] 1 drops BOTH EYES DAILY PRN PRN Reason: dry eyes Bismuth Subsalicylate [Pepto-Bismol] 524 mg PO TID PRN PRN Reason: Indigestion & Heartburn Vitamin E 400 unit PO HS Atorvastatin [Lipitor] 10 mg PO HS Lactobacillus Acidophilus [Acidophilus Probiotic] 1 cap PO DAILY traMADol HCL [Ultram] 50 mg PO Q8H PRN PRN Reason: Pain Discontinued Acetaminophen [Tylenol Arthritis] 650 mg PO Q8H PRN PRN Reason: Pain Discharge Medication List Bicalutamide [Casodex] 50 mg PO 1200 06/07/14 [History] Cyanocobalamin (Vitamin B-12) [Vitamin B-12] 1,000 mcg PO DAILY 01/13/17 [History] Albuterol Sulfate [Proventil Hfa] 2 puff INHALATION RT-Q4H PRN 02/23/20 [History] Aspirin EC [Ecotrin Low Dose] 81 mg PO HS 02/23/20 [History] Ferrous Sulfate [Iron] 325 mg PO BID 05/06/20 [History] Oxybutynin ER [Ditropan XL] 15 mg PO DAILY 06/19/20 [History] Losartan Potassium [Cozaar] 25 mg PO HS 06/23/20 [History] ALPRAZolam [Xanax] 0.25 mg PO BID PRN 7 Days #14 tab 06/24/20 [Rx] Atorvastatin [Lipitor] 10 mg PO HS 01/16/21 [History] Bismuth Subsalicylate [Pepto-Bismol] 524 mg PO TID PRN 01/16/21 [History] Lactobacillus Acidophilus [Acidophilus Probiotic] 1 cap PO DAILY 01/16/21 [History] Vitamin E 400 unit PO HS 01/16/21 [History] traZODone HCL 100 mg PO HS PRN 01/16/21 [History] Artificial Tears-Hypromellose [Artificial Tear Drops] 1 drops BOTH EYES DAILY PRN 03/08/21 [History] traMADol HCL [Ultram] 50 mg PO Q8H PRN 03/08/21 [History] Acetaminophen Tab [Tylenol Tab] 650 mg PO Q4H PRN #30 tablet 06/01/23 [Rx] Follow up Appointment(s)/Referral(s): Royce Young MD [Primary Care Provider] - 1 Week Adrian Reyes MD [STAFF PHYSICIAN] - 1 Week Activity/Diet/Wound Care/Special Instructions: No heavy lifting or lifting over 10 pounds Shower daily. No soaking or tub baths for 2 weeks Very light activity until you are reevaluated at your follow up appointment with your surgeon No straws or carbonated beverages Continue a Full liquid diet for 2 weeks Discharge Disposition: HOME SELF-CARE
[2023-06-01] MEDS: ACETAMINOPHEN TAB 325 MG TAB PO PRN (13:46)
[2023-06-01 15:37] VITALS: BP 134/72; PULSE 55; TEMP 98.6
--- NOTE | 2023-06-01 18:25 | P.PN ---
Subjective Progress Note Date: 06/01/23 (kieran charting seen at 1055) Patient is an 88-year-old male status post laparoscopic pick hiatal hernia repair Patient seen and examined at bedside. He is doing well. His clear liquid diet is not very appetite but his pain is well controlled and he is passing gas. Vital signs reviewed General: nontoxic, no distress, appears at stated age Cardiovascular: S1S2 reg, no murmur, positive posterior tibial pulse bilateral, Lungs: CTA bilateral, no rhonchi, no rales , no accessory muscle use Abdominal: soft, nontender to palpation, no guarding, no appreciable organomegaly Ext: no gross muscle atrophy, no edema b/l lower extremities, no contractures Neuro: CN II-XI grossly intact, no focal neuro deficits Psych: Alert, oriented, appropriate affect Assessment/Plan: 88-year-old male status post hiatal hernia repair -Hyperkalemia, resolved -Resume Cozaar Leukocytosis, resolved Thrombocytopenia, improving - realted to urgery Hypertension - hold lostartan, follow BP Urinary urgency -Oxybutynin 15 mg PO QD. Dyslipidemia -Lipitor 10 mg PO QD. -Patient is medically optimized for discharge. Home medication reconciliation addressed. Follow with Dr. Young in 1 week added to discharge. Imaging: None new Data Review: Afebrile the last 24 hours. Lab work reviewed includes CBC and basic metabolic profile. Platelets stable at 128, potassium better at 4.5. Thank you for allowing us to participate in the care of this pleasant patient. Do not hesitate to contact us with questions. Someone can be reached from the [facility]Note 3[facility] hospitalist group all hours of the day at [phone] or via perfect serve. This dictation was prepared using [employer] voice recognition software. Though every attempt is made to correct errors during dictation some may still exist. Objective - Vital Signs Vital signs: Vital Signs Temp 98.6 F 06/01/23 13:25 Pulse 55 L 06/01/23 13:25 Resp 18 06/01/23 13:25 BP 134/72 06/01/23 13:25 Pulse Ox 92 L 06/01/23 13:25 FiO2 Intake & Output 05/31/23 06/01/23 06/01/23 18:59 06:59 18:59 Other: Voiding Method Toilet Diaper # Voids 1 3 - Labs CBC & Chem 7: 06/01/23 06:34 06/01/23 06:34 Labs: Abnormal Lab Results - Last 24 Hours (Table) 06/01/23 06/01/23 Range/Units 06:34 06:34 Plt Count 128 L (150-450) k/uL Sodium 135 L (137-145) mmol/L BUN 26 H (9-20) mg/dL Calcium 8.3 L (8.4-10.2) mg/dL
--- NOTE | 2023-06-29 11:10 | P.OP ---
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 The patient received general anesthesia. And was placed in dorsal lithotomy position. The patient was prepped and draped in the usual sterile fashion. The skin incision sites were anesthetized with 1% local Xylocaine. The skin was incised in the left periumbilical area and then using a blade less 5 mm trocar under direct visualization panel cavity was entered. After adequate insufflation the laparoscope was then placed into the peritoneal cavity. Next a 5 mm trochars placed in the right epigastric position. Another 5 millimeter trocar the right lateral position. Another 5 millimeter trocar in the left lateral position a 5 mm trocar is placed in the left epigastric position. And then the initial 5 mm trocar was exchanged for a 10 mm trocar. The left lateral lobe liver was retracted. The hernia was seen. The patient had a large hiatal hernia. The stomach was intrathoracic. Stomach was reduced with gentle traction. The crural defect was then dissected using the Harmonic scissors device. The hernia sac was dissected. The stomach was completely reduced. The crural defect was then closed using 2-0 Ethibond suture. The crural repair was performed and a retro-esophageal fashion. There was no injury seen in the esophagus or stomach. The trochars were then withdrawn. The skin was closed interrupted 3-0 Monocryl suture. Dermabond dressing applied. Patient top she will. He was sent to recovery room in stable condition.
== END 2023-06-01 15:47 | disposition home or self-care (01) ==
LOC: OR 07:35 → 4SSUR 11:00 → OR 06-01 15:47
PROVIDERS: ATTEND Surgery
DX: K44.9 Diaphragmatic hernia without obstruction or gangrene (principal); E78.5 Hyperlipidemia, unspecified; E87.5 Hyperkalemia; F41.9 Anxiety disorder, unspecified; G89.29 Other chronic pain; M19.90 Unspecified osteoarthritis, unspecified site; I10 Essential (primary) hypertension; K21.9 Gastro-esophageal reflux disease without esophagitis; Z79.82 Long term (current) use of aspirin; Z85.46 Personal history of malignant neoplasm of prostate; Z88.5 Allergy status to narcotic agent
CPT/HCPCS: 80048 ×2; 85027 ×2; 43281; C1781; J0330; J0461; J2710; J0690; J2405 ×2; J1650 ×2; J3010; J1170 ×5; J1885 ×2; J2704; J1644

== ENCOUNTER 2023-06-24 09:15 | Observation (INO) | payer MEDICARE, OTHER ==
[2023-06-24] MEDS ORDERED: SODIUM CHLORIDE 0.9% 1,000 ML IV STA ×3 (09:40→10:41)
[2023-06-24] MEDS ORDERED: diphenhydrAMINE 50 MG/ML 1 ML VIAL IVP STA (09:42)
[2023-06-24] MEDS ORDERED: methylPREDNISolone SOD SUCCI 125 MG/2 ML VIAL IV STA (09:42)
[2023-06-24] MEDS ORDERED: FAMOTIDINE 20 MG/2 ML VIAL IV STA (09:42)
--- NOTE | 2023-06-24 09:51 | ED ---
General Adult HPI - General Chief complaint: Nausea/Vomiting/Diarrhea Stated complaint: Diarrhea,Dehyrated Time Seen by Provider: 06/24/23 09:23 Source: patient, RN notes reviewed, old records reviewed Mode of arrival: ambulatory Limitations: no limitations - History of Present Illness Initial comments: Patient is an 88-year-old male who presents emergency Department complaining of diarrhea for the last 4 days. Has a history of recent hiatal hernia repair, hyperlipidemia, chronic back pain, as well as episodes of this type of diarrhea however seems to be more persistent despite taking Imodium at home. Denies fevers or chills. Denies nausea or vomiting. Denies any significant abdominal pain. Describes the stool as watery and brown.Denies any chest pain or shortness of breath. Denies any lightheadedness. He is concerned he may be dehydrated. Presents for further evaluation at this time. No urinary complaints. - Related Data Home Medications Medication Instructions Recorded Confirmed Bicalutamide [Casodex] 50 mg PO DAILY 06/07/14 06/24/23 Albuterol Sulfate [Proventil Hfa] 2 puff INHALATION RT-Q4H PRN 02/23/20 06/24/23 Aspirin EC [Ecotrin Low Dose] 81 mg PO DAILY 02/23/20 06/24/23 Ferrous Sulfate [Iron] 325 mg PO BID 05/06/20 06/24/23 Oxybutynin ER [Ditropan XL] 15 mg PO HS 06/19/20 06/24/23 Losartan Potassium [Cozaar] 25 mg PO DAILY 06/23/20 06/24/23 Atorvastatin [Lipitor] 10 mg PO HS 01/16/21 06/24/23 Lactobacillus Acidophilus 1 cap PO DAILY 01/16/21 06/24/23 [Acidophilus Probiotic] traZODone HCL 100 mg PO HS PRN 01/16/21 06/24/23 traMADol HCL [Ultram] 50 mg PO DIRECTED PRN 03/08/21 06/24/23 Loperamide HCl [Imodium A-D] 2 - 4 mg PO QID PRN MDD 6 TABS 06/24/23 06/24/23 Mirabegron [Myrbetriq] 50 mg PO DIRECTED 06/24/23 06/24/23 Temazepam [Restoril] 30 mg PO HS PRN 06/24/23 06/24/23 Vitamin E (Dl,Tocopheryl Acet) 450 unit PO DAILY 06/24/23 06/24/23 [Vitamin E (1000 Iu = 450 MG)] Previous Rx's Medication Instructions Recorded ALPRAZolam [Xanax] 0.25 mg PO BID PRN 7 Days #14 tab 06/24/20 Acetaminophen Tab [Tylenol Tab] 650 mg PO Q4H PRN #30 tablet 06/01/23 Allergies Allergy/AdvReac Type Severity Reaction Status Date / Time Iodinated Contrast Media Allergy Swelling Verified 05/30/23 08:39 [Iodinated Contrast Media - IV Dye] hydrocodone bitartrate AdvReac Nausea Verified 05/30/23 08:39 [From Vicodin] Review of Systems ROS Statement: Those systems with pertinent positive or pertinent negative responses have been documented in the HPI. Review of Systems: CONST: Denies fever EYES: Denies blurry vision ENT: Denies nasal congestion C/V: Denies Chest pain RESP: Denies shortness of breath GI: Endorses diarrhea : Denies dysuria SKIN: Denies rash. MSK: Denies joint pain. NEURO: Denies headache ROS Other: All systems not noted in ROS Statement are negative. Past Medical History Past Medical History: Cancer, GERD/Reflux, Hyperlipidemia, Osteoarthritis (OA), Renal Disease Additional Past Medical History / Comment(s): Severe chronic back pain/stenosis, hx. L2/L3 compression fractures with kyphoplasties, bilateral sciatica, DJD, tingling in bilateral feet, bilateral leg weakness, prostate cancer with surgery/radiation, skin cancer removals, hiatal hernia, diverticular disease, benign colon polyps, anemia, nephrolithiasis/pt passed stones on his own. 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 Father Family Medical History: No Reported History Additional Family Medical History / Comment(s): Father was healthy. He lived to be 74 yrs old. General Exam - General Exam Comments Initial Comments: General: Appears in no acute distress. HEAD: Normal with no signs of head trauma. EYES: PERRLA, EOMI, conjunctiva normal, no discharge. ENT: Hearing grossly intact, normal oropharynx. RESPIRATORY: Clear breath sounds bilaterally. No wheezes, rales, or rhonchi. C/V: Regular rate and rhythm. S1 and S2 auscultated, no edema, peripheral pulses 2+ and intact throughout ABD: Abd is soft, nontender, nondistended EXT: Normal range of motion, no obvious deformity SKIN: No rashes or lesions observed on exposed skin. NEURO: Alert and oriented x 4. Limitations: no limitations Course Vital Signs 06/24/23 06/24/23 06/24/23 09:17 12:07 13:00 Temperature 97.5 F L 97.8 F Pulse Rate 63 49 L Respiratory 20 16 Rate Blood Pressure 140/60 125/59 125/59 O2 Sat by Pulse 99 97 97 Oximetry 06/24/23 14:00 Temperature Pulse Rate Respiratory Rate Blood Pressure 115/102 O2 Sat by Pulse 97 Oximetry Medical Decision Making - Medical Decision Making Was pt. sent in by a medical professional or institution (, PA, MAGNETIC PROSPECTING SUPERVISOR, urgent care, hospital, or [facility]...) When possible be specific @ -No Did you speak to anyone other than the patient for history (EMS, parent, family, police, friend...)? What history was obtained from this source @ -No Did you review nursing and triage notes (agree or disagree)? Why? @ -I reviewed and agree with nursing and triage notes Were old charts reviewed (outside hosp., previous admission, EMS record, old EKG, old radiological studies, urgent care reports/EKG's, [facility] records)? Report findings @ -Old charts reviewed Differential Diagnosis (chest pain, altered mental status, abdominal pain women, abdominal pain men, vaginal bleeding, weakness, fever, dyspnea, syncope, headache, dizziness, GI bleed, back pain, seizure, CVA, palpatations, mental health, musculoskeletal)? @ -Chronic diarrhea, diverticulitis, intraabdominal infection, urinary tract infection, viral syndrome, dehydration, acute kidney injury. This list is not all-inclusive. EKG interpreted by me (3pts min.). @ -None done X-rays interpreted by me (1pt min.). @ -None done CT interpreted by me (1pt min.). @ -CT negative for any obvious acute surgical process. Patient does have ev idence of diarrhea in his bowels. No evidence of other acute etiology at this time to explain his symptoms. Patient is on iron tablets which is why they're radiodensities seen in the GI tract. U/S interpreted by me (1pt. min.). @ -None done What testing was considered but not performed or refused? (CT, X-rays, U/S, labs)? Why? @ -None What meds were considered but not given or refused? Why? @ -None Did you discuss the management of the patient with other professionals (professionals i.e. , PA, MAGNETIC PROSPECTING SUPERVISOR, lab, RT, psych nurse, social service liaison, portfolio strategist, teacher, medical officer psychiatry, immigration case manager)? Give summary @ -Discussed with Dr. gamble who accepted the admission. Was smoking cessation discussed for >3mins.? @ -No Was critical care preformed (if so, how long)? @ -No Were there social determinants of health that impacted care today? How? (Homelessness, low income, unemployed, alcoholism, drug addiction, transportation, low edu. Level, literacy, decrease access to med. care, intermediate, rehab)? @ -No Was there de-escalation of care discussed even if they declined (Discuss DNR or withdrawal of care, Hospice)? DNR status @ -No What co-morbidities impacted this encounter? (DM, HTN, Smoking, COPD, CAD, Cancer, CVA, ARF, Chemo, Hep., AIDS, mental health diagnosis, sleep apnea, morb id obesity)? @ -None Was patient admitted / discharged? Hospital course, mention meds given and route, prescriptions, significant lab abnormalities, going to OR and other pertinent info. @ -Based on the patient's presentation and physical exam, patient presents for diarrhea with no significant abdominal pain. No other complaints. Concern for dehydration. We will obtain abdominal labs as well as a CT of the pelvis. Patient was in agreement with this plan. Has a history of diarrhea however is more severe and seems somewhat more resistant to Imodium. No recent antibiotics. Vital signs are within acceptable limits.CT imaging unremarkable other than diarrheal illness. Patient's laboratory studies are remarkable for leukocytosis of 13.8. Patient has an acute kidney injury with a BUN of 46 and creatinine 2.37. No history of this. Remainder the workup unremarkable. Mildly hyponatremic to 129. On reevaluation, did discuss with the patient appears sad due to his persistent diarrhea he has an acute kidney injury. Likely dehydration. Recommended we admit for IV fluid hydration. Patient was in agreement this plan. He was given a second bolus and placed on maintenance fluids. I spoke with the admitting physician, Dr. gamble who accepted the admission. Undiagnosed new problem with uncertain prognosis? @ -No Drug Therapy requiring intensive monitoring for toxicity (Heparin, Nitro, Insulin, Cardizem)? @ -No Were any procedures done? @ -No Diagnosis/symptom? @ -Diarrhea, acute kidney injury Acute, or Chronic, or Acute on Chronic? @ -Acute Uncomplicated (without systemic symptoms) or Complicated (systemic symptoms)? @ -Complicated Side effects of treatment? @ -none Exacerbation, Progression, or Severe Exacerbation] @ -no Poses a threat to life or bodily function? @ -yes - Lab Data Result diagrams: 06/24/23 09:49 06/24/23 09:49 Lab Results 06/24/23 06/24/23 06/24/23 Range/Units 09:49 09:49 09:49 WBC 13.8 H (3.8-10.6) k/uL RBC 4.70 (4.30-5.90) m/uL Hgb 14.5 (13.0-17.5) gm/dL Hct 43.5 (39.0-53.0) % MCV 92.5 (80.0-100.0) fL MCH 30.9 (25.0-35.0) pg MCHC 33.5 (31.0-37.0) g/dL RDW 13.0 (11.5-15.5) % Plt Count 146 L (150-450) k/uL MPV 9.7 Neutrophils % 52 % Lymphocytes % 35 % Monocytes % 5 % Eosinophils % 6 % Basophils % 0 % Neutrophils # 7.1 (1.3-7.7) k/uL Lymphocytes # 4.8 (1.0-4.8) k/uL Monocytes # 0.6 (0-1.0) k/uL Eosinophils # 0.8 H (0-0.7) k/uL Basophils # 0.0 (0-0.2) k/uL PT 11.8 (10.0-12.5) sec INR 1.1 (<1.2) APTT 27.4 (22.0-30.0) sec Sodium (137-145) mmol/L Potassium (3.5-5.1) mmol/L Chloride (98-107) mmol/L Carbon Dioxide (22-30) mmol/L Anion Gap mmol/L BUN (9-20) mg/dL Creatinine (0.66-1.25) mg/dL Est GFR (CKD-EPI)AfAm (>60 ml/min/1.73 sqM) Est GFR (CKD-EPI)NonAf (>60 ml/min/1.73 sqM) Glucose (74-99) mg/dL Calcium (8.4-10.2) mg/dL Total Bilirubin (0.2-1.3) mg/dL AST (17-59) U/L ALT (4-49) U/L Alkaline Phosphatase (38-126) U/L Total Protein (6.3-8.2) g/dL Albumin (3.5-5.0) g/dL Amylase (30-110) U/L Lipase (23-300) U/L Urine Color Colorless Urine Appearance Clear (Clear) Urine pH 5.0 (5.0-8.0) Ur Specific Ophiem 1.006 (1.001-1.035) Urine Protein Negative (Negative) Urine Glucose (UA) Negative (Negative) Urine Ketones Negative (Negative) Urine Blood Negative (Negative) Urine Nitrite Negative (Negative) Urine Bilirubin Negative (Negative) Urine Urobilinogen <2.0 (<2.0) mg/dL Ur Leukocyte Esterase Negative (Negative) Urine RBC <1 (0-5) /hpf Urine WBC <1 (0-5) /hpf Ur Squamous Epith Cells 1 (0-4) /hpf Urine Bacteria Rare H (None) /hpf Influenza Type A (PCR) (Not Detectd) Influenza Type B (PCR) (Not Detectd) RSV (PCR) (Not Detectd) SARS-CoV-2 (PCR) (Not Detectd) 06/24/23 06/24/23 Range/Units 09:49 09:49 WBC (3.8-10.6) k/uL RBC (4.30-5.90) m/uL Hgb (13.0-17.5) gm/dL Hct (39.0-53.0) % MCV (80.0-100.0) fL MCH (25.0-35.0) pg MCHC (31.0-37.0) g/dL RDW (11.5-15.5) % Plt Count (150-450) k/uL MPV Neutrophils % % Lymphocytes % % Monocytes % % Eosinophils % % Basophils % % Neutrophils # (1.3-7.7) k/uL Lymphocytes # (1.0-4.8) k/uL Monocytes # (0-1.0) k/uL Eosinophils # (0-0.7) k/uL Basophils # (0-0.2) k/uL PT (10.0-12.5) sec INR (<1.2) APTT (22.0-30.0) sec Sodium 129 L (137-145) mmol/L Potassium 3.8 (3.5-5.1) mmol/L Chloride 98 (98-107) mmol/L Carbon Dioxide 13 L (22-30) mmol/L Anion Gap 18 mmol/L BUN 46 H (9-20) mg/dL Creatinine 2.37 H (0.66-1.25) mg/dL Est GFR (CKD-EPI)AfAm 28 (>60 ml/min/1.73 sqM) Est GFR (CKD-EPI)NonAf 24 (>60 ml/min/1.73 sqM) Glucose 96 (74-99) mg/dL Calcium 8.9 (8.4-10.2) mg/dL Total Bilirubin 0.9 (0.2-1.3) mg/dL AST 17 (17-59) U/L ALT 13 (4-49) U/L Alkaline Phosphatase 112 (38-126) U/L Total Protein 6.7 (6.3-8.2) g/dL Albumin 3.9 (3.5-5.0) g/dL Amylase 46 (30-110) U/L Lipase 48 (23-300) U/L Urine Color Urine Appearance (Clear) Urine pH (5.0-8.0) Ur Specific Ophiem (1.001-1.035) Urine Protein (Negative) Urine Glucose (UA) (Negative) Urine Ketones (Negative) Urine Blood (Negative) Urine Nitrite (Negative) Urine Bilirubin (Negative) Urine Urobilinogen (<2.0) mg/dL Ur Leukocyte Esterase (Negative) Urine RBC (0-5) /hpf Urine WBC (0-5) /hpf Ur Squamous Epith Cells (0-4) /hpf Urine Bacteria (None) /hpf Influenza Type A (PCR) Not Detected (Not Detectd) Influenza Type B (PCR) Not Detected (Not Detectd) RSV (PCR) Not Detected (Not Detectd) SARS-CoV-2 (PCR) Not Detected (Not Detectd) Disposition Clinical Impression: Diarrhea, EBER (acute kidney injury) Disposition: ADMITTED IP TO THIS HOSP Condition: Stable Is patient prescribed a controlled substance at d/c from ED?: No Time of Disposition: 12:35
[2023-06-24 10:14] LABS: INR 1.1 (<1.2); Partial Thromboplastin Time 27.4 sec (22.0-30.0); Prothrombin Time 11.8 sec (10.0-12.5)
[2023-06-24 10:15] LABS: Basophils % (A) 0 %; Eosinophils # (A) 0.8 k/uL (0-0.7); Eosinophils % (A) 6 %; HCT 43.5 % (39.0-53.0); HGB 14.5 gm/dL (13.0-17.5); Lymphocytes # (A) 4.8 k/uL (1.0-4.8); Lymphocytes % (A) 35 %; MCH 30.9 pg (25.0-35.0); MCHC 33.5 g/dL (31.0-37.0); MCV 92.5 fL (80.0-100.0); Mean Platelet Volume 9.7; Monocytes # (A) 0.6 k/uL (0-1.0); Monocytes % (A) 5 %; Neutrophils # (A) 7.1 k/uL (1.3-7.7); Neutrophils % (A) 52 %; Platelet Count 146 k/uL (150-450); WBC 13.8 k/uL (3.8-10.6)
[2023-06-24 10:40] LABS: ALT 13 U/L (4-49); AST 17 U/L (17-59); African American GFR (CKD) 28 (>60 ml/min/1.73 sqM); Albumin 3.9 g/dL (3.5-5.0); Alkaline Phosphatase 112 U/L (38-126); Amylase 46 U/L (30-110); Anion Gap 18 mmol/L; Blood Urea Nitrogen 46 mg/dL (9-20); Calcium 8.9 mg/dL (8.4-10.2); Carbon Dioxide 13 mmol/L (22-30); Chloride 98 mmol/L (98-107); Glucose 96 mg/dL (74-99); Lipase 48 U/L (23-300); Non-African American GFR(CKD) 24 (>60 ml/min/1.73 sqM); Potassium 3.8 mmol/L (3.5-5.1); Sodium 129 mmol/L (137-145); Total Bilirubin 0.9 mg/dL (0.2-1.3); Total Protein 6.7 g/dL (6.3-8.2)
[2023-06-24 12:15] VITALS: RESP 16
[2023-06-24 12:38] LABS: Bacteria,Urine Rare /hpf; RBC,Urine <1 /hpf (0-5); Squamous Epithelial Cell,Urine 1 /hpf (0-4); WBC,Urine <1 /hpf (0-5)
[2023-06-24 12:59] LABS: Color,Urine Colorless
[2023-06-24 13:00] LABS: Appearance,Urine Clear (Clear); Bilirubin,Urine Negative (Negative); Blood,Urine Negative (Negative); Glucose,Urine (UA) Negative (Negative); Ketones,Urine Negative (Negative); Leukocyte Esterase,Urine Negative (Negative); Nitrite,Urine Negative (Negative); Protein,Urine Negative (Negative); Specific Gravity,Urine 1.006 (1.001-1.035); Urobilinogen,Urine <2.0 mg/dL (<2.0)
[2023-06-24] MEDS ORDERED: NALOXONE 0.4 MG/ML 1 ML VIAL IV PRN (13:14)
--- NOTE | 2023-06-24 13:56 | CT ---
EXAMINATION TYPE: CT abdomen pelvis wo con CT DLP: 692.3 mGycm, Automated exposure control for dose reduction was used. DATE OF EXAM: 06/24/2023 11:02 AM COMPARISON: CT abdomen pelvis 05/09/2023 CLINICAL INDICATION:Male, 88 years old with history of diarrhea, abd pain; diarrhea x2 days, abd pain TECHNIQUE: Axial CT of the abdomen and pelvis. Sagittal and coronal reformats were created on a [employer]api workstation. Contrast used: mL of , (none if empty) Oral contrast used: without Oral Contrast (none if empty) FINDINGS: Exam is limited by lack of contrast. LOWER CHEST: Mild cardiomegaly. Moderate coronary arterial calcifications. Lungs appear expanded in t he AP dimension with linear bibasilar opacities suggesting scarring or atelectasis. Pleural thickenin g and fat deposition posteriorly without significant pleural effusion. ABDOMEN LIVER: Unremarkable GALLBLADDER AND BILE DUCTS: Gallbladder appears mildly distended/elongated without evidence for calci fied gallstones or pericholecystic inflammation. PANCREAS: Mild atrophy, no acute finding SPLEEN: Unremarkable. ADRENAL GLANDS: Stable appearance. Both are mildly thickened. Stable 1.6 cm low-attenuation nodule in the mid right adrenal, likely adenoma.. KIDNEYS AND URETERS: No evidence of hydronephrosis or renal calculus. The ureters are unremarkable. PELVIS BLADDER: Unremarkable REPRODUCTIVE: Multiple radiodensities in the pelvis may be related to previous prostatectomy. ABDOMEN & PELVIS STOMACH AND BOWEL: Postoperative changes in the region of previous large hiatal hernia with multiple surgical clips in the region of the GE junction. Mild regional stranding likely postoperative changes . Remainder of the stomach is fluid-filled without significant distention seen. Small radiodensity in the distal stomach and a 1.1 cm radiodensity in the proximal duodenum, probably represents ingested material. Suspect small duodenal diverticulum along its transverse portion. The more distal small bow el loops appear nondilated. The appendix is not clearly seen. Some liquid contents suggested in the r ight colon, with lesser colonic contents distally. There are numerous colonic diverticula without inf lammation seen to suggest acute diverticulitis. PERITONEUM/RETROPERITONEUM: No evidence of pneumoperitoneum or free fluid. VASCULATURE: Moderate calcification of the aorta and major branches. No AAA. MUSCULOSKELETAL: Overall stable findings compared to prior, with no clearly acute bony normality demo nstrated. Generally diminished bone mineralization, suggestive of osteoporosis. Chronic compression f ractures L2 and L3 treated with vertebral augmentation cement. Chronic compression deformity L1 witho ut augmentation cement. Moderate degenerative changes throughout the visualized spine. Right hip arth roplasty again seen, with a similar appearance of lobulated material about the right hip joint extend ing into the adjacent gluteal tissues posteriorly and to the iliacus anteriorly suggesting a large hilario int effusion. Fatty atrophy of the right iliopsoas and right gluteal musculature again noted. Near co mplete fusion of the SI joints. LYMPH NODES: No gross evidence for lymphadenopathy. SOFT TISSUE/ABDOMINAL WALL: No acute abnormality. Small fat-containing right inguinal hernia. IMPRESSION: 1. Liquid colonic contents, mostly on the right, compatible with history of diarrheal illness. 2. Multiple colonic diverticula, without convincing evidence of diverticulitis. 3. No evidence of bowel obstruction or free air. 4. Radiodensities within the stomach and proximal duodenum, likely ingested material. 5. Mildly distended gallbladder without definite calcified gallstones seen. If concern for gallbladd er pathology, ultrasound may be considered. 6. Other chronic and likely incidental findings, as described above.
[2023-06-24] MEDS ORDERED: traMADol 50 MG TAB PO PRN (15:08)
[2023-06-24] MEDS ORDERED: LOPERAMIDE 2 MG CAP PO PRN (15:08)
[2023-06-24] MEDS ORDERED: TEMAZEPAM 30 MG CAP PO PRN (15:08)
[2023-06-24] MEDS ORDERED: ALPRAZolam 0.25 MG TAB PO PRN (15:08)
[2023-06-24] MEDS ORDERED: ACETAMINOPHEN TAB 325 MG TAB PO PRN (15:08)
[2023-06-24] MEDS ORDERED: ALBUTEROL HFA INHALER INHALATION PRN (15:08)
[2023-06-24] MEDS ORDERED: traZODone HCL 100 MG TAB PO PRN (15:08)
--- NOTE | 2023-06-24 15:12 | P.HPIM ---
History of Present Illness H&P Date: 06/24/23 History of present illness; patient is 88-year-old gentleman past medical histor y significant for hypertension, hyperlipidemia, chronic back pain presents to ER for diarrhea for the last 4 days. Patient stated he was all right for days ago when he started noticing diarrhea. Diarrhea was profuse, multiple bowel movements per day, watery in consistency, denied any blood in the stools. There was no complain of nausea or vomiting. Patient denies any abdominal pain. Denies any sick contacts. Denies any recent use of antibiotics. No complaint of fever or chills at home. Because of profuse diarrhea, patient thought he would get dehydrated so he came to the ER. Initial lab work done in the ER showed WBC 13.8, hemoglobin 14.5, platelet, and 46, sodium 129, potassium 3.8, BUN 46, creatinine 2.37 CT abdominal and showed liquid colonic contents mostly on the right compatible with history of diarrhea, no evidence of diverticulitis Patient admitted to medicine service REVIEW OF SYSTEMS: CONSTITUTIONAL: No fever, no malaise, no fatigue. HEENT: No recent visual problems or hearing problems. Denied any sore throat. CARDIOVASCULAR: No chest pain, orthopnea, PND, no palpitations, no syncope. PULMONARY: No shortness of breath, no cough, no hemoptysis. GASTROINTESTINAL: As mentioned above NEUROLOGICAL: No headaches, no weakness, no numbness. HEMATOLOGICAL: Denies any bleeding or petechiae. GENITOURINARY: Denies any burning micturition, frequency, or urgency. MUSCULOSKELETAL/RHEUMATOLOGICAL: Denies any joint pain, swelling, or any muscle pain. ENDOCRINE: Denies any polyuria or polydipsia. The rest of the 14-point review of systems is negative. PHYSICAL EXAMINATION: GENERAL: The patient is alert and oriented x3, not in any acute distress. Well developed, well nourished. HEENT: Pupils are round and equally reacting to light. EOMI. No scleral icterus. No conjunctival pallor. Normocephalic, atraumatic. No pharyngeal erythema. No thyromegaly. CARDIOVASCULAR: S1 and S2 present. No murmurs, rubs, or gallops. PULMONARY: Chest is clear to auscultation, no wheezing or crackles. ABDOMEN: Soft, nontender, nondistended, normoactive bowel sounds. No palpable organomegaly. MUSCULOSKELETAL: No joint swelling or deformity. EXTREMITIES: No cyanosis, clubbing, or pedal edema. NEUROLOGICAL: Gross neurological examination did not reveal any focal deficits. SKIN: No rashes. Assessment and plan Acute gastroenteritis Acute kidney injury Hypertension Hyperlipidemia Monitor vital signs Monitor CBC Monitor CMP Continue antiemetics Continue IV fluids Avoid nephrotoxic agents Hold losartan for now Resume home meds Consult nephrology Labs and medication were reviewed.. Continue same treatment. Continue with symptomatic treatment. Resume home medication. Monitor labs and vitals. DVT and GI prophylaxis. Further recommendations as per clinical course of the patient Dictation was produced using [employer] dictation software. please excuse any g rammatical, word or spelling errors. Past Medical History Past Medical History: Cancer, GERD/Reflux, Hyperlipidemia, Osteoarthritis (OA), Renal Disease Additional Past Medical History / Comment(s): Severe chronic back pain/stenosis, hx. L2/L3 compression fractures with kyphoplasties, bilateral sciatica, DJD, tingling in bilateral feet, bilateral leg weakness, prostate cancer with surgery/radiation, skin cancer removals, hiatal hernia, diverticular disease, benign colon polyps, anemia, nephrolithiasis/pt passed stones on his own. 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 Father Family Medical History: No Reported History Additional Family Medical History / Comment(s): Father was healthy. He lived to be 74 yrs old. Medications and Allergies Home Medications Medication Instructions Recorded Confirmed Type Bicalutamide [Casodex] 50 mg PO DAILY 06/07/14 06/24/23 History Albuterol Sulfate [Proventil Hfa] 2 puff INHALATION RT-Q4H PRN 02/23/20 06/24/23 History Aspirin EC [Ecotrin Low Dose] 81 mg PO DAILY 02/23/20 06/24/23 History Ferrous Sulfate [Iron] 325 mg PO BID 05/06/20 06/24/23 History Oxybutynin ER [Ditropan XL] 15 mg PO HS 06/19/20 06/24/23 History Losartan Potassium [Cozaar] 25 mg PO DAILY 06/23/20 06/24/23 History ALPRAZolam [Xanax] 0.25 mg PO BID PRN 7 Days #14 tab 06/24/20 06/24/23 Rx Atorvastatin [Lipitor] 10 mg PO HS 01/16/21 06/24/23 History Lactobacillus Acidophilus 1 cap PO DAILY 01/16/21 06/24/23 History [Acidophilus Probiotic] traZODone HCL 100 mg PO HS PRN 01/16/21 06/24/23 History traMADol HCL [Ultram] 50 mg PO DIRECTED PRN 03/08/21 06/24/23 History Acetaminophen Tab [Tylenol Tab] 650 mg PO Q4H PRN #30 tablet 06/01/23 06/24/23 Rx Loperamide HCl [Imodium A-D] 2 - 4 mg PO QID PRN MDD 6 TABS 06/24/23 06/24/23 History Mirabegron [Myrbetriq] 50 mg PO DIRECTED 06/24/23 06/24/23 History Temazepam [Restoril] 30 mg PO HS PRN 06/24/23 06/24/23 History Vitamin E (Dl,Tocopheryl Acet) 450 unit PO DAILY 06/24/23 06/24/23 History [Vitamin E (1000 Iu = 450 MG)] Allergies Allergy/AdvReac Type Severity Reaction Status Date / Time Iodinated Contrast Media Allergy Swelling Verified 05/30/23 08:39 [Iodinated Contrast Media - IV Dye] hydrocodone bitartrate AdvReac Nausea Verified 05/30/23 08:39 [From Vicodin] Physical Exam Vitals: Vital Signs Temp Pulse Resp BP Pulse Ox 06/24/23 14:00 115/102 97 06/24/23 13:00 125/59 97 06/24/23 12:07 97.8 F 49 L 16 125/59 97 06/24/23 09:17 97.5 F L 63 20 140/60 99 Intake and Output 06/24/23 06/24/23 06/24/23 06:59 14:59 22:59 Other: Weight 70.307 kg Results CBC & Chem 7: 06/24/23 09:49 06/24/23 09:49 Labs: Abnormal Lab Results - Last 24 Hours (Table) 06/24/23 06/24/23 06/24/23 Range/Units 09:49 09:49 09:49 WBC 13.8 H (3.8-10.6) k/uL Plt Count 146 L (150-450) k/uL Eosinophils # 0.8 H (0-0.7) k/uL Sodium 129 L (137-145) mmol/L Carbon Dioxide 13 L (22-30) mmol/L BUN 46 H (9-20) mg/dL Creatinine 2.37 H (0.66-1.25) mg/dL Urine Bacteria Rare H (None) /hpf
--- NOTE | 2023-06-24 18:24 | US ---
EXAMINATION TYPE: US kidneys/renal and bladder DATE OF EXAM: 06/24/2023 COMPARISON: CT 2022 CLINICAL INDICATION: Male, 88 years old with history of Patrick; EXAM MEASUREMENTS: Right Kidney: 10.0 x 4.8 x 5.1 cm Left Kidney: 10.4 x 5.4 x 5.0 cm Right Kidney: No hydronephrosis or masses seen Left Kidney: No hydronephrosis or masses seen Bladder: wnl Bilateral Jets seen: no IMPRESSION: 1. No acute renal ultrasound abnormality
[2023-06-24] MEDS: FERROUS SULFATE 325 MG TAB PO SCH (20:31)
[2023-06-24] MEDS: HEPARIN SODIUM,PORCINE 5,000 UNIT/ML 1 ML VIAL SQ SCH (20:31)
[2023-06-24] MEDS ORDERED: ATORVASTATIN 10 MG TAB PO SCH (21:00)
[2023-06-25 08:22] VITALS: BP 131/60; PULSE 54; TEMP 98.6
[2023-06-25] MEDS ORDERED: ASPIRIN 81 MG PO SCH (09:00)
[2023-06-25] MEDS ORDERED: VITAMIN E (DL,TOCOPHERYL ACET) 400 UNIT (180 MG) CAP PO SCH (09:00)
[2023-06-25] MEDS ORDERED: LACTOBACILLUS ACIDOPHILUS/PECT 1 EACH CAPSULE PO SCH (09:00)
[2023-06-25] MEDS: FERROUS SULFATE 325 MG TAB PO SCH (09:23)
[2023-06-25] MEDS: HEPARIN SODIUM,PORCINE 5,000 UNIT/ML 1 ML VIAL SQ SCH (09:23)
[2023-06-25 09:41] LABS: BUN/Creat Ratio 21.29 Ratio (12.00-20.00); Blood Urea Nitrogen 29.8 mg/dL (9.0-27.0); Calcium 8.8 mg/dL (8.7-10.3); Carbon Dioxide 16.5 mmol/L (21.6-31.8); Chloride 107 mmol/L (96-109); Glucose 122 mg/dL (70-110); Potassium 4.4 mmol/L (3.5-5.5); Sodium 139 mmol/L (135-145)
[2023-06-25 09:51] LABS: Basophils # (A) 0.01 X 10*3/uL (0.00-0.10); Basophils % (A) 0.1 %; Eosinophils # (A) 0.01 X 10*3/uL (0.04-0.35); Eosinophils % (A) 0.1 %; HGB 13.1 d/dL (13.0-17.0); Lymphocytes # (A) 3.73 X 10*3/uL (0.90-5.00); MCH 30.1 pg (27.0-32.0); MCHC 32.8 d/dL (32.0-37.0); Mean Platelet Volume 11.8 FL (9.5-12.2); Monocytes # (A) 0.39 X 10*3/uL (0.20-1.00); Monocytes % (A) 4.3 %; NRBC Per 100 WBC 0 X 10*3/uL (0.00-0.01); Neutrophils # (A) 4.91 X 10*3/uL (1.80-7.70); Platelet Count 143 X 10*3/uL (140-440); RBC 4.35 X 10*6/uL (4.40-5.60); RDW 13.2 % (11.5-14.5)
[2023-06-25] MEDS ORDERED: BICALUTAMIDE 50 MG TAB PO SCH (10:15)
--- NOTE | 2023-06-25 12:47 | P.DS ---
Providers Date of admission: 06/24/23 13:14 Expected date of discharge: 06/25/23 Attending physician: Kel Doll MD Consults: 06/24/23 15:12 Consult Physician Routine Consulting Provider: Gil Flower Consult Reason/Comments: Acute kidney injury Do you want consulting provider notified?: Yes Primary care physician: [facility] Hospital Course: Discharge diagnoses; Acute gastroenteritis Acute kidney injury Hypertension Hyperlipidemia Hospital course; patient is 88-year-old gentleman past medical history significant for hypertension, hyperlipidemia, chronic back pain presents to ER for diarrhea for the last 4 days. Patient stated he was all right for days ago when he started noticing diarrhea. Diarrhea was profuse, multiple bowel movements per day, watery in consistency, denied any blood in the stools. There was no complain of nausea or vomiting. Patient denies any abdominal pain. Denies any sick contacts. Denies any recent use of antibiotics. No complaint of fever or chills at home. Because of profuse diarrhea, patient thought he would get dehydrated so he came to the ER. Initial lab work done in the ER showed WBC 13.8, hemoglobin 14.5, platelet, and 46, sodium 129, potassium 3.8, BUN 46, creatinine 2.37 CT abdominal and showed liquid colonic contents mostly on the right compatible with history of diarrhea, no evidence of diverticulitis Patient admitted to medicine service 06/25. Patient seen and examined. Diarrhea improved. Patient renal function also improved. Ultrasound abdomen and kidneys negative for any acute renal abnormality. Being discharged in stable condition PHYSICAL EXAMINATION: GENERAL: The patient is alert and oriented x3, not in any acute distress. Well developed, well nourished. HEENT: Pupils are round and equally reacting to light. EOMI. No scleral icterus. No conjunctival pallor. Normocephalic, atraumatic. No pharyngeal erythema. No thyromegaly. CARDIOVASCULAR: S1 and S2 present. No murmurs, rubs, or gallops. PULMONARY: Chest is clear to auscultation, no wheezing or crackles. ABDOMEN: Soft, nontender, nondistended, normoactive bowel sounds. No palpable organomegaly. MUSCULOSKELETAL: No joint swelling or deformity. EXTREMITIES: No cyanosis, clubbing, or pedal edema. NEUROLOGICAL: Gross neurological examination did not reveal any focal deficits. SKIN: No rashes. Dictation was produced using [employer] dictation software. please excuse any grammatical, word or spelling errors. Patient Condition at Discharge: Stable Plan - Discharge Summary New Discharge Prescriptions: No Action Bicalutamide [Casodex] 50 mg PO DAILY Albuterol Sulfate [Proventil Hfa] 2 puff INHALATION RT-Q4H PRN PRN Reason: Shortness Of Breath Aspirin EC [Ecotrin Low Dose] 81 mg PO DAILY Ferrous Sulfate [Iron] 325 mg PO BID Oxybutynin ER [Ditropan XL] 15 mg PO HS Losartan Potassium [Cozaar] 25 mg PO DAILY ALPRAZolam [Xanax] 0.25 mg PO BID PRN 7 Days #14 tab PRN Reason: Anxiety traZODone HCL 100 mg PO HS PRN PRN Reason: Insomnia Vitamin E (Dl,Tocopheryl Acet) [Vitamin E (1000 Iu = 450 MG)] 450 unit PO DAILY Temazepam [Restoril] 30 mg PO HS PRN PRN Reason: Insomnia Atorvastatin [Lipitor] 10 mg PO HS Lactobacillus Acidophilus [Acidophilus Probiotic] 1 cap PO DAILY Acetaminophen Tab [Tylenol Tab] 650 mg PO Q4H PRN #30 tablet PRN Reason: Pain Loperamide HCl [Imodium A-D] 2 - 4 mg PO QID PRN MDD 6 TABS PRN Reason: Diarrhea Mirabegron [Myrbetriq] 50 mg PO DIRECTED Discharge Medication List Bicalutamide [Casodex] 50 mg PO DAILY 06/07/14 [History] Albuterol Sulfate [Proventil Hfa] 2 puff INHALATION RT-Q4H PRN 02/23/20 [History] Aspirin EC [Ecotrin Low Dose] 81 mg PO DAILY 02/23/20 [History] Ferrous Sulfate [Iron] 325 mg PO BID 05/06/20 [History] Oxybutynin ER [Ditropan XL] 15 mg PO HS 06/19/20 [History] Losartan Potassium [Cozaar] 25 mg PO DAILY 06/23/20 [History] ALPRAZolam [Xanax] 0.25 mg PO BID PRN 7 Days #14 tab 06/24/20 [Rx] Atorvastatin [Lipitor] 10 mg PO HS 01/16/21 [History] Lactobacillus Acidophilus [Acidophilus Probiotic] 1 cap PO DAILY 01/16/21 [History] traZODone HCL 100 mg PO HS PRN 01/16/21 [History] Acetaminophen Tab [Tylenol Tab] 650 mg PO Q4H PRN #30 tablet 06/01/23 [Rx] Loperamide HCl [Imodium A-D] 2 - 4 mg PO QID PRN MDD 6 TABS 06/24/23 [History] Mirabegron [Myrbetriq] 50 mg PO DIRECTED 06/24/23 [History] Temazepam [Restoril] 30 mg PO HS PRN 06/24/23 [History] Vitamin E (Dl,Tocopheryl Acet) [Vitamin E (1000 Iu = 450 MG)] 450 unit PO DAILY 06/24/23 [History] Follow up Appointment(s)/Referral(s): Royce Young MD [Primary Care Provider] - 1-2 days
--- NOTE | 2023-06-28 06:20 | CDI ---
Documentation Clarification Form Date: 06/28/23 From: Malika Gong Admit Date: 06/25/2023 06:44:00 AM Patient Name: Zaheer Valentino Visit Number: [id number] Discharge Date: 06/25/2023 01:50:00 PM ATTENTION: The Clinical Documentation Specialists (CDI) and [facility] Coding Staff appreciate your assistance in clarifying documentation. Please respond to the clarification below the line at the bottom and electronically sign. The CDI & [facility] Coding staff will review the response and follow-up if needed. Please note: Queries are made part of the Legal Health Record. If you have any questions, please contact the author of this message via ITS. Dr. Elvin Reyes, The patients principal diagnosis the diagnosis that was chiefly responsible for the admission - has not been clearly identified and clarification is requested. The patient presented with the following acute gastroenteritis, acute kidney injury, hyponatremia, and dehydration. He was placed in observation on the 06/24. On 06/25 was converted to inpatient. History/Risk factors: HTN, HLD, chronic back pain Clinical Indicators: Patient presented to ED with profuse diarrhea and thought he would get dehydrated. Lab findings: [06/24 & 06/25] Sodium: 129/139; Creatinine: 2.37/1.4 ABDPELWO findings: Liquid colonic contents, mostly on the right, compatible with history of diarrhealillness. Vital Signs: [06/24 & 06/25] T: 97.5/97.5; P: 52/42; R: 20/16; BP: 140/60 & 120/52; O2 SAT: 99/96 Treatment: 06/25: BMP, CBC, restarted on home meds, IV fluids stopped @1106 In your professional opinion, can you please clarify which diagnosis, after study, was the reason chiefly responsible for the admission on 06/25? [ ] Dehydration [ x ] Acute gastroenteritis [ ] Acute kidney injury [ ] Other, please specify [ ] Unable to determine MTDD
== END 2023-06-25 13:50 | disposition home or self-care (01) ==
LOC: EC 09:15 → 6NMEDSUR 13:14 → UNDOADMOB 13:14 → 6NMEDSUR 16:22 → INTOOBSV 06-25 06:44 → OBSVTOIN 06-25 06:44 → UNDODISOB 06-25 13:50
PROVIDERS: ADMIT Internal Medicine; ATTEND Internal Medicine
DX: K52.9 Noninfective gastroenteritis and colitis, unspecified (principal); N17.9 Acute kidney failure, unspecified; I10 Essential (primary) hypertension; E78.5 Hyperlipidemia, unspecified; G89.29 Other chronic pain; M54.9 Dorsalgia, unspecified; K21.9 Gastro-esophageal reflux disease without esophagitis; F41.9 Anxiety disorder, unspecified; Z20.822 Contact with and (suspected) exposure to COVID-19; Z85.46 Personal history of malignant neoplasm of prostate; Z85.828 Personal history of other malignant neoplasm of skin; Z79.899 Other long term (current) drug therapy; Z88.5 Allergy status to narcotic agent
CPT/HCPCS: 96361 ×3; 96372 ×2; 96374; 96375; 99285; 36415; 80053; 80048; 82150; 83690; 85025 ×2; 85610; 85730; 81003; 87636; 76770; 74176; G0378 ×2; J1200; J1644 ×2; J2930; J3490

== ENCOUNTER 2024-02-21 09:44 | Emergency (ER) | payer MEDICARE, OTHER ==
--- NOTE | 2024-02-21 10:32 | XR ---
EXAMINATION TYPE: XR lumbar spine 2 or 3V DATE OF EXAM: 02/21/2024 CLINICAL HISTORY: pain TECHNIQUE: Three views of the lumbar spine are submitted. COMPARISON: 06/19/2020 FINDINGS: There are 5 lumbar type vertebral bodies identified. The lumbar spine shows satisfactory alignment w ithout evidence of acute fracture or dislocation. Vertebral body heights are within normal limits. Vertebroplasty changes noted at L2 and L3. Severe compression fracture at L1. Degenerative disc disea se and spondylosis moderate in degree. No acute compression fracture seen with certainty. The overly ing soft tissue appears unremarkable. IMPRESSION: No acute fracture or dislocation is seen in the lumbar spine. ICD 10 NO FRACTURE, INITIAL EVALUATION
--- NOTE | 2024-02-21 10:36 | XR ---
EXAMINATION TYPE: XR ribs LT w pa chest xray DATE OF EXAM: 02/21/2024 CLINICAL HISTORY: Pain, Fall Four views of the ribs demonstrates deformities of left ribs 3, 4, 5 and 6. Visualized lungs are efraín r. No evidence for pneumothorax. IMPRESSION: Acute fractures of left ribs 3 through 6 difficult to exclude.
--- NOTE | 2024-02-21 11:44 | CT ---
EXAMINATION TYPE: CT chest wo con DATE OF EXAM: 02/21/2024 COMPARISON: 02/21/2024 HISTORY: 89-year-old male Pain multiple rib fractures TECHNIQUE: Contiguous axial scanning of the chest without IV contrast. Coronal/sagittal reconstructio ns performed. CT DLP: 458.3mGycm. Automatic exposure control utilized for a dose reduction. FINDINGS: Age indeterminant fractures right lateral fourth and right posterior 11th ribs. Suspected chronic. Undulation of anterolateral third and fourth ribs suggesting age indeterminate rib fractures. Similar ly, undulation of ninth and 10th lateral ribs is age-indeterminate. Slight step-offs indicating fractures of the fifth through eighth ribs appear more acute. There is a small left pleural effusion. Basilar left lower lobe collapse and consolidation. Lesser de gree of right basilar volume loss and opacity. Patchy opacity left midlung. No appreciable pneumothor ax. Degenerative change right glenoid humeral joint. Prominent metal artifact limiting assessment of the left shoulder with left shoulder arthroplasty present. Heart borderline enlarged without pericardial effusion. LAD and RCA coronary calcifications. A large caliber main right and left pulmonary arteries measuring up to 3.1 cm suggesting underlying p ulmonary hypertension. Conventional arch vessel branching anatomy. Postsurgical change GE junction related to interval hiatal hernia repair. Bones: [facility] mid and lower thoracic spine. Vertebroplasty change L2 and L3 vertebra. Mild anterior wed ge deformity T6 is unchanged. Rib fractures as above. IMPRESSION: 1. Minimally offset fractures of the left fifth through eighth ribs appears acute. 2. Nondisplaced fractures of the left third and fourth ribs as well as ninth and 10th ribs are more a ge indeterminate. 3. Nondisplaced fractures of the right fourth and 11th ribs are age indeterminate, suspected chronic. 4. Small left pleural effusion with atelectatic collapse of the basilar left lower lobe. Additional p atchy left midlung opacity could represent additional atelectasis or pulmonary contusion. No apprecia ble pneumothorax. 5. Lesser degree of patchy atelectasis/infiltrate at the right base.
--- NOTE | 2024-02-21 12:26 | ED ---
Fall HPI - General Chief Complaint: Fall Stated Complaint: fall/back pain Time Seen by Provider: 02/21/24 09:49 Source: patient, RN notes reviewed Mode of arrival: wheelchair Limitations: no limitations - History of Present Illness Initial Comments: 89-year-old male presents emergency department chief complaint of a fall. Patient states that he was sitting at a stool several days ago which she forgot there was no back to it leaned back and fell off the stool. Patient states he fell department to his left side complains of left-sided rib pain. Patient denies any head injury no loss conscious states it hurts to twist been taking deep inspiration. - Related Data Home Medications Medication Instructions Recorded Confirmed RX: Bicalutamide [Casodex] 50 mg PO DAILY 06/07/14 06/24/23 RX: Albuterol Sulfate [Proventil 2 puff INHALATION RT-Q4H PRN 02/23/20 06/24/23 Hfa] RX: Aspirin EC [Ecotrin Low Dose] 81 mg PO DAILY 02/23/20 06/24/23 RX: Ferrous Sulfate [Iron] 325 mg PO BID 05/06/20 06/24/23 RX: Oxybutynin ER [Ditropan XL] 15 mg PO HS 06/19/20 06/24/23 RX: Losartan Potassium [Cozaar] 25 mg PO DAILY 06/23/20 06/24/23 RX: Atorvastatin [Lipitor] 10 mg PO HS 01/16/21 06/24/23 RX: Lactobacillus Acidophilus 1 cap PO DAILY 01/16/21 06/24/23 [Acidophilus Probiotic] RX: traZODone HCL 100 mg PO HS PRN 01/16/21 06/24/23 RX: Loperamide HCl [Imodium A-D] 2 - 4 mg PO QID PRN MDD 6 TABS 06/24/23 06/24/23 RX: Mirabegron [Myrbetriq] 50 mg PO DIRECTED 06/24/23 06/24/23 RX: Temazepam [Restoril] 30 mg PO HS PRN 06/24/23 06/24/23 RX: Vitamin E (Dl,Tocopheryl Acet) 450 unit PO DAILY 06/24/23 06/24/23 [Vitamin E (1000 Iu = 450 MG)] Previous Rx's Medication Instructions Recorded RX: ALPRAZolam [Xanax] 0.25 mg PO BID PRN 7 Days #14 tab 06/24/20 RX: Acetaminophen Tab [Tylenol] 650 mg PO Q4H PRN #30 tablet 06/01/23 RX: Azithromycin [Zithromax Z Pack] 0 tab PO DIRECTED #6 tab 02/21/24 RX: traMADol HCl [Ultram] 50 mg PO Q6H PRN #20 tab 02/21/24 Allergies Allergy/AdvReac Type Severity Reaction Status Date / Time Iodinated Contrast Media Allergy Swelling Verified 02/21/24 09:52 [Iodinated Contrast Media - IV Dye] hydrocodone bitartrate AdvReac Nausea Verified 02/21/24 09:52 [From Vicodin] Review of Systems ROS Statement: Those systems with pertinent positive or pertinent negative responses have been documented in the HPI. ROS Other: All systems not noted in ROS Statement are negative. Past Medical History Past Medical History: Cancer, GERD/Reflux, Hyperlipidemia, Osteoarthritis (OA), Renal Disease Additional Past Medical History / Comment(s): Severe chronic back pain/stenosis, hx. L2/L3 compression fractures with kyphoplasties, bilateral sciatica, DJD, tingling in bilateral feet, bilateral leg weakness, prostate cancer with surgery/radiation, skin cancer removals, hiatal hernia, diverticular disease, benign colon polyps, anemia, nephrolithiasis/pt passed stones on his own. 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 Father Family Medical History: No Reported History Additional Family Medical History / Comment(s): Father was healthy. He lived to be 74 yrs old. General Exam Limitations: no limitations General appearance: alert, in no apparent distress Head exam: Present: atraumatic, normocephalic, normal inspection ENT exam: Present: normal exam, mucous membranes moist Neck exam: Present: normal inspection. Absent: tenderness, meningismus, lymphadenopathy Respiratory exam: Present: normal lung sounds bilaterally, chest wall tenderness. Absent: respiratory distress, wheezes, rales, rhonchi, stridor Cardiovascular Exam: Present: regular rate, normal rhythm, normal heart sounds. Absent: systolic murmur, diastolic murmur, rubs, gallop, clicks GI/Abdominal exam: Present: soft, normal bowel sounds. Absent: distended, tenderness, guarding, rebound, rigid Extremities exam: Present: normal inspection, full ROM, normal capillary refill. Absent: tenderness, pedal edema, joint swelling, calf tenderness Back exam: Present: full ROM, tenderness, paraspinal tenderness, vertebral tenderness Neurological exam: Present: alert, oriented X3, CN II-XII intact, reflexes normal. Absent: motor sensory deficit Course Vital Signs 02/21/24 02/21/24 09:50 12:30 Temperature 97.6 F 98.0 F Pulse Rate 54 L 49 L Respiratory 18 20 Rate Blood Pressure 157/76 191/79 O2 Sat by Pulse 95 95 Oximetry Medical Decision Making - Medical Decision Making Was pt. sent in by a medical professional or institution (, PA, [facility] [employer], urgent care, hospital, or intermediate...) When possible be specific @ -No Did you speak to anyone other than the patient for history (EMS, parent, family, police, friend...)? What history was obtained from this source @ -No Did you review nursing and triage notes (agree or disagree)? Why? @ -I reviewed and agree with nursing and triage notes Were old charts reviewed (outside hosp., previous admission, EMS record, old EKG, old radiological studies, urgent care reports/EKG's, intermediate records)? Report findings @ -No old charts were reviewed Differential Diagnosis (chest pain, altered mental status, abdominal pain women, abdominal pain men, vaginal bleeding, weakness, fever, dyspnea, syncope, headache, dizziness, GI bleed, back pain, seizure, CVA, palpatations, mental hea lth, musculoskeletal)? @ -Rib contusion, rib fracture, pneumothorax, pulmonary contusion EKG interpreted by me (3pts min.). @ -[None X-rays interpreted by me (1pt min.). @ -Rib is x-ray left showing possible 3 rib fractures, no pneumothorax X-ray lumbar spine degenerative changes noted no acute fracture CT interpreted by me (1pt min.). @ -CT of chest showing multiple rib fractures nondisplaced 349 and 10 with mildly displaced 5 through 8 rib fractures, small pleural effusion noted U/S interpreted by me (1pt. min.). @ -None done What testing was considered but not performed or refused? (CT, X-rays, U/S, labs)? Why? @ -None What meds were considered but not given or refused? Why? @ -None Did you discuss the management of the patient with other professionals (professionals i.e. , PA, [facility] [facility], lab, RT, psych nurse, social worker assistant, soft crab shedder, teacher, safety officer, bilingual case manager)? Give summary @ -No Was smoking cessation discussed for >3mins.? @ -No Was critical care preformed (if so, how long)? @ -No Were there social determinants of health that impacted care today? How? (Homelessness, low income, unemployed, alcoholism, drug addiction, transportation, low edu. Level, literacy, decrease access to med. care, snf, rehab)? @ -No Was there de-escalation of care discussed even if they declined (Discuss DNR or withdrawal of care, Hospice)? DNR status @ -No What co-morbidities impacted this encounter? (DM, HTN, Smoking, COPD, CAD, Cancer, CVA, ARF, Chemo, Hep., AIDS, mental health diagnosis, sleep apnea, morbid obesity)? @ -None Was patient admitted / discharged? Hospital course, mention meds given and route, prescriptions, significant lab abnormalities, going to OR and other pertinent info. @ -Discharge patient presented for fall several days ago patient was found to have multiple rib fracture without pneumothorax patient was offered admission patient states that he is not requiring much analgesics at this time and states he feels comfortable with discharge with incentive spirometer and he will return if symptoms worsen. Patient was given antibiotics for concerns of early changes Undiagnosed new problem with uncertain prognosis? @ -No Drug Therapy requiring intensive monitoring for toxicity (Heparin, Nitro, Insulin, Cardizem)? @ -No Were any procedures done? @ -No Diagnosis/symptom? @ -Multiple rib fractures left, fall Acute, or Chronic, or Acute on Chronic? @ -Acute Uncomplicated (without systemic symptoms) or Complicated (systemic symptoms)? @ -Complicated Side effects of treatment? @ -No Exacerbation, Progression, or Severe Exacerbation? @ -No Poses a threat to life or bodily function? How? (Chest pain, [place], [place], pneumonia, PE, COPD, DKA, ARF, appy, cholecystitis, CVA, Diverticulitis, Homicidal, Suicidal, threat to staff... and all critical care pts) @ -[Yes possible pneumonia, respiratory failure from rib fractures Disposition Clinical Impression: Fall, Multiple rib fractures Disposition: HOME SELF-CARE Condition: Stable Instructions (If sedation given, give patient instructions): Rib Fracture (ED) Additional Instructions: Please return to the Emergency Department if symptoms worsen or any other concerns. Prescriptions: RX: traMADol HCl [Ultram] 50 mg PO Q6H PRN #20 tab PRN Reason: Pain RX: Azithromycin [Zithromax Z Pack] 0 tab PO DIRECTED #6 tab Is patient prescribed a controlled substance at d/c from ED?: Yes When asked, does pt state using other controlled substances?: No If prescribed controlled substance>3 days was MAPS reviewed?: Yes If opioid is for acute pain is fill amount 7 days or less?: Yes If Rx opioid, was Start Talking consent form obtained?: Yes Referrals: Royce Young MD [Primary Care Provider] - 1-2 days Time of Disposition: 12:26
[2024-02-21 12:31] VITALS: BP 191/79; PULSE 49; RESP 20; TEMP 98
== END 2024-02-21 12:34 | disposition home or self-care (01) ==
LOC: EC 09:44
DX: S22.42XA Multiple fractures of ribs, left side, initial encounter for closed fracture (principal); M54.6 Pain in thoracic spine; Z88.5 Allergy status to narcotic agent; Z91.041 Radiographic dye allergy status; W08.XXXA Fall from other furniture, initial encounter
CPT/HCPCS: 71250; 72100; 99284